=== PATIENT | male | born 1955 | race Caucasian/White ===

== ENCOUNTER 2016-07-30 10:03 | Inpatient (IN) | payer OTHER ==
[~2016-07-30] VITALS: Ht 162.6 cm; Wt 68.0 kg
[~2016-07-30 10:03] MED LIST: ACETYLCYST200 MG/1 M HHN; ACIDOPHILUS1 EAC6 GT; ALBUTEROL2.5 MG/3 M INH; ASCORBIC ACID500 MG GT; ATIVAN1 MG ORAL; COLACE100 MG GT; DOUNEB HHN; FAMOTIDINE20 MG GT; FERROUS SULFAT325 MG GT; HEPARIN2000 UNIT/ SUBQ; LEVOTHYROXINE125 MCG GT; LEVOTHYROXINE150 MCG ORAL; LORAZEPAM2 MG ORAL; MIDODRINE HCL2.5 MG ORAL; MILK OF MA400 MG/51 GT; MORPHINE 22 MG/1 ML IV; MULTIVITAMINS1 EA13 GT; NORCO 5-325 TA1 EAC1 ORAL; NOVOLOG100 UNIT/5; POLYETHYLENE GL17 GM ORAL; PROTEIN POWDER454 GM GT; REFRESH CLASSI1 EACH OP; REGLAN10 MG GT; TYLENOL325 MG GT; UTI-STAT L3875 MG/31 GT; VANCOCIN250 MG IV DRIP; VANCOMYCIN HCL125 MG PO; VANCOMYCIN1 GM/2502 IVPB; ZANTAC150 MG IVP; ZINC SULFATE220 M1 GT; ZOFRAN 4 MG4 MG/2 ML IV
[2016-07-30 10:47] LABS: MEAN CORPUSCULAR HEMOGLOBIN 29.8 PG (27.0-31.0); MEAN CORPUSCULAR HGB CONC 30.6 G/DL (32.0-36.0); MEAN CORPUSCULAR VOLUME 97 FL (80-99); MEAN PLATELET VOLUME 5.6 FL (6.5-10.1); PLATELET COUNT 649 K/UL (150-450); RED BLOOD COUNT 3.16 M/UL (4.70-6.10); RED CELL DISTRIBUTION WIDTH 19.2 % (11.6-14.8)
[2016-07-30 11:00] VITALS: BP 73/50
[2016-07-30 11:01] LABS: ALANINE AMINOTRANSFERASE 23 U/L (3-41); ALBUMIN/GLOBULIN RATIO 0.6 (1.0-2.7); ANION GAP 12 (5-15); ASPARTATE AMINO TRANSFERASE 34 U/L (5-40); CALCIUM 9.1 mg/dL (8.6-10.2); CARBON DIOXIDE 25 mEQ/L (20-30); CHLORIDE 102 mEQ/L (98-107); CREATININE 0.7 mg/dL (0.7-1.2); GLOMERULAR FILTRATION RATE > 60 mL/min (>60); HEMOLYSIS 10; LIPASE 28 U/L (< 60); POTASSIUM 5.1 mEQ/L (3.4-4.9); SODIUM 139 mEQ/L (135-145); TOTAL PROTEIN 6.4 g/dL (6.6-8.7)
[2016-07-30 11:02] LABS: TROPONIN I < 0.30 ng/mL (<=0.30)
[2016-07-30 11:03] LABS: INR 1.2 (0.9-1.1); PROTHROMBIN TIME 11.8 SEC (9.30-11.50)
[2016-07-30 11:04] LABS: APPEARANCE,URINE CLEAR; KETONES,URINE NEGATIVE (NEGATIVE); NITRITE,URINE NEGATIVE (NEGATIVE); PH,URINE 5 (4.5-8.0); PROTEIN,URINE 1+ (NEGATIVE); UROBILINOGEN,URINE NORMAL MG/DL (0.0-1.0)
[2016-07-30 11:05] LABS: BACTERIA,URINE OCCASIONAL /HPF; LEUKOCYTE ESTERASE ,URINE NEGATIVE (NEGATIVE); RBC,URINE 0-2 /HPF (0 - 0); SQUAMOUS EPITHELIAL CELL,UR OCCASIONAL /LPF (NONE/OCC)
[2016-07-30 11:12] LABS: CKMB < 1.5 ng/mL (< 6.7)
[2016-07-30 11:21] LABS: LYMPHOCYTES % (MANUAL) 10 % (20-45); NEUTROPHILS % (MANUAL) 78 % (45-75); TOTAL CELLS COUNTED 100
[2016-07-30 11:22] LABS: BAND NEUTROPHILS % (MANUAL) 0 % (0-8); BASOPHILS % (MANUAL) 0 % (0-2); EOSINOPHILS % (MANUAL) 0 % (0-3); PLATELET ESTIMATE INCREASED; PLATELET MORPHOLOGY NORMAL
[2016-07-30 11:23] LABS: ANISOCYTOSIS 2+; HYPOCHROMASIA 2+
[2016-07-30] MEDS ORDERED: Aztreonam Inj 1 GM in NS 50 ML IV ONE (11:30)
[2016-07-30] MEDS ORDERED: PRO-STAT MAX L887 ML GT (11:47)
[2016-07-30] MEDS ORDERED: MIDODRINE HCL5 MG GT (11:48)
[2016-07-30] MEDS ORDERED: EPOGEN20000 UNI1 SUBQ (11:48)
[2016-07-30 12:15] VITALS: BP 93/65
--- NOTE | 2016-07-30 12:35 | Diagnostic Imaging Report ---
Indications: Chest pain Technique: Portable AP chest Findings: Comparison: 06/30/16 Cardiomegaly, bilateral mixed interstitial and alveolar opacities, probable bilateral pleural effusions are unchanged. Tracheostomy tube remains in place. No new abnormality identified. IMPRESSION: Findings most compatible with congestive heart failure with bilateral pleural effusions, persistent versus recurrent since previous exam. Underlying pneumonia not excludable.
--- NOTE | 2016-07-30 12:43 | Emergency Room Report ---
History of Present Illness General Chief Complaint: Abnormal Labs Source: Family Member, EMS Present Illness HPI Patient presents from nursing facility with fever Patient was here recently with pneumonia Patient is chronically debilitated tracheostomy with vent dependence There was no reports of vomiting or diarrhea patient himself is nonverbal This does limit the history of present illness significantly Patient's family member however is here to provide some input Allergies: Coded Allergies: PENICILLINS (Verified Allergy, Unknown, 04/19/16) Patient History Limited by: medical condition Past Medical History: see triage record Pertinent Family History: unable to obtain Reviewed Nursing Documentation: PMH: Agreed, PSxH: Agreed Nursing Documentation-PMH Hx Cardiac Problems: Yes Hx Hypertension: No Hx Pacemaker: No Hx Asthma: No Hx Diabetes: Yes Hx Cancer: No Hx Dialysis: No Hx Neurological Problems: No Hx Seizures: No Hx Aphasia: Yes Hx Dysphasia: Yes Hx Weakness: Yes Hx Neurologic Surgery: Yes - glioblastoma multiforme s/p resection Review of Systems All Other Systems: limited - Other than the ones mentioned in the history of present illness all others are reviewed however they do stay limited due to the patient's mental status Physical Exam Vital Signs Date Time Temp Pulse Resp B/P Pulse Ox O2 Delivery O2 Flow Rate FiO2 07/30/16 10:04 100.0 110 18 90/50 Mechanical Ventilator 07/30/16 10:12 40 07/30/16 11:00 99 Sp02 EP Interpretation: reviewed, normal General Appearance: other - Patient looks ill, chronically debilitated Head: normocephalic, atraumatic Eyes: bilateral eye PERRL ENT: normal pharynx, no angioedema Neck: supple Respiratory: crackles - Diffusely with decreased breath sounds are right Cardiovascular #1: regular rate, rhythm Gastrointestinal: soft Musculoskeletal: other - Patient is flexed has extremity is contracted, does not follow commands Neurologic: other - Patient responds to verbal stimuli, but nonverbal does not follow commands Skin: other - Multiple skin breakdowns including decubitus ulcers also briefed on the patient's back, Lymphatic: no adenopathy Procedures Critical Care Time Critical Care Time 45 minutes for initial critical presentation Multiple hypotensive episodes concern for cardiopulmonary arrest Not including any procedural time Medical Decision Making Diagnostic Impression: Primary Impression: Sepsis Additional Impressions: Pneumonia CHF (congestive heart failure) ER Course Patient is a fairly complex patient with multiple differential to consideration including but not limited to cardiac cardiopulmonary and vascular emergencies Patient's x-ray shows worsening findings compared to previous Patient initially had hypotensive episode Was given further IV hydration As the patient is tracheostomy with that dependence IV bolus was given with consideration of CHF as it was felt important given the hypotensive presentation Patient has responded well Outpatient antibiotic provided patient admitted for further care Labs Test 07/30/16 10:20 07/30/16 16:05 07/31/16 03:45 White Blood Count 18.0 K/UL (4.8-10.8) 17.6 K/UL (4.8-10.8) Red Blood Count 3.16 M/UL (4.70-6.10) 2.85 M/UL (4.70-6.10) Hemoglobin 9.4 G/DL (14.2-18.0) 8.6 G/DL (14.2-18.0) Hematocrit 30.7 % (42.0-52.0) 27.4 % (42.0-52.0) Mean Corpuscular Volume 97 FL (80-99) 96 FL (80-99) Mean Corpuscular Hemoglobin 29.8 PG (27.0-31.0) 30.1 PG (27.0-31.0) Mean Corpuscular Hemoglobin Concent 30.6 G/DL (32.0-36.0) 31.4 G/DL (32.0-36.0) Red Cell Distribution Width 19.2 % (11.6-14.8) 18.7 % (11.6-14.8) Platelet Count 649 K/UL (150-450) 653 K/UL (150-450) Mean Platelet Volume 5.6 FL (6.5-10.1) 5.5 FL (6.5-10.1) Neutrophils (%) (Auto) % (45.0-75.0) 70.3 % (45.0-75.0) Lymphocytes (%) (Auto) % (20.0-45.0) 19.5 % (20.0-45.0) Monocytes (%) (Auto) % (1.0-10.0) 9.6 % (1.0-10.0) Eosinophils (%) (Auto) % (0.0-3.0) 0.1 % (0.0-3.0) Basophils (%) (Auto) % (0.0-2.0) 0.4 % (0.0-2.0) Differential Total Cells Counted 100 Neutrophils % (Manual) 78 % (45-75) Lymphocytes % (Manual) 10 % (20-45) Monocytes % (Manual) 12 % (1-10) Eosinophils % (Manual) 0 % (0-3) Basophils % (Manual) 0 % (0-2) Band Neutrophils 0 % (0-8) Platelet Estimate Increased Platelet Morphology Normal Hypochromasia 2+ Anisocytosis 2+ Prothrombin Time 11.8 SEC (9.30-11.50) Prothromb Time International Ratio 1.2 (0.9-1.1) Activated Partial Thromboplast Time 25 SEC (23-33) Urine Color Yellow Urine Appearance Clear Urine pH 5 (4.5-8.0) Urine Specific [place] 1.015 (1.005-1.035) Urine Protein 1+ (NEGATIVE) Urine Glucose (UA) Negative (NEGATIVE) Urine Ketones Negative (NEGATIVE) Urine Occult Blood 1+ (NEGATIVE) Urine Nitrite Negative (NEGATIVE) Urine Bilirubin Negative (NEGATIVE) Urine Urobilinogen Normal MG/DL (0.0-1.0) Urine Leukocyte Esterase Negative (NEGATIVE) Urine RBC 0-2 /HPF (0 - 0) Urine WBC 2-4 /HPF (0 - 0) Urine Squamous Epithelial Cells Occasional /LPF Urine Bacteria Occasional /HPF (NONE) Sodium Level 139 mEQ/L (135-145) 139 mEQ/L (135-145) Potassium Level 5.1 mEQ/L (3.4-4.9) 4.5 mEQ/L (3.4-4.9) Chloride Level 102 mEQ/L (98-107) 100 mEQ/L (98-107) Carbon Dioxide Level 25 mEQ/L (20-30) 23 mEQ/L (20-30) Anion Gap 12 (5-15) 16 (5-15) Blood Urea Nitrogen 46 mg/dL (7-23) 34 mg/dL (7-23) Creatinine 0.7 mg/dL (0.7-1.2) 0.5 mg/dL (0.7-1.2) Estimat Glomerular Filtration Rate > 60 mL/min (>60) > 60 mL/min (>60) Glucose Level 130 mg/dL (74-106) 90 mg/dL (74-106) Lactic Acid Level 1.20 mmol/L (0.66-2.22) Calcium Level 9.1 mg/dL (8.6-10.2) 8.6 mg/dL (8.6-10.2) Total Bilirubin 0.3 mg/dL (0.0-1.2) Aspartate Amino Transf (AST/SGOT) 34 U/L (5-40) Alanine Aminotransferase (ALT/SGPT) 23 U/L (3-41) Alkaline Phosphatase 1694 U/L (40-129) Total Creatine Kinase 19 U/L (38-174) Creatine Kinase MB < 1.5 ng/mL (< 6.7) Creatine Kinase MB Relative Index Troponin I < 0.30 ng/mL (<=0.30) Pro-B-Type Natriuretic Peptide 282 pg/mL (0-125) Total Protein 6.4 g/dL (6.6-8.7) Albumin 2.4 g/dL (3.5-5.2) Globulin 4.0 g/dL Albumin/Globulin Ratio 0.6 (1.0-2.7) Lipase 28 U/L (< 60) Arterial Blood pH 7.448 (7.350-7.450) Arterial Blood Partial Pressure CO2 37.9 mmHg (35.0-45.0) Arterial Blood Partial Pressure O2 115.9 mmHg (75.0-100.0) Arterial Blood HCO3 25.6 mmol/L (22.0-26.0) Arterial Blood Oxygen Saturation 98.1 % (92.0-98.0) Arterial Blood Base Excess 1.6 Emmanuel Test Positive Rhythm Strip Diag. Results EP Interpretation: yes Rate: 77 Rhythm: NSR, no PVC's, no ectopy, other - Nonspecific ST and T-wave changes Chest X-Ray Diagnostic Results EP Interpretation: Yes Findings: no pneumothorax, other - Worsening right upper lobe markings congestion and general, cardiomegaly Number of Views: 1 Last Vital Signs Date Time Temp Pulse Resp B/P Pulse Ox O2 Delivery O2 Flow Rate FiO2 07/30/16 12:23 94 20 93/65 40 Room Air 07/30/16 12:15 100.5 40 Status: improved Disposition: ADMITTED INPATIENT Condition: Critical Referrals: JAKUB MORALES (PCP) RUI NOEL D.O. Jul 30, 2016 12:43
[2016-07-30 13:35] VITALS: BP 91/58
[2016-07-30] MEDS ORDERED: LORazepam 1mg tab ORAL PRN (15:00)
[2016-07-30] MEDS ORDERED: Norco 5mg/325mg tab ORAL PRN (15:00)
[2016-07-30] MEDS ORDERED: DuoNeb 0.5-3(2.5)mg/3ml neb HHN PRN (15:00)
[2016-07-30] MEDS ORDERED: LORazepam Inj 2mg/ml 1ml IV PRN (15:45)
[2016-07-30 16:00] VITALS: BP 93/53
[2016-07-30 16:23] LABS: ABG ALLEN TEST POSITIVE; ABG BASE EXCESS 1.6; ABG PCO2 37.9 mmHg (35.0-45.0)
[2016-07-30] MEDS ORDERED: NovoLOG Insulin Flexpen SUBQ SCH ×3 (16:30→18:00)
[2016-07-30] MEDS ORDERED: Heparin 2000 units/Ns 1000ml INJ SCH (18:00)
[2016-07-30] MEDS: NovoLOG Insulin Flexpen SUBQ SCH (18:00)
[2016-07-30] MEDS ORDERED: Vancomycin 1250mg/D5W 250ml IVPB ONE ×2 (19:00)
[2016-07-30 20:00] VITALS: BP 93/49
[2016-07-30] MEDS: Lactobacillus-GG tablet GT SCH (20:28)
[2016-07-30] MEDS: [UNRECOGNIZED DRUG - OTHER] IVPB SCH ×2 (20:29)
[2016-07-30] MEDS: AZTREONAM IVPB SCH ×2 (20:29)
[2016-07-30] MEDS: Heparin 5000 units/ml inj SUBQ SCH (22:15)
--- NOTE | 2016-07-30 22:19 | Consultation ---
Consult Note Assessment/Plan PCCM DICTATED DEON PARK M.D. Jul 30, 2016 22:19
[2016-07-30 23:50] VITALS: BP 120/57
[2016-07-31] MEDS: [UNRECOGNIZED DRUG - OTHER] IVPB SCH ×6 (02:35→18:34)
[2016-07-31] MEDS: AZTREONAM IVPB SCH ×6 (02:35→18:34)
--- NOTE | 2016-07-31 03:28 | Consultation ---
DATE OF CONSULTATION: 07/30/2016 PULMONARY CONSULTATION: CONSULTING PHYSICIAN: Ben Eid M.D. REASON FOR CONSULTATION: Respiratory failure and ventilator dependent. HISTORY OF PRESENT ILLNESS: The patient is a very unfortunate 60-year-old male with a history of glioblastoma, multiform with prior cardiac arrest and anoxic brain injury with chronic respiratory failure on tracheostomy and ventilator, [facility] with sepsis and likely pneumonia. The patient presented to the ED, brought in by EMS with vague complaints, noted to be hypotensive with white count of 18 and possible infiltrate on chest x-ray. He is being admitted to the [facility] for further management. The patient is unable to provide any history whatsoever chest x-ray in the emergency department demonstrated chronic elevation of the right hemidiaphragm with possible basilar infiltrate. PAST MEDICAL HISTORY: 1. Glioblastoma multiforme. 2. Anoxic brain injury. 3. History of cardiac arrest x2 in the past. 4. Ventilator-dependent respiratory failure. 5. Dysphagia and G-tube. 6. Functional quadriplegia. 7. Hypothyroidism. 8. shelter resident. ALLERGIES: Penicillin. MEDICATIONS: Prior to admission, medications reviewed. SOCIAL HISTORY: shelter resident. FAMILY HISTORY: Noncontributory. REVIEW OF SYSTEMS: Unobtainable other than the history of present illness. PHYSICAL EXAMINATION: VITAL SIGNS: Temperature is 100.5 degrees, blood pressure 91/50, saturating 98% on 40% FiO2 on the vent, and pulse is 93. GENERAL: Nonverbal contracted male in no acute distress. HEENT: Normocephalic and atraumatic. Dry mucous membranes. NECK: Supple without lymphadenopathy. There is no JVP. CHEST: Scattered coarse breath sounds at bases. HEART: Regular rate and rhythm. NECK: Trachea is clean, dry, and intact. ABDOMEN: G-tube is clean, dry, and intact. Soft, nontender, and nondistended. EXTREMITIES: No cyanosis, clubbing, or edema, as stated, there is loss of contractures. LABORATORY AND DIAGNOSTIC DATA: White count is 18, hemoglobin 9.4, and platelet count 649,000. INR is 1.2. Chemistry, sodium is 139, potassium 5.1, chloride 92, bicarbonate 25, BUN 46, creatinine 0.7, glucose 130, lactic acid 1.2, calcium 9.1, total bilirubin 0.3, AST 34, ALT 23, and alkaline phosphatase 1694. CK is 19 and CK-MB less than 1.5. Troponin is negative. BNP is 282, protein 6.4, albumin 6.4, and globulin 4. Urinalysis 1+ blood, 1+ protein, and occasional bacteria. Chest x-ray, bibasilar infiltrates and elevation of right hemidiaphragm. ASSESSMENT: The patient is a 60-year-old male, prison resident with ventilator-dependent respiratory failure and anoxic brain injury, history of glioblastoma, and prior cardiac arrest, functional quadriplegia, and dysphagia status post G-tube presenting with sepsis likely secondary to the pneumonia. PROBLEMS: 1. Sepsis. 2. Aspiration pneumonia. 3. Acute on chronic respiratory failure, status post tracheostomy on the ventilator. 4. History of recurrent urinary tract infection and polymicrobial infection. 5. History of glioblastoma multiforme. 6. Anoxic brain injury. 7. History of cardiac arrest in the past. 8. Abnormal liver functions tests. 9. Hypothyroidism. 10. Functional quadriplegia. 11. The patient is a Full Code. TREATMENT PLAN: 1. Admit to [facility]. 2. Continue ventilatory support. 3. We will check an ABG and adjust settings and for now we will continue the patient on the same settings. 4. Thnzl-vuh-edxne and p.r.n. bronchodilators. 5. Continue aztreonam, Levaquin, and vancomycin for H in the setting of penicillin allergy. 6. Intravenous fluid hydration. 7. Monitor volumes. 8. Cardiology and Infectious Disease evaluation. 9. Deep venous thrombosis prophylaxis, heparin subcutaneous. 10. Continue tube feeds as tolerated. 11. Prognosis is poor. Need to continue to address goals of care. Ben Eid M.D. DR: Yamileth JOB#: [id number] CC:
[2016-07-31 04:17] VITALS: BP 104/72
[2016-07-31 05:37] LABS: BASOPHILS % (AUTO) 0.4 % (0.0-2.0); EOSINOPHILS % (AUTO) 0.1 % (0.0-3.0); LYMPHOCYTES % (AUTO) 19.5 % (20.0-45.0); MEAN CORPUSCULAR HEMOGLOBIN 30.1 PG (27.0-31.0); MEAN CORPUSCULAR HGB CONC 31.4 G/DL (32.0-36.0); MEAN CORPUSCULAR VOLUME 96 FL (80-99); MEAN PLATELET VOLUME 5.5 FL (6.5-10.1); MONOCYTES % (AUTO) 9.6 % (1.0-10.0); NEUTROPHILS % (AUTO) 70.3 % (45.0-75.0); PLATELET COUNT 653 K/UL (150-450); RED BLOOD COUNT 2.85 M/UL (4.70-6.10); RED CELL DISTRIBUTION WIDTH 18.7 % (11.6-14.8); WHITE BLOOD COUNT 17.6 K/UL (4.8-10.8)
[2016-07-31] MEDS: NovoLOG Insulin Flexpen SUBQ SCH ×4 (06:00→18:00)
[2016-07-31 06:03] LABS: ANION GAP 16 (5-15); CALCIUM 8.6 mg/dL (8.6-10.2); CARBON DIOXIDE 23 mEQ/L (20-30); CHLORIDE 100 mEQ/L (98-107); CREATININE 0.5 mg/dL (0.7-1.2); GLOMERULAR FILTRATION RATE > 60 mL/min (>60); HEMOLYSIS 0; POTASSIUM 4.5 mEQ/L (3.4-4.9); SODIUM 139 mEQ/L (135-145)
[2016-07-31] MEDS: Vancomycin 750mg/D5W 250ml IVPB SCH ×4 (06:23→18:33)
[2016-07-31 08:00] VITALS: BP 90/56
--- NOTE | 2016-07-31 08:30 | Consultation ---
Consult Note Consult Note ID CONSULT: Lizzie# [id number] Assessment/Plan MICRO: 07/30 BCx pending 07/30 UCx pending / UA(-) 07/30 SCx pending 06/30 Back WCx MDR-K.pneumoniae, VRE.faecalis, CONS, C.albicans 06/28 BCx CONS 1/4 06/29 SCx qI-PSA, P.stuartii 06/26 Back WCx MDR-K.pneumoniae, MDR-ACB 06/17 SCx ESBL(+) K.pneumoniae, qS-PSA, S.maltophilia 06/11 BCx(-) 06/11 UCx >100K E.coli 05/12 Cath tip <10K CONS 05/11 BCx(-) 05/09 BCx CONS 09/20 ( single stick ) 05/09 UCx qR-K.pneumoniae 04/22 SCx qI-PSA 04/19 BCx CONS 10/18 ASSESSMENT: 60-year-old male with: // Multiple decubiti POA, suspect infected - seen by plastics 06/2016, did not recommend debridement at that time - Bone scan 07/01: Limited, essentially nondiagnostic exam. No gross findings to suggest acute osteomyelitis - h/o MDR-K.pneumoniae, VRE.faecalis, CONS, C.albicans // h/o recurrent CONS bacteremia r/o recurrence - surveillance BCx pending - h/o recurrent CONS 2/4 (05/09) SP IV vanco x28d - h/o CONS 3/4 (04/19 ) SP Rx IV vanco x7d - TTE 05/11: poorly visualized valves, poor candidate MARIA C - h/o CONS cath tip colonization ( <10K ) // h/o recurrent PNAs ( VAP / HCAP ) r/o recurrence - SCx pending - CXR 07/30: Findings most compatible with congestive heart failure with bilateral pleural effusions, persistent versus recurrent since previous exam. - h/o qI,S-PSA, P.stuartii, ESBL(+) K.pneumoniae, S.maltophilia // h/o recurrent UTIs r/o recurrence - repeat UA benign, UCx pending - US: Mild left hydronephrosis, new since prior study of 04/21/2016. Etiology not demonstrated but concerning for downstream obstruction - h/o E.coli, K.pneumoniae SP Rx // Elevated LFTs, GGT - chronic, stable - US: Equivocally visualized stone filled gallbladder, versus shadowing from duodenal gas. Mildly dilated CBD, downstream obstruction not excludable, repeat pending - negative: AMA, hepatitis panel // Probable recurrent sepsis // Chronic hypotension, on midodrine // Leukocytosis - improved // Low grade fever Chronic VDRF SP trach, PEG Anoxic encephalopathy / dementia History of glioblastoma multiforme Thrombocytosis Chronic macrocytic anemia Functional quadriplegia / bedbound / contracted [place] resident VRE colonized PCN allergy - unable to qualify. Tolerates cefepime, meropenem Full Code PLAN: continue IV vancomycin, levaquin, aztreonam d# 2 pending cultures ( 07/05 SP IV vancomycin, aztreonam d# 7 / 7 ) ( 06/26 SP Merrem d# 6, cefepime d# 14 ) ( SP IV vancomycin, d# 6 and flagyl d# 3 ) ( SP IV vancomycin d# 28 / 28 ( 05/13 SP aztreonam, amikacin d# 5 / 5 ) ( 05/02 SP aztreonam d# 14 / 14 ) ( 04/25 SP vancomycin d# 7 / 7 ) plastics eval for wound debridement f/u cultures Monitor CBC, temperatures Monitor CMP Monitor chest x-ray vent support, trach care, aspiration precautions wound care contact isolation Thanks! Will follow [place] Jul 31, 2016 08:30
[2016-07-31] MEDS: Miralax 17gm pkt ORAL SCH (09:20)
[2016-07-31] MEDS: Lactobacillus-GG tablet GT SCH ×2 (09:20→18:34)
[2016-07-31] MEDS: Famotidine 20 MG/ 2ML VIAL IVP SCH (09:20)
[2016-07-31] MEDS: Heparin 5000 units/ml inj SUBQ SCH ×2 (09:21→20:59)
--- NOTE | 2016-07-31 11:07 | Consultation ---
DATE OF CONSULTATION: INFECTIOUS DISEASE CONSULTATION CONSULTING PHYSICIAN: Davey Conway M.D. REQUESTING PHYSICIAN: Cherry Wei M.D. REASON FOR CONSULTATION: Recurrent sepsis. HISTORY OF PRESENT ILLNESS: This is a 60-year-old male with multiple medical problems and recurrent multi-drug resistant infections and frequent hospital readmissions admitted from a skilled nursing on 07/30/2016 with fevers. He meets sepsis criteria. Urinalysis is benign. Chest x-ray shows probable CHF more than pneumonia and galo cultures are pending. He does have multiple large decubitus present on admission that are probably infected. He has been started on empiric vancomycin, aztreonam and Levaquin and ID is now consulted to assist in management. PAST MEDICAL HISTORY: 1. Anoxic encephalopathy and dementia. 2. History of glioblastoma multiforme. 3. Functional quadriplegia and bedbound and contracted. 4. Stage IV decubitus ulcers with multi-drug resistant organism and colonization. 5. Chronic ventilator-dependent respiratory failure. 6. Chronic microcytic anemia. 7. Chronic alkaline phosphatase elevation. 8. History of recurrent pneumonias with multi-drug resistant organisms. 9. History of recurrent UTIs with multi-drug resistant organisms. 10. History of recurrent coagulase-negative staph bacteremias. PAST SURGICAL HISTORY: 1. Tracheostomy. 2. PEG tube placement. MEDICATIONS: 1. Vancomycin. 2. Aztreonam. 3. Levaquin. 4. Synthroid. 5. Famotidine. 6. Subcutaneous heparin. 7. Midodrine. ALLERGIES: Penicillin, however has tolerated cefepime and meropenem in the past. SOCIAL HISTORY: The patient is a resident of a skilled nursing. No active tobacco, alcohol, or illicit drug abuse. FAMILY HISTORY: Unknown. REVIEW OF SYSTEMS: Unable to obtain. PHYSICAL EXAMINATION: GENERAL: No apparent distress on the ventilator. VITAL SIGNS: Maximum temperature a 100.5 degrees, blood pressure 104/72, heart rate 107, respiratory rate 22, and saturating 100% on 40% FiO2. HEENT: Tracheostomy tube in place. CARDIOVASCULAR: Regular rate and rhythm. No murmurs. PULMONARY: Coarse breath sounds bilaterally. ABDOMINAL: Bowel sounds present. Soft, nondistended, nontender. PEG tube in place. EXTREMITIES: No edema, and contracted. SKIN: Stage IV sacral decubitus ulcers x2. LABORATORY AND DIAGNOSTIC DATA: White blood cell count 17.6, decreased from 18 with left shift, hemoglobin 8.6, and platelets 653,000. Sodium 139, potassium 4.5, chloride 100, bicarbonate 23, BUN 34, and creatinine 0.5. Lactic acid 1.2. AST 34, ALT 23, and alkaline phosphatase 1694. Total bilirubin 0.38. Troponin negative x1. Lipase 28. Urinalysis, negative. MICROBIOLOGY: 1. On 07/30/2016, blood culture pending. 2. On 07/30/2016, sputum culture pending. 3. On 07/30/2016, urine culture pending. IMAGIN. On 07/30/2016, chest x-ray most compatible with CHF with bilateral pleural effusions with recurrence since previous examination. ASSESSMENT: 1. Multiple decubitus present on admission, suspect infected. The patient was evaluated by plastic surgery last month and did not recommend debridement at this time. A bone scan last month was essentially nondiagnostic. No gross findings to suggest osteomyelitis. He has a history of growth of multi-drug resistant Klebsiella pneumonia and vancomycin-resistant Enterococcus, coag negative staph and Dagmar albicans. 2. History of recurrent coagulase-negative staph bacteremias, rule out recurrence. Surveillance blood cultures are pending. 3. History of recurrent pneumonias, rule out recurrence. Sputum culture is pending. Chest x-ray shows probable congestive heart failure with pneumonia. He has a history of growth of multi-drug resistant organisms. 4. History of recurrent urinary tract infections, rule out recurrence. Repeat urinalysis is benign and urine culture is pending. 5. History of growth of Escherichia coli and Klebsiella pneumoniae. 6. Chronically elevated liver function tests. Abdominal ultrasound is pending. Negative antimitochondrial antibody and hepatitis panel previously. 7. Probable recurrent sepsis. 8. Chronic hypotension, on midodrine. 9. Leukocytosis, improved. 10. Low-grade fever. 11. Chronic microcytic anemia. 12. Chronic ventilator-dependent respiratory failure, status post tracheostomy and percutaneous endoscopic gastrostomy. 13. Anoxic encephalopathy and dementia. 14. History of glioblastoma multiforme. 15. Thrombocytosis. 16. Chronic microcytic anemia. 17. Functional quadriplegia/bed-bound/contracted. 18. [facility] resident. 19. Vancomycin-resistant Enterococcus colonized. 20. Penicillin allergy, however, tolerates cefepime and meropenem. 21. Full Code. PLAN: 1. Continue IV vancomycin, Levaquin and aztreonam day . 2. Pending cultures. 3. Recommend plastics evaluation for wound debridement. 4. Follow up cultures. 5. Monitor CBC and temperatures. 6. Monitor CMP. 7. Monitor chest x-ray. 8. Ventilator support tracheostomy care and aspiration precautions. 9. Wound care. 10. Contact isolation. Thank you. We will follow. Davey Conway M.D. DR: Maren JOB#: [id number] CC: Cherry Wei M.D.; Fax#: [phone] Cruz M.D; Fax#: [phone]
--- NOTE | 2016-07-31 11:51 | Wound Care Consultation ---
Wound Assessment Wound Assessment #1: Wound Present on Admission: Yes New Wound: No Status Change of Wound: No Wound Location Body Site Modif: mid, posterior Wound Location Body Site: other - spinous process Wound Type: pressure ulcer Rashawn Test: Does not Rashawn Pressure Ulcer Stage: IV/unstageable Wound Thickness: Full Thickness Wound Length: 8.0 Wound Width: 8.5 Wound Depth: 3.0 Percent of Wound [place]/Red: 50 Percent of Wound Bed Yellow/Wh: 50 Wound Drainage Description: Serosanguineous Wound Drainage Amount: Copious Wound Drainage Odor: None/Absent Tissue Surrounding Wound: Macerated Wound Undermining at 12:00: 4.5 Wound Undermining at 6:00: 2.5 Undermining Location: 12,6 Wound General Appearance: Reddened, Draining, Necrotic - 50% wound bed is covered in slough., Bone Palpable Wound Assessment #2: Wound Number: #2 Wound Present on Admission: Yes New Wound: No Status Change of Wound: No Wound Location Body Site Modif: left Wound Location Body Site: trochanter Wound Type: pressure ulcer Rashawn Test: Does not Rashawn Pressure Ulcer Stage: IV/unstageable Wound Thickness: Full Thickness Wound Length: 12.0 Wound Width: 12.0 Wound Depth: utd Percent of Wound Black/Brown: 100 Wound Drainage Description: Serosanguineous Wound Drainage Amount: Moderate Wound Drainage Odor: None/Absent Tissue Surrounding Wound: Macerated Wound General Appearance: Blackened, Draining, Necrotic Wound Assessment #3: Wound Number: #3 Wound Present on Admission: Yes New Wound: No Status Change of Wound: No Wound Location Body Site Modif: left, lateral Wound Location Body Site: malleolus/ankle Wound Type: pressure ulcer Rashawn Test: Does not Rashawn Pressure Ulcer Stage: deep tissue injury Wound Thickness: Full Thickness Wound Length: 1.5 Wound Width: 1.5 Wound Depth: UTD Percent of Wound [place]/Red: 50 Percent of Wound Purple/Maroon: 50 Wound Drainage Amount: None Wound Drainage Odor: None/Absent Tissue Surrounding Wound: Erythemic Wound General Appearance: Reddened - 50% dark red,50% maroon . Wound Assessment #4: Wound Number: #4 Wound Present on Admission: Yes New Wound: No Status Change of Wound: No Wound Location Body Site Modif: left, mid, lateral Wound Location Body Site: foot Wound Type: pressure ulcer Rashawn Test: Does not Rashawn Pressure Ulcer Stage: deep tissue injury Wound Thickness: Full Thickness Wound Length: 1.0 Wound Width: 1.0 Wound Depth: UTD Percent of Wound Purple/Maroon: 100 Wound Drainage Amount: None Wound Drainage Odor: None/Absent Tissue Surrounding Wound: Erythemic Wound General Appearance: Reddened Wound Assessment #5: Wound Number: #5 Wound Present on Admission: Yes New Wound: No Status Change of Wound: No Wound Location Body Site Modif: left Wound Location Body Site: metatarsal head - 5th Wound Type: pressure ulcer Rashawn Test: Does not Rashawn Pressure Ulcer Stage: deep tissue injury Wound Thickness: Full Thickness Wound Length: 2.0 Wound Width: 1.5 Percent of Wound [place]/Red: 50 Percent of Wound Purple/Maroon: 50 Wound Drainage Amount: None Wound Drainage Odor: None/Absent Tissue Surrounding Wound: Erythemic Wound General Appearance: Reddened Wound Assessment #6: Wound Number: #6 Wound Present on Admission: Yes New Wound: No Status Change of Wound: No Wound Location Body Site Modif: left Wound Location Body Site: ischial tuberosity Wound Type: pressure ulcer Rashawn Test: Does not Rashawn Pressure Ulcer Stage: deep tissue injury Wound Thickness: Full Thickness Wound Length: 4.0 Wound Width: 4.0 Wound Depth: utd Percent of Wound Purple/Maroon: 100 Wound Drainage Amount: None Wound Drainage Odor: None/Absent Tissue Surrounding Wound: Erythemic Wound General Appearance: Reddened Wound Assessment #7: Wound Number: #7 Wound Present on Admission: Yes New Wound: No Status Change of Wound: No Wound Location Body Site Modif: right Wound Location Body Site: trochanter Wound Type: pressure ulcer Rashawn Test: Does not Rashawn Pressure Ulcer Stage: I Wound Length: 3.0 Wound Width: 3.0 Percent of Wound [place]/Red: 100 Wound Drainage Amount: None Wound Drainage Odor: None/Absent Tissue Surrounding Wound: Erythemic Wound General Appearance: Reddened Wound Assessment #8: Wound Number: #8 Wound Present on Admission: Yes New Wound: No Status Change of Wound: No Wound Location Body Site Modif: right, lateral Wound Location Body Site: malleolus/ankle Wound Type: pressure ulcer Rashawn Test: Does not Rashawn Pressure Ulcer Stage: deep tissue injury Wound Thickness: Full Thickness Wound Length: 1.0 Wound Width: 1.0 Percent of Wound [place]/Red: 50 Percent of Wound Purple/Maroon: 50 Wound Drainage Amount: None Wound Drainage Odor: None/Absent Tissue Surrounding Wound: Erythemic Wound General Appearance: Reddened Wound Assessment #9: Wound Number: #9 Wound Present on Admission: Yes New Wound: No Status Change of Wound: No Wound Location Body Site Modif: right, lateral Wound Location Body Site: malleolus/ankle Wound Type: pressure ulcer Rashawn Test: Does not Rashawn Pressure Ulcer Stage: deep tissue injury Wound Thickness: Full Thickness Wound Length: 1.5 Wound Width: 1.5 Percent of Wound [place]/Red: 50 Percent of Wound Purple/Maroon: 50 Wound Drainage Amount: None Wound Drainage Odor: None/Absent Tissue Surrounding Wound: Erythemic Wound General Appearance: Reddened Wound Assessment #10: Wound Number: #10 Wound Present on Admission: Yes New Wound: No Status Change of Wound: No Wound Location Body Site Modif: right, posterior Wound Location Body Site: shoulder Wound Type: pressure ulcer Rashawn Test: Does not Rashawn Pressure Ulcer Stage: deep tissue injury Wound Thickness: Full Thickness Wound Length: 2.0 Wound Width: 2.0 Percent of Wound [place]/Red: 50 Percent of Wound Purple/Maroon: 50 Wound Drainage Amount: None Wound Drainage Odor: None/Absent Tissue Surrounding Wound: Erythemic Wound General Appearance: Reddened Wound Comment #1 Posterior Mid Spinous Process Pressure Ulcer Stage IV/Unstageable. #2 Left Trochanter Pressure Ulcer Stage IV/Unstageable. #3 Left Lateral Malleolus Pressure Ulcer Deep Tissue Injury. #4 Left lateral Mid foot Pressure Ulcer Deep Tissue Injury. #5 Left 5th Metatarsal Pressure Ulcer Deep Tissue Injury. #6 Left Ischial Tuberosity Pressure Ulcer Deep Tissue Injury. #7 Right Trochanter Pressure Ulcer Deep Tissue Injury. #8 Right Lateral Malleolus Pressure Ulcer Deep Tissue Injury. #9 Right Posterior Shoulder Pressure Ulcer Deep Tissue Injury. Recommendation -Local wound care as ordered. -Turn and reposition. -Keep clean and dry. -Optimize Nutrition. -Low air Loss mattress with AP. -Heel Protectors. -Offload heels and feet. KARINA KINGSTON Jul 31, 2016 11:51
[2016-07-31 12:00] VITALS: BP 94/56
--- NOTE | 2016-07-31 12:39 | Pulmonology Progress Note ---
Assessment/Plan Problems: (1) Pneumonia (2) Abnormal LFTs (3) Bilateral pneumonia (4) Feeding by G-tube (5) Acute and chronic respiratory failure (6) Sepsis Assessment/Plan PROBLEMS: 1. Sepsis. 2. Aspiration pneumonia. 3. Acute on chronic respiratory failure, status post tracheostomy on the ventilator. 4. History of recurrent urinary tract infection and polymicrobial infection. 5. History of glioblastoma multiforme. 6. Anoxic brain injury. 7. History of cardiac arrest in the past. 8. Abnormal liver functions tests. 9. Hypothyroidism. 10. Functional quadriplegia. 11. The patient is a Full Code. TREATMENT PLAN: 1. Optimize pulmonary hygiene/mobilize as tolerated 2. Continue ventilatory support/settings reviewed 3. Oral and ET suctioning 4. RTC and PRN bronchodilators. 5. Abx per ID, F/U Cx's 6. Wound care, plastics eval 7. Monitor volumes/IVF hydration 8. F/U cardiology recs 9. DVT Rx: Hep SQ 10. TF's as tolerated (held for abdominal U/S) 11. Prognosis is poor. Need to continue to address goals of care/extensive discussions with mother today. CCT 60 Subjective Allergies: Coded Allergies: PENICILLINS (Verified Allergy, Unknown, 04/19/16) Subjective Tm 102.2, SBP 90s, HR 90-100 Stable on vent, FiO2 40% Gas exchange adequate 3.1/1.1 (+2L) WCt slightly improved, seen by ID, Cx's pending + thick yellow creamy secretions, TF's held for abd U/S but was jean earlier Objective Last 24 Hour Vital Signs Date Time Temp Pulse Resp B/P Pulse Ox O2 Delivery O2 Flow Rate FiO2 07/31/16 12:06 40 07/31/16 12:00 102.2 102 21 94/56 99 Mechanical Ventilator 40 07/31/16 11:26 89 20 40 07/31/16 08:55 103 20 40 07/31/16 08:00 99.5 104 21 90/56 98 Mechanical Ventilator 07/31/16 07:38 40 07/31/16 07:38 107 07/31/16 07:20 100 22 40 07/31/16 05:05 106 20 40 07/31/16 04:22 112 07/31/16 04:17 100.4 106 21 104/72 98 Mechanical Ventilator 07/31/16 04:00 40 07/31/16 03:00 98 24 40 07/31/16 00:58 101 20 40 07/31/16 00:00 40 07/30/16 23:50 100.0 102 20 120/57 97 Mechanical Ventilator 07/30/16 23:30 103 07/30/16 23:13 100 24 40 07/30/16 21:08 100 20 40 07/30/16 20:01 40 07/30/16 20:00 97 07/30/16 20:00 98.6 102 21 93/49 98 Mechanical Ventilator 40 07/30/16 19:00 99 20 40 07/30/16 16:53 99 20 40 07/30/16 16:00 67 07/30/16 16:00 97.5 94 20 93/53 99 Mechanical Ventilator 40 07/30/16 16:00 40 07/30/16 15:30 99 20 40 07/30/16 13:35 97.9 92 22 91/58 98 Mechanical Ventilator 40 07/30/16 12:49 96 20 40 Intake and Output 07/30/16 07/31/16 19:00 07:00 Intake Total 1240 ml 1970 ml Output Total 1100 ml Balance 1240 ml 870 ml Intake Free Water 50 ml 100 ml IV Total 1750 ml Tube Feeding 30 ml 120 ml Other 1160 ml Output Urine Total 1100 ml # Bowel Movements 1 1 General Appearance: no acute distress, other - non-verbal HEENT: normocephalic, atraumatic, mucous membranes moist, status post trach Respiratory/Chest: rhonchi - scattered Cardiovascular: tachycardia Abdomen: normal bowel sounds, soft, non tender, no organomegaly, non distended , other - GT Extremities: no cyanosis, no clubbing, no edema, other - contracted Laboratory Tests 07/30/16 16:05: Arterial Blood pH 7.448, Arterial Blood Partial Pressure CO2 37.9, Arterial Blood Partial Pressure O2 115.9H, Arterial Blood HCO3 25.6, Arterial Blood Oxygen Saturation 98.1H, Arterial Blood Base Excess 1.6, Emmanuel Test Positive 07/31/16 03:45: White Blood Count 17.6H, Red Blood Count 2.85L, Hemoglobin 8.6L, Hematocrit 27.4L, Mean Corpuscular Volume 96, Mean Corpuscular Hemoglobin 30.1, Mean Corpuscular Hemoglobin Concent 31.4L, Red Cell Distribution Width 18.7H, Platelet Count 653H, Mean Platelet Volume 5.5L, Neutrophils (%) (Auto) 70.3, Lymphocytes (%) (Auto) 19.5L, Monocytes (%) (Auto) 9.6, Eosinophils (%) (Auto) 0.1, Basophils (%) (Auto) 0.4, Sodium Level 139, Potassium Level 4.5, Chloride Level 100, Carbon Dioxide Level 23, Anion Gap 16H, Blood Urea Nitrogen 34H, Creatinine 0.5L, Estimat Glomerular Filtration Rate > 60, Glucose Level 90, Calcium Level 8.6 Current Medications Medications (Trade) Dose Ordered Sig/Tanisha Route PRN Reason Start Time Stop Time Status Last Admin Dose Admin Acetaminophen (Tylenol) 650 mg Q4H PRN ORAL Mild Pain/Temp > 100.5 07/30/16 15:00 08/29/16 14:59 Acetaminophen/ Hydrocodone Bitart ([place] 5/325) 2 tab Q8H PRN ORAL For SEVERE PAIN 07/30/16 15:00 08/06/16 14:59 Albuterol/ Ipratropium (DuoNeb 0.5-3(2.5)mg/3ml) 3 ml Q4H PRN HHN Shortness of Breath 07/30/16 15:00 08/04/16 14:59 Aztreonam 2 gm/ Dextrose 100 ml @ 200 mls/hr Q8HR@0200,1000,1800 IVPB 07/30/16 18:00 08/06/16 17:59 07/31/16 09:23 Dextrose (Dextrose 50%) STAT PRN IV Hypoglycemia 07/30/16 14:45 08/29/16 14:44 Famotidine (Pepcid I.v.) 20 mg DAILY IVP 07/31/16 09:00 08/30/16 08:59 07/31/16 09:20 Heparin Sodium (Porcine) (Heparin 5000 units/ml) 5,000 units EVERY 12 HOURS SUBQ 07/30/16 21:00 08/29/16 20:59 07/31/16 09:21 Insulin Aspart EVERY 6 HOURS SUBQ 07/30/16 18:00 08/29/16 17:59 Lactobacillus Acidophilus (Culturelle) 1 tab TWICE A DAY GT 07/30/16 18:00 08/29/16 17:59 07/31/16 09:20 Levofloxacin 150 ml @ 150 mls/hr Q24H IVPB 07/30/16 17:00 08/06/16 16:59 07/30/16 19:27 Levothyroxine Sodium (Synthroid) 200 mcg DAILY GT 07/31/16 09:00 08/30/16 08:59 07/31/16 09:20 Lorazepam (Ativan) 1 mg Q6H PRN ORAL For Anxiety 07/30/16 15:00 08/06/16 14:59 Midodrine 5 mg 5 mg THREE TIMES A DAY GT 07/30/16 18:00 08/29/16 17:59 07/31/16 09:20 Ondansetron HCl (Zofran) 4 mg Q6H PRN IV Nausea & Vomiting 07/30/16 15:00 08/29/16 14:59 Polyethylene Glycol (Miralax) 17 gm DAILY ORAL 07/31/16 09:00 08/30/16 08:59 07/31/16 09:20 Sodium Chloride (Sodium Chloride 1000ml bag) 1,000 ml @ 100 mls/hr Q10H IV 07/30/16 17:00 08/29/16 16:59 07/31/16 03:04 Vancomycin HCl (Vanco rx to dose) 1 ea DAILY PRN MISC Per rx protocol 07/30/16 15:15 08/29/16 15:14 Vancomycin HCl/ Dextrose (Vancomycin/D5W 250ml) 250 ml @ 167 mls/hr Q12HR@0700,1900 IVPB 07/31/16 07:00 08/05/16 06:59 07/31/16 06:23 EDON PARK M.D. Jul 31, 2016 12:39
[2016-07-31 16:00] VITALS: BP 119/43
--- NOTE | 2016-07-31 18:51 | History & Physical ---
History and Physical History & Physicial Dictated for Int Med-Dr Wei no. [id number]. IRMA SLOAN Jul 31, 2016 18:51
[2016-07-31] MEDS ORDERED: Tubing IV Secondary IV ONE (19:05)
--- NOTE | 2016-07-31 19:32 | Consultation ---
History of Present Illness General Date patient seen: Jul 31, 2016 Time patient seen: 19:20 Chief Complaint: Abnormal Labs Reason for Consultation: Pressure ulcers Present Illness HPI Patient is a 60 yom who is bedridden with PEG and trach who is readmitted to [facility] for sepsis. He has had multiple admissions from SNF for sepsis, UTI and has a history of chronic pressure ulcers of the midback and the left trochanter. He has severe contractures as well as kyphosis. Upon this admission he was found to have an elevated WBC and asked to evaluate if the ulcers are the source of infection. Allergies: Coded Allergies: PENICILLINS (Verified Allergy, Unknown, 04/19/16) Medication History Scheduled Amino Acids/Protein Hydrolys (Pro-Stat Max Liquid), 30 ML GT TID, (Reported) Epoetin Bobby (Epogen), 5,000 UNIT SUBQ 3XW, (Reported) Famotidine (Famotidine), 20 MG GT Q12HR, (Reported) Heparin Sodium,Porcine/Ns/Pf (Heparin), 5,000 UNIT SUBQ BID, (Reported) Lactobacillus Acidophilus (Acidophilus), 1 EACH GT DAILY, (Reported) Levothyroxine Sodium* (Levothyroxine Sodium*), 200 MCG GT DAILY, (Reported) Midodrine* (Proamatine*), 2.5 MG ORAL THREE TIMES A DAY, (Reported) Midodrine* (Proamatine*), 5 MG GT THREE TIMES A DAY, (Reported) Polyethylene Glycol 3350* (Polyethylene Glycol 3350*), 17 GM ORAL DAILY, ( Reported) Scheduled PRN Hydrocodone Bit/Acetaminophen 5-325* ([place] 5-325 Tablet*), 2 TAB ORAL EVERY 8 HOURS PRN for For Pain, (Reported) Lorazepam* (Ativan*), 1 MG ORAL EVERY 6 HOURS PRN for For Anxiety, (Reported) Ondansetron* (Zofran*), 4 MG IV Q6H PRN for Nausea & Vomiting, (Reported) Polyvinyl Alcohol/Povidone/Pf (Refresh Classic Eye Drops), 1 EACH OP TID PRN for Dry Eyes, (Reported) Miscellaneous Medications Insulin Aspart (Novolog), (Reported) Patient History Limited by: medical condition History Provided By: Medical Record Healthcare decision maker Resuscitation status Chemical (Meds Only) Advanced Directive on File No Physical Exam General Appearance: thin Lines, tubes and drains: trach, gtube, arceo cath Respiratory/Chest: no respiratory distress Abdomen: non tender, soft Extremities: other - Severe flexion contractures of hips and knees Skin Exam: other - Left trochanter ulcer with large unstageable ulcer. Eschar present and beginning to separate from 12-6 oclock. Periskin with no erythema or fluctuance. Mid back ulcer with some fibrotic debris but no necrotic tissue. Evidence of granualtion tissue peripherally. Musculoskeletal: atrophy Last 24 Hour Vital Signs Date Time Temp Pulse Resp B/P Pulse Ox O2 Delivery O2 Flow Rate FiO2 07/31/16 16:59 86 20 40 07/31/16 16:00 98.2 93 20 119/43 99 Mechanical Ventilator 40 07/31/16 15:07 80 20 40 07/31/16 13:12 88 21 40 07/31/16 12:06 40 07/31/16 12:00 102.2 102 21 94/56 99 Mechanical Ventilator 40 07/31/16 11:26 89 20 40 07/31/16 08:55 103 20 40 07/31/16 08:00 99.5 104 21 90/56 98 Mechanical Ventilator 07/31/16 07:38 40 07/31/16 07:38 107 07/31/16 07:20 100 22 40 07/31/16 05:05 106 20 40 07/31/16 04:22 112 07/31/16 04:17 100.4 106 21 104/72 98 Mechanical Ventilator 07/31/16 04:00 40 07/31/16 03:00 98 24 40 07/31/16 00:58 101 20 40 07/31/16 00:00 40 07/30/16 23:50 100.0 102 20 120/57 97 Mechanical Ventilator 07/30/16 23:30 103 07/30/16 23:13 100 24 40 07/30/16 21:08 100 20 40 07/30/16 20:01 40 07/30/16 20:00 97 07/30/16 20:00 98.6 102 21 93/49 98 Mechanical Ventilator 40 Intake and Output 07/30/16 07/31/16 19:00 07:00 Intake Total 1240 ml 1970 ml Output Total 1100 ml Balance 1240 ml 870 ml Intake Free Water 50 ml 100 ml IV Total 1750 ml Tube Feeding 30 ml 120 ml Other 1160 ml Output Urine Total 1100 ml # Bowel Movements 1 1 Laboratory Tests Test 07/31/16 03:45 White Blood Count 17.6 K/UL (4.8-10.8) H Red Blood Count 2.85 M/UL (4.70-6.10) L Hemoglobin 8.6 G/DL (14.2-18.0) L Hematocrit 27.4 % (42.0-52.0) L Mean Corpuscular Volume 96 FL (80-99) Mean Corpuscular Hemoglobin 30.1 PG (27.0-31.0) Mean Corpuscular Hemoglobin Concent 31.4 G/DL (32.0-36.0) L Red Cell Distribution Width 18.7 % (11.6-14.8) H Platelet Count 653 K/UL (150-450) H Mean Platelet Volume 5.5 FL (6.5-10.1) L Neutrophils (%) (Auto) 70.3 % (45.0-75.0) Lymphocytes (%) (Auto) 19.5 % (20.0-45.0) L Monocytes (%) (Auto) 9.6 % (1.0-10.0) Eosinophils (%) (Auto) 0.1 % (0.0-3.0) Basophils (%) (Auto) 0.4 % (0.0-2.0) Sodium Level 139 mEQ/L (135-145) Potassium Level 4.5 mEQ/L (3.4-4.9) Chloride Level 100 mEQ/L (98-107) Carbon Dioxide Level 23 mEQ/L (20-30) Anion Gap 16 (5-15) H Blood Urea Nitrogen 34 mg/dL (7-23) H Creatinine 0.5 mg/dL (0.7-1.2) L Estimat Glomerular Filtration Rate > 60 mL/min (>60) Glucose Level 90 mg/dL (74-106) Calcium Level 8.6 mg/dL (8.6-10.2) Height (Feet): 5 Height (Inches): 5.00 Weight (Pounds): 150 Medications Current Medications Medications (Trade) Dose Ordered Sig/Tanisha Route PRN Reason Start Time Stop Time Status Last Admin Dose Admin Acetaminophen (Tylenol) 650 mg Q4H PRN ORAL Mild Pain/Temp > 100.5 07/30/16 15:00 08/29/16 14:59 07/31/16 18:34 Acetaminophen/ Hydrocodone Bitart ([place] 5/325) 2 tab Q8H PRN ORAL For SEVERE PAIN 07/30/16 15:00 08/06/16 14:59 Albuterol/ Ipratropium (DuoNeb 0.5-3(2.5)mg/3ml) 3 ml Q4H PRN HHN Shortness of Breath 07/30/16 15:00 08/04/16 14:59 Aztreonam 2 gm/ Dextrose 100 ml @ 200 mls/hr Q8HR@0200,1000,1800 IVPB 07/30/16 18:00 08/06/16 17:59 07/31/16 18:34 Collagenase (Santyl) 1 applic DAILY TOPIC 08/01/16 09:00 08/31/16 08:59 Dextrose (Dextrose 50%) STAT PRN IV Hypoglycemia 07/30/16 14:45 08/29/16 14:44 Famotidine (Pepcid I.v.) 20 mg DAILY IVP 07/31/16 09:00 08/30/16 08:59 07/31/16 09:20 Heparin Sodium (Porcine) (Heparin 5000 units/ml) 5,000 units EVERY 12 HOURS SUBQ 07/30/16 21:00 08/29/16 20:59 07/31/16 09:21 Insulin Aspart EVERY 6 HOURS SUBQ 07/30/16 18:00 08/29/16 17:59 Lactobacillus Acidophilus (Culturelle) 1 tab TWICE A DAY GT 07/30/16 18:00 08/29/16 17:59 07/31/16 18:34 Levofloxacin 150 ml @ 150 mls/hr Q24H IVPB 07/30/16 17:00 08/06/16 16:59 07/31/16 17:10 Levothyroxine Sodium (Synthroid) 200 mcg DAILY GT 07/31/16 09:00 08/30/16 08:59 07/31/16 09:20 Lorazepam (Ativan) 1 mg Q6H PRN ORAL For Anxiety 07/30/16 15:00 08/06/16 14:59 Midodrine 5 mg 5 mg THREE TIMES A DAY GT 07/30/16 18:00 08/29/16 17:59 07/31/16 18:35 Ondansetron HCl (Zofran) 4 mg Q6H PRN IV Nausea & Vomiting 07/30/16 15:00 08/29/16 14:59 Polyethylene Glycol (Miralax) 17 gm DAILY ORAL 07/31/16 09:00 08/30/16 08:59 07/31/16 09:20 Sodium Chloride (Sodium Chloride 1000ml bag) 1,000 ml @ 100 mls/hr Q10H IV 07/30/16 17:00 08/29/16 16:59 07/31/16 13:02 Vancomycin HCl (Vanco rx to dose) 1 ea DAILY PRN MISC Per rx protocol 07/30/16 15:15 08/29/16 15:14 Vancomycin HCl/ Dextrose (Vancomycin/D5W 250ml) 250 ml @ 167 mls/hr Q12HR@0700,1900 IVPB 07/31/16 07:00 08/05/16 06:59 07/31/16 18:33 Assessment/Plan Status: stable Assessment/Plan Patient with unstageable left trochanter ulcer and stage 4 midback pressure ulcer. Though I do not feel the ulcers are responsible for this degree of leukocytosis, the patient may benefit from excisional debridement of the left trochanter ulcer and debridement of mid back ulcer. He may need bone biopsies if bone is exposed at the base of the ulcer as prior radiographic attempts to establish diagnosis of osteomyelitis were unsuccessful given his body habitus. Will discuss with PCP to see if patient can be medically cleared for surgery and if so, will need to obtain consent. EVERARDO DIAS Jul 31, 2016 19:32
[2016-07-31 20:00] VITALS: BP 107/42
[2016-08-01] VITALS: BP 104/54
[2016-08-01] MEDS: [UNRECOGNIZED DRUG - OTHER] IVPB SCH ×6 (02:25→17:57)
[2016-08-01] MEDS: AZTREONAM IVPB SCH ×6 (02:25→17:57)
--- NOTE | 2016-08-01 03:07 | History and Physical Report ---
DATE OF ADMISSION: 07/30/[address] Wei. CHIEF COMPLAINT: The patient is a 60-year-old, male, who presents with a chief complaint of respiratory distress. HISTORY OF PRESENT ILLNESS: The patient is a resident of [facility]. The patient has a history of vent dependent respiratory failure. According to staff at [facility], the patient began experiencing increasing respiratory distress. The patient was transported to [place] emergency room. The patient is admitted for pneumonia and respiratory distress. PAST MEDICAL HISTORY: Significant for, 1. Glioblastoma multiforme. 2. Chronic respiratory failure with tracheostomy and vent dependence. 3. Anoxic brain injury. 4. History of cardiac arrest x2 in the past. 5. Dysphagia with G-tube placement. 6. Functional quadriplegia. 7. Hypothyroidism. PAST SURGICAL HISTORY: Significant for tracheostomy. CURRENT MEDICATIONS: 1. Erythropoietin 5000 units subcutaneously 3 times weekly. 2. Pepcid 20 mg per G-tube q.12 hours. 3. Heparin 5000 units subcutaneously twice daily. 4. [place] 5/325 mg one tablet per G-tube p.r.n. 5. NovoLog sliding scale. 6. Levoxyl 200 mcg one tablet p.o. daily. 7. Ativan 1 mg per G-tube q.6 h. 8. ProAmatine 2.5 mg per G-tube three times daily. 9. Zofran 4 mg IV q.6 h. ALLERGIES: Penicillin. SOCIAL HISTORY: The patient is a resident of [facility]. The patient denies tobacco or alcohol use. REVIEW OF SYSTEMS: Unable to obtain secondary to patient's mental status. PHYSICAL EXAMINATION: VITAL SIGNS: Temperature afebrile 98.2 to 102.2 degrees, respirations 20 to 21, blood pressure 94 to 119/42 to 46, and pulse tachycardic 80 to 102. GENERAL: The patient is a well-developed, well-nourished male, who appears older than his stated age. HEENT: Neck has tracheostomy in place. CARDIOVASCULAR: Regular rhythm and rate. S1 and S2 normal without murmurs, rubs, or gallops. ABDOMEN: Soft, nontender, and nondistended. Positive bowel sounds. No evidence of hepatosplenomegaly. Currently, no rebound or guarding noted. EXTREMITIES: Negative for clubbing, cyanosis, or edema. RECTAL/GENITAL: Refused. NEUROLOGIC: Unable to assess. LABORATORY STUDIES: WBC 18.2, hemoglobin 9.4, hematocrit 30.7, and platelets 649,000. Sodium 139, potassium 5.1, chloride 102, CO2 25, BUN 46, creatinine 0.7, and glucose 138. Chest x-ray revealed bilateral lower lobe consolidation. ASSESSMENT: This is a 60-year-old, male. 1. Pneumonia. 2. Respiratory failure. 3. Glioblastoma multiforme. 4. Diabetes mellitus. 5. History of anoxic brain injury. 6. Coronary artery disease. 7. Dysphagia. 8. Hypothyroidism. 9. Functional quadriplegia. TREATMENT: 1. Pneumonia. The patient has been placed empirically on vancomycin and . Sputum culture is pending. 2. Respiratory failure, chronic ventilator dependent. The patient is status post tracheostomy. A Pulmonary consultation has been obtained with Dr. Eid. 3. Glioblastoma multiforme. 4. Diabetes type 2. Continue NovoLog sliding scale. 5. Anoxic brain injury. 6. Coronary artery disease. 7. Dysphagia, status post G-tube placement. 8. Hypothyroidism. Continue Levoxyl as above. Ric Banuelos M.D. DR: TAMMY JOB#: [id number] CC:
[2016-08-01 04:00] VITALS: BP 99/61
[2016-08-01] MEDS: NovoLOG Insulin Flexpen SUBQ SCH ×5 (06:00→23:58)
[2016-08-01 07:57] LABS: MEAN CORPUSCULAR VOLUME 97 FL (80-99); MEAN PLATELET VOLUME 5.3 FL (6.5-10.1); PLATELET COUNT 604 K/UL (150-450); RED BLOOD COUNT 2.51 M/UL (4.70-6.10); RED CELL DISTRIBUTION WIDTH 18.5 % (11.6-14.8); WHITE BLOOD COUNT 16.3 K/UL (4.8-10.8)
--- NOTE | 2016-08-01 07:58 | Infectious Diseases Prog Note ---
Assessment/Plan Assessment/Plan MICRO: 07/30 BCx NGTD 07/30 UCx pending / UA(-) 07/30 SCx pending 06/30 Back WCx MDR-K.pneumoniae, VRE.faecalis, CONS, C.albicans 06/28 BCx CONS 1/4 06/29 SCx qI-PSA, P.stuartii 06/26 Back WCx MDR-K.pneumoniae, MDR-ACB 06/17 SCx ESBL(+) K.pneumoniae, qS-PSA, S.maltophilia 06/11 BCx(-) 06/11 UCx >100K E.coli 05/12 Cath tip <10K CONS 05/11 BCx(-) 05/09 BCx CONS / ( single stick ) 05/09 UCx qR-K.pneumoniae 04/22 SCx qI-PSA 04/19 BCx CONS 10/18 ASSESSMENT: 60-year-old male with: // Multiple decubiti POA, suspect infected - seen by plastics, plan possible debridement - Bone scan 07/01: Limited, essentially nondiagnostic exam. No gross findings to suggest acute osteomyelitis - h/o MDR-K.pneumoniae, VRE.faecalis, CONS, C.albicans // h/o recurrent CONS bacteremia r/o recurrence - surveillance BCx NGTD - h/o recurrent CONS 2/4 (05/09) SP IV vanco x28d - h/o CONS 3/4 (04/19 ) SP Rx IV vanco x7d - TTE 05/11: poorly visualized valves, poor candidate MARIA C - h/o CONS cath tip colonization ( <10K ) // h/o recurrent PNAs ( VAP / HCAP ) r/o recurrence - SCx pending - CXR 07/30: Findings most compatible with congestive heart failure with bilateral pleural effusions, persistent versus recurrent since previous exam. - h/o qI,S-PSA, P.stuartii, ESBL(+) K.pneumoniae, S.maltophilia // h/o recurrent UTIs r/o recurrence - repeat UA benign, UCx pending - US: Mild left hydronephrosis, new since prior study of 04/21/2016. Etiology not demonstrated but concerning for downstream obstruction - h/o E.coli, K.pneumoniae SP Rx // Elevated LFTs, GGT - chronic, stable - US: Equivocally visualized stone filled gallbladder, versus shadowing from duodenal gas. Mildly dilated CBD, downstream obstruction not excludable, repeat pending - negative: AMA, hepatitis panel // Probable recurrent sepsis // Chronic hypotension, on midodrine // Leukocytosis - improved. 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 Tolerates cefepime, meropenem Full Code PLAN: continue IV vancomycin, levaquin, aztreonam d# 3 pending cultures ( 07/05 SP IV vancomycin, aztreonam d# 7 / 7 ) ( 06/26 SP Merrem d# 6, cefepime d# 14 ) ( SP IV vancomycin, d# 6 and flagyl d# 3 ) ( SP IV vancomycin d# 28 / 28 ( 05/13 SP aztreonam, amikacin d# 5 / 5 ) ( 05/02 SP aztreonam d# 14 / 14 ) ( 04/25 SP vancomycin d# 7 / 7 ) debridement per plastics f/u cultures Monitor CBC, temperatures Monitor CMP Monitor chest x-ray vent support, trach care, aspiration precautions wound care contact isolation Subjective Allergies: Coded Allergies: PENICILLINS (Verified Allergy, Unknown, 04/19/16) Subjective fevers improved seen by plastics, plan possible debridement labs pending Objective Vital Signs Last 24 Hour Vital Signs Date Time Temp Pulse Resp B/P Pulse Ox O2 Delivery O2 Flow Rate FiO2 08/01/16 05:07 85 24 40 08/01/16 04:00 40 08/01/16 04:00 62 08/01/16 04:00 98.6 98 20 99/61 99 Mechanical Ventilator 40 08/01/16 03:01 83 23 40 08/01/16 00:55 84 27 40 08/01/16 00:00 40 08/01/16 00:00 99.1 96 23 104/54 99 Mechanical Ventilator 40 08/01/16 00:00 90 07/31/16 23:09 67 22 40 07/31/16 21:00 94 22 40 07/31/16 20:00 40 07/31/16 20:00 98.8 96 23 107/42 99 Mechanical Ventilator 40 07/31/16 20:00 93 07/31/16 19:36 95 24 40 07/31/16 16:59 86 20 40 07/31/16 16:00 98.2 93 20 119/43 99 Mechanical Ventilator 40 07/31/16 16:00 91 07/31/16 16:00 40 07/31/16 15:07 80 20 40 07/31/16 13:12 88 21 40 07/31/16 12:06 40 07/31/16 12:00 102.2 102 21 94/56 99 Mechanical Ventilator 40 07/31/16 11:26 89 20 40 07/31/16 08:55 103 20 40 07/31/16 08:00 99.5 104 21 90/56 98 Mechanical Ventilator Height (Feet): 5 Height (Inches): 5.00 Weight (Pounds): 150 General Appearance: no acute distress HEENT: status post trach Respiratory/Chest: decreased breath sounds Cardiovascular: normal rate, regular rhythm Abdomen: normal bowel sounds, soft, non tender, non distended, other - PEG Microbiology Date/Time Source Procedure Growth Status 07/30/16 10:20 Blood Blood Culture - Preliminary NO GROWTH AFTER 24 HOURS Resulted 07/30/16 10:00 Blood Blood Culture - Preliminary NO GROWTH AFTER 24 HOURS Resulted Laboratory Tests Test 08/01/16 06:30 White Blood Count Pending Red Blood Count Pending Hemoglobin Pending Hematocrit Pending Mean Corpuscular Volume Pending Mean Corpuscular Hemoglobin Pending Mean Corpuscular Hemoglobin Concent Pending Red Cell Distribution Width Pending Platelet Count Pending Mean Platelet Volume Pending Neutrophils (%) (Auto) Pending Lymphocytes (%) (Auto) Pending Monocytes (%) (Auto) Pending Eosinophils (%) (Auto) Pending Basophils (%) (Auto) Pending Sodium Level Pending Potassium Level Pending Chloride Level Pending Carbon Dioxide Level Pending Blood Urea Nitrogen Pending Creatinine Pending Estimat Glomerular Filtration Rate Pending Glucose Level Pending Calcium Level Pending Vancomycin Level Trough Pending Current Medications Medications (Trade) Dose Ordered Sig/Tanisha Route PRN Reason Start Time Stop Time Status Last Admin Dose Admin Acetaminophen (Tylenol) 650 mg Q4H PRN ORAL Mild Pain/Temp > 100.5 07/30/16 15:00 08/29/16 14:59 1215/16 18:34 Acetaminophen/ Hydrocodone Bitart ([place] 5/325) 2 tab Q8H PRN ORAL For SEVERE PAIN 07/30/16 15:00 08/06/16 14:59 Albuterol/ Ipratropium (DuoNeb 0.5-3(2.5)mg/3ml) 3 ml Q4H PRN HHN Shortness of Breath 07/30/16 15:00 08/04/16 14:59 Aztreonam 2 gm/ Dextrose 100 ml @ 200 mls/hr Q8HR@0200,1000,1800 IVPB 07/30/16 18:00 08/06/16 17:59 08/01/16 02:25 Collagenase (Santyl) 1 applic DAILY TOPIC 08/01/16 09:00 08/31/16 08:59 Dextrose (Dextrose 50%) STAT PRN IV Hypoglycemia 07/30/16 14:45 08/29/16 14:44 Famotidine (Pepcid I.v.) 20 mg DAILY IVP 07/31/16 09:00 08/30/16 08:59 07/31/16 09:20 Heparin Sodium (Porcine) (Heparin 5000 units/ml) 5,000 units EVERY 12 HOURS SUBQ 07/30/16 21:00 08/29/16 20:59 07/31/16 20:59 Insulin Aspart EVERY 6 HOURS SUBQ 07/30/16 18:00 08/29/16 17:59 Lactobacillus Acidophilus (Culturelle) 1 tab TWICE A DAY GT 07/30/16 18:00 08/29/16 17:59 07/31/16 18:34 Levofloxacin 150 ml @ 150 mls/hr Q24H IVPB 07/30/16 17:00 08/06/16 16:59 07/31/16 17:10 Levothyroxine Sodium (Synthroid) 200 mcg DAILY GT 07/31/16 09:00 08/30/16 08:59 07/31/16 09:20 Lorazepam (Ativan) 1 mg Q6H PRN ORAL For Anxiety 07/30/16 15:00 08/06/16 14:59 Midodrine 5 mg 5 mg THREE TIMES A DAY GT 07/30/16 18:00 08/29/16 17:59 07/31/16 18:35 Ondansetron HCl (Zofran) 4 mg Q6H PRN IV Nausea & Vomiting 07/30/16 15:00 08/29/16 14:59 Polyethylene Glycol (Miralax) 17 gm DAILY ORAL 07/31/16 09:00 08/30/16 08:59 07/31/16 09:20 Sodium Chloride (Sodium Chloride 1000ml bag) 1,000 ml @ 100 mls/hr Q10H IV 07/30/16 17:00 08/29/16 16:59 08/01/16 02:42 Vancomycin HCl (Vanco rx to dose) 1 ea DAILY PRN MISC Per rx protocol 07/30/16 15:15 08/29/16 15:14 Vancomycin HCl/ Dextrose (Vancomycin/D5W 250ml) 250 ml @ 167 mls/hr Q12HR@0700,1900 IVPB 07/31/16 07:00 08/05/16 06:59 07/31/16 18:33 ALMAS CA Aug 01, 2016 07:58
[2016-08-01 08:00] VITALS: BP 94/64
[2016-08-01 08:06] LABS: ANION GAP 13 (5-15); CALCIUM 8.4 mg/dL (8.6-10.2); CARBON DIOXIDE 22 mEQ/L (20-30); CHLORIDE 104 mEQ/L (98-107); CREATININE 0.5 mg/dL (0.7-1.2); GLOMERULAR FILTRATION RATE > 60 mL/min (>60); HEMOLYSIS 1; POTASSIUM 3.7 mEQ/L (3.4-4.9); SODIUM 139 mEQ/L (135-145)
[2016-08-01] MEDS: Vancomycin 750mg/D5W 250ml IVPB SCH ×4 (09:09→21:11)
[2016-08-01] MEDS: Lactobacillus-GG tablet GT SCH ×2 (09:10→18:52)
[2016-08-01] MEDS: Famotidine 20 MG/ 2ML VIAL IVP SCH (09:11)
[2016-08-01] MEDS: Miralax 17gm pkt ORAL SCH (09:11)
[2016-08-01] MEDS: Heparin 5000 units/ml inj SUBQ SCH ×2 (09:11→21:15)
--- NOTE | 2016-08-01 09:17 | Pulmonology Progress Note ---
Assessment/Plan Problems: (1) Pneumonia (2) Abnormal LFTs (3) Bilateral pneumonia (4) Feeding by G-tube (5) Acute and chronic respiratory failure (6) Sepsis Assessment/Plan PROBLEMS: 1. Sepsis. 2. Aspiration pneumonia. 3. Acute on chronic respiratory failure, status post tracheostomy on the ventilator. 4. History of recurrent urinary tract infection and polymicrobial infection. 5. History of glioblastoma multiforme. 6. Anoxic brain injury. 7. History of cardiac arrest in the past. 8. Abnormal liver functions tests. 9. Hypothyroidism. 10. Functional quadriplegia. 11. The patient is a Full Code. TREATMENT PLAN: 1. Optimize pulmonary hygiene/mobilize as tolerated 2. Continue ventilatory support/settings reviewed 3. Oral and ET suctioning 4. RTC and PRN bronchodilators. 5. Abx per ID, F/U Cx's 6. Wound care, plastics eval - possible I&D 7. Monitor volumes, decrease IVF 8. F/U cardiology recs 9. DVT Rx: Hep SQ 10. TF's as tolerated, F/U abdominal U/S done yesterday 11. Prognosis is poor. Need to continue to address goals of care/extensive discussions with mother today. CCT [id number] Subjective Allergies: Coded Allergies: PENICILLINS (Verified Allergy, Unknown, 04/19/16) Subjective Tm 102.2, VSS Stable on vent, FiO2 40% WCt 16.3, Hb 7.5 no bleeding, repeat pending Secretions better, jean TF's Seen by plastics, will have a debridement Objective Last 24 Hour Vital Signs Date Time Temp Pulse Resp B/P Pulse Ox O2 Delivery O2 Flow Rate FiO2 08/01/16 08:04 97 20 40 08/01/16 05:07 85 24 40 08/01/16 04:00 40 08/01/16 04:00 62 08/01/16 04:00 98.6 98 20 99/61 99 Mechanical Ventilator 40 08/01/16 03:01 83 23 40 08/01/16 00:55 84 27 40 08/01/16 00:00 40 08/01/16 00:00 99.1 96 23 104/54 99 Mechanical Ventilator 40 08/01/16 00:00 90 07/31/16 23:09 67 22 40 07/31/16 21:00 94 22 40 07/31/16 20:00 40 07/31/16 20:00 98.8 96 23 107/42 99 Mechanical Ventilator 40 07/31/16 20:00 93 07/31/16 19:36 95 24 40 07/31/16 16:59 86 20 40 07/31/16 16:00 98.2 93 20 119/43 99 Mechanical Ventilator 40 07/31/16 16:00 91 07/31/16 16:00 40 07/31/16 15:07 80 20 40 07/31/16 13:12 88 21 40 07/31/16 12:06 40 07/31/16 12:00 102.2 102 21 94/56 99 Mechanical Ventilator 40 07/31/16 11:26 89 20 40 Intake and Output 07/31/16 08/01/16 19:00 07:00 Intake Total 2352 ml 1757 ml Output Total 600 ml 1202 ml Balance 1752 ml 555 ml Intake Free Water 220 ml IV Total 2232 ml 1167 ml Tube Feeding 60 ml 370 ml Other 60 ml Output Urine Total 600 ml 1200 ml Stool Total 2 ml # Voids 100 General Appearance: other - non-verbal trach peg HEENT: normocephalic, atraumatic, status post trach Respiratory/Chest: rhonchi Cardiovascular: normal peripheral pulses, normal rate, regular rhythm Abdomen: normal bowel sounds, soft, non tender, no organomegaly, non distended , other - GT Extremities: no cyanosis, no clubbing, other - contracted Microbiology Date/Time Source Procedure Growth Status 07/30/16 10:20 Blood Blood Culture - Preliminary NO GROWTH AFTER 24 HOURS Resulted 07/30/16 10:00 Blood Blood Culture - Preliminary NO GROWTH AFTER 24 HOURS Resulted Laboratory Tests 08/01/16 06:30: White Blood Count 16.3H, Red Blood Count 2.51L, Hemoglobin 7.5L, Hematocrit 24.2L, Mean Corpuscular Volume 97, Mean Corpuscular Hemoglobin 30.0, Mean Corpuscular Hemoglobin Concent 31.0L, Red Cell Distribution Width 18.5H, Platelet Count 604H, Mean Platelet Volume 5.3L, Neutrophils (%) (Auto) , Lymphocytes (%) (Auto) , Monocytes (%) (Auto) , Eosinophils (%) (Auto) , Basophils (%) (Auto) , Neutrophils % (Manual) [Pending], Lymphocytes % (Manual) [Pending], Platelet Estimate [Pending], Platelet Morphology [Pending], Sodium Level 139, Potassium Level 3.7, Chloride Level 104, Carbon Dioxide Level 22, Anion Gap 13, Blood Urea Nitrogen 22, Creatinine 0.5L, Estimat Glomerular Filtration Rate > 60, Glucose Level 108H, Calcium Level 8.4L, Vancomycin Level Trough 16.0H Current Medications Medications (Trade) Dose Ordered Sig/Tanisha Route PRN Reason Start Time Stop Time Status Last Admin Dose Admin Acetaminophen (Tylenol) 650 mg Q4H PRN ORAL Mild Pain/Temp > 100.5 07/30/16 15:00 08/29/16 14:59 08/01/16 09:12 Acetaminophen/ Hydrocodone Bitart ([place] 5/325) 2 tab Q8H PRN ORAL For SEVERE PAIN 07/30/16 15:00 08/06/16 14:59 Albuterol/ Ipratropium (DuoNeb 0.5-3(2.5)mg/3ml) 3 ml Q4H PRN HHN Shortness of Breath 07/30/16 15:00 08/04/16 14:59 Aztreonam 2 gm/ Dextrose 100 ml @ 200 mls/hr Q8HR@0200,1000,1800 IVPB 07/30/16 18:00 08/06/16 17:59 08/01/16 02:25 Collagenase (Santyl) 1 applic DAILY TOPIC 08/01/16 09:00 08/31/16 08:59 Dextrose (Dextrose 50%) STAT PRN IV Hypoglycemia 07/30/16 14:45 08/29/16 14:44 Famotidine (Pepcid I.v.) 20 mg DAILY IVP 07/31/16 09:00 08/30/16 08:59 08/01/16 09:11 Heparin Sodium (Porcine) (Heparin 5000 units/ml) 5,000 units EVERY 12 HOURS SUBQ 07/30/16 21:00 08/29/16 20:59 08/01/16 09:11 Insulin Aspart EVERY 6 HOURS SUBQ 07/30/16 18:00 08/29/16 17:59 Lactobacillus Acidophilus (Culturelle) 1 tab TWICE A DAY GT 07/30/16 18:00 08/29/16 17:59 08/01/16 09:10 Levofloxacin 150 ml @ 150 mls/hr Q24H IVPB 07/30/16 17:00 08/06/16 16:59 07/31/16 17:10 Levothyroxine Sodium (Synthroid) 200 mcg DAILY GT 07/31/16 09:00 08/30/16 08:59 08/01/16 09:10 Lorazepam (Ativan) 1 mg Q6H PRN ORAL For Anxiety 07/30/16 15:00 08/06/16 14:59 Midodrine 5 mg 5 mg THREE TIMES A DAY GT 07/30/16 18:00 08/29/16 17:59 08/01/16 09:10 Ondansetron HCl (Zofran) 4 mg Q6H PRN IV Nausea & Vomiting 07/30/16 15:00 08/29/16 14:59 Polyethylene Glycol (Miralax) 17 gm DAILY ORAL 07/31/16 09:00 08/30/16 08:59 08/01/16 09:11 Sodium Chloride (Sodium Chloride 1000ml bag) 1,000 ml @ 100 mls/hr Q10H IV 07/30/16 17:00 08/29/16 16:59 08/01/16 02:42 Vancomycin HCl (Vanco rx to dose) 1 ea DAILY PRN MISC Per rx protocol 07/30/16 15:15 08/29/16 15:14 Vancomycin HCl/ Dextrose (Vancomycin/D5W 250ml) 250 ml @ 167 mls/hr Q12HR@0700,1900 IVPB 07/31/16 07:00 08/05/16 06:59 08/01/16 09:09 DEON PARK M.D. Aug 01, 2016 09:17
[2016-08-01 09:28] LABS: BASOPHILS % (AUTO) 0.3 % (0.0-2.0); EOSINOPHILS % (AUTO) 0.3 % (0.0-3.0); LYMPHOCYTES % (AUTO) 13.4 % (20.0-45.0); MEAN CORPUSCULAR HEMOGLOBIN 30.2 PG (27.0-31.0); MEAN CORPUSCULAR HGB CONC 31.3 G/DL (32.0-36.0); MEAN CORPUSCULAR VOLUME 96 FL (80-99); MEAN PLATELET VOLUME 4.8 FL (6.5-10.1); MONOCYTES % (AUTO) 10.5 % (1.0-10.0); NEUTROPHILS % (AUTO) 75.5 % (45.0-75.0); PLATELET COUNT 552 K/UL (150-450); RED BLOOD COUNT 2.75 M/UL (4.70-6.10); RED CELL DISTRIBUTION WIDTH 18.5 % (11.6-14.8); WHITE BLOOD COUNT 16.7 K/UL (4.8-10.8)
[2016-08-01 09:34] LABS: ANISOCYTOSIS 1+; BAND NEUTROPHILS % (MANUAL) 4 % (0-8); BASOPHILS % (MANUAL) 0 % (0-2); EOSINOPHILS % (MANUAL) 2 % (0-3); LYMPHOCYTES % (MANUAL) 14 % (20-45); MICROCYTES OCCASIONAL; NEUTROPHILS % (MANUAL) 74 % (45-75); PLATELET ESTIMATE INCREASED; PLATELET MORPHOLOGY NORMAL; POIKILOCYTOSIS 1+; TOTAL CELLS COUNTED 100
[2016-08-01] MEDS ORDERED: Lidocaine 1% Plain 30 ml INJ ONE (10:45)
[2016-08-01] MEDS ORDERED: Sodium Bicarbonate 8.4% 50ml Inj IV ONE (10:45)
[2016-08-01] MEDS ORDERED: Heparin 2000 units/Ns 1000ml INJ ONE (10:45)
[2016-08-01 12:00] VITALS: BP 99/62
--- NOTE | 2016-08-01 14:02 | Diagnostic Imaging Report ---
Indication:Abnormal renal function tests, liver function tests Technique: Grayscale and duplex Doppler imaging of the abdomen performed. Comparison: None Findings: No abnormalities of the liver or spleen identified. CBD is 6 mm. Gallstones are present. Sonographic Avila's is negative. There is no ascites. Aorta, pancreas and IVC are poorly seen. Kidneys are grossly unremarkable. There is no hydronephrosis. The study was limited as the patient is contracted and on a ventilator. Impression: Cholelithiasis. Limited evaluation
[2016-08-01] MEDS ORDERED: Tubing IV Secondary IV ONE ×3 (14:16→14:19)
[2016-08-01] MEDS ORDERED: Norco 5mg/325mg tab GT PRN (14:54)
[2016-08-01] MEDS ORDERED: LORazepam 1mg tab GT PRN (14:54)
[2016-08-01 16:00] VITALS: BP 92/56
--- NOTE | 2016-08-01 16:49 | Cardiology Report ---
APPROVED REPORT EKG Measurement Heart [id number] Sinus tachycardia Low voltage QRS Borderline ECG
[2016-08-01 20:00] VITALS: BP 100/54
--- NOTE | 2016-08-01 21:00 | Internal Med Progress Note ---
Subjective Date of Service: Aug 01, 2016 Physician Name BanuelosRic ocasio Attending Physician Cherry Wei Current Medications Medications (Trade) Dose Ordered Sig/Tanisha Route PRN Reason Start Time Stop Time Status Last Admin Dose Admin Acetaminophen (Tylenol) 650 mg Q4H PRN ORAL Mild Pain/Temp > 100.5 07/30/16 15:00 08/29/16 14:59 08/01/16 09:12 Acetaminophen/ Hydrocodone Bitart ([place] 5/325) 2 tab Q8H PRN GT For SEVERE PAIN 08/01/16 14:54 08/06/16 14:59 Albuterol/ Ipratropium (DuoNeb 0.5-3(2.5)mg/3ml) 3 ml Q4H PRN HHN Shortness of Breath 07/30/16 15:00 08/04/16 14:59 Aztreonam 2 gm/ Dextrose 100 ml @ 200 mls/hr Q8HR@0200,1000,1800 IVPB 07/30/16 18:00 08/06/16 17:59 08/01/16 02:25 Collagenase (Santyl) 1 applic DAILY TOPIC 08/01/16 09:00 08/31/16 08:59 08/01/16 10:34 Dextrose (Dextrose 50%) STAT PRN IV Hypoglycemia 07/30/16 14:45 08/29/16 14:44 Famotidine (Pepcid I.v.) 20 mg DAILY IVP 07/31/16 09:00 08/30/16 08:59 08/01/16 09:11 Heparin Sodium (Porcine) (Heparin 5000 units/ml) 5,000 units EVERY 12 HOURS SUBQ 07/30/16 21:00 08/29/16 20:59 08/01/16 09:11 Insulin Aspart EVERY 6 HOURS SUBQ 07/30/16 18:00 08/29/16 17:59 Lactobacillus Acidophilus (Culturelle) 1 tab TWICE A DAY GT 07/30/16 18:00 08/29/16 17:59 08/01/16 18:52 Levofloxacin 150 ml @ 150 mls/hr Q24H IVPB 07/30/16 17:00 08/06/16 16:59 07/31/16 17:10 Levothyroxine Sodium (Synthroid) 200 mcg DAILY GT 07/31/16 09:00 08/30/16 08:59 08/01/16 09:10 Lorazepam (Ativan) 1 mg Q6H PRN GT For Anxiety 08/01/16 14:54 08/06/16 14:59 Midodrine 5 mg 5 mg THREE TIMES A DAY GT 07/30/16 18:00 08/29/16 17:59 08/01/16 18:52 Ondansetron HCl (Zofran) 4 mg Q6H PRN IV Nausea & Vomiting 07/30/16 15:00 08/29/16 14:59 Polyethylene Glycol (Miralax) 17 gm DAILY GT 08/01/16 14:54 08/30/16 08:59 Sodium Chloride (Sodium Chloride 1000ml bag) 1,000 ml @ 100 mls/hr Q10H IV 07/30/16 17:00 08/29/16 16:59 08/01/16 02:42 Vancomycin HCl (Vanco rx to dose) 1 ea DAILY PRN MISC Per rx protocol 07/30/16 15:15 08/29/16 15:14 Vancomycin HCl/ Dextrose (Vancomycin/D5W 250ml) 250 ml @ 167 mls/hr Q12HR@0700,1900 IVPB 07/31/16 07:00 08/05/16 06:59 08/01/16 09:09 Allergies: Coded Allergies: PENICILLINS (Verified Allergy, Unknown, 04/19/16) ROS Limited/Unobtainable: Yes Subjective Cover for Int Med-Dr Wei. Cont on vent Objective Last Vital Signs Date Time Temp Pulse Resp B/P Pulse Ox O2 Delivery O2 Flow Rate FiO2 08/01/16 20:00 99.3 97 23 100/54 99 Mechanical Ventilator 40 General Appearance: lethargic EENT: PERRL/EOMI, normal ENT inspection Neck: non-tender, normal alignment, supple Cardiovascular: normal peripheral pulses, normal rate, regular rhythm, no gallop/murmur, no JVD Respiratory/Chest: chest wall non-tender, crackles/rales, rhonchi - bilaterally , expiratory wheezing Abdomen: normal bowel sounds, non tender, soft, no organomegaly, no mass Skin: normal pigmentation, warm/dry Laboratory Tests Test 08/01/16 06:30 08/01/16 09:15 White Blood Count 16.3 K/UL (4.8-10.8) H 16.7 K/UL (4.8-10.8) H Red Blood Count 2.51 M/UL (4.70-6.10) L 2.75 M/UL (4.70-6.10) L Hemoglobin 7.5 G/DL (14.2-18.0) L 8.3 G/DL (14.2-18.0) L Hematocrit 24.2 % (42.0-52.0) L 26.5 % (42.0-52.0) L Mean Corpuscular Volume 97 FL (80-99) 96 FL (80-99) Mean Corpuscular Hemoglobin 30.0 PG (27.0-31.0) 30.2 PG (27.0-31.0) Mean Corpuscular Hemoglobin Concent 31.0 G/DL (32.0-36.0) L 31.3 G/DL (32.0-36.0) L Red Cell Distribution Width 18.5 % (11.6-14.8) H 18.5 % (11.6-14.8) H Platelet Count 604 K/UL (150-450) H 552 K/UL (150-450) H Mean Platelet Volume 5.3 FL (6.5-10.1) L 4.8 FL (6.5-10.1) L Neutrophils (%) (Auto) % (45.0-75.0) 75.5 % (45.0-75.0) H Lymphocytes (%) (Auto) % (20.0-45.0) 13.4 % (20.0-45.0) L Monocytes (%) (Auto) % (1.0-10.0) 10.5 % (1.0-10.0) H Eosinophils (%) (Auto) % (0.0-3.0) 0.3 % (0.0-3.0) Basophils (%) (Auto) % (0.0-2.0) 0.3 % (0.0-2.0) Differential Total Cells Counted 100 Neutrophils % (Manual) 74 % (45-75) Lymphocytes % (Manual) 14 % (20-45) L Monocytes % (Manual) 6 % (1-10) Eosinophils % (Manual) 2 % (0-3) Basophils % (Manual) 0 % (0-2) Band Neutrophils 4 % (0-8) Platelet Estimate Increased H Platelet Morphology Normal Poikilocytosis 1+ Anisocytosis 1+ Microcytosis Occasional Sodium Level 139 mEQ/L (135-145) Potassium Level 3.7 mEQ/L (3.4-4.9) Chloride Level 104 mEQ/L (98-107) Carbon Dioxide Level 22 mEQ/L (20-30) Anion Gap 13 (5-15) Blood Urea Nitrogen 22 mg/dL (7-23) Creatinine 0.5 mg/dL (0.7-1.2) L Estimat Glomerular Filtration Rate > 60 mL/min (>60) Glucose Level 108 mg/dL (74-106) H Calcium Level 8.4 mg/dL (8.6-10.2) L Vancomycin Level Trough 16.0 ug/mL (5.0-12.0) H Microbiology Date/Time Source Procedure Growth Status 07/30/16 10:20 Blood Blood Culture - Preliminary NO GROWTH AFTER 48 HOURS Resulted 07/30/16 10:00 Blood Blood Culture - Preliminary NO GROWTH AFTER 48 HOURS Resulted 07/30/16 10:20 Nasal Nares MRSA Culture - Final NO METHICILLIN RESISTANT STAPH AUREUS... Complete Intake and Output 07/31/16 08/01/16 19:00 07:00 Intake Total 2352 ml 1797 ml Output Total 600 ml 1202 ml Balance 1752 ml 595 ml Intake Free Water 220 ml IV Total 2232 ml 1167 ml Tube Feeding 60 ml 410 ml Other 60 ml Output Urine Total 600 ml 1200 ml Stool Total 2 ml # Voids 100 Assessment/Plan Problem List: (1) Brain anoxic injury (2) CAD (coronary artery disease) (3) Dysphagia (4) Hypothyroidism Assessment & Plan: Cont levoxyl (5) Acute flaccid quadriplegia (6) Diabetes mellitus (7) Bilateral pneumonia Assessment & Plan: Cont vanco and aztreonam per ID (8) Respiratory failure Assessment & Plan: Vent dep; s/p tracheostomy. follow pulm recs. (9) History of glioma of brainstem Status: not improved RIC BANUELOS Aug 01, 2016 20:59
[2016-08-02] VITALS: BP 111/82
[2016-08-02] MEDS: [UNRECOGNIZED DRUG - OTHER] IVPB SCH ×4 (02:38→08:57)
[2016-08-02] MEDS: AZTREONAM IVPB SCH ×5 (02:38→17:46)
[2016-08-02 04:00] VITALS: BP 126/80
[2016-08-02] MEDS: NovoLOG Insulin Flexpen SUBQ SCH ×4 (05:33→23:33)
[2016-08-02 05:41] LABS: BASOPHILS % (AUTO) 0.4 % (0.0-2.0); EOSINOPHILS % (AUTO) 0.9 % (0.0-3.0); LYMPHOCYTES % (AUTO) 17.7 % (20.0-45.0); MEAN CORPUSCULAR HEMOGLOBIN 29.9 PG (27.0-31.0); MEAN CORPUSCULAR VOLUME 96 FL (80-99); MEAN PLATELET VOLUME 5.4 FL (6.5-10.1); MONOCYTES % (AUTO) 10.4 % (1.0-10.0); NEUTROPHILS % (AUTO) 70.6 % (45.0-75.0); PLATELET COUNT 532 K/UL (150-450); RED BLOOD COUNT 2.93 M/UL (4.70-6.10); RED CELL DISTRIBUTION WIDTH 18.8 % (11.6-14.8); WHITE BLOOD COUNT 14.4 K/UL (4.8-10.8)
[2016-08-02 06:28] LABS: ANION GAP 15 (5-15); CALCIUM 8.5 mg/dL (8.6-10.2); CARBON DIOXIDE 22 mEQ/L (20-30); CHLORIDE 104 mEQ/L (98-107); CREATININE 0.4 mg/dL (0.7-1.2); GLOMERULAR FILTRATION RATE > 60 mL/min (>60); HEMOLYSIS 20; POTASSIUM 4.4 mEQ/L (3.4-4.9); SODIUM 141 mEQ/L (135-145)
[2016-08-02] MEDS: Vancomycin 750mg/D5W 250ml IVPB SCH ×4 (06:52→19:41)
[2016-08-02 08:00] VITALS: BP 102/75
[2016-08-02] MEDS: Famotidine 20 MG/ 2ML VIAL IVP SCH (08:52)
[2016-08-02] MEDS: Miralax 17gm pkt GT SCH (08:52)
[2016-08-02] MEDS: Lactobacillus-GG tablet GT SCH ×2 (08:56→17:45)
[2016-08-02] MEDS: Heparin 5000 units/ml inj SUBQ SCH ×2 (08:56→20:23)
--- NOTE | 2016-08-02 09:36 | Pulmonology Progress Note ---
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 Sepsis. 2. Aspiration pneumonia. 3. Acute on chronic respiratory failure, status post tracheostomy on the ventilator. 4. History of recurrent urinary tract infection and polymicrobial infection. 5. History of glioblastoma multiforme. 6. Anoxic brain injury. 7. History of cardiac arrest in the past. 8. Abnormal liver functions tests. 9. Hypothyroidism. 10. Functional quadriplegia. 11. The patient is a Full Code. TREATMENT PLAN: 1. Optimize pulmonary hygiene/mobilize as tolerated 2. Continue ventilatory support/settings reviewed 3. Oral and ET suctioning 4. RTC and PRN bronchodilators. 5. Abx per ID, F/U Cx's 6. Wound care, plastics recs --> possible I&D 7. Monitor volumes, decrease IVF 8. F/U cardiology recs 9. DVT Rx: Hep SQ 10. TF's as tolerated 11. Prognosis is poor. Need to continue to address goals of care/extensive discussions with mother CCT 60 Subjective Allergies: Coded Allergies: PENICILLINS (Verified Allergy, Unknown, 04/19/16) Subjective AFVSS Stable on vent, FiO2 40% WCt 14.4, Hb 8.7 Secretions unchanged, jean TF's Seen by plastics, will have a debridement Objective Last 24 Hour Vital Signs Date Time Temp Pulse Resp B/P Pulse Ox O2 Delivery O2 Flow Rate FiO2 08/02/16 08:35 71 20 40 08/02/16 07:03 95 20 40 08/02/16 05:00 87 23 40 08/02/16 04:00 97.6 84 20 126/80 84 Room Air 08/02/16 04:00 40 08/02/16 04:00 90 08/02/16 03:08 87 20 40 08/02/16 01:00 86 20 40 08/02/16 00:00 40 08/02/16 00:00 85 08/02/16 00:00 97.3 88 20 111/82 98 Mechanical Ventilator 08/01/16 23:09 91 23 40 08/01/16 21:19 92 20 40 08/01/16 20:00 99.3 97 23 100/54 99 Mechanical Ventilator 40 08/01/16 20:00 40 08/01/16 20:00 95 08/01/16 19:00 88 20 40 08/01/16 16:50 90 22 40 08/01/16 16:00 98.6 89 21 92/56 98 Mechanical Ventilator 40 08/01/16 16:00 40 08/01/16 15:39 92 22 40 08/01/16 13:32 86 26 40 08/01/16 12:09 40 08/01/16 12:00 91 08/01/16 12:00 98.1 91 20 99/62 99 Mechanical Ventilator 40 08/01/16 11:01 95 26 40 08/01/16 10:11 100.9 08/01/16 09:49 94 21 40 Intake and Output 08/01/16 08/02/16 19:00 07:00 Intake Total 730 ml 1087 ml Output Total 350 ml 1000 ml Balance 380 ml 87 ml Intake Free Water 200 ml 200 ml IV Total 267 ml Tube Feeding 480 ml 620 ml Other 50 ml Output Urine Total 350 ml 1000 ml # Bowel Movements 1 1 General Appearance: other - non-bird PEG, trach HEENT: normocephalic, status post trach Respiratory/Chest: rhonchi Cardiovascular: normal peripheral pulses, normal rate, regular rhythm Abdomen: normal bowel sounds, soft, non tender, no organomegaly, other - GT Extremities: no cyanosis, no clubbing, no edema, other - contracted Microbiology Date/Time Source Procedure Growth Status 07/30/16 10:20 Blood Blood Culture - Preliminary NO GROWTH AFTER 48 HOURS Resulted 07/30/16 10:00 Blood Blood Culture - Preliminary NO GROWTH AFTER 48 HOURS Resulted 07/30/16 10:20 Nasal Nares MRSA Culture - Final NO METHICILLIN RESISTANT STAPH AUREUS... Complete Laboratory Tests 08/02/16 04:10: White Blood Count 14.4H, Red Blood Count 2.93L, Hemoglobin 8.7L, Hematocrit 28.2L, Mean Corpuscular Volume 96, Mean Corpuscular Hemoglobin 29.9, Mean Corpuscular Hemoglobin Concent 31.0L, Red Cell Distribution Width 18.8H, Platelet Count 532H, Mean Platelet Volume 5.4L, Neutrophils (%) (Auto) 70.6, Lymphocytes (%) (Auto) 17.7L, Monocytes (%) (Auto) 10.4H, Eosinophils (%) (Auto ) 0.9, Basophils (%) (Auto) 0.4, Sodium Level 141, Potassium Level 4.4, Chloride Level 104, Carbon Dioxide Level 22, Anion Gap 15, Blood Urea Nitrogen 20, Creatinine 0.4L, Estimat Glomerular Filtration Rate > 60, Glucose Level 104 , Calcium Level 8.5L Current Medications Medications (Trade) Dose Ordered Sig/Tanisha Route PRN Reason Start Time Stop Time Status Last Admin Dose Admin Acetaminophen (Tylenol) 650 mg Q4H PRN ORAL Mild Pain/Temp > 100.5 07/30/16 15:00 08/29/16 14:59 08/01/16 09:12 Acetaminophen/ Hydrocodone Bitart ([place] 5/325) 2 tab Q8H PRN GT For SEVERE PAIN 08/01/16 14:54 08/06/16 14:59 Albuterol/ Ipratropium (DuoNeb 0.5-3(2.5)mg/3ml) 3 ml Q4H PRN HHN Shortness of Breath 07/30/16 15:00 08/04/16 14:59 Aztreonam 2 gm/ Dextrose 100 ml @ 200 mls/hr Q8HR@0200,1000,1800 IVPB 07/30/16 18:00 08/06/16 17:59 08/02/16 08:57 Collagenase (Santyl) 1 applic DAILY TOPIC 08/01/16 09:00 08/31/16 08:59 08/02/16 08:57 Dextrose (Dextrose 50%) STAT PRN IV Hypoglycemia 07/30/16 14:45 08/29/16 14:44 Famotidine (Pepcid I.v.) 20 mg DAILY IVP 07/31/16 09:00 08/30/16 08:59 08/02/16 08:52 Heparin Sodium (Porcine) (Heparin 5000 units/ml) 5,000 units EVERY 12 HOURS SUBQ 07/30/16 21:00 08/29/16 20:59 08/02/16 08:56 Insulin Aspart EVERY 6 HOURS SUBQ 07/30/16 18:00 08/29/16 17:59 08/01/16 23:58 Lactobacillus Acidophilus (Culturelle) 1 tab TWICE A DAY GT 07/30/16 18:00 08/29/16 17:59 08/02/16 08:56 Levofloxacin 150 ml @ 150 mls/hr Q24H IVPB 07/30/16 17:00 08/06/16 16:59 07/31/16 17:10 Levothyroxine Sodium (Synthroid) 200 mcg DAILY GT 07/31/16 09:00 08/30/16 08:59 08/02/16 08:53 Lorazepam (Ativan) 1 mg Q6H PRN GT For Anxiety 08/01/16 14:54 08/06/16 14:59 Midodrine 5 mg 5 mg THREE TIMES A DAY GT 07/30/16 18:00 08/29/16 17:59 08/02/16 08:53 Ondansetron HCl (Zofran) 4 mg Q6H PRN IV Nausea & Vomiting 07/30/16 15:00 08/29/16 14:59 Polyethylene Glycol (Miralax) 17 gm DAILY GT 08/01/16 14:54 08/30/16 08:59 08/02/16 08:52 Sodium Chloride (Sodium Chloride 1000ml bag) 1,000 ml @ 100 mls/hr Q10H IV 07/30/16 17:00 08/29/16 16:59 08/02/16 05:14 Vancomycin HCl (Vanco rx to dose) 1 ea DAILY PRN MISC Per rx protocol 07/30/16 15:15 08/29/16 15:14 Vancomycin HCl/ Dextrose (Vancomycin/D5W 250ml) 250 ml @ 167 mls/hr Q12HR@0700,1900 IVPB 07/31/16 07:00 08/05/16 06:59 08/02/16 06:52 DEON PARK M.D. Aug 02, 2016 09:36
[2016-08-02 12:00] VITALS: BP 106/71
[2016-08-02 16:12] VITALS: BP 104/67
--- NOTE | 2016-08-02 17:14 | Internal Med Progress Note ---
Subjective Date of Service: Aug 02, 2016 Physician Name Sloan,Irma Attending Physician Cherry Wei Current Medications Medications (Trade) Dose Ordered Sig/Tanisha Route PRN Reason Start Time Stop Time Status Last Admin Dose Admin Acetaminophen (Tylenol) 650 mg Q4H PRN ORAL Mild Pain/Temp > 100.5 07/30/16 15:00 08/29/16 14:59 08/01/16 09:12 Acetaminophen/ Hydrocodone Bitart ([place] 5/325) 2 tab Q8H PRN GT For SEVERE PAIN 08/01/16 14:54 08/06/16 14:59 Albuterol/ Ipratropium (DuoNeb 0.5-3(2.5)mg/3ml) 3 ml Q4H PRN HHN Shortness of Breath 07/30/16 15:00 08/04/16 14:59 Aztreonam/Sodium Chloride (Azactam/Sodium Chloride 100ml bag) 100 ml @ 200 mls/hr Q8HR@0200,1000,1800 IVPB 08/02/16 18:00 08/06/16 17:59 Collagenase (Santyl) 1 applic DAILY TOPIC 08/01/16 09:00 08/31/16 08:59 08/02/16 08:57 Dextrose (Dextrose 50%) STAT PRN IV Hypoglycemia 07/30/16 14:45 08/29/16 14:44 Famotidine (Pepcid I.v.) 20 mg DAILY IVP 07/31/16 09:00 08/30/16 08:59 08/02/16 08:52 Heparin Sodium (Porcine) (Heparin 5000 units/ml) 5,000 units EVERY 12 HOURS SUBQ 07/30/16 21:00 08/29/16 20:59 08/02/16 08:56 Insulin Aspart (NovoLOG) EVERY 6 HOURS SUBQ 07/30/16 18:00 08/29/16 17:59 08/01/16 23:58 Lactobacillus Acidophilus (Culturelle) 1 tab TWICE A DAY GT 07/30/16 18:00 08/29/16 17:59 08/02/16 08:56 Levofloxacin 150 ml @ 150 mls/hr Q24H IVPB 07/30/16 17:00 08/06/16 16:59 07/31/16 17:10 Levothyroxine Sodium (Synthroid) 200 mcg DAILY GT 07/31/16 09:00 08/30/16 08:59 08/02/16 08:53 Lorazepam (Ativan) 1 mg Q6H PRN GT For Anxiety 08/01/16 14:54 08/06/16 14:59 Midodrine 5 mg 5 mg THREE TIMES A DAY GT 07/30/16 18:00 08/29/16 17:59 08/02/16 13:00 Ondansetron HCl (Zofran) 4 mg Q6H PRN IV Nausea & Vomiting 07/30/16 15:00 08/29/16 14:59 Polyethylene Glycol 17 gm 17 gm DAILY GT 08/01/16 14:54 08/30/16 08:59 08/02/16 08:52 Sodium Chloride 1,000 ml @ 50 mls/hr Q20H IV 08/02/16 17:00 09/01/16 16:59 Vancomycin HCl (Vanco rx to dose) 1 ea DAILY PRN MISC Per rx protocol 07/30/16 15:15 08/29/16 15:14 Vancomycin HCl/ Dextrose (Vancomycin/D5W 250ml) 250 ml @ 167 mls/hr Q12HR@0700,1900 IVPB 07/31/16 07:00 08/05/16 06:59 08/02/16 06:52 Allergies: Coded Allergies: PENICILLINS (Verified Allergy, Unknown, 04/19/16) Subjective Cover for Int Med-Dr Wei. KALPESH. Cont on vent Objective Last Vital Signs Date Time Temp Pulse Resp B/P Pulse Ox O2 Delivery O2 Flow Rate FiO2 08/02/16 16:12 98.0 84 18 104/67 98 Mechanical Ventilator 40 Laboratory Tests Test 08/02/16 04:10 White Blood Count 14.4 K/UL (4.8-10.8) H Red Blood Count 2.93 M/UL (4.70-6.10) L Hemoglobin 8.7 G/DL (14.2-18.0) L Hematocrit 28.2 % (42.0-52.0) L Mean Corpuscular Volume 96 FL (80-99) Mean Corpuscular Hemoglobin 29.9 PG (27.0-31.0) Mean Corpuscular Hemoglobin Concent 31.0 G/DL (32.0-36.0) L Red Cell Distribution Width 18.8 % (11.6-14.8) H Platelet Count 532 K/UL (150-450) H Mean Platelet Volume 5.4 FL (6.5-10.1) L Neutrophils (%) (Auto) 70.6 % (45.0-75.0) Lymphocytes (%) (Auto) 17.7 % (20.0-45.0) L Monocytes (%) (Auto) 10.4 % (1.0-10.0) H Eosinophils (%) (Auto) 0.9 % (0.0-3.0) Basophils (%) (Auto) 0.4 % (0.0-2.0) Sodium Level 141 mEQ/L (135-145) Potassium Level 4.4 mEQ/L (3.4-4.9) Chloride Level 104 mEQ/L (98-107) Carbon Dioxide Level 22 mEQ/L (20-30) Anion Gap 15 (5-15) Blood Urea Nitrogen 20 mg/dL (7-23) Creatinine 0.4 mg/dL (0.7-1.2) L Estimat Glomerular Filtration Rate > 60 mL/min (>60) Glucose Level 104 mg/dL (74-106) Calcium Level 8.5 mg/dL (8.6-10.2) L Intake and Output 08/01/16 08/02/16 19:00 07:00 Intake Total 730 ml 1087 ml Output Total 350 ml 1000 ml Balance 380 ml 87 ml Intake Free Water 200 ml 200 ml IV Total 267 ml Tube Feeding 480 ml 620 ml Other 50 ml Output Urine Total 350 ml 1000 ml # Bowel Movements 1 1 Objective General Appearance: lethargic EENT: PERRL/EOMI, normal ENT inspection Neck: non-tender, normal alignment, supple Cardiovascular: normal peripheral pulses, normal rate, regular rhythm, no gallop/murmur, no JVD Respiratory/Chest: Mech ventchest wall non-tender, crackles/rales, rhonchi - bilaterally, expiratory wheezing Abdomen: normal bowel sounds, non tender, soft, no organomegaly, no mass Skin: normal pigmentation, warm/dry Assessment/Plan Problem List: (1) Brain anoxic injury (2) CAD (coronary artery disease) (3) Dysphagia (4) Hypothyroidism Assessment & Plan: Cont levoxyl (5) Acute flaccid quadriplegia (6) Diabetes mellitus (7) Bilateral pneumonia Assessment & Plan: Cont vanco and aztreonam per ID (8) Respiratory failure Assessment & Plan: Vent dep; s/p tracheostomy. follow pulm recs. (9) History of glioma of brainstem IRMA SLOAN Aug 02, 2016 17:14
[2016-08-02] MEDS: NS IVPB SCH (17:46)
[2016-08-02 20:07] VITALS: BP 101/71
[2016-08-03] VITALS: BP 99/64
[2016-08-03] MEDS: AZTREONAM IVPB SCH ×3 (01:20→18:04)
[2016-08-03] MEDS: NS IVPB SCH ×3 (01:20→18:04)
[2016-08-03 04:00] VITALS: BP 100/65
[2016-08-03 05:16] LABS: ANION GAP 13 (5-15); CALCIUM 8.3 mg/dL (8.6-10.2); CARBON DIOXIDE 23 mEQ/L (20-30); CHLORIDE 99 mEQ/L (98-107); CREATININE 0.3 mg/dL (0.7-1.2); GLOMERULAR FILTRATION RATE > 60 mL/min (>60); HEMOLYSIS 2; POTASSIUM 4.5 mEQ/L (3.4-4.9); SODIUM 135 mEQ/L (135-145)
[2016-08-03 05:22] LABS: BASOPHILS % (AUTO) 0.3 % (0.0-2.0); EOSINOPHILS % (AUTO) 0.7 % (0.0-3.0); LYMPHOCYTES % (AUTO) 15.9 % (20.0-45.0); MEAN CORPUSCULAR HEMOGLOBIN 30.3 PG (27.0-31.0); MEAN CORPUSCULAR HGB CONC 31.3 G/DL (32.0-36.0); MEAN CORPUSCULAR VOLUME 97 FL (80-99); MEAN PLATELET VOLUME 5.2 FL (6.5-10.1); MONOCYTES % (AUTO) 9.1 % (1.0-10.0); PLATELET COUNT 536 K/UL (150-450); RED BLOOD COUNT 3.11 M/UL (4.70-6.10); RED CELL DISTRIBUTION WIDTH 18.8 % (11.6-14.8); WHITE BLOOD COUNT 14.9 K/UL (4.8-10.8)
[2016-08-03] MEDS: NovoLOG Insulin Flexpen SUBQ SCH ×3 (05:53→18:00)
[2016-08-03] MEDS: Vancomycin 750mg/D5W 250ml IVPB SCH ×4 (06:04→18:58)
[2016-08-03 08:00] VITALS: BP 98/63
[2016-08-03] MEDS: Miralax 17gm pkt GT SCH (09:00)
[2016-08-03] MEDS: Famotidine 20 MG/ 2ML VIAL IVP SCH (09:20)
[2016-08-03] MEDS: Lactobacillus-GG tablet GT SCH ×2 (09:21→18:04)
[2016-08-03] MEDS: Heparin 5000 units/ml inj SUBQ SCH ×2 (09:22→20:44)
--- NOTE | 2016-08-03 11:24 | Pulmonology Progress Note ---
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 Sepsis - NOW HEMODYNAMICALLY STABLE WITH NEGATIVE BCx's 2. Aspiration pneumonia. 3. Acute on chronic respiratory failure, status post tracheostomy on the ventilator. 4. History of recurrent urinary tract infection and polymicrobial infection. 5. History of glioblastoma multiforme. 6. Anoxic brain injury. 7. History of cardiac arrest in the past. 8. Abnormal liver functions tests. 9. Hypothyroidism. 10. Functional quadriplegia. 11. The patient is a Full Code. TREATMENT PLAN: 1. Optimize pulmonary hygiene/mobilize as tolerated 2. Continue ventilatory support/settings reviewed 3. Oral and ET suctioning 4. RTC and PRN bronchodilators. 5. Abx per ID, F/U Cx's 6. Wound care, plastics recs --> possible debridement 7. Monitor volumes, observe off IVF 8. F/U cardiology recs 9. DVT Rx: Hep SQ 10. TF's as tolerated 11. Prognosis is poor. Need to continue to address goals of care/extensive discussions with mother CCT 40 Subjective Allergies: Coded Allergies: PENICILLINS (Verified Allergy, Unknown, 04/19/16) Subjective AFVSS Stable on vent, FiO2 40% WCt 14.9 Secretions unchanged, jean TF's Seen by plastics, ? debridement Objective Last 24 Hour Vital Signs Date Time Temp Pulse Resp B/P Pulse Ox O2 Delivery O2 Flow Rate FiO2 08/03/16 11:16 93 20 40 08/03/16 09:25 90 20 40 08/03/16 08:00 40 08/03/16 08:00 97.0 76 23 98/63 99 Mechanical Ventilator 40 08/03/16 08:00 85 08/03/16 06:38 81 20 40 08/03/16 05:16 92 20 40 08/03/16 04:00 84 08/03/16 04:00 98.2 86 20 100/65 100 Mechanical Ventilator 40 08/03/16 04:00 40 08/03/16 03:30 89 20 40 08/03/16 01:20 87 20 40 08/03/16 01:00 98.4 08/03/16 00:00 87 08/03/16 00:00 99.0 89 22 99/64 100 Mechanical Ventilator 40 08/03/16 00:00 40 08/02/16 23:12 85 20 40 08/02/16 21:05 93 20 40 08/02/16 20:07 98.1 85 18 101/71 98 Mechanical Ventilator 40 08/02/16 20:00 77 08/02/16 20:00 40 08/02/16 19:17 88 20 40 08/02/16 17:13 85 20 40 08/02/16 16:12 98.0 84 18 104/67 98 Mechanical Ventilator 40 08/02/16 16:00 84 08/02/16 16:00 40 08/02/16 15:24 84 20 40 08/02/16 13:16 83 21 40 08/02/16 12:00 40 08/02/16 12:00 97.3 83 19 106/71 84 Room Air 40 Intake and Output 08/02/16 08/03/16 19:00 07:00 Intake Total 1110 ml 1804 ml Output Total 600 ml 1000 ml Balance 510 ml 804 ml Intake Free Water 400 ml 200 ml IV Total 50 ml 884 ml Tube Feeding 660 ml 720 ml Output Urine Total 600 ml 1000 ml # Bowel Movements 1 1 General Appearance: other - PEG/TRACH/Non-verbal/contracted HEENT: normocephalic, status post trach Respiratory/Chest: rhonchi - scattered Cardiovascular: normal peripheral pulses, normal rate, regular rhythm Abdomen: normal bowel sounds, soft, non tender, no organomegaly, non distended , other - GT CDI Extremities: no cyanosis, no clubbing, no edema, other - contracted Laboratory Tests 08/03/16 04:20: White Blood Count 14.9H, Red Blood Count 3.11L, Hemoglobin 9.4L, Hematocrit 30.0L, Mean Corpuscular Volume 97, Mean Corpuscular Hemoglobin 30.3, Mean Corpuscular Hemoglobin Concent 31.3L, Red Cell Distribution Width 18.8H, Platelet Count 536H, Mean Platelet Volume 5.2L, Neutrophils (%) (Auto) 74.0, Lymphocytes (%) (Auto) 15.9L, Monocytes (%) (Auto) 9.1, Eosinophils (%) (Auto) 0.7, Basophils (%) (Auto) 0.3, Sodium Level 135, Potassium Level 4.5, Chloride Level 99, Carbon Dioxide Level 23, Anion Gap 13, Blood Urea Nitrogen 18, Creatinine 0.3L, Estimat Glomerular Filtration Rate > 60, Glucose Level 105, Calcium Level 8.3L Current Medications Medications (Trade) Dose Ordered Sig/Tanisha Route PRN Reason Start Time Stop Time Status Last Admin Dose Admin Acetaminophen (Tylenol) 650 mg Q4H PRN ORAL Mild Pain/Temp > 100.5 07/30/16 15:00 08/29/16 14:59 08/01/16 09:12 Acetaminophen/ Hydrocodone Bitart ([employer] 5/325) 2 tab Q8H PRN GT For SEVERE PAIN 08/01/16 14:54 08/06/16 14:59 Albuterol/ Ipratropium (DuoNeb 0.5-3(2.5)mg/3ml) 3 ml Q4H PRN HHN Shortness of Breath 07/30/16 15:00 08/04/16 14:59 Aztreonam/Sodium Chloride (Azactam/Sodium Chloride 100ml bag) 100 ml @ 200 mls/hr Q8HR@0200,1000,1800 IVPB 08/02/16 18:00 08/06/16 17:59 08/03/16 09:23 Collagenase (Santyl) 1 applic DAILY TOPIC 08/01/16 09:00 08/31/16 08:59 08/03/16 09:23 Dextrose (Dextrose 50%) STAT PRN IV Hypoglycemia 07/30/16 14:45 08/29/16 14:44 Famotidine (Pepcid I.v.) 20 mg DAILY IVP 07/31/16 09:00 08/30/16 08:59 08/03/16 09:20 Heparin Sodium (Porcine) (Heparin 5000 units/ml) 5,000 units EVERY 12 HOURS SUBQ 07/30/16 21:00 08/29/16 20:59 08/03/16 09:22 Insulin Aspart (NovoLOG) EVERY 6 HOURS SUBQ 07/30/16 18:00 08/29/16 17:59 08/01/16 23:58 Lactobacillus Acidophilus (Culturelle) 1 tab TWICE A DAY GT 07/30/16 18:00 08/29/16 17:59 08/03/16 09:21 Levofloxacin 150 ml @ 150 mls/hr Q24H IVPB 07/30/16 17:00 08/06/16 16:59 08/02/16 17:00 Levothyroxine Sodium (Synthroid) 200 mcg DAILY GT 07/31/16 09:00 08/30/16 08:59 08/03/16 09:21 Lorazepam (Ativan) 1 mg Q6H PRN GT For Anxiety 08/01/16 14:54 08/06/16 14:59 Midodrine 5 mg 5 mg THREE TIMES A DAY GT 07/30/16 18:00 08/29/16 17:59 08/03/16 09:21 Ondansetron HCl (Zofran) 4 mg Q6H PRN IV Nausea & Vomiting 07/30/16 15:00 08/29/16 14:59 Polyethylene Glycol 17 gm 17 gm DAILY GT 08/01/16 14:54 08/30/16 08:59 08/02/16 08:52 Sodium Chloride 1,000 ml @ 50 mls/hr Q20H IV 08/02/16 17:00 09/01/16 16:59 08/02/16 17:00 Vancomycin HCl (Vanco rx to dose) 1 ea DAILY PRN MISC Per rx protocol 07/30/16 15:15 08/29/16 15:14 Vancomycin HCl/ Dextrose (Vancomycin/D5W 250ml) 250 ml @ 167 mls/hr Q12HR@0700,1900 IVPB 07/31/16 07:00 08/05/16 06:59 08/03/16 06:04 DEON PARK M.D. Aug 03, 2016 11:24
--- NOTE | 2016-08-03 11:33 | Infectious Diseases Prog Note ---
Assessment/Plan Assessment/Plan MICRO: 07/30 BCx NGTD 07/30 UCx pending / UA(-) 07/30 SCx pending 06/30 Back WCx MDR-K.pneumoniae, VRE.faecalis, CONS, C.albicans 06/28 BCx CONS 1/4 06/29 SCx qI-PSA, P.stuartii 06/26 Back WCx MDR-K.pneumoniae, MDR-ACB 06/17 SCx ESBL(+) K.pneumoniae, qS-PSA, S.maltophilia 06/11 BCx(-) 06/11 UCx >100K E.coli 05/12 Cath tip <10K CONS 05/11 BCx(-) 05/09 BCx CONS / ( single stick ) 05/09 UCx qR-K.pneumoniae 04/22 SCx qI-PSA 04/19 BCx CONS 10/18 ASSESSMENT: 60-year-old male with: // Multiple decubiti POA, suspect infected - seen by plastics, plan possible debridement - Bone scan 07/01: Limited, essentially nondiagnostic exam. No gross findings to suggest acute osteomyelitis - h/o MDR-K.pneumoniae, VRE.faecalis, CONS, C.albicans // h/o recurrent CONS bacteremia r/o recurrence - surveillance BCx NGTD - h/o recurrent CONS 2/4 (05/09) SP IV vanco x28d - h/o CONS 3/4 (04/19 ) SP Rx IV vanco x7d - TTE 05/11: poorly visualized valves, poor candidate MARIA C - h/o CONS cath tip colonization ( <10K ) // h/o recurrent PNAs ( VAP / HCAP ) r/o recurrence - SCx pending - CXR 07/30: Findings most compatible with congestive heart failure with bilateral pleural effusions, persistent versus recurrent since previous exam. - h/o qI,S-PSA, P.stuartii, ESBL(+) K.pneumoniae, S.maltophilia // h/o recurrent UTIs r/o recurrence - repeat UA benign, UCx pending - US: Mild left hydronephrosis, new since prior study of 04/21/2016. Etiology not demonstrated but concerning for downstream obstruction - h/o E.coli, K.pneumoniae SP Rx // Elevated LFTs, GGT - chronic, stable - US: Equivocally visualized stone filled gallbladder, versus shadowing from duodenal gas. 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 Tolerates cefepime, meropenem Full Code PLAN: continue IV vancomycin, levaquin, aztreonam d# 5 pending cultures ( 07/05 SP IV vancomycin, aztreonam d# 7 / 7 ) ( 06/26 SP Merrem d# 6, cefepime d# 14 ) ( SP IV vancomycin, d# 6 and flagyl d# 3 ) ( SP IV vancomycin d# 28 / 28 ( 05/13 SP aztreonam, amikacin d# 5 / 5 ) ( 05/02 SP aztreonam d# 14 / 14 ) ( 04/25 SP vancomycin d# 7 / 7 ) debridement per plastics f/u cultures Monitor CBC, temperatures Monitor CMP Monitor chest x-ray vent support, trach care, aspiration precautions wound care contact isolation Subjective Allergies: Coded Allergies: PENICILLINS (Verified Allergy, Unknown, 04/19/16) Subjective pt unable to provide any information fevers resolved, WBC stable Objective Vital Signs Last 24 Hour Vital Signs Date Time Temp Pulse Resp B/P Pulse Ox O2 Delivery O2 Flow Rate FiO2 08/03/16 11:16 93 20 40 08/03/16 09:25 90 20 40 08/03/16 08:00 40 08/03/16 08:00 97.0 76 23 98/63 99 Mechanical Ventilator 40 08/03/16 08:00 85 08/03/16 06:38 81 20 40 08/03/16 05:16 92 20 40 08/03/16 04:00 84 08/03/16 04:00 98.2 86 20 100/65 100 Mechanical Ventilator 40 08/03/16 04:00 40 08/03/16 03:30 89 20 40 08/03/16 01:20 87 20 40 08/03/16 01:00 98.4 12/18/16 00:00 87 08/03/16 00:00 99.0 89 22 99/64 100 Mechanical Ventilator 40 08/03/16 00:00 40 08/02/16 23:12 85 20 40 08/02/16 21:05 93 20 40 08/02/16 20:07 98.1 85 18 101/71 98 Mechanical Ventilator 40 08/02/16 20:00 77 08/02/16 20:00 40 08/02/16 19:17 88 20 40 08/02/16 17:13 85 20 40 08/02/16 16:12 98.0 84 18 104/67 98 Mechanical Ventilator 40 08/02/16 16:00 84 08/02/16 16:00 40 08/02/16 15:24 84 20 40 08/02/16 13:16 83 21 40 08/02/16 12:00 40 08/02/16 12:00 97.3 83 19 106/71 84 Room Air 40 Height (Feet): 5 Height (Inches): 5.00 Weight (Pounds): 150 General Appearance: no acute distress HEENT: status post trach Respiratory/Chest: decreased breath sounds Cardiovascular: normal rate, regular rhythm Abdomen: normal bowel sounds, soft, non tender, non distended Laboratory Tests Test 08/03/16 04:20 White Blood Count 14.9 K/UL (4.8-10.8) H Red Blood Count 3.11 M/UL (4.70-6.10) L Hemoglobin 9.4 G/DL (14.2-18.0) L Hematocrit 30.0 % (42.0-52.0) L Mean Corpuscular Volume 97 FL (80-99) Mean Corpuscular Hemoglobin 30.3 PG (27.0-31.0) Mean Corpuscular Hemoglobin Concent 31.3 G/DL (32.0-36.0) L Red Cell Distribution Width 18.8 % (11.6-14.8) H Platelet Count 536 K/UL (150-450) H Mean Platelet Volume 5.2 FL (6.5-10.1) L Neutrophils (%) (Auto) 74.0 % (45.0-75.0) Lymphocytes (%) (Auto) 15.9 % (20.0-45.0) L Monocytes (%) (Auto) 9.1 % (1.0-10.0) Eosinophils (%) (Auto) 0.7 % (0.0-3.0) Basophils (%) (Auto) 0.3 % (0.0-2.0) Sodium Level 135 mEQ/L (135-145) Potassium Level 4.5 mEQ/L (3.4-4.9) Chloride Level 99 mEQ/L (98-107) Carbon Dioxide Level 23 mEQ/L (20-30) Anion Gap 13 (5-15) Blood Urea Nitrogen 18 mg/dL (7-23) Creatinine 0.3 mg/dL (0.7-1.2) L Estimat Glomerular Filtration Rate > 60 mL/min (>60) Glucose Level 105 mg/dL (74-106) Calcium Level 8.3 mg/dL (8.6-10.2) L Current Medications Medications (Trade) Dose Ordered Sig/Tanisha Route PRN Reason Start Time Stop Time Status Last Admin Dose Admin Acetaminophen (Tylenol) 650 mg Q4H PRN ORAL Mild Pain/Temp > 100.5 07/30/16 15:00 08/29/16 14:59 08/01/16 09:12 Acetaminophen/ Hydrocodone Bitart ([place] 5/325) 2 tab Q8H PRN GT For SEVERE PAIN 08/01/16 14:54 08/06/16 14:59 Albuterol/ Ipratropium (DuoNeb 0.5-3(2.5)mg/3ml) 3 ml Q4H PRN HHN Shortness of Breath 07/30/16 15:00 08/04/16 14:59 Aztreonam/Sodium Chloride (Azactam/Sodium Chloride 100ml bag) 100 ml @ 200 mls/hr Q8HR@0200,1000,1800 IVPB 08/02/16 18:00 08/06/16 17:59 08/03/16 09:23 Collagenase (Santyl) 1 applic DAILY TOPIC 08/01/16 09:00 08/31/16 08:59 08/03/16 09:23 Dextrose (Dextrose 50%) STAT PRN IV Hypoglycemia 07/30/16 14:45 08/29/16 14:44 Famotidine (Pepcid I.v.) 20 mg DAILY IVP 07/31/16 09:00 08/30/16 08:59 08/03/16 09:20 Heparin Sodium (Porcine) (Heparin 5000 units/ml) 5,000 units EVERY 12 HOURS SUBQ 07/30/16 21:00 08/29/16 20:59 08/03/16 09:22 Insulin Aspart (NovoLOG) EVERY 6 HOURS SUBQ 07/30/16 18:00 08/29/16 17:59 08/01/16 23:58 Lactobacillus Acidophilus (Culturelle) 1 tab TWICE A DAY GT 07/30/16 18:00 08/29/16 17:59 08/03/16 09:21 Levofloxacin 150 ml @ 150 mls/hr Q24H IVPB 07/30/16 17:00 08/06/16 16:59 08/02/16 17:00 Levothyroxine Sodium (Synthroid) 200 mcg DAILY GT 07/31/16 09:00 08/30/16 08:59 08/03/16 09:21 Lorazepam (Ativan) 1 mg Q6H PRN GT For Anxiety 08/01/16 14:54 08/06/16 14:59 Midodrine 5 mg 5 mg THREE TIMES A DAY GT 07/30/16 18:00 08/29/16 17:59 08/03/16 09:21 Ondansetron HCl (Zofran) 4 mg Q6H PRN IV Nausea & Vomiting 07/30/16 15:00 08/29/16 14:59 Polyethylene Glycol 17 gm 17 gm DAILY GT 08/01/16 14:54 08/30/16 08:59 08/02/16 08:52 Vancomycin HCl (Vanco rx to dose) 1 ea DAILY PRN MISC Per rx protocol 07/30/16 15:15 08/29/16 15:14 Vancomycin HCl/ Dextrose (Vancomycin/D5W 250ml) 250 ml @ 167 mls/hr Q12HR@0700,1900 IVPB 07/31/16 07:00 08/05/16 06:59 08/03/16 06:04 [place] Aug 03, 2016 11:33
[2016-08-03 12:00] VITALS: BP 100/63
[2016-08-03 16:00] VITALS: BP 98/57
--- NOTE | 2016-08-03 16:53 | Internal Med Progress Note ---
Subjective Date of Service: Aug 03, 2016 Physician Name BanuelosIrma ocasio Attending Physician Cherry Wei Current Medications Medications (Trade) Dose Ordered Sig/Tanisha Route PRN Reason Start Time Stop Time Status Last Admin Dose Admin Acetaminophen (Tylenol) 650 mg Q4H PRN ORAL Mild Pain/Temp > 100.5 07/30/16 15:00 08/29/16 14:59 08/01/16 09:12 Acetaminophen/ Hydrocodone Bitart ([place] 5/325) 2 tab Q8H PRN GT For SEVERE PAIN 08/01/16 14:54 08/06/16 14:59 Albuterol/ Ipratropium (DuoNeb 0.5-3(2.5)mg/3ml) 3 ml Q4H PRN HHN Shortness of Breath 07/30/16 15:00 08/04/16 14:59 Aztreonam/Sodium Chloride (Azactam/Sodium Chloride 100ml bag) 100 ml @ 200 mls/hr Q8HR@0200,1000,1800 IVPB 08/02/16 18:00 08/06/16 17:59 08/03/16 09:23 Collagenase (Santyl) 1 applic DAILY TOPIC 08/01/16 09:00 08/31/16 08:59 08/03/16 09:23 Dextrose (Dextrose 50%) STAT PRN IV Hypoglycemia 07/30/16 14:45 08/29/16 14:44 Famotidine (Pepcid I.v.) 20 mg DAILY IVP 07/31/16 09:00 08/30/16 08:59 08/03/16 09:20 Heparin Sodium (Porcine) (Heparin 5000 units/ml) 5,000 units EVERY 12 HOURS SUBQ 07/30/16 21:00 08/29/16 20:59 08/03/16 09:22 Insulin Aspart (NovoLOG) EVERY 6 HOURS SUBQ 07/30/16 18:00 08/29/16 17:59 08/01/16 23:58 Lactobacillus Acidophilus (Culturelle) 1 tab TWICE A DAY GT 07/30/16 18:00 08/29/16 17:59 08/03/16 09:21 Levofloxacin 150 ml @ 150 mls/hr Q24H IVPB 07/30/16 17:00 08/06/16 16:59 08/02/16 17:00 Levothyroxine Sodium (Synthroid) 200 mcg DAILY GT 07/31/16 09:00 08/30/16 08:59 08/03/16 09:21 Lorazepam (Ativan) 1 mg Q6H PRN GT For Anxiety 08/01/16 14:54 08/06/16 14:59 Midodrine 5 mg 5 mg THREE TIMES A DAY GT 07/30/16 18:00 08/29/16 17:59 08/03/16 12:52 Ondansetron HCl (Zofran) 4 mg Q6H PRN IV Nausea & Vomiting 07/30/16 15:00 08/29/16 14:59 Polyethylene Glycol 17 gm 17 gm DAILY GT 08/01/16 14:54 08/30/16 08:59 08/02/16 08:52 Vancomycin HCl (Vanco rx to dose) 1 ea DAILY PRN MISC Per rx protocol 07/30/16 15:15 08/29/16 15:14 Vancomycin HCl/ Dextrose (Vancomycin/D5W 250ml) 250 ml @ 167 mls/hr Q12HR@0700,1900 IVPB 07/31/16 07:00 08/05/16 06:59 08/03/16 06:04 Allergies: Coded Allergies: PENICILLINS (Verified Allergy, Unknown, 04/19/16) ROS Limited/Unobtainable: Yes Subjective Cover for Int Med-Dr Wei. KALPESH. Cont on vent Objective Last Vital Signs Date Time Temp Pulse Resp B/P Pulse Ox O2 Delivery O2 Flow Rate FiO2 08/03/16 16:00 91 08/03/16 16:00 97.5 22 98/57 99 Mechanical Ventilator 40 Laboratory Tests Test 08/03/16 04:20 White Blood Count 14.9 K/UL (4.8-10.8) H Red Blood Count 3.11 M/UL (4.70-6.10) L Hemoglobin 9.4 G/DL (14.2-18.0) L Hematocrit 30.0 % (42.0-52.0) L Mean Corpuscular Volume 97 FL (80-99) Mean Corpuscular Hemoglobin 30.3 PG (27.0-31.0) Mean Corpuscular Hemoglobin Concent 31.3 G/DL (32.0-36.0) L Red Cell Distribution Width 18.8 % (11.6-14.8) H Platelet Count 536 K/UL (150-450) H Mean Platelet Volume 5.2 FL (6.5-10.1) L Neutrophils (%) (Auto) 74.0 % (45.0-75.0) Lymphocytes (%) (Auto) 15.9 % (20.0-45.0) L Monocytes (%) (Auto) 9.1 % (1.0-10.0) Eosinophils (%) (Auto) 0.7 % (0.0-3.0) Basophils (%) (Auto) 0.3 % (0.0-2.0) Sodium Level 135 mEQ/L (135-145) Potassium Level 4.5 mEQ/L (3.4-4.9) Chloride Level 99 mEQ/L (98-107) Carbon Dioxide Level 23 mEQ/L (20-30) Anion Gap 13 (5-15) Blood Urea Nitrogen 18 mg/dL (7-23) Creatinine 0.3 mg/dL (0.7-1.2) L Estimat Glomerular Filtration Rate > 60 mL/min (>60) Glucose Level 105 mg/dL (74-106) Calcium Level 8.3 mg/dL (8.6-10.2) L Intake and Output 08/02/16 08/03/16 19:00 07:00 Intake Total 1110 ml 1804 ml Output Total 600 ml 1000 ml Balance 510 ml 804 ml Intake Free Water 400 ml 200 ml IV Total 50 ml 884 ml Tube Feeding 660 ml 720 ml Output Urine Total 600 ml 1000 ml # Bowel Movements 1 1 Objective General Appearance: lethargic EENT: PERRL/EOMI, normal ENT inspection Neck: non-tender, normal alignment, supple Cardiovascular: normal peripheral pulses, normal rate, regular rhythm, no gallop/murmur, no JVD Respiratory/Chest: Mech ventchest wall non-tender, crackles/rales, rhonchi - bilaterally, expiratory wheezing Abdomen: normal bowel sounds, non tender, soft, no organomegaly, no mass Skin: normal pigmentation, warm/dry Assessment/Plan Problem List: (1) Brain anoxic injury (2) CAD (coronary artery disease) (3) Dysphagia (4) Hypothyroidism Assessment & Plan: Cont levoxyl (5) Acute flaccid quadriplegia (6) Diabetes mellitus (7) Bilateral pneumonia Assessment & Plan: Cont vanco and aztreonam per ID (8) Respiratory failure Assessment & Plan: Vent dep; s/p tracheostomy. follow pulm recs. (9) History of glioma of brainstem IRMA BANUELOS Aug 03, 2016 16:53
[2016-08-03 20:00] VITALS: BP 95/53
[2016-08-04] VITALS (7 sets, daily range): BP systolic 84–104; BP diastolic 56–71
[2016-08-04] MEDS: NS IVPB SCH ×3 (02:34→18:57)
[2016-08-04] MEDS: AZTREONAM IVPB SCH ×3 (02:34→18:57)
[2016-08-04 05:34] LABS: MEAN CORPUSCULAR HEMOGLOBIN 30.3 PG (27.0-31.0); MEAN CORPUSCULAR HGB CONC 31.3 G/DL (32.0-36.0); MEAN CORPUSCULAR VOLUME 97 FL (80-99); MEAN PLATELET VOLUME 5.3 FL (6.5-10.1); PLATELET COUNT 645 K/UL (150-450); RED BLOOD COUNT 3.12 M/UL (4.70-6.10); WHITE BLOOD COUNT 20.2 K/UL (4.8-10.8)
[2016-08-04] MEDS: NovoLOG Insulin Flexpen SUBQ SCH ×5 (06:00→23:56)
[2016-08-04 06:06] LABS: ANION GAP 15 (5-15); CALCIUM 8.6 mg/dL (8.6-10.2); CARBON DIOXIDE 22 mEQ/L (20-30); CHLORIDE 98 mEQ/L (98-107); CREATININE 0.3 mg/dL (0.7-1.2); GLOMERULAR FILTRATION RATE > 60 mL/min (>60); HEMOLYSIS 9; POTASSIUM 4.8 mEQ/L (3.4-4.9); SODIUM 135 mEQ/L (135-145)
[2016-08-04] MEDS: Vancomycin 750mg/D5W 250ml IVPB SCH ×4 (06:44→19:46)
[2016-08-04 09:14] LABS: ANISOCYTOSIS 1+; BAND NEUTROPHILS % (MANUAL) 0 % (0-8); BASOPHILS % (MANUAL) 0 % (0-2); EOSINOPHILS % (MANUAL) 0 % (0-3); LYMPHOCYTES % (MANUAL) 23 % (20-45); NEUTROPHILS % (MANUAL) 69 % (45-75); PLATELET ESTIMATE INCREASED; PLATELET MORPHOLOGY NORMAL; TOTAL CELLS COUNTED 100
[2016-08-04 09:15] LABS: HYPOCHROMASIA 1+
[2016-08-04] MEDS: Famotidine 20 MG/ 2ML VIAL IVP SCH (09:28)
[2016-08-04] MEDS: Miralax 17gm pkt GT SCH (09:28)
[2016-08-04] MEDS: Lactobacillus-GG tablet GT SCH ×2 (09:28→18:27)
[2016-08-04] MEDS: Heparin 5000 units/ml inj SUBQ SCH ×2 (09:43→21:39)
[2016-08-04] MEDS ORDERED: Sodium Bicarbonate 8.4% 50ml Inj IV ONE (11:00)
[2016-08-04] MEDS ORDERED: Lidocaine 1% Plain 30 ml INJ ONE (11:00)
[2016-08-04] MEDS ORDERED: Heparin 2000 units/Ns 1000ml INJ ONE (11:00)
--- NOTE | 2016-08-04 13:17 | Pulmonolgy Critical Care Note ---
Critical Care - Asmt/Plan Problems: (1) Acute and chronic respiratory failure (2) Septic shock (3) Pleural effusion (4) ATN (acute tubular necrosis) (5) Brain anoxic injury (6) Acute flaccid quadriplegia (7) Feeding by G-tube Respiratory: monitor respiratory rate, adjust FIO2, CXR Cardiac: continue pressors, stop pressors, continue to monitor HR/BP Renal: check electrolytes Infectious Disease: check cultures, continue antibiotics Gastrointestinal: continue feedings/current rate Endocrine: monitor blood sugar, check TSH, check HgA1C Hematologic: monitor H/H Neurologic: PRN Ativan Affect: PRN ativan Prophylaxis: Protonix, Heparin Time Spent (Minutes): 40 Notes Reviewed: inspector, cardio, renal Discussed with: nurses, consultants, nurse case managementmanager bridge - Objective Last 24 Hour Vital Signs Date Time Temp Pulse Resp B/P Pulse Ox O2 Delivery O2 Flow Rate FiO2 08/04/16 12:10 97 27 40 08/04/16 12:00 40 08/04/16 12:00 98.2 97 28 94/61 100 Mechanical Ventilator 40 08/04/16 09:20 112 26 40 08/04/16 08:00 97.9 96 26 84/60 100 Mechanical Ventilator 40 08/04/16 08:00 40 08/04/16 07:28 99 22 100 Mechanical Ventilator 40 08/04/16 07:12 95 23 100 Mechanical Ventilator 40 08/04/16 07:12 40 08/04/16 07:06 96 24 40 08/04/16 04:57 94 23 40 08/04/16 04:00 103 08/04/16 04:00 97.9 100 24 101/56 100 Mechanical Ventilator 40 08/04/16 04:00 40 08/04/16 03:00 92 25 40 08/04/16 01:00 93 26 40 08/04/16 00:00 98 08/04/16 00:00 97.7 98 24 104/63 100 Mechanical Ventilator 40 08/04/16 00:00 40 08/03/16 23:20 92 25 40 08/03/16 21:25 94 28 40 08/03/16 20:00 97.4 96 21 95/53 99 Mechanical Ventilator 40 08/03/16 20:00 98 08/03/16 20:00 40 08/03/16 18:50 90 23 40 08/03/16 17:29 88 21 40 08/03/16 16:00 87 08/03/16 16:00 97.5 91 22 98/57 99 Mechanical Ventilator 40 08/03/16 16:00 40 08/03/16 14:49 90 20 40 Status: obtunded Condition: critical HEENT: atraumatic, normocephalic Lungs: clear, chest wall tender Heart: HR/BP stable Abdomen: soft, non-tender Extremities: no C/C/E, edema Accucheck: 108 Critical Care - Subjective ROS Limited/Unobtainable: Yes Intubation Day: chronic trach Condition: critical EKG Rhythm: Sinus Rhythm FI02: 40 Vent Support Breath Rate: 20 Vent Support Mode: AC Vent Tidal Volume: 500 Sputum Amount: Moderate PEEP: 5.0 PIP: 26 Tube Feeding Amount: 60 I&O: Intake and Output 08/03/16 08/04/16 19:00 07:00 Intake Total 1660 ml 1453 ml Output Total 1000 ml 1500 ml Balance 660 ml -47 ml Intake Free Water 50 ml 200 ml IV Total 900 ml 533 ml Tube Feeding 660 ml 720 ml Other 50 ml Output Urine Total 1000 ml 1500 ml # Bowel Movements 2 1 CXR: increased diaphragm at right Labs: Laboratory Tests Test 08/04/16 04:50 White Blood Count 20.2 K/UL (4.8-10.8) H Red Blood Count 3.12 M/UL (4.70-6.10) L Hemoglobin 9.4 G/DL (14.2-18.0) L Hematocrit 30.2 % (42.0-52.0) L Mean Corpuscular Volume 97 FL (80-99) Mean Corpuscular Hemoglobin 30.3 PG (27.0-31.0) Mean Corpuscular Hemoglobin Concent 31.3 G/DL (32.0-36.0) L Red Cell Distribution Width 19.0 % (11.6-14.8) H Platelet Count 645 K/UL (150-450) H Mean Platelet Volume 5.3 FL (6.5-10.1) L Neutrophils (%) (Auto) % (45.0-75.0) Lymphocytes (%) (Auto) % (20.0-45.0) Monocytes (%) (Auto) % (1.0-10.0) Eosinophils (%) (Auto) % (0.0-3.0) Basophils (%) (Auto) % (0.0-2.0) Differential Total Cells Counted 100 Neutrophils % (Manual) 69 % (45-75) Lymphocytes % (Manual) 23 % (20-45) Monocytes % (Manual) 8 % (1-10) Eosinophils % (Manual) 0 % (0-3) Basophils % (Manual) 0 % (0-2) Band Neutrophils 0 % (0-8) Platelet Estimate Increased H Platelet Morphology Normal Hypochromasia 1+ Anisocytosis 1+ Sodium Level 135 mEQ/L (135-145) Potassium Level 4.8 mEQ/L (3.4-4.9) Chloride Level 98 mEQ/L (98-107) Carbon Dioxide Level 22 mEQ/L (20-30) Anion Gap 15 (5-15) Blood Urea Nitrogen 18 mg/dL (7-23) Creatinine 0.3 mg/dL (0.7-1.2) L Estimat Glomerular Filtration Rate > 60 mL/min (>60) Glucose Level 98 mg/dL (74-106) Calcium Level 8.6 mg/dL (8.6-10.2) JAKUB MORALES Aug 04, 2016 13:17
[2016-08-04] MEDS ORDERED: LORazepam Inj 2mg/ml 1ml IV PRN (13:30)
--- NOTE | 2016-08-04 14:00 | Infectious Diseases Prog Note ---
Assessment/Plan Assessment/Plan MICRO: 07/30 BCx NGTD 07/30 UCx pending / UA(-) 07/30 SCx pending 06/30 Back WCx MDR-K.pneumoniae, VRE.faecalis, CONS, C.albicans 06/28 BCx CONS 1/4 06/29 SCx qI-PSA, P.stuartii 06/26 Back WCx MDR-K.pneumoniae, MDR-ACB 06/17 SCx ESBL(+) K.pneumoniae, qS-PSA, S.maltophilia 06/11 BCx(-) 06/11 UCx >100K E.coli 05/12 Cath tip <10K CONS 05/11 BCx(-) 05/09 BCx CONS / ( single stick ) 05/09 UCx qR-K.pneumoniae 04/22 SCx qI-PSA 04/19 BCx CONS 10/18 ASSESSMENT: 60-year-old male with: // Multiple decubiti POA, suspect infected - seen by plastics, plan possible debridement - Bone scan 07/01: Limited, essentially nondiagnostic exam. No gross findings to suggest acute osteomyelitis - h/o MDR-K.pneumoniae, VRE.faecalis, CONS, C.albicans // h/o recurrent CONS bacteremia r/o recurrence - surveillance BCx NGTD - h/o recurrent CONS 2/4 (05/09) SP IV vanco x28d - h/o CONS 3/4 (04/19 ) SP Rx IV vanco x7d - TTE 05/11: poorly visualized valves, poor candidate MARIA C - h/o CONS cath tip colonization ( <10K ) // h/o recurrent PNAs ( VAP / HCAP ) r/o recurrence - SCx pending - CXR 07/30: Findings most compatible with congestive heart failure with bilateral pleural effusions, persistent versus recurrent since previous exam. - h/o qI,S-PSA, P.stuartii, ESBL(+) K.pneumoniae, S.maltophilia // h/o recurrent UTIs r/o recurrence - repeat UA benign, UCx pending - US: Mild left hydronephrosis, new since prior study of 04/21/2016. Etiology not demonstrated but concerning for downstream obstruction - h/o E.coli, K.pneumoniae SP Rx // Elevated LFTs, GGT - chronic, stable - US: Equivocally visualized stone filled gallbladder, versus shadowing from duodenal gas. 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 Tolerates cefepime, meropenem Full Code PLAN: continue IV vancomycin, aztreonam d# 5. DC levaquin d# 5, add flagyl d# 1, check C.difficile ( 07/05 SP IV vancomycin, aztreonam d# 7 / 7 ) ( 06/26 SP Merrem d# 6, cefepime d# 14 ) ( SP IV vancomycin, d# 6 and flagyl d# 3 ) ( SP IV vancomycin d# 28 / 28 ( 05/13 SP aztreonam, amikacin d# 5 / 5 ) ( 05/02 SP aztreonam d# 14 / 14 ) ( 04/25 SP vancomycin d# 7 / 7 ) debridement per plastics f/u cultures Monitor CBC, temperatures Monitor CMP Monitor chest x-ray vent support, trach care, aspiration precautions wound care contact isolation Subjective Allergies: Coded Allergies: PENICILLINS (Verified Allergy, Unknown, 04/19/16) Subjective pt unable to provide any information fevers resolved, WBC up Objective Vital Signs Last 24 Hour Vital Signs Date Time Temp Pulse Resp B/P Pulse Ox O2 Delivery O2 Flow Rate FiO2 08/04/16 12:10 97 27 40 08/04/16 12:00 40 08/04/16 12:00 98.2 97 28 94/61 100 Mechanical Ventilator 40 08/04/16 09:20 112 26 40 08/04/16 08:00 97.9 96 26 84/60 100 Mechanical Ventilator 40 08/04/16 08:00 40 08/04/16 07:28 99 22 100 Mechanical Ventilator 40 08/04/16 07:12 95 23 100 Mechanical Ventilator 40 08/04/16 07:12 40 08/04/16 07:06 96 24 40 08/04/16 04:57 94 23 40 08/04/16 04:00 103 08/04/16 04:00 97.9 100 24 101/56 100 Mechanical Ventilator 40 08/04/16 04:00 40 08/04/16 03:00 92 25 40 08/04/16 01:00 93 26 40 08/04/16 00:00 98 08/04/16 00:00 97.7 98 24 104/63 100 Mechanical Ventilator 40 08/04/16 00:00 40 08/03/16 23:20 92 25 40 08/03/16 21:25 94 28 40 08/03/16 20:00 97.4 96 21 95/53 99 Mechanical Ventilator 40 08/03/16 20:00 98 08/03/16 20:00 40 08/03/16 18:50 90 23 40 08/03/16 17:29 88 21 40 08/03/16 16:00 87 08/03/16 16:00 97.5 91 22 98/57 99 Mechanical Ventilator 40 08/03/16 16:00 40 08/03/16 14:49 90 20 40 Height (Feet): 5 Height (Inches): 5.00 Weight (Pounds): 150 General Appearance: no acute distress HEENT: status post trach Respiratory/Chest: no respiratory distress Cardiovascular: normal rate, regular rhythm Abdomen: normal bowel sounds, soft, non tender, non distended, other - PEG Laboratory Tests Test 08/04/16 04:50 White Blood Count 20.2 K/UL (4.8-10.8) H Red Blood Count 3.12 M/UL (4.70-6.10) L Hemoglobin 9.4 G/DL (14.2-18.0) L Hematocrit 30.2 % (42.0-52.0) L Mean Corpuscular Volume 97 FL (80-99) Mean Corpuscular Hemoglobin 30.3 PG (27.0-31.0) Mean Corpuscular Hemoglobin Concent 31.3 G/DL (32.0-36.0) L Red Cell Distribution Width 19.0 % (11.6-14.8) H Platelet Count 645 K/UL (150-450) H Mean Platelet Volume 5.3 FL (6.5-10.1) L Neutrophils (%) (Auto) % (45.0-75.0) Lymphocytes (%) (Auto) % (20.0-45.0) Monocytes (%) (Auto) % (1.0-10.0) Eosinophils (%) (Auto) % (0.0-3.0) Basophils (%) (Auto) % (0.0-2.0) Differential Total Cells Counted 100 Neutrophils % (Manual) 69 % (45-75) Lymphocytes % (Manual) 23 % (20-45) Monocytes % (Manual) 8 % (1-10) Eosinophils % (Manual) 0 % (0-3) Basophils % (Manual) 0 % (0-2) Band Neutrophils 0 % (0-8) Platelet Estimate Increased H Platelet Morphology Normal Hypochromasia 1+ Anisocytosis 1+ Sodium Level 135 mEQ/L (135-145) Potassium Level 4.8 mEQ/L (3.4-4.9) Chloride Level 98 mEQ/L (98-107) Carbon Dioxide Level 22 mEQ/L (20-30) Anion Gap 15 (5-15) Blood Urea Nitrogen 18 mg/dL (7-23) Creatinine 0.3 mg/dL (0.7-1.2) L Estimat Glomerular Filtration Rate > 60 mL/min (>60) Glucose Level 98 mg/dL (74-106) Calcium Level 8.6 mg/dL (8.6-10.2) Current Medications Medications (Trade) Dose Ordered Sig/Tanisha Route PRN Reason Start Time Stop Time Status Last Admin Dose Admin Acetaminophen (Tylenol) 650 mg Q4H PRN ORAL Mild Pain/Temp > 100.5 07/30/16 15:00 08/29/16 14:59 08/01/16 09:12 Acetaminophen/ Hydrocodone Bitart ([place] 5/325) 2 tab Q8H PRN GT For SEVERE PAIN 08/01/16 14:54 08/06/16 14:59 Aztreonam/Sodium Chloride (Azactam/Sodium Chloride 100ml bag) 100 ml @ 200 mls/hr Q8HR@0200,1000,1800 IVPB 08/02/16 18:00 08/06/16 17:59 08/04/16 10:08 Collagenase (Santyl) 1 applic DAILY TOPIC 08/01/16 09:00 08/31/16 08:59 08/04/16 09:29 Dextrose (Dextrose 50%) STAT PRN IV Hypoglycemia 07/30/16 14:45 08/29/16 14:44 Famotidine (Pepcid I.v.) 20 mg DAILY IVP 07/31/16 09:00 08/30/16 08:59 08/04/16 09:28 Heparin Sodium (Porcine) (Heparin 5000 units/ml) 5,000 units EVERY 12 HOURS SUBQ 07/30/16 21:00 08/29/16 20:59 08/04/16 09:43 Insulin Aspart (NovoLOG) EVERY 6 HOURS SUBQ 07/30/16 18:00 08/29/16 17:59 08/01/16 23:58 Lactobacillus Acidophilus (Culturelle) 1 tab TWICE A DAY GT 07/30/16 18:00 08/29/16 17:59 08/04/16 09:28 Levofloxacin 150 ml @ 150 mls/hr Q24H IVPB 07/30/16 17:00 08/06/16 16:59 08/03/16 16:59 Levothyroxine Sodium (Synthroid) 200 mcg DAILY GT 07/31/16 09:00 08/30/16 08:59 08/04/16 09:28 Lorazepam (Ativan 2mg/ml 1ml) 1 mg Q4H PRN IV For Anxiety 08/04/16 13:30 08/11/16 13:29 08/04/16 13:53 Midodrine 5 mg 5 mg THREE TIMES A DAY GT 07/30/16 18:00 08/29/16 17:59 08/04/16 13:03 Ondansetron HCl (Zofran) 4 mg Q6H PRN IV Nausea & Vomiting 07/30/16 15:00 08/29/16 14:59 Polyethylene Glycol 17 gm 17 gm DAILY GT 08/01/16 14:54 08/30/16 08:59 08/04/16 09:28 Vancomycin HCl (Vanco rx to dose) 1 ea DAILY PRN MISC Per rx protocol 07/30/16 15:15 08/29/16 15:14 Vancomycin HCl/ Dextrose (Vancomycin/D5W 250ml) 250 ml @ 167 mls/hr Q12HR@0700,1900 IVPB 07/31/16 07:00 08/05/16 06:59 08/04/16 06:44 [place] Aug 04, 2016 14:00
[2016-08-04] MEDS: metroNIDAZOLE 500mg tab PEG SCH ×2 (14:37→21:38)
[2016-08-04] MEDS ORDERED: NS 275ml ONE (16:36)
[2016-08-04] MEDS ORDERED: Sterile Water Irrig 1000ml IRRIG ONE (16:36)
[2016-08-04] MEDS ORDERED: Tubing IV Secondary IV ONE (16:36)
[2016-08-05] MEDS: NS IVPB SCH ×3 (01:22→17:51)
[2016-08-05] MEDS: AZTREONAM IVPB SCH ×3 (01:22→17:51)
[2016-08-05 03:55] VITALS: BP 99/69
[2016-08-05 06:20] LABS: BASOPHILS % (AUTO) 0.5 % (0.0-2.0); MEAN CORPUSCULAR HEMOGLOBIN 29.8 PG (27.0-31.0); MEAN CORPUSCULAR HGB CONC 31.6 G/DL (32.0-36.0); MEAN CORPUSCULAR VOLUME 94 FL (80-99); MEAN PLATELET VOLUME 5.3 FL (6.5-10.1); MONOCYTES % (AUTO) 9.8 % (1.0-10.0); NEUTROPHILS % (AUTO) 69.8 % (45.0-75.0); PLATELET COUNT 547 K/UL (150-450); RED CELL DISTRIBUTION WIDTH 18.7 % (11.6-14.8); WHITE BLOOD COUNT 14.8 K/UL (4.8-10.8)
[2016-08-05] MEDS: metroNIDAZOLE 500mg tab PEG SCH ×3 (06:40→21:51)
[2016-08-05] MEDS: NovoLOG Insulin Flexpen SUBQ SCH ×3 (06:40→17:54)
[2016-08-05 06:47] LABS: ALANINE AMINOTRANSFERASE 32 U/L (3-41); ALBUMIN/GLOBULIN RATIO 0.6 (1.0-2.7); ANION GAP 13 (5-15); ASPARTATE AMINO TRANSFERASE 31 U/L (5-40); CALCIUM 8.2 mg/dL (8.6-10.2); CARBON DIOXIDE 24 mEQ/L (20-30); CHLORIDE 99 mEQ/L (98-107); CREATININE 0.3 mg/dL (0.7-1.2); GLOMERULAR FILTRATION RATE > 60 mL/min (>60); HEMOLYSIS 0; POTASSIUM 4.4 mEQ/L (3.4-4.9); SODIUM 136 mEQ/L (135-145); TOTAL PROTEIN 5.3 g/dL (6.6-8.7)
--- NOTE | 2016-08-05 07:45 | Infectious Diseases Prog Note ---
Assessment/Plan Assessment/Plan MICRO: 07/30 BCx(-) 07/30 UCx not sent / UA(-) 07/30 SCx not sent 06/30 Back WCx MDR-K.pneumoniae, VRE.faecalis, CONS, C.albicans 06/28 BCx CONS 1/4 06/29 SCx qI-PSA, P.stuartii 06/26 Back WCx MDR-K.pneumoniae, MDR-ACB 06/17 SCx ESBL(+) K.pneumoniae, qS-PSA, S.maltophilia 06/11 BCx(-) 06/11 UCx >100K E.coli 05/12 Cath tip <10K CONS 05/11 BCx(-) 05/09 BCx CONS 09/20 ( single stick ) 05/09 UCx qR-K.pneumoniae 04/22 SCx qI-PSA 04/19 BCx CONS 10/18 ASSESSMENT: 60-year-old male with: // Multiple decubiti POA, suspect infected - seen by plastics, plan possible debridement - Bone scan 07/01: Limited, essentially nondiagnostic exam. No gross findings to suggest acute osteomyelitis - h/o MDR-K.pneumoniae, VRE.faecalis, CONS, C.albicans // h/o recurrent CONS bacteremia - surveillance BCx(-) - h/o recurrent CONS 2/4 (05/09) SP IV vanco x28d - h/o CONS 3/4 (04/19 ) SP Rx IV vanco x7d - TTE 05/11: poorly visualized valves, poor candidate MARIA C - h/o CONS cath tip colonization ( <10K ) // h/o recurrent PNAs ( VAP / HCAP ) r/o recurrence - SCx not sent - CXR 07/30: Findings most compatible with congestive heart failure with bilateral pleural effusions, persistent versus recurrent since previous exam. - h/o qI,S-PSA, P.stuartii, ESBL(+) K.pneumoniae, S.maltophilia // h/o recurrent UTIs r/o recurrence - repeat UA benign, UCx not sent - US: Mild left hydronephrosis, new since prior study of 04/21/2016. Etiology not demonstrated but concerning for downstream obstruction - h/o E.coli, K.pneumoniae SP Rx // Elevated LFTs, GGT - chronic, stable - US: Equivocally visualized stone filled gallbladder, versus shadowing from duodenal gas. 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 Tolerates cefepime, meropenem Full Code PLAN: continue IV vancomycin, aztreonam d# 6 / 10, PO flagyl d# 2 / 10 ( 08/04 SP levaquin d# 5 ) ( 07/05 SP IV vancomycin, aztreonam d# 7 / 7 ) ( 06/26 SP Merrem d# 6, cefepime d# 14 ) ( SP IV vancomycin, d# 6 and flagyl d# 3 ) ( SP IV vancomycin d# 28 / 28 ( 05/13 SP aztreonam, amikacin d# 5 / 5 ) ( 05/02 SP aztreonam d# 14 / 14 ) ( 04/25 SP vancomycin d# 7 / 7 ) debridement per plastics f/u C.difficile Monitor CBC, temperatures Monitor CMP Monitor chest x-ray vent support, trach care, aspiration precautions wound care contact isolation Subjective Allergies: Coded Allergies: PENICILLINS (Verified Allergy, Unknown, 04/19/16) Subjective pt unable to provide any information fevers resolved, WBC improved Objective Vital Signs Last 24 Hour Vital Signs Date Time Temp Pulse Resp B/P Pulse Ox O2 Delivery O2 Flow Rate FiO2 08/05/16 06:46 88 20 40 08/05/16 05:28 99 29 40 08/05/16 04:00 40 08/05/16 03:55 97.7 90 20 99/69 99 Mechanical Ventilator 08/05/16 03:46 90 08/05/16 03:00 92 20 40 08/05/16 01:34 89 24 40 08/05/16 00:00 40 08/04/16 23:36 96 08/04/16 23:33 97.9 97 22 101/71 100 Mechanical Ventilator 08/04/16 23:28 85 24 40 08/04/16 21:22 101 22 40 08/04/16 20:00 97 08/04/16 20:00 40 08/04/16 20:00 98.2 97 34 94/59 98 Mechanical Ventilator 40 08/04/16 19:55 99 24 40 08/04/16 17:38 98 22 40 08/04/16 16:00 98 08/04/16 16:00 40 08/04/16 16:00 98.8 101 25 88/56 100 Mechanical Ventilator 40 08/04/16 15:04 98 22 40 08/04/16 12:10 97 27 40 08/04/16 12:00 105 08/04/16 12:00 40 08/04/16 12:00 98.2 97 28 94/61 100 Mechanical Ventilator 40 08/04/16 09:20 112 26 40 08/04/16 08:00 97.9 96 26 84/60 100 Mechanical Ventilator 40 08/04/16 08:00 97 08/04/16 08:00 40 Height (Feet): 5 Height (Inches): 5.00 Weight (Pounds): 150 General Appearance: no acute distress HEENT: status post trach Respiratory/Chest: decreased breath sounds Cardiovascular: normal rate, regular rhythm Abdomen: normal bowel sounds, soft, non tender, non distended Laboratory Tests Test 08/05/16 03:20 White Blood Count 14.8 K/UL (4.8-10.8) H Red Blood Count 2.70 M/UL (4.70-6.10) L Hemoglobin 8.1 G/DL (14.2-18.0) L Hematocrit 25.5 % (42.0-52.0) L Mean Corpuscular Volume 94 FL (80-99) Mean Corpuscular Hemoglobin 29.8 PG (27.0-31.0) Mean Corpuscular Hemoglobin Concent 31.6 G/DL (32.0-36.0) L Red Cell Distribution Width 18.7 % (11.6-14.8) H Platelet Count 547 K/UL (150-450) H Mean Platelet Volume 5.3 FL (6.5-10.1) L Neutrophils (%) (Auto) 69.8 % (45.0-75.0) Lymphocytes (%) (Auto) 19.0 % (20.0-45.0) L Monocytes (%) (Auto) 9.8 % (1.0-10.0) Eosinophils (%) (Auto) 1.0 % (0.0-3.0) Basophils (%) (Auto) 0.5 % (0.0-2.0) Sodium Level 136 mEQ/L (135-145) Potassium Level 4.4 mEQ/L (3.4-4.9) Chloride Level 99 mEQ/L (98-107) Carbon Dioxide Level 24 mEQ/L (20-30) Anion Gap 13 (5-15) Blood Urea Nitrogen 20 mg/dL (7-23) Creatinine 0.3 mg/dL (0.7-1.2) L Estimat Glomerular Filtration Rate > 60 mL/min (>60) Glucose Level 104 mg/dL (74-106) Calcium Level 8.2 mg/dL (8.6-10.2) L Total Bilirubin 0.3 mg/dL (0.0-1.2) Aspartate Amino Transf (AST/SGOT) 31 U/L (5-40) Alanine Aminotransferase (ALT/SGPT) 32 U/L (3-41) Alkaline Phosphatase 1564 U/L (40-129) H Total Protein 5.3 g/dL (6.6-8.7) L Albumin 2.0 g/dL (3.5-5.2) L Globulin 3.3 g/dL Albumin/Globulin Ratio 0.6 (1.0-2.7) L Current Medications Medications (Trade) Dose Ordered Sig/Tanisha Route PRN Reason Start Time Stop Time Status Last Admin Dose Admin Acetaminophen (Tylenol) 650 mg Q4H PRN ORAL Mild Pain/Temp > 100.5 07/30/16 15:00 08/29/16 14:59 08/01/16 09:12 Acetaminophen/ Hydrocodone Bitart ([place] 5/325) 2 tab Q8H PRN GT For SEVERE PAIN 08/01/16 14:54 08/06/16 14:59 Aztreonam/Sodium Chloride (Azactam/Sodium Chloride 100ml bag) 100 ml @ 200 mls/hr Q8HR@0200,1000,1800 IVPB 08/02/16 18:00 08/06/16 17:59 08/05/16 01:22 Collagenase (Santyl) 1 applic DAILY TOPIC 08/01/16 09:00 08/31/16 08:59 08/04/16 09:29 Dextrose (Dextrose 50%) STAT PRN IV Hypoglycemia 07/30/16 14:45 08/29/16 14:44 Famotidine (Pepcid I.v.) 20 mg DAILY IVP 07/31/16 09:00 08/30/16 08:59 08/04/16 09:28 Heparin Sodium (Porcine) (Heparin 5000 units/ml) 5,000 units EVERY 12 HOURS SUBQ 07/30/16 21:00 08/29/16 20:59 08/04/16 21:39 Insulin Aspart (NovoLOG) EVERY 6 HOURS SUBQ 07/30/16 18:00 08/29/16 17:59 08/01/16 23:58 Lactobacillus Acidophilus (Culturelle) 1 tab TWICE A DAY GT 07/30/16 18:00 08/29/16 17:59 08/04/16 18:27 Levothyroxine Sodium (Synthroid) 200 mcg DAILY GT 07/31/16 09:00 08/30/16 08:59 08/04/16 09:28 Lorazepam (Ativan 2mg/ml 1ml) 1 mg Q4H PRN IV For Anxiety 08/04/16 13:30 08/11/16 13:29 08/04/16 13:53 Metronidazole (Flagyl) 500 mg Q8HR PEG 08/04/16 14:30 08/11/16 14:29 08/05/16 06:40 Midodrine (Pro-Amatine) 5 mg THREE TIMES A DAY GT 07/30/16 18:00 08/29/16 17:59 08/04/16 18:27 Ondansetron HCl (Zofran) 4 mg Q6H PRN IV Nausea & Vomiting 07/30/16 15:00 08/29/16 14:59 Polyethylene Glycol 17 gm 17 gm DAILY GT 08/01/16 14:54 08/30/16 08:59 08/04/16 09:28 Vancomycin HCl (Vanco rx to dose) 1 ea DAILY PRN MISC Per rx protocol 07/30/16 15:15 08/29/16 15:14 [place] Aug 05, 2016 07:45
[2016-08-05 08:00] VITALS: BP 87/49
--- NOTE | 2016-08-05 08:42 | Pulmonology Progress Note ---
Assessment/Plan Problems: (1) Acute and chronic respiratory failure (2) ATN (acute tubular necrosis) (3) Septic shock (4) Bilateral pneumonia (5) History of glioma of brainstem (6) Decubital ulcer (7) Brain anoxic injury Respiratory: monitor respiratory rate, adjust FIO2 Cardiac: continue to monitor HR/BP Renal: F/U I&O, keep IV fluid, increase IV fluid, check electrolytes Infectious Disease: check cultures, continue antibiotics Gastrointestinal: continue feedings/current rate Endocrine: monitor blood sugar, continue sliding scale insulin Hematologic: monitor H/H, transfuse if hgb<8.5 Neurologic: keep patient comfortable Time Spent (Minutes): 40 Notes Reviewed: utilization supervisor Discussed with: nurses, consultants, case resolution specialist Subjective ROS Limited/Unobtainable: Yes Allergies: Coded Allergies: PENICILLINS (Verified Allergy, Unknown, 04/19/16) Objective Last 24 Hour Vital Signs Date Time Temp Pulse Resp B/P Pulse Ox O2 Delivery O2 Flow Rate FiO2 08/05/16 06:46 88 20 40 08/05/16 05:28 99 29 40 08/05/16 04:00 40 08/05/16 03:55 97.7 90 20 99/69 99 Mechanical Ventilator 08/05/16 03:46 90 08/05/16 03:00 92 20 40 08/05/16 01:34 89 24 40 08/05/16 00:00 40 08/04/16 23:36 96 08/04/16 23:33 97.9 97 22 101/71 100 Mechanical Ventilator 08/04/16 23:28 85 24 40 08/04/16 21:22 101 22 40 08/04/16 20:00 97 08/04/16 20:00 40 08/04/16 20:00 98.2 97 34 94/59 98 Mechanical Ventilator 40 08/04/16 19:55 99 24 40 08/04/16 17:38 98 22 40 08/04/16 16:00 98 08/04/16 16:00 40 08/04/16 16:00 98.8 101 25 88/56 100 Mechanical Ventilator 40 08/04/16 15:04 98 22 40 08/04/16 12:10 97 27 40 08/04/16 12:00 105 08/04/16 12:00 40 08/04/16 12:00 98.2 97 28 94/61 100 Mechanical Ventilator 40 08/04/16 09:20 112 26 40 Intake and Output 08/04/16 08/05/16 19:00 07:00 Intake Total 1387 ml 1250 ml Output Total 650 ml 700 ml Balance 737 ml 550 ml Intake Free Water 200 ml 200 ml IV Total 267 ml 350 ml Tube Feeding 720 ml 660 ml Other 200 ml 40 ml Output Urine Total 650 ml 700 ml # Bowel Movements 3 General Appearance: cachetic HEENT: normocephalic Respiratory/Chest: chest wall non-tender, lungs clear Cardiovascular: normal peripheral pulses, normal rate Abdomen: normal bowel sounds Extremities: no cyanosis Skin: no rash 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 Microbiology Date/Time Source Procedure Growth Status 08/04/16 22:00 Stool Clostridium difficile Toxin Assay - Final Complete Laboratory Tests 08/05/16 03:20: White Blood Count 14.8H, Red Blood Count 2.70L, Hemoglobin 8.1L, Hematocrit 25.5L, Mean Corpuscular Volume 94, Mean Corpuscular Hemoglobin 29.8, Mean Corpuscular Hemoglobin Concent 31.6L, Red Cell Distribution Width 18.7H, Platelet Count 547H, Mean Platelet Volume 5.3L, Neutrophils (%) (Auto) 69.8, Lymphocytes (%) (Auto) 19.0L, Monocytes (%) (Auto) 9.8, Eosinophils (%) (Auto) 1.0, Basophils (%) (Auto) 0.5, Sodium Level 136, Potassium Level 4.4, Chloride Level 99, Carbon Dioxide Level 24, Anion Gap 13, Blood Urea Nitrogen 20, Creatinine 0.3L, Estimat Glomerular Filtration Rate > 60, Glucose Level 104, Calcium Level 8.2L, Total Bilirubin 0.3, Aspartate Amino Transf (AST/SGOT) 31, Alanine Aminotransferase (ALT/SGPT) 32, Alkaline Phosphatase 1564H, Total Protein 5.3L, Albumin 2.0L, Globulin 3.3, Albumin/Globulin Ratio 0.6L Current Medications Medications (Trade) Dose Ordered Sig/Tanisha Route PRN Reason Start Time Stop Time Status Last Admin Dose Admin Acetaminophen (Tylenol) 650 mg Q4H PRN ORAL Mild Pain/Temp > 100.5 07/30/16 15:00 08/29/16 14:59 08/01/16 09:12 Acetaminophen/ Hydrocodone Bitart ([place] 5/325) 2 tab Q8H PRN GT For SEVERE PAIN 08/01/16 14:54 08/06/16 14:59 Aztreonam/Sodium Chloride (Azactam/Sodium Chloride 100ml bag) 100 ml @ 200 mls/hr Q8HR@0200,1000,1800 IVPB 08/02/16 18:00 08/06/16 17:59 08/05/16 01:22 Collagenase (Santyl) 1 applic DAILY TOPIC 08/01/16 09:00 08/31/16 08:59 08/04/16 09:29 Dextrose (Dextrose 50%) STAT PRN IV Hypoglycemia 07/30/16 14:45 08/29/16 14:44 Famotidine (Pepcid I.v.) 20 mg DAILY IVP 07/31/16 09:00 08/30/16 08:59 08/04/16 09:28 Heparin Sodium (Porcine) (Heparin 5000 units/ml) 5,000 units EVERY 12 HOURS SUBQ 07/30/16 21:00 08/29/16 20:59 08/04/16 21:39 Insulin Aspart (NovoLOG) EVERY 6 HOURS SUBQ 07/30/16 18:00 08/29/16 17:59 08/01/16 23:58 Lactobacillus Acidophilus (Culturelle) 1 tab TWICE A DAY GT 07/30/16 18:00 08/29/16 17:59 08/04/16 18:27 Levothyroxine Sodium (Synthroid) 200 mcg DAILY GT 07/31/16 09:00 08/30/16 08:59 08/04/16 09:28 Lorazepam (Ativan 2mg/ml 1ml) 1 mg Q4H PRN IV For Anxiety 08/04/16 13:30 08/11/16 13:29 08/04/16 13:53 Metronidazole (Flagyl) 500 mg Q8HR PEG 08/04/16 14:30 08/11/16 14:29 08/05/16 06:40 Midodrine (Pro-Amatine) 5 mg THREE TIMES A DAY GT 07/30/16 18:00 08/29/16 17:59 08/04/16 18:27 Ondansetron HCl (Zofran) 4 mg Q6H PRN IV Nausea & Vomiting 07/30/16 15:00 1/13/17 14:59 Polyethylene Glycol 17 gm 17 gm DAILY GT 08/01/16 14:54 08/30/16 08:59 08/04/16 09:28 Vancomycin HCl (Vanco rx to dose) 1 ea DAILY PRN MISC Per rx protocol 07/30/16 15:15 08/29/16 15:14 JAKUB MORALES Aug 05, 2016 08:42
[2016-08-05] MEDS: Miralax 17gm pkt GT SCH (08:44)
[2016-08-05] MEDS: Famotidine 20 MG/ 2ML VIAL IVP SCH (08:45)
[2016-08-05] MEDS: Heparin 5000 units/ml inj SUBQ SCH ×2 (08:47→21:25)
[2016-08-05] MEDS: Lactobacillus-GG tablet GT SCH ×2 (08:48→17:51)
--- NOTE | 2016-08-05 08:50 | Diagnostic Imaging Report ---
Indications: Needs long-term IV access Technique: Procedure performed at bedside. Ultrasound confirms patent compressible right brachial vein. Total sterile technique, including sterile probe cover and sterile gel, sterile gloves, hand hygiene, hat, mask, sterile gown, large sterile drape, and preparation with 2% chlorhexidine utilized. Local anesthesia with 1% lidocaine. Under real-time ultrasound guidance, puncture brachial vein using 21-gauge needle, passage 0.018 guidewire, exchange for 5 Dominican peel-away sheath. 5 Dominican dual-lumen power PICC cut to 33 cm. It was inserted through the peel-away sheath. Peel-away sheath and guidewire removed. Catheter fixed to the skin. Both catheter ports aspirated and flushed. Patient tolerated procedure well, without immediate complication. Followup chest x-ray obtained, documents catheter tip position at the cavoatrial junction. Impression: Successful bedside placement of right arm PICC under sonographic guidance, as described above.
--- NOTE | 2016-08-05 10:02 | Diagnostic Imaging Report ---
Indications: DYSPNEA Technique: Portable AP chest Findings: Comparison: 07/30/16 Diffuse bilateral interstitial infiltrates, opacification of much of the right hemithorax due to elevated right hemidiaphragm, indistinctness of both costophrenic angles suggesting pleural effusions unchanged. PICC has been placed via right upper extremity, tip in region of superior vena cava. No other interval change. IMPRESSION: Interval PICC placement Stable bilateral congestive changes Stable elevation right hemidiaphragm
[2016-08-05 12:00] VITALS: BP 101/63
[2016-08-05] MEDS: Vancomycin 750mg/D5W 250ml IVPB SCH ×2 (12:28)
[2016-08-05 16:00] VITALS: BP 90/45
[2016-08-05] MEDS ORDERED: Tubing IV Secondary IV ONE ×2 (16:03→19:16)
[2016-08-05] MEDS ORDERED: NS 275ml ONE (16:03)
[2016-08-05 20:12] VITALS: BP 98/51
[2016-08-05 23:39] VITALS: BP 107/62
[2016-08-06] MEDS: Vancomycin 750mg/D5W 250ml IVPB SCH ×4 (00:06→11:54)
[2016-08-06] MEDS: NS IVPB SCH ×3 (01:37→17:37)
[2016-08-06] MEDS: AZTREONAM IVPB SCH ×3 (01:37→17:37)
[2016-08-06 04:02] VITALS: BP 93/55
[2016-08-06 05:58] LABS: MEAN CORPUSCULAR HEMOGLOBIN 30.1 PG (27.0-31.0); MEAN CORPUSCULAR HGB CONC 31.6 G/DL (32.0-36.0); MEAN CORPUSCULAR VOLUME 95 FL (80-99); PLATELET COUNT 525 K/UL (150-450); RED BLOOD COUNT 2.59 M/UL (4.70-6.10); RED CELL DISTRIBUTION WIDTH 18.8 % (11.6-14.8)
[2016-08-06] MEDS: NovoLOG Insulin Flexpen SUBQ SCH ×4 (06:00→17:38)
[2016-08-06 06:10] LABS: WHITE BLOOD COUNT 22.7 K/UL (4.8-10.8)
[2016-08-06] MEDS: metroNIDAZOLE 500mg tab PEG SCH ×3 (06:10→21:42)
[2016-08-06 06:31] LABS: ALANINE AMINOTRANSFERASE 27 U/L (3-41); ALBUMIN/GLOBULIN RATIO 0.6 (1.0-2.7); ANION GAP 14 (5-15); ASPARTATE AMINO TRANSFERASE 23 U/L (5-40); CALCIUM 8.2 mg/dL (8.6-10.2); CARBON DIOXIDE 24 mEQ/L (20-30); CHLORIDE 101 mEQ/L (98-107); CREATININE 0.3 mg/dL (0.7-1.2); GLOMERULAR FILTRATION RATE > 60 mL/min (>60); HEMOLYSIS 1; MAGNESIUM 1.7 mg/dL (1.7-2.5); PHOSPHORUS 3.7 mg/dL (2.5-4.8); POTASSIUM 4.7 mEQ/L (3.4-4.9); SODIUM 139 mEQ/L (135-145); TOTAL PROTEIN 5.1 g/dL (6.6-8.7)
[2016-08-06 06:38] LABS: INR 1.2 (0.9-1.1); PROTHROMBIN TIME 11.9 SEC (9.30-11.50)
[2016-08-06 08:00] VITALS: BP 91/56
[2016-08-06] MEDS: Lactobacillus-GG tablet GT SCH ×2 (08:37→17:37)
[2016-08-06] MEDS: Famotidine 20 MG/ 2ML VIAL IVP SCH (08:38)
[2016-08-06] MEDS: Heparin 5000 units/ml inj SUBQ SCH ×2 (08:39→21:42)
[2016-08-06] MEDS: Miralax 17gm pkt GT SCH (08:40)
[2016-08-06 10:10] LABS: MEAN CORPUSCULAR HEMOGLOBIN 29.9 PG (27.0-31.0); MEAN CORPUSCULAR HGB CONC 31.3 G/DL (32.0-36.0); MEAN CORPUSCULAR VOLUME 96 FL (80-99); MEAN PLATELET VOLUME 4.8 FL (6.5-10.1); PLATELET COUNT 498 K/UL (150-450); RED BLOOD COUNT 2.68 M/UL (4.70-6.10); RED CELL DISTRIBUTION WIDTH 18.6 % (11.6-14.8); WHITE BLOOD COUNT 20.6 K/UL (4.8-10.8)
--- NOTE | 2016-08-06 11:01 | Pulmonology Progress Note ---
Assessment/Plan Problems: (1) Acute and chronic respiratory failure (2) ATN (acute tubular necrosis) (3) Septic shock (4) Bilateral pneumonia (5) History of glioma of brainstem (6) Decubital ulcer (7) Brain anoxic injury Respiratory: monitor respiratory rate, adjust FIO2, CXR Cardiac: continue to monitor HR/BP Renal: F/U I&O, keep IV fluid Infectious Disease: check cultures, continue antibiotics Gastrointestinal: continue feedings/current rate, hold feedings Endocrine: check TSH Hematologic: monitor H/H Neurologic: PRN Ativan Notes Reviewed: ID Discussed with: case management rn, other - will need debridement Subjective ROS Limited/Unobtainable: No Constitutional: Reports: no symptoms HEENT: Repors: no symptoms Respiratory: Reports: no symptoms Cardiovascular: Reports: no symptoms Gastrointestinal/Abdominal: Reports: no symptoms Allergies: Coded Allergies: PENICILLINS (Verified Allergy, Unknown, 04/19/16) Objective Last 24 Hour Vital Signs Date Time Temp Pulse Resp B/P Pulse Ox O2 Delivery O2 Flow Rate FiO2 08/06/16 09:19 93 18 40 08/06/16 08:00 98.4 85 20 91/56 100 Mechanical Ventilator 40 08/06/16 08:00 98 08/06/16 08:00 40 08/06/16 06:45 95 20 40 08/06/16 05:16 96 20 40 08/06/16 04:02 98.4 98 20 93/55 98 Mechanical Ventilator 08/06/16 04:00 100 08/06/16 04:00 40 08/06/16 03:08 92 20 40 08/06/16 01:23 99 22 40 08/06/16 00:00 40 08/05/16 23:39 99.1 103 22 107/62 96 Mechanical Ventilator 08/05/16 23:20 99 22 40 08/05/16 20:57 99 20 40 08/05/16 20:12 98.9 100 18 98/51 100 Mechanical Ventilator 40 08/05/16 20:00 102 08/05/16 20:00 40 08/05/16 19:05 99 22 40 08/05/16 16:50 86 28 40 08/05/16 16:00 98.2 99 18 90/45 100 Mechanical Ventilator 40 08/05/16 16:00 40 08/05/16 16:00 98 08/05/16 15:09 95 20 40 08/05/16 13:17 89 20 40 08/05/16 12:00 40 08/05/16 12:00 97.3 91 25 101/63 100 Mechanical Ventilator 40 08/05/16 11:07 85 23 40 Intake and Output 08/05/16 08/06/16 19:00 07:00 Intake Total 870 ml 920 ml Output Total 950 ml 1150 ml Balance -80 ml -230 ml Intake Free Water 100 ml 200 ml Tube Feeding 420 ml 720 ml Other 350 ml Output Urine Total 950 ml 1150 ml # Bowel Movements 1 1 General Appearance: WD/WN HEENT: normocephalic Respiratory/Chest: chest wall non-tender, lungs clear Cardiovascular: normal peripheral pulses, normal rate Abdomen: normal bowel sounds, soft, non tender Genitourinary: normal external genitalia Extremities: no cyanosis Microbiology Date/Time Source Procedure Growth Status 08/04/16 22:00 Stool Clostridium difficile Toxin Assay - Final Complete Laboratory Tests 08/06/16 03:00: White Blood Count 22.7#*H, Red Blood Count 2.59L, Hemoglobin 7.8L, Hematocrit 24.7L, Mean Corpuscular Volume 95, Mean Corpuscular Hemoglobin 30.1, Mean Corpuscular Hemoglobin Concent 31.6L, Red Cell Distribution Width 18.8H, Platelet Count 525H, Mean Platelet Volume 5.0L, Neutrophils (%) (Auto) , Lymphocytes (%) (Auto) , Monocytes (%) (Auto) , Eosinophils (%) (Auto) , Basophils (%) (Auto) , Neutrophils % (Manual) [Pending], Lymphocytes % (Manual) [Pending], Platelet Estimate [Pending], Platelet Morphology [Pending], Prothrombin Time 11.9H, Prothromb Time International Ratio 1.2H, Activated Partial Thromboplast Time 36H, Sodium Level 139, Potassium Level 4.7, Chloride Level 101, Carbon Dioxide Level 24, Anion Gap 14, Blood Urea Nitrogen 20, Creatinine 0.3L, Estimat Glomerular Filtration Rate > 60, Glucose Level 92, Calcium Level 8.2L, Phosphorus Level 3.7, Magnesium Level 1.7, Total Bilirubin 0.2, Aspartate Amino Transf (AST/SGOT) 23, Alanine Aminotransferase (ALT/SGPT) 27, Alkaline Phosphatase 1437H, Total Protein 5.1L, Albumin 2.0L, Globulin 3.1, Albumin/Globulin Ratio 0.6L 08/06/16 09:45: White Blood Count 20.6H, Red Blood Count 2.68L, Hemoglobin 8.0L, Hematocrit 25.7L, Mean Corpuscular Volume 96, Mean Corpuscular Hemoglobin 29.9, Mean Corpuscular Hemoglobin Concent 31.3L, Red Cell Distribution Width 18.6H, Platelet Count 498H, Mean Platelet Volume 4.8L, Neutrophils (%) (Auto) , Lymphocytes (%) (Auto) , Monocytes (%) (Auto) , Eosinophils (%) (Auto) , Basophils (%) (Auto) , Neutrophils % (Manual) [Pending], Lymphocytes % (Manual) [Pending], Platelet Estimate [Pending], Platelet Morphology [Pending] Current Medications Medications (Trade) Dose Ordered Sig/Tanisha Route PRN Reason Start Time Stop Time Status Last Admin Dose Admin Acetaminophen (Tylenol) 650 mg Q4H PRN ORAL Mild Pain/Temp > 100.5 07/30/16 15:00 08/29/16 14:59 08/01/16 09:12 Acetaminophen/ Hydrocodone Bitart ([place] 5/325) 2 tab Q8H PRN GT For SEVERE PAIN 08/01/16 14:54 08/06/16 14:59 Aztreonam/Sodium Chloride (Azactam/Sodium Chloride 100ml bag) 100 ml @ 200 mls/hr Q8HR@0200,1000,1800 IVPB 08/02/16 18:00 08/09/16 17:59 08/06/16 09:34 Collagenase (Santyl) 1 applic DAILY TOPIC 08/01/16 09:00 08/31/16 08:59 08/06/16 08:40 Dextrose (Dextrose 50%) STAT PRN IV Hypoglycemia 07/30/16 14:45 08/29/16 14:44 Famotidine (Pepcid I.v.) 20 mg DAILY IVP 07/31/16 09:00 08/30/16 08:59 08/06/16 08:38 Heparin Sodium (Porcine) (Heparin 5000 units/ml) 5,000 units EVERY 12 HOURS SUBQ 07/30/16 21:00 08/29/16 20:59 08/06/16 08:39 Insulin Aspart (NovoLOG) EVERY 6 HOURS SUBQ 07/30/16 18:00 08/29/16 17:59 08/05/16 17:54 Lactobacillus Acidophilus (Culturelle) 1 tab TWICE A DAY GT 07/30/16 18:00 08/29/16 17:59 08/06/16 08:37 Levothyroxine Sodium (Synthroid) 200 mcg DAILY GT 07/31/16 09:00 08/30/16 08:59 08/06/16 08:37 Lorazepam (Ativan 2mg/ml 1ml) 1 mg Q4H PRN IV For Anxiety 08/04/16 13:30 08/11/16 13:29 08/04/16 13:53 Metronidazole 500 mg 500 mg Q8HR PEG 08/04/16 14:30 08/11/16 14:29 08/06/16 06:10 Midodrine (Pro-Amatine) 5 mg THREE TIMES A DAY GT 07/30/16 18:00 08/29/16 17:59 08/06/16 08:38 Ondansetron HCl (Zofran) 4 mg Q6H PRN IV Nausea & Vomiting 07/30/16 15:00 08/29/16 14:59 Polyethylene Glycol 17 gm 17 gm DAILY GT 08/01/16 14:54 08/30/16 08:59 08/06/16 08:40 Vancomycin HCl (Vanco rx to dose) 1 ea DAILY PRN MISC Per rx protocol 07/30/16 15:15 08/29/16 15:14 Vancomycin HCl/ Dextrose (Vancomycin/D5W 250ml) 250 ml @ 167 mls/hr Q12H IVPB 08/05/16 12:00 08/09/16 11:59 08/06/16 00:06 JAKUB MORALES Aug 06, 2016 11:01
[2016-08-06 11:42] LABS: ANISOCYTOSIS 2+; BAND NEUTROPHILS % (MANUAL) 1 % (0-8); BASOPHILS % (MANUAL) 0 % (0-2); EOSINOPHILS % (MANUAL) 1 % (0-3); LYMPHOCYTES % (MANUAL) 14 % (20-45); NEUTROPHILS % (MANUAL) 77 % (45-75); PLATELET ESTIMATE INCREASED; PLATELET MORPHOLOGY NORMAL; TOTAL CELLS COUNTED 100
[2016-08-06 11:43] LABS: HYPOCHROMASIA 1+; POLYCHROMASIA 1+
[2016-08-06 12:00] VITALS: BP 86/52
[2016-08-06 12:07] LABS: BAND NEUTROPHILS % (MANUAL) 2 % (0-8); BASOPHILS % (MANUAL) 0 % (0-2); EOSINOPHILS % (MANUAL) 1 % (0-3); LYMPHOCYTES % (MANUAL) 11 % (20-45); NEUTROPHILS % (MANUAL) 78 % (45-75); PLATELET ESTIMATE INCREASED; PLATELET MORPHOLOGY NORMAL; TOTAL CELLS COUNTED 100
[2016-08-06 12:08] LABS: ANISOCYTOSIS 2+; HYPOCHROMASIA 1+; MACROCYTES 1+; POLYCHROMASIA 1+
--- NOTE | 2016-08-06 15:52 | Infectious Diseases Prog Note ---
Assessment/Plan Assessment/Plan MICRO: 07/30 BCx(-) 07/30 UCx not sent / UA(-) 07/30 SCx not sent 06/30 Back WCx MDR-K.pneumoniae, VRE.faecalis, CONS, C.albicans 06/28 BCx CONS 1/4 06/29 SCx qI-PSA, P.stuartii 06/26 Back WCx MDR-K.pneumoniae, MDR-ACB 06/17 SCx ESBL(+) K.pneumoniae, qS-PSA, S.maltophilia 06/11 BCx(-) 06/11 UCx >100K E.coli 05/12 Cath tip <10K CONS 05/11 BCx(-) 05/09 BCx CONS 09/20 ( single stick ) 05/09 UCx qR-K.pneumoniae 04/22 SCx qI-PSA 04/19 BCx CONS 10/18 ASSESSMENT: 60-year-old male with: // Multiple decubiti POA, suspect infected - seen by plastics, plan possible debridement - Bone scan 07/01: Limited, essentially nondiagnostic exam. No gross findings to suggest acute osteomyelitis - h/o MDR-K.pneumoniae, VRE.faecalis, CONS, C.albicans // h/o recurrent CONS bacteremia - surveillance BCx(-) - h/o recurrent CONS 2/4 (05/09) SP IV vanco x28d - h/o CONS 3/4 (04/19 ) SP Rx IV vanco x7d - TTE 05/11: poorly visualized valves, poor candidate MARIA C - h/o CONS cath tip colonization ( <10K ) // h/o recurrent PNAs ( VAP / HCAP ) r/o recurrence - SCx not sent - CXR 07/30: Findings most compatible with congestive heart failure with bilateral pleural effusions, persistent versus recurrent since previous exam. - h/o qI,S-PSA, P.stuartii, ESBL(+) K.pneumoniae, S.maltophilia // h/o recurrent UTIs r/o recurrence - repeat UA benign, UCx not sent - US: Mild left hydronephrosis, new since prior study of 04/21/2016. Etiology not demonstrated but concerning for downstream obstruction - h/o E.coli, K.pneumoniae SP Rx // Elevated LFTs, GGT - chronic, stable - US: Equivocally visualized stone filled gallbladder, versus shadowing from duodenal gas. 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 Tolerates cefepime, meropenem Full Code PLAN: continue IV vancomycin, aztreonam d# 7 / 10, PO flagyl d# 3 / 10 ( 08/04 SP levaquin d# 5 ) ( 07/05 SP IV vancomycin, aztreonam d# 7 / 7 ) ( 06/26 SP Merrem d# 6, cefepime d# 14 ) ( SP IV vancomycin, d# 6 and flagyl d# 3 ) ( SP IV vancomycin d# 28 / 28 ( 05/13 SP aztreonam, amikacin d# 5 / 5 ) ( 05/02 SP aztreonam d# 14 / 14 ) ( 04/25 SP vancomycin d# 7 / 7 ) debridement per plastics Monitor CBC, temperatures Monitor CMP Monitor chest x-ray vent support, trach care, aspiration precautions wound care contact isolation Subjective Allergies: Coded Allergies: PENICILLINS (Verified Allergy, Unknown, 04/19/16) Subjective pt unable to provide any information fevers resolved, WBC improved Objective Vital Signs Last 24 Hour Vital Signs Date Time Temp Pulse Resp B/P Pulse Ox O2 Delivery O2 Flow Rate FiO2 08/06/16 15:09 90 21 40 08/06/16 13:06 90 20 40 08/06/16 12:00 40 08/06/16 12:00 98.4 96 22 86/52 100 Mechanical Ventilator 40 08/06/16 11:30 97 18 40 08/06/16 09:19 93 18 40 08/06/16 08:00 98.4 85 20 91/56 100 Mechanical Ventilator 40 08/06/16 08:00 98 08/06/16 08:00 40 08/06/16 06:45 95 20 40 08/06/16 05:16 96 20 40 08/06/16 04:02 98.4 98 20 93/55 98 Mechanical Ventilator 08/06/16 04:00 100 08/06/16 04:00 40 08/06/16 03:08 92 20 40 08/06/16 01:23 99 22 40 08/06/16 00:00 40 08/05/16 23:39 99.1 103 22 107/62 96 Mechanical Ventilator 08/05/16 23:20 99 22 40 08/05/16 20:57 99 20 40 08/05/16 20:12 98.9 100 18 98/51 100 Mechanical Ventilator 40 08/05/16 20:00 102 08/05/16 20:00 40 08/05/16 19:05 99 22 40 08/05/16 16:50 86 28 40 08/05/16 16:00 98.2 99 18 90/45 100 Mechanical Ventilator 40 08/05/16 16:00 40 08/05/16 16:00 98 Height (Feet): 5 Height (Inches): 5.00 Weight (Pounds): 150 General Appearance: no acute distress HEENT: status post trach Respiratory/Chest: decreased breath sounds Cardiovascular: normal rate, regular rhythm Abdomen: normal bowel sounds, soft, non tender, non distended Microbiology Date/Time Source Procedure Growth Status 08/04/16 22:00 Stool Clostridium difficile Toxin Assay - Final Complete Laboratory Tests Test 08/06/16 03:00 08/06/16 09:45 White Blood Count 22.7 K/UL (4.8-10.8) #*H 20.6 K/UL (4.8-10.8) H Red Blood Count 2.59 M/UL (4.70-6.10) L 2.68 M/UL (4.70-6.10) L Hemoglobin 7.8 G/DL (14.2-18.0) L 8.0 G/DL (14.2-18.0) L Hematocrit 24.7 % (42.0-52.0) L 25.7 % (42.0-52.0) L Mean Corpuscular Volume 95 FL (80-99) 96 FL (80-99) Mean Corpuscular Hemoglobin 30.1 PG (27.0-31.0) 29.9 PG (27.0-31.0) Mean Corpuscular Hemoglobin Concent 31.6 G/DL (32.0-36.0) L 31.3 G/DL (32.0-36.0) L Red Cell Distribution Width 18.8 % (11.6-14.8) H 18.6 % (11.6-14.8) H Platelet Count 525 K/UL (150-450) H 498 K/UL (150-450) H Mean Platelet Volume 5.0 FL (6.5-10.1) L 4.8 FL (6.5-10.1) L Neutrophils (%) (Auto) % (45.0-75.0) % (45.0-75.0) Lymphocytes (%) (Auto) % (20.0-45.0) % (20.0-45.0) Monocytes (%) (Auto) % (1.0-10.0) % (1.0-10.0) Eosinophils (%) (Auto) % (0.0-3.0) % (0.0-3.0) Basophils (%) (Auto) % (0.0-2.0) % (0.0-2.0) Differential Total Cells Counted 100 100 Neutrophils % (Manual) 77 % (45-75) H 78 % (45-75) H Lymphocytes % (Manual) 14 % (20-45) L 11 % (20-45) L Monocytes % (Manual) 7 % (1-10) 8 % (1-10) Eosinophils % (Manual) 1 % (0-3) 1 % (0-3) Basophils % (Manual) 0 % (0-2) 0 % (0-2) Band Neutrophils 1 % (0-8) 2 % (0-8) Platelet Estimate Increased H Increased H Platelet Morphology Normal Normal Polychromasia 1+ 1+ Hypochromasia 1+ 1+ Anisocytosis 2+ 2+ Prothrombin Time 11.9 SEC (9.30-11.50) H Prothromb Time International Ratio 1.2 (0.9-1.1) H Activated Partial Thromboplast Time 36 SEC (23-33) H Sodium Level 139 mEQ/L (135-145) Potassium Level 4.7 mEQ/L (3.4-4.9) Chloride Level 101 mEQ/L (98-107) Carbon Dioxide Level 24 mEQ/L (20-30) Anion Gap 14 (5-15) Blood Urea Nitrogen 20 mg/dL (7-23) Creatinine 0.3 mg/dL (0.7-1.2) L Estimat Glomerular Filtration Rate > 60 mL/min (>60) Glucose Level 92 mg/dL (74-106) Calcium Level 8.2 mg/dL (8.6-10.2) L Phosphorus Level 3.7 mg/dL (2.5-4.8) Magnesium Level 1.7 mg/dL (1.7-2.5) Total Bilirubin 0.2 mg/dL (0.0-1.2) Aspartate Amino Transf (AST/SGOT) 23 U/L (5-40) Alanine Aminotransferase (ALT/SGPT) 27 U/L (3-41) Alkaline Phosphatase 1437 U/L (40-129) H Total Protein 5.1 g/dL (6.6-8.7) L Albumin 2.0 g/dL (3.5-5.2) L Globulin 3.1 g/dL Albumin/Globulin Ratio 0.6 (1.0-2.7) L Macrocytosis 1+ Current Medications Medications (Trade) Dose Ordered Sig/Tanisha Route PRN Reason Start Time Stop Time Status Last Admin Dose Admin Acetaminophen (Tylenol) 650 mg Q4H PRN ORAL Mild Pain/Temp > 100.5 07/30/16 15:00 08/29/16 14:59 08/01/16 09:12 Aztreonam/Sodium Chloride (Azactam/Sodium Chloride 100ml bag) 100 ml @ 200 mls/hr Q8HR@0200,1000,1800 IVPB 08/02/16 18:00 08/09/16 17:59 08/06/16 09:34 Collagenase (Santyl) 1 applic DAILY TOPIC 08/01/16 09:00 08/31/16 08:59 08/06/16 08:40 Dextrose (Dextrose 50%) STAT PRN IV Hypoglycemia 07/30/16 14:45 08/29/16 14:44 Famotidine (Pepcid I.v.) 20 mg DAILY IVP 07/31/16 09:00 08/30/16 08:59 08/06/16 08:38 Heparin Sodium (Porcine) (Heparin 5000 units/ml) 5,000 units EVERY 12 HOURS SUBQ 07/30/16 21:00 08/29/16 20:59 08/06/16 08:39 Insulin Aspart (NovoLOG) EVERY 6 HOURS SUBQ 07/30/16 18:00 08/29/16 17:59 08/05/16 17:54 Lactobacillus Acidophilus (Culturelle) 1 tab TWICE A DAY GT 07/30/16 18:00 08/29/16 17:59 08/06/16 08:37 Levothyroxine Sodium (Synthroid) 200 mcg DAILY GT 07/31/16 09:00 08/30/16 08:59 08/06/16 08:37 Lorazepam (Ativan 2mg/ml 1ml) 1 mg Q4H PRN IV For Anxiety 08/04/16 13:30 08/11/16 13:29 08/04/16 13:53 Metronidazole 500 mg 500 mg Q8HR PEG 08/04/16 14:30 08/11/16 14:29 08/06/16 14:02 Midodrine (Pro-Amatine) 5 mg THREE TIMES A DAY GT 07/30/16 18:00 08/29/16 17:59 08/06/16 14:00 Ondansetron HCl (Zofran) 4 mg Q6H PRN IV Nausea & Vomiting 07/30/16 15:00 08/29/16 14:59 Polyethylene Glycol 17 gm 17 gm DAILY GT 08/01/16 14:54 08/30/16 08:59 08/06/16 08:40 Vancomycin HCl (Vanco rx to dose) 1 ea DAILY PRN MISC Per rx protocol 07/30/16 15:15 08/29/16 15:14 Vancomycin HCl/ Dextrose (Vancomycin/D5W 250ml) 250 ml @ 167 mls/hr Q12H IVPB 08/05/16 12:00 08/09/16 11:59 08/06/16 11:54 [place] Aug 06, 2016 15:52
[2016-08-06 16:00] VITALS: BP 102/66
[2016-08-06 20:00] VITALS: BP 112/66
[2016-08-06] MEDS ORDERED: Vancomycin 750mg Inj IVPB ONE (23:44)
[2016-08-07 00:23] VITALS: BP 103/49
[2016-08-07] MEDS: Vancomycin 750mg/D5W 250ml IVPB SCH ×4 (00:28→12:00)
[2016-08-07] MEDS ORDERED: [UNRECOGNIZED DRUG - OTHER] IVPB ONE ×2 (03:00)
[2016-08-07] MEDS ORDERED: AZTREONAM IVPB ONE ×2 (03:00)
[2016-08-07 04:00] VITALS: BP 103/60
[2016-08-07] MEDS: NovoLOG Insulin Flexpen SUBQ SCH ×4 (05:47→17:51)
[2016-08-07] MEDS: metroNIDAZOLE 500mg tab PEG SCH ×3 (05:48→21:17)
[2016-08-07 06:16] LABS: MEAN CORPUSCULAR HEMOGLOBIN 30.7 PG (27.0-31.0); MEAN CORPUSCULAR HGB CONC 32.1 G/DL (32.0-36.0); MEAN CORPUSCULAR VOLUME 95 FL (80-99); PLATELET COUNT 530 K/UL (150-450); RED BLOOD COUNT 2.63 M/UL (4.70-6.10); RED CELL DISTRIBUTION WIDTH 19.1 % (11.6-14.8); WHITE BLOOD COUNT 21.6 K/UL (4.8-10.8)
[2016-08-07 06:42] LABS: ALANINE AMINOTRANSFERASE 22 U/L (3-41); ALBUMIN/GLOBULIN RATIO 0.6 (1.0-2.7); ANION GAP 13 (5-15); ASPARTATE AMINO TRANSFERASE 18 U/L (5-40); CALCIUM 8.6 mg/dL (8.6-10.2); CARBON DIOXIDE 24 mEQ/L (20-30); CHLORIDE 98 mEQ/L (98-107); CREATININE 0.4 mg/dL (0.7-1.2); GLOMERULAR FILTRATION RATE > 60 mL/min (>60); HEMOLYSIS 3; MAGNESIUM 1.7 mg/dL (1.7-2.5); PHOSPHORUS 3.7 mg/dL (2.5-4.8); SODIUM 135 mEQ/L (135-145); TOTAL PROTEIN 5.3 g/dL (6.6-8.7)
[2016-08-07 08:00] VITALS: BP 100/61
--- NOTE | 2016-08-07 08:22 | Infectious Diseases Prog Note ---
Assessment/Plan Assessment/Plan MICRO: 07/30 BCx(-) 07/30 UCx not sent / UA(-) 07/30 SCx not sent 06/30 Back WCx MDR-K.pneumoniae, VRE.faecalis, CONS, C.albicans 06/28 BCx CONS 1/4 06/29 SCx qI-PSA, P.stuartii 06/26 Back WCx MDR-K.pneumoniae, MDR-ACB 06/17 SCx ESBL(+) K.pneumoniae, qS-PSA, S.maltophilia 06/11 BCx(-) 06/11 UCx >100K E.coli 05/12 Cath tip <10K CONS 05/11 BCx(-) 05/09 BCx CONS 09/20 ( single stick ) 05/09 UCx qR-K.pneumoniae 04/22 SCx qI-PSA 04/19 BCx CONS 10/18 ASSESSMENT: 60-year-old male with: // Multiple decubiti POA, suspect infected - seen by plastics, awaiting debridement - Bone scan 07/01: Limited, essentially nondiagnostic exam. No gross findings to suggest acute osteomyelitis - h/o MDR-K.pneumoniae, VRE.faecalis, CONS, C.albicans // h/o recurrent CONS bacteremia - surveillance BCx(-) - h/o recurrent CONS 2/4 (05/09) SP IV vanco x28d - h/o CONS 3/4 (04/19 ) SP Rx IV vanco x7d - TTE 05/11: poorly visualized valves, poor candidate MARIA C - h/o CONS cath tip colonization ( <10K ) // h/o recurrent PNAs ( VAP / HCAP ) r/o recurrence - SCx not sent - CXR 07/30: Findings most compatible with congestive heart failure with bilateral pleural effusions, persistent versus recurrent since previous exam. - h/o qI,S-PSA, P.stuartii, ESBL(+) K.pneumoniae, S.maltophilia // h/o recurrent UTIs r/o recurrence - repeat UA benign, UCx not sent - US: Mild left hydronephrosis, new since prior study of 04/21/2016. Etiology not demonstrated but concerning for downstream obstruction - h/o E.coli, K.pneumoniae SP Rx // Elevated LFTs, GGT - chronic, stable - US: Equivocally visualized stone filled gallbladder, versus shadowing from duodenal gas. 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 Tolerates cefepime, meropenem Full Code PLAN: continue IV vancomycin, aztreonam d# 8, PO flagyl d# 4 ( 08/04 SP levaquin d# 5 ) ( 07/05 SP IV vancomycin, aztreonam d# 7 / 7 ) ( 06/26 SP Merrem d# 6, cefepime d# 14 ) ( SP IV vancomycin, d# 6 and flagyl d# 3 ) ( SP IV vancomycin d# 28 / 28 ( 05/13 SP aztreonam, amikacin d# 5 / 5 ) ( 05/02 SP aztreonam d# 14 / 14 ) ( 04/25 SP vancomycin d# 7 / 7 ) debridement per plastics Monitor CBC, temperatures Monitor CMP Monitor chest x-ray vent support, trach care, aspiration precautions wound care contact isolation Subjective Allergies: Coded Allergies: PENICILLINS (Verified Allergy, Unknown, 04/19/16) Subjective pt unable to provide any information recurrent low grade fever x1, persistent leukocytosis awaiting debridement Objective Vital Signs Last 24 Hour Vital Signs Date Time Temp Pulse Resp B/P Pulse Ox O2 Delivery O2 Flow Rate FiO2 08/07/16 06:55 104 20 40 08/07/16 05:25 95 20 40 08/07/16 04:00 40 08/07/16 04:00 108 08/07/16 04:00 98.1 105 21 103/60 98 Mechanical Ventilator 40 08/07/16 03:00 109 22 40 08/07/16 01:14 101 21 40 08/07/16 00:23 100.0 106 20 103/49 96 Mechanical Ventilator 40 08/07/16 00:00 40 08/07/16 00:00 107 08/06/16 23:00 102 21 40 08/06/16 21:14 99 20 40 08/06/16 20:00 97 08/06/16 20:00 97.7 96 22 112/66 97 Mechanical Ventilator 08/06/16 20:00 40 08/06/16 18:55 96 20 40 08/06/16 17:11 91 19 40 08/06/16 16:00 40 08/06/16 16:00 97 08/06/16 16:00 97.7 97 22 102/66 97 Mechanical Ventilator 08/06/16 15:09 90 21 40 08/06/16 13:06 90 20 40 08/06/16 12:00 40 08/06/16 12:00 98.4 96 22 86/52 100 Mechanical Ventilator 40 08/06/16 11:30 97 18 40 08/06/16 09:19 93 18 40 Height (Feet): 5 Height (Inches): 5.00 Weight (Pounds): 150 General Appearance: no acute distress HEENT: status post trach Respiratory/Chest: decreased breath sounds Cardiovascular: normal rate, regular rhythm Abdomen: normal bowel sounds, soft, non tender, non distended Skin: other - wounds bandaged Microbiology Date/Time Source Procedure Growth Status 08/04/16 22:00 Stool Clostridium difficile Toxin Assay - Final Complete Laboratory Tests Test 08/06/16 09:45 08/07/16 04:00 White Blood Count 20.6 K/UL (4.8-10.8) H 21.6 K/UL (4.8-10.8) H Red Blood Count 2.68 M/UL (4.70-6.10) L 2.63 M/UL (4.70-6.10) L Hemoglobin 8.0 G/DL (14.2-18.0) L 8.1 G/DL (14.2-18.0) L Hematocrit 25.7 % (42.0-52.0) L 25.1 % (42.0-52.0) L Mean Corpuscular Volume 96 FL (80-99) 95 FL (80-99) Mean Corpuscular Hemoglobin 29.9 PG (27.0-31.0) 30.7 PG (27.0-31.0) Mean Corpuscular Hemoglobin Concent 31.3 G/DL (32.0-36.0) L 32.1 G/DL (32.0-36.0) Red Cell Distribution Width 18.6 % (11.6-14.8) H 19.1 % (11.6-14.8) H Platelet Count 498 K/UL (150-450) H 530 K/UL (150-450) H Mean Platelet Volume 4.8 FL (6.5-10.1) L 5.0 FL (6.5-10.1) L Neutrophils (%) (Auto) % (45.0-75.0) % (45.0-75.0) Lymphocytes (%) (Auto) % (20.0-45.0) % (20.0-45.0) Monocytes (%) (Auto) % (1.0-10.0) % (1.0-10.0) Eosinophils (%) (Auto) % (0.0-3.0) % (0.0-3.0) Basophils (%) (Auto) % (0.0-2.0) % (0.0-2.0) Differential Total Cells Counted 100 Neutrophils % (Manual) 78 % (45-75) H Pending Lymphocytes % (Manual) 11 % (20-45) L Pending Monocytes % (Manual) 8 % (1-10) Eosinophils % (Manual) 1 % (0-3) Basophils % (Manual) 0 % (0-2) Band Neutrophils 2 % (0-8) Platelet Estimate Increased H Pending Platelet Morphology Normal Pending Polychromasia 1+ Hypochromasia 1+ Anisocytosis 2+ Macrocytosis 1+ Sodium Level 135 mEQ/L (135-145) Potassium Level 5.0 mEQ/L (3.4-4.9) H Chloride Level 98 mEQ/L (98-107) Carbon Dioxide Level 24 mEQ/L (20-30) Anion Gap 13 (5-15) Blood Urea Nitrogen 20 mg/dL (7-23) Creatinine 0.4 mg/dL (0.7-1.2) L Estimat Glomerular Filtration Rate > 60 mL/min (>60) Glucose Level 95 mg/dL (74-106) Calcium Level 8.6 mg/dL (8.6-10.2) Phosphorus Level 3.7 mg/dL (2.5-4.8) Magnesium Level 1.7 mg/dL (1.7-2.5) Total Bilirubin 0.2 mg/dL (0.0-1.2) Aspartate Amino Transf (AST/SGOT) 18 U/L (5-40) Alanine Aminotransferase (ALT/SGPT) 22 U/L (3-41) Alkaline Phosphatase 1260 U/L (40-129) H Total Protein 5.3 g/dL (6.6-8.7) L Albumin 2.1 g/dL (3.5-5.2) L Globulin 3.2 g/dL Albumin/Globulin Ratio 0.6 (1.0-2.7) L Current Medications Medications (Trade) Dose Ordered Sig/Tanisha Route PRN Reason Start Time Stop Time Status Last Admin Dose Admin Acetaminophen (Tylenol) 650 mg Q4H PRN ORAL Mild Pain/Temp > 100.5 07/30/16 15:00 08/29/16 14:59 08/01/16 09:12 Aztreonam/Sodium Chloride (Azactam/Sodium Chloride 100ml bag) 100 ml @ 200 mls/hr Q8HR@0200,1000,1800 IVPB 08/07/16 10:00 08/09/16 17:59 Collagenase (Santyl) 1 applic DAILY TOPIC 08/01/16 09:00 08/31/16 08:59 08/06/16 08:40 Dextrose (Dextrose 50%) STAT PRN IV Hypoglycemia 07/30/16 14:45 08/29/16 14:44 Famotidine (Pepcid I.v.) 20 mg DAILY IVP 07/31/16 09:00 08/30/16 08:59 08/06/16 08:38 Heparin Sodium (Porcine) (Heparin 5000 units/ml) 5,000 units EVERY 12 HOURS SUBQ 07/30/16 21:00 08/29/16 20:59 08/06/16 21:42 Insulin Aspart (NovoLOG) EVERY 6 HOURS SUBQ 07/30/16 18:00 08/29/16 17:59 08/05/16 17:54 Lactobacillus Acidophilus (Culturelle) 1 tab TWICE A DAY GT 07/30/16 18:00 08/29/16 17:59 08/06/16 17:37 Levothyroxine Sodium (Synthroid) 200 mcg DAILY GT 07/31/16 09:00 08/30/16 08:59 08/06/16 08:37 Lorazepam (Ativan 2mg/ml 1ml) 1 mg Q4H PRN IV For Anxiety 08/04/16 13:30 08/11/16 13:29 08/04/16 13:53 Metronidazole 500 mg 500 mg Q8HR PEG 08/04/16 14:30 08/11/16 14:29 08/07/16 05:48 Midodrine (Pro-Amatine) 5 mg THREE TIMES A DAY GT 07/30/16 18:00 08/29/16 17:59 08/06/16 17:37 Ondansetron HCl (Zofran) 4 mg Q6H PRN IV Nausea & Vomiting 07/30/16 15:00 08/29/16 14:59 Polyethylene Glycol (Miralax) 17 gm DAILY GT 08/01/16 14:54 08/30/16 08:59 08/06/16 08:40 Vancomycin HCl (Vanco rx to dose) 1 ea DAILY PRN MISC Per rx protocol 07/30/16 15:15 08/29/16 15:14 Vancomycin HCl 750 mg/Dextrose 250 ml @ 167 mls/hr Q12H IVPB 08/05/16 12:00 08/09/16 11:59 08/07/16 00:28 [place] Aug 07, 2016 08:22
[2016-08-07] MEDS: Miralax 17gm pkt GT SCH (08:59)
[2016-08-07] MEDS: Famotidine 20 MG/ 2ML VIAL IVP SCH (09:00)
[2016-08-07] MEDS: Lactobacillus-GG tablet GT SCH ×2 (09:48→17:37)
[2016-08-07] MEDS: Heparin 5000 units/ml inj SUBQ SCH ×2 (09:50→21:18)
[2016-08-07 11:12] LABS: BAND NEUTROPHILS % (MANUAL) 1 % (0-8); BASOPHILS % (MANUAL) 0 % (0-2); EOSINOPHILS % (MANUAL) 0 % (0-3); LYMPHOCYTES % (MANUAL) 11 % (20-45); NEUTROPHILS % (MANUAL) 77 % (45-75); PLATELET ESTIMATE INCREASED; PLATELET MORPHOLOGY NORMAL; TOTAL CELLS COUNTED 100
[2016-08-07 11:13] LABS: ANISOCYTOSIS 1+
[2016-08-07 11:14] LABS: HYPOCHROMASIA 1+; POLYCHROMASIA 1+
[2016-08-07] MEDS: AZTREONAM IVPB SCH ×2 (11:18→17:37)
[2016-08-07] MEDS: NS IVPB SCH ×2 (11:18→17:37)
--- NOTE | 2016-08-07 11:24 | Wound Care Consultation ---
Wound Assessment Wound Assessment #1: Wound Present on Admission: Yes New Wound: No Status Change of Wound: No Wound Location Body Site Modif: mid, posterior Wound Location Body Site: other - spinous process Wound Type: pressure ulcer Rashawn Test: Does not Rashawn Pressure Ulcer Stage: IV/unstageable Wound Thickness: Full Thickness Wound Length: 8.0 Wound Width: 8.5 Wound Depth: 3.0 Percent of Wound Soddy-Daisy/Red: 50 Percent of Wound Bed Yellow/Wh: 40 Percent of Wound Purple/Maroon: 10 Wound Drainage Description: Serosanguineous Wound Drainage Amount: Moderate Wound Drainage Odor: None/Absent Tissue Surrounding Wound: Erythemic Wound General Appearance: Reddened, Draining, Necrotic, Bone Palpable Wound Assessment #2: Wound Number: #2 Wound Present on Admission: Yes New Wound: No Status Change of Wound: No Wound Location Body Site Modif: left Wound Location Body Site: trochanter Wound Type: pressure ulcer Rashawn Test: Does not Rashawn Pressure Ulcer Stage: IV/unstageable Wound Thickness: Full Thickness Wound Length: 12.0 Wound Width: 12.0 Wound Depth: utd Percent of Wound Bed Yellow/Wh: 10 Percent of Wound Black/Brown: 90 Wound Drainage Description: Serosanguineous Wound Drainage Amount: Copious Wound Drainage Odor: None/Absent Tissue Surrounding Wound: Macerated Wound General Appearance: Reddened, Blackened, Draining, Necrotic Wound Assessment #3: Wound Number: #3 Wound Present on Admission: Yes New Wound: No Status Change of Wound: No Wound Location Body Site Modif: left, lateral Wound Location Body Site: malleolus/ankle Wound Type: pressure ulcer Rashawn Test: Does not Rashawn Pressure Ulcer Stage: deep tissue injury Wound Thickness: Full Thickness Wound Length: 1.5 Wound Width: 1.5 Wound Depth: utd Percent of Wound Soddy-Daisy/Red: 50 Percent of Wound Purple/Maroon: 50 Wound Drainage Amount: None Wound Drainage Odor: None/Absent Tissue Surrounding Wound: Erythemic Wound General Appearance: Reddened Wound Assessment #4: Wound Number: #4 Wound Present on Admission: Yes New Wound: No Status Change of Wound: No Wound Location Body Site Modif: left, mid, lateral Wound Location Body Site: foot Wound Type: pressure ulcer Rashawn Test: Does not Rashawn Pressure Ulcer Stage: deep tissue injury Wound Thickness: Full Thickness Wound Length: 1.0 Wound Width: 1.0 Wound Depth: utd Percent of Wound Soddy-Daisy/Red: 50 Percent of Wound Purple/Maroon: 50 Wound Drainage Amount: None Wound Drainage Odor: None/Absent Tissue Surrounding Wound: Erythemic Wound General Appearance: Reddened Wound Assessment #5: Wound Number: #5 Wound Present on Admission: Yes New Wound: No Status Change of Wound: No Wound Location Body Site Modif: left Wound Location Body Site: metatarsal head - 5th Wound Type: pressure ulcer Rashawn Test: Does not Rashawn Pressure Ulcer Stage: deep tissue injury Wound Thickness: Full Thickness Wound Length: 2.0 Wound Width: 1.5 Wound Depth: utd Percent of Wound Soddy-Daisy/Red: 50 Percent of Wound Purple/Maroon: 50 Wound Drainage Amount: None Wound Drainage Odor: None/Absent Tissue Surrounding Wound: Erythemic Wound General Appearance: Reddened Wound Assessment #6: Wound Number: #6 Wound Present on Admission: Yes New Wound: No Status Change of Wound: No Wound Location Body Site Modif: left Wound Location Body Site: ischial tuberosity Wound Type: pressure ulcer Rashawn Test: Does not Rashawn Pressure Ulcer Stage: deep tissue injury Wound Thickness: Full Thickness Wound Length: 4.0 Wound Width: 4.0 Wound Depth: utd Percent of Wound Purple/Maroon: 100 Wound Drainage Amount: None Wound Drainage Odor: None/Absent Tissue Surrounding Wound: Erythemic Wound General Appearance: Reddened Wound Assessment #7: Wound Number: #7 Wound Present on Admission: Yes New Wound: No Status Change of Wound: No Wound Location Body Site Modif: right Wound Location Body Site: trochanter Wound Type: pressure ulcer Rashawn Test: Does not Rashawn Pressure Ulcer Stage: I Wound Thickness: Partial Thickness Wound Length: 3.0 Wound Width: 3.0 Percent of Wound Soddy-Daisy/Red: 100 Wound Drainage Amount: None Wound Drainage Odor: None/Absent Tissue Surrounding Wound: Erythemic Wound General Appearance: Reddened Wound Assessment #8: Wound Number: #8 Wound Present on Admission: Yes New Wound: No Status Change of Wound: No Wound Location Body Site Modif: right, lateral Wound Location Body Site: malleolus/ankle Wound Type: pressure ulcer Rashawn Test: Does not Rashawn Pressure Ulcer Stage: deep tissue injury Wound Thickness: Full Thickness Wound Length: 1.0 Wound Width: 1.0 Wound Depth: utd Percent of Wound Soddy-Daisy/Red: 50 Percent of Wound Purple/Maroon: 50 Wound Drainage Amount: None Wound Drainage Odor: None/Absent Tissue Surrounding Wound: Erythemic Wound General Appearance: Reddened Wound Assessment #9: Wound Number: #9 Wound Present on Admission: Yes New Wound: No Status Change of Wound: No Wound Location Body Site Modif: right, posterior Wound Location Body Site: shoulder Wound Type: pressure ulcer Rashawn Test: Does not Rashawn Pressure Ulcer Stage: deep tissue injury Wound Thickness: Full Thickness Wound Length: 2.0 Wound Width: 2.0 Wound Depth: utd Percent of Wound Soddy-Daisy/Red: 50 Percent of Wound Purple/Maroon: 50 Wound Drainage Amount: None Wound Drainage Odor: None/Absent Tissue Surrounding Wound: Erythemic Wound General Appearance: Reddened Wound Comment Body reassessment completed. No changes noted to admitted wounds, no deterioration noted. no new wounds noted. Continue local wound care as ordered. KARINA KINGSTON Aug 07, 2016 11:24
[2016-08-07 12:00] VITALS: BP 104/63
--- NOTE | 2016-08-07 13:08 | Pulmonology Progress Note ---
Assessment/Plan Problems: (1) Acute and chronic respiratory failure (2) ATN (acute tubular necrosis) (3) Septic shock (4) Bilateral pneumonia (5) History of glioma of brainstem (6) Decubital ulcer (7) Brain anoxic injury Subjective ROS Limited/Unobtainable: Yes Allergies: Coded Allergies: PENICILLINS (Verified Allergy, Unknown, 04/19/16) Problems: (1) Septic shock (2) Acute and chronic respiratory failure (3) Pleural effusion (4) ATN (acute tubular necrosis) (5) Brain anoxic injury (6) Acute flaccid quadriplegia (7) Feeding by G-tube Respiratory: adjust tidal volume, monitor respiratory rate, CXR Cardiac: start pressors Renal: F/U I&O Infectious Disease: check cultures, continue antibiotics Gastrointestinal: continue feedings/current rate Endocrine: monitor blood sugar Hematologic: monitor H/H, transfuse if hgb<8.5 Neurologic: PRN Ativan, PRN Morphine Affect: PRN ativan Prophylaxis: Protonix, Heparin, SCDs Disposition: transfer to - [facility] Time Spent (Minutes): 40 Notes Reviewed: pigs feet cleaner Discussed with: nurses, consultants, casework supervisor Objective Last 24 Hour Vital Signs Date Time Temp Pulse Resp B/P Pulse Ox O2 Delivery O2 Flow Rate FiO2 08/07/16 10:51 94 20 40 08/07/16 09:09 99 20 40 08/07/16 08:00 99.5 105 20 100/61 98 Mechanical Ventilator 40 08/07/16 08:00 40 08/07/16 08:00 102 08/07/16 06:55 104 20 40 08/07/16 05:25 95 20 40 08/07/16 04:00 40 08/07/16 04:00 108 08/07/16 04:00 98.1 105 21 103/60 98 Mechanical Ventilator 40 08/07/16 03:00 109 22 40 08/07/16 01:14 101 21 40 08/07/16 00:23 100.0 106 20 103/49 96 Mechanical Ventilator 40 08/07/16 00:00 40 08/07/16 00:00 107 08/06/16 23:00 102 21 40 08/06/16 21:14 99 20 40 08/06/16 20:00 97 08/06/16 20:00 97.7 96 22 112/66 97 Mechanical Ventilator 08/06/16 20:00 40 08/06/16 18:55 96 20 40 08/06/16 17:11 91 19 40 08/06/16 16:00 40 08/06/16 16:00 97 08/06/16 16:00 97.7 97 22 102/66 97 Mechanical Ventilator 08/06/16 15:09 90 21 40 Intake and Output 08/06/16 08/07/16 19:00 07:00 Intake Total 970 ml 734 ml Output Total 1500 ml 1800 ml Balance -530 ml -1066 ml Intake Free Water 200 ml 100 ml IV Total 334 ml Tube Feeding 420 ml 300 ml Other 350 ml Output Urine Total 1500 ml 1800 ml # Bowel Movements 1 General Appearance: no acute distress HEENT: normocephalic, atraumatic, PERRL, status post trach Respiratory/Chest: chest wall non-tender, no respiratory distress, rhonchi Cardiovascular: normal peripheral pulses, normal rate, regular rhythm Abdomen: normal bowel sounds, soft, non tender, no organomegaly Genitourinary: normal external genitalia Extremities: no cyanosis Skin: no rash, lesions Neurologic/Psychiatric: unresponsiveness Microbiology Date/Time Source Procedure Growth Status 08/04/16 22:00 Stool Clostridium difficile Toxin Assay - Final Complete Laboratory Tests 08/07/16 04:00: White Blood Count 21.6H, Red Blood Count 2.63L, Hemoglobin 8.1L, Hematocrit 25.1L, Mean Corpuscular Volume 95, Mean Corpuscular Hemoglobin 30.7, Mean Corpuscular Hemoglobin Concent 32.1, Red Cell Distribution Width 19.1H, Platelet Count 530H, Mean Platelet Volume 5.0L, Neutrophils (%) (Auto) , Lymphocytes (%) (Auto) , Monocytes (%) (Auto) , Eosinophils (%) (Auto) , Basophils (%) (Auto) , Differential Total Cells Counted 100, Neutrophils % ( Manual) 77H, Lymphocytes % (Manual) 11L, Monocytes % (Manual) 11H, Eosinophils % (Manual) 0, Basophils % (Manual) 0, Band Neutrophils 1, Platelet Estimate IncreasedH, Platelet Morphology Normal, Polychromasia 1+, Hypochromasia 1+, Anisocytosis 1+, Sodium Level 135, Potassium Level 5.0H, Chloride Level 98, Carbon Dioxide Level 24, Anion Gap 13, Blood Urea Nitrogen 20, Creatinine 0.4L, Estimat Glomerular Filtration Rate > 60, Glucose Level 95, Calcium Level 8.6, Phosphorus Level 3.7, Magnesium Level 1.7, Total Bilirubin 0.2, Aspartate Amino Transf (AST/SGOT) 18, Alanine Aminotransferase (ALT/SGPT) 22, Alkaline Phosphatase 1260H, Total Protein 5.3L, Albumin 2.1L, Globulin 3.2, Albumin/ Globulin Ratio 0.6L Current Medications Medications (Trade) Dose Ordered Sig/Tanisha Route PRN Reason Start Time Stop Time Status Last Admin Dose Admin Acetaminophen (Tylenol) 650 mg Q4H PRN ORAL Mild Pain/Temp > 100.5 07/30/16 15:00 08/29/16 14:59 08/07/16 09:48 Aztreonam/Sodium Chloride (Azactam/Sodium Chloride 100ml bag) 100 ml @ 200 mls/hr Q8HR@0200,1000,1800 IVPB 08/07/16 10:00 08/09/16 17:59 08/07/16 11:18 Dextrose (Dextrose 50%) STAT PRN IV Hypoglycemia 07/30/16 14:45 08/29/16 14:44 Famotidine (Pepcid I.v.) 20 mg DAILY IVP 07/31/16 09:00 08/30/16 08:59 08/07/16 09:00 Heparin Sodium (Porcine) (Heparin 5000 units/ml) 5,000 units EVERY 12 HOURS SUBQ 07/30/16 21:00 08/29/16 20:59 08/07/16 09:50 Insulin Aspart (NovoLOG) EVERY 6 HOURS SUBQ 07/30/16 18:00 08/29/16 17:59 08/07/16 12:33 Lactobacillus Acidophilus (Culturelle) 1 tab TWICE A DAY GT 07/30/16 18:00 08/29/16 17:59 08/07/16 09:48 Levothyroxine Sodium (Synthroid) 200 mcg DAILY GT 07/31/16 09:00 08/30/16 08:59 08/07/16 09:49 Lorazepam (Ativan 2mg/ml 1ml) 1 mg Q4H PRN IV For Anxiety 08/04/16 13:30 08/11/16 13:29 08/04/16 13:53 Metronidazole 500 mg 500 mg Q8HR PEG 08/04/16 14:30 08/11/16 14:29 08/07/16 05:48 Midodrine (Pro-Amatine) 5 mg THREE TIMES A DAY GT 07/30/16 18:00 08/29/16 17:59 08/07/16 09:54 Ondansetron HCl (Zofran) 4 mg Q6H PRN IV Nausea & Vomiting 07/30/16 15:00 08/29/16 14:59 Polyethylene Glycol (Miralax) 17 gm DAILY GT 08/01/16 14:54 08/30/16 08:59 08/06/16 08:40 Vancomycin HCl (Vanco rx to dose) 1 ea DAILY PRN MISC Per rx protocol 07/30/16 15:15 08/29/16 15:14 Vancomycin HCl 750 mg/Dextrose 250 ml @ 167 mls/hr Q12H IVPB 08/05/16 12:00 08/09/16 11:59 08/07/16 00:28 JAKUB MORALES Aug 07, 2016 13:08
--- NOTE | 2016-08-07 15:10 | Anethesia Preoperative Eval ---
Anesthesia Pre-op PMH/ROS General Date of Evaluation: Aug 07, 2016 Anesthesiologist: Cesia ASA Score: ASA 4 Mallampati Score Class I : Soft palate, uvula, fauces, pillars visible Class II: Soft palate, uvula, fauces visible Class III: Soft palate, base of uvula visible Class IV: Only hard plate visible Mallampati Classification: Class III Surgeon: Deborah Diagnosis: Pressure ulcers Surgical Procedure: I&D left hip and back ulcers Anesthesia History: none Family History: no anesthesia problems Allergies: Coded Allergies: PENICILLINS (Verified Allergy, Unknown, 04/19/16) Medications: see eMAR Past Medical History Cardiovascular: Reports: CAD, HTN, Denies: OK, arrhythmia, other, valve dz Pulmonary: Reports: other - chronic respiratory failure on trach/vent, Denies: COPD, ROSE, asthma Gastrointestinal/Genitourinary: Reports: other - ATN, Denies: CRI, ESRD, GERD Neurologic/Psychiatric: Reports: other - anoxic brain injury, h/o brainstem glioma, Denies: CVA, TIA, dementia, depression/anxiety Endocrine: Reports: DM, hypothyroidism, Denies: other, steroids HEENT: Denies: GRINDSTONE (L), GRINDSTONE (R), cataract (L), cataract (R), glaucoma, other Hematology/Immune: Reports: other - septic shock, Denies: DVT, anemia, bleeding disorder Musculoskeletal/Integumentary: Denies: DDD, DJD, OA, RA, edema, other PSxH Narrative: PEG, trach Anesthesia Pre-op Phys. Exam Physician Exam Last Vital Signs Date Time Temp Pulse Resp B/P Pulse Ox O2 Delivery O2 Flow Rate FiO2 08/07/16 13:00 100 20 40 08/07/16 12:00 98.2 104/63 100 Mechanical Ventilator Constitutional: NAD Cardiovascular: RRR Respiratory: CTA Airway Exam Mallampati Score: Class III Anesthesia Pre-op A/P Labs Hematology Test 08/07/16 04:00 White Blood Count 21.6 K/UL (4.8-10.8) H Red Blood Count 2.63 M/UL (4.70-6.10) L Hemoglobin 8.1 G/DL (14.2-18.0) L Hematocrit 25.1 % (42.0-52.0) L Mean Corpuscular Volume 95 FL (80-99) Mean Corpuscular Hemoglobin 30.7 PG (27.0-31.0) Mean Corpuscular Hemoglobin Concent 32.1 G/DL (32.0-36.0) Red Cell Distribution Width 19.1 % (11.6-14.8) H Platelet Count 530 K/UL (150-450) H Mean Platelet Volume 5.0 FL (6.5-10.1) L Neutrophils (%) (Auto) % (45.0-75.0) Lymphocytes (%) (Auto) % (20.0-45.0) Monocytes (%) (Auto) % (1.0-10.0) Eosinophils (%) (Auto) % (0.0-3.0) Basophils (%) (Auto) % (0.0-2.0) Differential Total Cells Counted 100 Neutrophils % (Manual) 77 % (45-75) H Lymphocytes % (Manual) 11 % (20-45) L Monocytes % (Manual) 11 % (1-10) H Eosinophils % (Manual) 0 % (0-3) Basophils % (Manual) 0 % (0-2) Band Neutrophils 1 % (0-8) Platelet Estimate Increased H Platelet Morphology Normal Polychromasia 1+ Hypochromasia 1+ Anisocytosis 1+ Chemistry Test 08/07/16 04:00 Sodium Level 135 mEQ/L (135-145) Potassium Level 5.0 mEQ/L (3.4-4.9) H Chloride Level 98 mEQ/L (98-107) Carbon Dioxide Level 24 mEQ/L (20-30) Anion Gap 13 (5-15) Blood Urea Nitrogen 20 mg/dL (7-23) Creatinine 0.4 mg/dL (0.7-1.2) L Estimat Glomerular Filtration Rate > 60 mL/min (>60) Glucose Level 95 mg/dL (74-106) Calcium Level 8.6 mg/dL (8.6-10.2) Phosphorus Level 3.7 mg/dL (2.5-4.8) Magnesium Level 1.7 mg/dL (1.7-2.5) Total Bilirubin 0.2 mg/dL (0.0-1.2) Aspartate Amino Transf (AST/SGOT) 18 U/L (5-40) Alanine Aminotransferase (ALT/SGPT) 22 U/L (3-41) Alkaline Phosphatase 1260 U/L (40-129) H Total Protein 5.3 g/dL (6.6-8.7) L Albumin 2.1 g/dL (3.5-5.2) L Globulin 3.2 g/dL Albumin/Globulin Ratio 0.6 (1.0-2.7) L Studies Pre-op Studies: EKG - ST, CXR - bilateral pleural effusions vs pneumonia Risk Assessment & Plan Assessment: ASA IV Plan: GA Status Change Before Surgery: No Pre-Antibiotics Drug: TBD DOE BELTRAN M.D. Aug 07, 2016 15:10
[2016-08-07] MEDS ORDERED: D5W 275ml ONE (15:42)
[2016-08-07 16:00] VITALS: BP 95/53
[2016-08-07 20:00] VITALS: BP 93/57
[2016-08-08] VITALS (68 sets, daily range): BP systolic 67–155; BP diastolic 36–85
[2016-08-08] MEDS: Vancomycin 750mg/D5W 250ml IVPB SCH ×4 (00:31→11:38)
[2016-08-08] MEDS: AZTREONAM IVPB SCH ×3 (02:21→17:37)
[2016-08-08] MEDS: NS IVPB SCH ×3 (02:21→17:37)
[2016-08-08] MEDS: metroNIDAZOLE 500mg tab PEG SCH ×4 (06:00→22:02)
[2016-08-08] MEDS: NovoLOG Insulin Flexpen SUBQ SCH ×5 (06:00→17:54)
[2016-08-08] MEDS ORDERED: Bacitracin 50000 Units Vial ONE (06:33)
--- NOTE | 2016-08-08 06:58 | Pre-Procedure Note/Attestation ---
Pre-Procedure Note/Attestation Complete Prior to Procedure Planned Procedure: not applicable Procedure Narrative: Debridement of left trochanter ulcer, mid back ulcer, possible bone biopsy. Indications for Procedure Pre-Operative Diagnosis: Necrotic left trochanter pressure ulcer, stage 4 mid back ulcer Attestation I attest that I discussed the nature of the procedure; its benefits; risks and complications; and alternatives (and the risks and benefits of such alternatives ), prior to the procedure, with the patient's son in law. I attest that, if there was a reasonable possibility of needing a blood transfusion, the patient (or the patient's legal chain sales representative) was given the [facility] standardized written summary, pursuant to the [place] Blood Safety Act ([place] Health and Safety Code # 1645, as amended). I attest that I re-evaluated the patient just prior to the surgery and that there has been no change in the patient's H&P, except as documented below: EVERARDO DIAS Aug 08, 2016 06:58
[2016-08-08] MEDS ORDERED: Midazolam 2mg/2ml Inj ONE (07:00)
[2016-08-08] MEDS ORDERED: Zemuron 50mg/5ml Inj IV ONE (07:00)
[2016-08-08] MEDS ORDERED: fentaNYL 100 mcg/2 mL IV ONE (07:00)
[2016-08-08] MEDS ORDERED: NS Irrig 4000ml IRRIG ONE (07:00)
[2016-08-08] MEDS ORDERED: Lidocaine 1% 10mg/ml/Epi 0.005mg/ml 30ml vial INJ ONE (07:45)
--- NOTE | 2016-08-08 08:49 | Brief Operative Note ---
Immediate Post Operative Note Operative Note Pre-op Diagnosis: Necrotic left trochanter pressure ulcer, stage 4 mid back ulcer Procedure: Excision of left trochanter ulcer to and including muscle, Deep open bone biopsy greater trochanter, debridement of mid back ulcer to muscle. Post-op Diagnosis: same as pre-op Surgeon: Deborah Anesthesiologist: Alban Anesthesia: general Specimen: yes Complications: none Fluids: Per Anesthesia Estimated Blood Loss: minimal Drains: none Implant(s) used?: No - Necrotic ulcer bursa left trochanter, deep aerobic, anaerobic cultures, bone cultures EVERARDO DIAS Aug 08, 2016 08:49
--- NOTE | 2016-08-08 10:53 | Pulmonolgy Critical Care Note ---
Critical Care - Asmt/Plan Problems: (1) Septic shock (2) Acute and chronic respiratory failure (3) Pleural effusion (4) ATN (acute tubular necrosis) (5) Brain anoxic injury (6) Acute flaccid quadriplegia (7) Feeding by G-tube Respiratory: monitor respiratory rate, adjust FIO2, CXR Cardiac: start pressors - dopamin drip to keep mbp at 60 Renal: F/U I&O Infectious Disease: check cultures Gastrointestinal: continue feedings/current rate Endocrine: monitor blood sugar, continue sliding scale insulin Hematologic: transfuse if hgb<8.5 Neurologic: PRN Ativan, keep patient comfortable Prophylaxis: Protonix Notes Reviewed: seam closer, cardio Discussed with: nurses, consultants, case techniciansenior catering sales manager - Objective Last 24 Hour Vital Signs Date Time Temp Pulse Resp B/P Pulse Ox O2 Delivery O2 Flow Rate FiO2 08/08/16 10:25 88 20 83/43 100 Mechanical Ventilator 40 08/08/16 10:20 87 20 80/48 100 Mechanical Ventilator 40 08/08/16 10:15 40 08/08/16 10:15 97.7 87 20 86/36 100 Mechanical Ventilator 40 08/08/16 08:40 97.7 75 19 98/55 100 Mechanical Ventilator 40 08/08/16 08:00 81 08/08/16 08:00 40 08/08/16 05:23 99 20 40 08/08/16 04:00 99.1 89 20 152/74 100 Mechanical Ventilator 40 08/08/16 04:00 95 08/08/16 04:00 40 08/08/16 03:13 101 20 40 08/08/16 01:04 97 20 40 08/08/16 00:00 94 08/08/16 00:00 98.2 92 20 106/66 97 Mechanical Ventilator 40 08/08/16 00:00 40 08/07/16 22:32 103 25 40 08/07/16 20:59 101 20 40 08/07/16 20:10 40 08/07/16 20:00 101 08/07/16 20:00 99.5 94 20 93/57 99 Mechanical Ventilator 40 08/07/16 19:22 95 20 40 08/07/16 17:09 99 22 40 08/07/16 16:00 98.2 100 21 95/53 100 Mechanical Ventilator 40 08/07/16 16:00 40 08/07/16 16:00 106 08/07/16 15:12 108 24 40 08/07/16 13:00 100 20 40 08/07/16 12:00 98.2 92 20 104/63 100 Mechanical Ventilator 40 08/07/16 12:00 98.2 92 20 104/63 100 Mechanical Ventilator 40 08/07/16 12:00 40 Status: other - vegetative state Condition: critical HEENT: atraumatic, normocephalic Lungs: chest wall tender Heart: HR/BP stable Abdomen: soft Extremities: no C/C/E Decubiti: location Accucheck: 92 Critical Care - Subjective ROS Limited/Unobtainable: Yes ICU Day: 1 Interval Events: transferred to ICU after debridement, he became hypotensive. EKG Rhythm: Sinus Rhythm FI02: 40 Vent Support Breath Rate: 20 Vent Support Mode: AC Vent Tidal Volume: 500 Sputum Amount: Moderate PEEP: 5.0 PIP: 31 Tube Feeding Amount: 60 I&O: Intake and Output 08/07/16 08/08/16 19:00 07:00 Intake Total 160 ml 360 ml Output Total 1000 ml 2151 ml Balance -840 ml -1791 ml Intake Free Water 100 ml 60 ml Tube Feeding 60 ml 240 ml Other 60 ml Output Urine Total 1000 ml 2150 ml Stool Total 1 ml # Bowel Movements 1 3 Labs: Laboratory Tests Test 08/07/16 22:10 Random Vancomycin Level 16.9 ug/mL JAKUB MORALES Aug 08, 2016 10:53
[2016-08-08] MEDS: DOPamine 400mg/250ml 250 ML IV SCH (11:27)
--- NOTE | 2016-08-08 11:28 | Immediate Post-Op Evaluation ---
Immediate Post-Op Evalulation Immediate Post-Op Evalulation Procedure: debridement of left hip and left back pressure ulcers Date of Evaluation: Aug 08, 2016 Time of Evaluation: 09:00 IV Fluids: 1 L NS Estimated Blood Loss: 20 mL Blood Pressure Systolic: 119 Blood Pressure Diastolic: 60 Pulse Rate: 75 Respiratory Rate: 18 O2 Sat by Pulse Oximetry: 100 Temperature (Fahrenheit): 97.7 Pain Score (1-10): 1 Nausea: No Vomiting: No Complications Upon arrival, pt was hemodynamically stable, mechanically ventilated. Called to bedside at 09:40 due to hypotension. Hypotension treated with fluid bolus and vasopressors. Pt was then transferred to ICU for further monitoring and hemodynamic support. Patient Status: ventilated Hydration Status: adequate DEBBY BECKWITH Aug 08, 2016 11:28
[2016-08-08] MEDS: Miralax 17gm pkt GT SCH (11:29)
[2016-08-08] MEDS: Lactobacillus-GG tablet GT SCH ×2 (11:30→17:37)
[2016-08-08] MEDS: Heparin 5000 units/ml inj SUBQ SCH ×2 (11:31→20:40)
[2016-08-08] MEDS: Famotidine 20 MG/ 2ML VIAL IVP SCH (11:33)
[2016-08-08 11:36] LABS: MEAN CORPUSCULAR HEMOGLOBIN 29.4 PG (27.0-31.0); MEAN CORPUSCULAR HGB CONC 30.7 G/DL (32.0-36.0); MEAN CORPUSCULAR VOLUME 96 FL (80-99); PLATELET COUNT 423 K/UL (150-450); RED BLOOD COUNT 2.59 M/UL (4.70-6.10); RED CELL DISTRIBUTION WIDTH 18.3 % (11.6-14.8); WHITE BLOOD COUNT 14.6 K/UL (4.8-10.8)
[2016-08-08 11:48] LABS: ALANINE AMINOTRANSFERASE 15 U/L (3-41); ALBUMIN/GLOBULIN RATIO 0.6 (1.0-2.7); ANION GAP 13 (5-15); ASPARTATE AMINO TRANSFERASE 15 U/L (5-40); CALCIUM 7.8 mg/dL (8.6-10.2); CARBON DIOXIDE 22 mEQ/L (20-30); CHLORIDE 100 mEQ/L (98-107); CREATININE 0.4 mg/dL (0.7-1.2); GLOMERULAR FILTRATION RATE > 60 mL/min (>60); HEMOLYSIS 5; POTASSIUM 3.7 mEQ/L (3.4-4.9); SODIUM 135 mEQ/L (135-145); TOTAL PROTEIN 4.5 g/dL (6.6-8.7)
[2016-08-08] MEDS: Vancomycin 750 MG in D5W 250 ML IVPB SCH (12:00)
[2016-08-08 12:15] LABS: LYMPHOCYTES % (MANUAL) 14 % (20-45); NEUTROPHILS % (MANUAL) 76 % (45-75); TOTAL CELLS COUNTED 100
[2016-08-08 12:16] LABS: BAND NEUTROPHILS % (MANUAL) 0 % (0-8); BASOPHILS % (MANUAL) 0 % (0-2); EOSINOPHILS % (MANUAL) 0 % (0-3); HYPOCHROMASIA 2+; PLATELET ESTIMATE INCREASED; PLATELET MORPHOLOGY NORMAL
[2016-08-08 12:17] LABS: ANISOCYTOSIS 2+; POLYCHROMASIA 1+
[2016-08-08] MEDS ORDERED: LORazepam Inj 2mg/ml 1ml IV PRN (13:30)
--- NOTE | 2016-08-08 14:18 | Operative Note - Dictated ---
DATE OF OPERATION: 08/08/2016 SURGEON: Barry Cabrera M.D. ANESTHESIOLOGIST: . PREOPERATIVE DIAGNOSES: 1. Necrotic left trochanteric pressure ulcer, stage IV. 2. Mid back pressure ulcer. POSTOPERATIVE DIAGNOSES: 1. Necrotic left trochanteric pressure ulcer, stage IV. 2. Mid back pressure ulcer. OPERATION: Excisional debridement of left trochanteric pressure ulcer down to and including muscle, deep open bone biopsy greater trochanter, excisional debridement of midback pressure ulcer down to muscle. ANESTHESIA: General anesthesia. OPERATIVE INDICATIONS: This is a 60-year-old male, who is bedridden, has a chronic history of these pressure ulcers. He had a progressive necrosis of his left trochanter ulcer and has an elevated white blood cell count that has been consistently over 20,000. Concern was that he has deeper level of infection in his left trochanter ulcer and started to do the debridement of this as well as this chronic midback pressure ulcer to infection control. An operative plan was devised and agreed upon and informed consent was obtained and once he was medically cleared, he was scheduled for the surgery. Operative Procedure: The patient was brought to the operating room and placed on the operating table in the right lateral decubitus position. Once all pressure points were padded and he was stabilized on the bed. General anesthesia was induced and the surgical areas were prepped and draped in usual sterile fashion. A timeout was then performed and then the ulcers were injected with 1% lidocaine with 1:2000, epinephrine measuring 30 cubic centimeters between the two ulcer sites. Then beginning on the left trochanter ulcer using a #10 blade sharp excision was performed around the periphery and dissection was proceeded down to remove the ulcer on block. Upon doing this dissection at the 7 o'clock position, there was a deeper space infection where there was purulent fluid began to drain out. This was cultured and sent off. The wound defect at this point was extended down to the greater left greater trochanter and the bone was exposed. A rongeur was then used to obtain a deep open bone biopsy was sent for cultures in order to guide further antibiotic management. At this point, gross necrotic tissue has been removed and the area was packed and attention was turned to the mid back ulcer. The mid back ulcer was debrided with combination of a #15 scalpel blade and curette to remove the hypergranular tissue and fibrotic debrided accumulated. This was done to the level of muscle and at this point, both ulcers were pulse irrigated with triple antibiotic solution of Ancef, gentamicin, and bacitracin with a total of 3 liters to the trochanter ulcer and one liter to the mid back ulcer. At this point hemostasis was obtained and the wounds were both packed with wet-to-dry with Kerlix and saline and dressings were applied. The total wound dimensions were of the left trochanter ulcer was 12 x 11 x 2 cm and the mid back was a 7 x 5 x 1.3 cm. The patient is stable. He tolerated the procedure well. EBL was minimal. Specimens sent to pathology as well as microbiology. He was then placed back in his hospital bed and taken back to the [facility] unit. Barry Cabrera M.D. DR: JOSE JOB#: [id number] CC:
--- NOTE | 2016-08-08 15:14 | 48 Hour Post Anesthesia Eval ---
Post Anesthesia Evaluation Procedure: debridement of left hip and left back pressure ulcers Date of Evaluation: Aug 08, 2016 Time of Evaluation: 13:16 Blood Pressure Systolic: 95 0: 55 Pulse Rate: 98 Respiratory Rate: 12 - VEnt Temperature (Fahrenheit): 98.3 O2 Sat by Pulse Oximetry: 100 Airway: patent Nausea: No Vomiting: No Pain Intensity: 3 Cardiopulmonary Status: Stable Mental Status/LOC: patient returned to baseline Follow-up Care/Observations: 0 Post-Anesthesia Complications: 0 Follow-up care needed: N/A Jerald Mckeon MD Aug 08, 2016 15:14
--- NOTE | 2016-08-08 15:40 | Infectious Diseases Prog Note ---
Assessment/Plan Assessment/Plan MICRO: 07/30 BCx(-) 07/30 UCx not sent / UA(-) 07/30 SCx not sent 06/30 Back WCx MDR-K.pneumoniae, VRE.faecalis, CONS, C.albicans 06/28 BCx CONS 1/4 06/29 SCx qI-PSA, P.stuartii 06/26 Back WCx MDR-K.pneumoniae, MDR-ACB 06/17 SCx ESBL(+) K.pneumoniae, qS-PSA, S.maltophilia 06/11 BCx(-) 06/11 UCx >100K E.coli 05/12 Cath tip <10K CONS 05/11 BCx(-) 05/09 BCx CONS / ( single stick ) 05/09 UCx qR-K.pneumoniae 04/22 SCx qI-PSA 04/19 BCx CONS 10/18 ASSESSMENT: 60-year-old male with: // Multiple decubiti POA, infected - SP debridement, bone bx 08/08 - Bone scan 07/01: Limited, essentially nondiagnostic exam. No gross findings to suggest acute osteomyelitis - h/o MDR-K.pneumoniae, VRE.faecalis, CONS, C.albicans // h/o recurrent CONS bacteremia - surveillance BCx(-) - h/o recurrent CONS 2/4 (05/09) SP IV vanco x28d - h/o CONS 3/4 (04/19 ) SP Rx IV vanco x7d - TTE 05/11: poorly visualized valves, poor candidate MARIA C - h/o CONS cath tip colonization ( <10K ) // h/o recurrent PNAs ( VAP / HCAP ) r/o recurrence - SCx not sent - CXR 07/30: Findings most compatible with congestive heart failure with bilateral pleural effusions, persistent versus recurrent since previous exam. - h/o qI,S-PSA, P.stuartii, ESBL(+) K.pneumoniae, S.maltophilia // h/o recurrent UTIs r/o recurrence - repeat UA benign, UCx not sent - US: Mild left hydronephrosis, new since prior study of 04/21/2016. Etiology not demonstrated but concerning for downstream obstruction - h/o E.coli, K.pneumoniae SP Rx // Elevated LFTs, GGT - chronic, stable - US: Equivocally visualized stone filled gallbladder, versus shadowing from duodenal gas. 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 Tolerates cefepime, meropenem Full Code PLAN: continue IV vancomycin, aztreonam d# 9, PO flagyl d# 5 ( 08/04 SP levaquin d# 5 ) ( 07/05 SP IV vancomycin, aztreonam d# 7 / 7 ) ( 06/26 SP Merrem d# 6, cefepime d# 14 ) ( SP IV vancomycin, d# 6 and flagyl d# 3 ) ( SP IV vancomycin d# 28 / 28 ( 05/13 SP aztreonam, amikacin d# 5 / 5 ) ( 05/02 SP aztreonam d# 14 / 14 ) ( 04/25 SP vancomycin d# 7 / 7 ) f/u bone bx pressor support, wean as tolerated Monitor CBC, temperatures Monitor CMP Monitor chest x-ray vent support, trach care, aspiration precautions wound care contact isolation Subjective Allergies: Coded Allergies: PENICILLINS (Verified Allergy, Unknown, 04/19/16) Subjective pt unable to provide any information transferred to ICU for hypotension SP debridement with bone bx. on dopamine Objective Vital Signs Last 24 Hour Vital Signs Date Time Temp Pulse Resp B/P Pulse Ox O2 Delivery O2 Flow Rate FiO2 08/08/16 15:15 97 22 94/51 100 Mechanical Ventilator 40 08/08/16 15:14 98 12 100 08/08/16 15:00 98 21 40 08/08/16 15:00 97.8 98 20 94/51 100 Mechanical Ventilator 40 08/08/16 14:45 98 20 93/53 98 Mechanical Ventilator 40 08/08/16 14:30 97 23 83/56 99 Mechanical Ventilator 40 08/08/16 14:15 96 26 80/48 100 Endotracheal Tube 40 08/08/16 14:00 73/42 08/08/16 14:00 93 26 73/42 100 Endotracheal Tube 40 08/08/16 13:45 98 26 92/52 100 Endotracheal Tube 40 08/08/16 13:30 98 22 84/42 100 Endotracheal Tube 40 08/08/16 13:15 99 20 40 08/08/16 13:15 98 20 95/55 100 Endotracheal Tube 40 08/08/16 13:00 102 20 95/55 100 Endotracheal Tube 40 08/08/16 13:00 95/55 08/08/16 12:45 103 20 94/59 100 Endotracheal Tube 40 08/08/16 12:30 103 20 98/58 100 Endotracheal Tube 40 08/08/16 12:15 101 20 79/56 100 Endotracheal Tube 40 08/08/16 12:00 40 08/08/16 12:00 96/62 08/08/16 12:00 108 08/08/16 12:00 97.1 109 20 96/62 100 Endotracheal Tube 40 08/08/16 11:45 111 20 94/60 100 Endotracheal Tube 40 08/08/16 11:30 110 20 93/62 100 Endotracheal Tube 40 08/08/16 11:28 75 18 100 08/08/16 11:27 67/38 08/08/16 11:15 89 20 89/60 100 Endotracheal Tube 40 08/08/16 11:15 99 20 40 08/08/16 11:00 97.0 85 20 67/38 100 Endotracheal Tube 40 08/08/16 10:25 88 20 83/43 100 Mechanical Ventilator 40 08/08/16 10:20 87 20 80/48 100 Mechanical Ventilator 40 08/08/16 10:15 40 08/08/16 10:15 97.7 87 20 86/36 100 Mechanical Ventilator 40 08/08/16 10:00 74 16 84/54 99 Mechanical Ventilator 40 08/08/16 09:50 90 16 94/56 99 Mechanical Ventilator 40 08/08/16 09:40 85 15 76/40 99 Mechanical Ventilator 40 08/08/16 09:25 85 15 75/48 99 Mechanical Ventilator 40 08/08/16 09:15 96 20 40 08/08/16 09:10 90 15 84/54 99 Mechanical Ventilator 40 08/08/16 08:55 97 16 97/84 99 Mechanical Ventilator 40 08/08/16 08:40 97.7 75 19 98/55 100 Mechanical Ventilator 40 08/08/16 08:39 90 16 115/85 99 Mechanical Ventilator 40 08/08/16 08:00 81 08/08/16 08:00 40 08/08/16 06:50 98 20 40 08/08/16 05:23 99 20 40 08/08/16 04:00 99.1 89 20 152/74 100 Mechanical Ventilator 40 08/08/16 04:00 95 08/08/16 04:00 40 08/08/16 03:13 101 20 40 08/08/16 01:04 97 20 40 08/08/16 00:00 94 08/08/16 00:00 98.2 92 20 106/66 97 Mechanical Ventilator 40 08/08/16 00:00 40 08/07/16 22:32 103 25 40 08/07/16 20:59 101 20 40 08/07/16 20:10 40 08/07/16 20:00 101 08/07/16 20:00 99.5 94 20 93/57 99 Mechanical Ventilator 40 08/07/16 19:22 95 20 40 08/07/16 17:09 99 22 40 08/07/16 16:00 98.2 100 21 95/53 100 Mechanical Ventilator 40 08/07/16 16:00 40 08/07/16 16:00 106 Height (Feet): 5 Height (Inches): 4.00 Weight (Pounds): 150 General Appearance: no acute distress HEENT: status post trach Respiratory/Chest: decreased breath sounds Cardiovascular: normal rate, regular rhythm Abdomen: normal bowel sounds, soft, non tender, non distended Laboratory Tests Test 08/07/16 22:10 08/08/16 10:50 Random Vancomycin Level 16.9 ug/mL White Blood Count 14.6 K/UL (4.8-10.8) H Red Blood Count 2.59 M/UL (4.70-6.10) L Hemoglobin 7.6 G/DL (14.2-18.0) L Hematocrit 24.8 % (42.0-52.0) L Mean Corpuscular Volume 96 FL (80-99) Mean Corpuscular Hemoglobin 29.4 PG (27.0-31.0) Mean Corpuscular Hemoglobin Concent 30.7 G/DL (32.0-36.0) L Red Cell Distribution Width 18.3 % (11.6-14.8) H Platelet Count 423 K/UL (150-450) Mean Platelet Volume 5.0 FL (6.5-10.1) L Neutrophils (%) (Auto) % (45.0-75.0) Lymphocytes (%) (Auto) % (20.0-45.0) Monocytes (%) (Auto) % (1.0-10.0) Eosinophils (%) (Auto) % (0.0-3.0) Basophils (%) (Auto) % (0.0-2.0) Differential Total Cells Counted 100 Neutrophils % (Manual) 76 % (45-75) H Lymphocytes % (Manual) 14 % (20-45) L Monocytes % (Manual) 10 % (1-10) Eosinophils % (Manual) 0 % (0-3) Basophils % (Manual) 0 % (0-2) Band Neutrophils 0 % (0-8) Platelet Estimate Increased H Platelet Morphology Normal Polychromasia 1+ Hypochromasia 2+ Anisocytosis 2+ Sodium Level 135 mEQ/L (135-145) Potassium Level 3.7 mEQ/L (3.4-4.9) Chloride Level 100 mEQ/L (98-107) Carbon Dioxide Level 22 mEQ/L (20-30) Anion Gap 13 (5-15) Blood Urea Nitrogen 17 mg/dL (7-23) Creatinine 0.4 mg/dL (0.7-1.2) L Estimat Glomerular Filtration Rate > 60 mL/min (>60) Glucose Level 100 mg/dL (74-106) Calcium Level 7.8 mg/dL (8.6-10.2) L Total Bilirubin 0.3 mg/dL (0.0-1.2) Aspartate Amino Transf (AST/SGOT) 15 U/L (5-40) Alanine Aminotransferase (ALT/SGPT) 15 U/L (3-41) Alkaline Phosphatase 928 U/L (40-129) H Total Protein 4.5 g/dL (6.6-8.7) L Albumin 1.7 g/dL (3.5-5.2) L Globulin 2.8 g/dL Albumin/Globulin Ratio 0.6 (1.0-2.7) L Current Medications Medications (Trade) Dose Ordered Sig/Tanisha Route PRN Reason Start Time Stop Time Status Last Admin Dose Admin Acetaminophen (Tylenol) 650 mg Q4H PRN ORAL Mild Pain/Temp > 100.5 08/08/16 15:00 09/07/16 14:59 Aztreonam 2 gm/ Sodium Chloride 100 ml @ 200 mls/hr Q8HR@0200,1000,1800 IVPB 08/08/16 18:00 08/15/16 17:59 Dextrose (Dextrose 50%) STAT PRN IV Hypoglycemia 08/08/16 14:45 09/07/16 14:44 Dopamine HCl/ Dextrose 250 ml @ 0 mls/hr Q24H IV 08/08/16 11:00 09/07/16 10:59 08/08/16 11:27 Famotidine (Pepcid I.v.) 20 mg DAILY IVP 08/09/16 09:00 09/08/16 08:59 Heparin Sodium (Porcine) (Heparin 5000 units/ml) 5,000 units EVERY 12 HOURS SUBQ 08/08/16 21:00 09/07/16 20:59 Insulin Aspart (NovoLOG) EVERY 6 HOURS SUBQ 08/08/16 12:00 09/07/16 11:59 08/08/16 12:00 Lactobacillus Acidophilus (Culturelle) 1 tab TWICE A DAY GT 08/08/16 18:00 09/07/16 17:59 Levothyroxine Sodium (Synthroid) 200 mcg DAILY GT 08/09/16 09:00 09/08/16 08:59 Lorazepam (Ativan 2mg/ml 1ml) 1 mg Q4H PRN IV For Anxiety 08/08/16 13:30 08/15/16 13:29 Metronidazole (Flagyl) 500 mg Q8HR PEG 08/08/16 14:00 08/15/16 13:59 08/08/16 13:35 Midodrine (Pro-Amatine) 5 mg THREE TIMES A DAY GT 08/08/16 13:00 09/07/16 12:59 08/08/16 13:35 Ondansetron HCl (Zofran) 4 mg Q6H PRN IV Nausea & Vomiting 08/08/16 15:00 09/07/16 14:59 Polyethylene Glycol (Miralax) 17 gm DAILY GT 08/09/16 09:00 09/08/16 08:59 Vancomycin HCl (Vanco rx to dose) 1 ea DAILY PRN MISC Per rx protocol 08/09/16 09:00 09/08/16 08:59 Vancomycin HCl/ Dextrose (Vancomycin/D5W 250ml) 250 ml @ 167 mls/hr Q12H IVPB 08/08/16 12:00 08/13/16 11:59 08/08/16 12:00 [place] Aug 08, 2016 15:40
[2016-08-09] VITALS (96 sets, daily range): BP systolic 76–119; BP diastolic 35–78
[2016-08-09] MEDS: Vancomycin 750 MG in D5W 250 ML IVPB SCH ×3 (00:21→23:44)
[2016-08-09] MEDS: NovoLOG Insulin Flexpen SUBQ SCH ×5 (00:22→23:43)
[2016-08-09] MEDS: NS IVPB SCH ×3 (02:05→18:14)
[2016-08-09] MEDS: AZTREONAM IVPB SCH ×3 (02:05→18:14)
[2016-08-09] MEDS: metroNIDAZOLE 500mg tab PEG SCH ×3 (05:40→21:01)
[2016-08-09] MEDS: DOPamine 400mg/250ml 250 ML IV SCH ×2 (05:58→18:15)
[2016-08-09 06:04] LABS: BASOPHILS % (AUTO) 0.5 % (0.0-2.0); EOSINOPHILS % (AUTO) 1.4 % (0.0-3.0); LYMPHOCYTES % (AUTO) 16.1 % (20.0-45.0); MEAN CORPUSCULAR HEMOGLOBIN 29.9 PG (27.0-31.0); MEAN CORPUSCULAR HGB CONC 31.9 G/DL (32.0-36.0); MEAN CORPUSCULAR VOLUME 94 FL (80-99); MEAN PLATELET VOLUME 4.9 FL (6.5-10.1); MONOCYTES % (AUTO) 9.8 % (1.0-10.0); NEUTROPHILS % (AUTO) 72.2 % (45.0-75.0); PLATELET COUNT 490 K/UL (150-450); RED BLOOD COUNT 2.96 M/UL (4.70-6.10); RED CELL DISTRIBUTION WIDTH 19.1 % (11.6-14.8); WHITE BLOOD COUNT 15.7 K/UL (4.8-10.8)
[2016-08-09 06:23] LABS: ALANINE AMINOTRANSFERASE 17 U/L (3-41); ALBUMIN/GLOBULIN RATIO 0.6 (1.0-2.7); ANION GAP 11 (5-15); ASPARTATE AMINO TRANSFERASE 18 U/L (5-40); CARBON DIOXIDE 24 mEQ/L (20-30); CHLORIDE 101 mEQ/L (98-107); CREATININE 0.3 mg/dL (0.7-1.2); GLOMERULAR FILTRATION RATE > 60 mL/min (>60); HEMOLYSIS 3; POTASSIUM 4.3 mEQ/L (3.4-4.9); SODIUM 136 mEQ/L (135-145); TOTAL PROTEIN 5.3 g/dL (6.6-8.7)
--- NOTE | 2016-08-09 08:01 | Pulmonolgy Critical Care Note ---
Critical Care - Asmt/Plan Assessment/Plan: ASSESSMENT acute on chronic respiratory failure VDRF/trach ATN 2 to dehydration -resolved septic shock sepsis bilateral AMANDA, likely aspiration hx of glioma pf brainstem, multiforme anoxic encephalopathy decub ulcer ( POA) s/p debridement with bone biopsy 08/08 chronic hypotension dysphagia, G tube functional quadriplegia chronic macrocytic anemia s/p blood transfusion severe protein calorie malnutrition PLAN OF CARE ICU status pressors, try to wean start IVF Vent/trach care pulmonary toilet ABG stable on current settings keep as is and titrate as needed CXR and ABG in am abx, ID follows blood cx negative, stool C dif negative, check sputum cx wound care as per wound care nurse recommendations, s/p debridement and bone biopsy 08/08, awaiting biopsy results bone scan w/out gross evidence to suggest OM strict aspiration precautions, GT feeding, monitor tolerance renal parameters stable, avoid nephrotoxic, fup with lytes and correct as needed monitor HH, transfuse as needed abdominal US + cholelithiasis, no evidence of acute cholecystitis BS management with SS of insulin DVT prophylaxis poor prognosis case discussed and evaluated by supervising physician Critical Care - Objective Last 24 Hour Vital Signs Date Time Temp Pulse Resp B/P Pulse Ox O2 Delivery O2 Flow Rate FiO2 08/09/16 07:00 88/54 08/09/16 06:00 106 22 90/62 100 Mechanical Ventilator 40 08/09/16 06:00 90/62 08/09/16 05:58 93/57 08/09/16 05:45 105 22 90/57 100 Mechanical Ventilator 40 08/09/16 05:30 106 22 86/61 100 Mechanical Ventilator 40 08/09/16 05:25 107 20 40 08/09/16 05:15 105 22 90/54 100 Mechanical Ventilator 40 08/09/16 05:00 92/62 08/09/16 05:00 105 22 92/62 100 Mechanical Ventilator 40 08/09/16 04:45 104 22 94/55 100 Mechanical Ventilator 40 08/09/16 04:30 107 22 91/61 100 Mechanical Ventilator 40 08/09/16 04:14 105 22 94/57 100 Mechanical Ventilator 40 08/09/16 04:00 97.8 108 22 94/57 100 Mechanical Ventilator 40 08/09/16 04:00 94/57 08/09/16 04:00 105 08/09/16 04:00 40 08/09/16 03:45 105 22 94/57 100 Mechanical Ventilator 40 08/09/16 03:30 105 22 94/47 100 Mechanical Ventilator 40 08/09/16 03:20 101 21 40 08/09/16 03:15 105 22 89/54 100 Mechanical Ventilator 40 08/09/16 03:00 84/54 08/09/16 03:00 105 22 84/54 100 Mechanical Ventilator 40 08/09/16 02:45 108 22 95/56 100 Mechanical Ventilator 40 08/09/16 02:30 108 22 84/51 100 Mechanical Ventilator 40 08/09/16 02:15 108 22 94/52 100 Mechanical Ventilator 40 08/09/16 02:05 92/60 08/09/16 02:00 108 22 92/60 100 Mechanical Ventilator 40 08/09/16 01:45 107 22 89/57 100 Mechanical Ventilator 40 08/09/16 01:30 107 22 85/55 100 Mechanical Ventilator 40 08/09/16 01:15 108 22 81/57 100 Mechanical Ventilator 40 08/09/16 01:05 108 20 40 08/09/16 01:00 107 22 87/56 100 Mechanical Ventilator 40 08/09/16 00:58 90/57 08/09/16 00:45 107 22 90/60 100 Mechanical Ventilator 40 08/09/16 00:30 106 22 90/58 100 Mechanical Ventilator 40 08/09/16 00:15 107 22 76/43 100 Mechanical Ventilator 40 08/09/16 00:00 40 08/09/16 00:00 108 08/09/16 00:00 98.4 108 22 94/57 100 Mechanical Ventilator 40 08/09/16 00:00 94/57 08/08/16 23:45 107 22 85/58 100 Mechanical Ventilator 40 08/08/16 23:30 105 22 75/51 100 Mechanical Ventilator 40 08/08/16 23:15 105 22 72/51 100 Mechanical Ventilator 40 08/08/16 23:10 108 20 40 08/08/16 23:00 102 22 92/59 100 Mechanical Ventilator 40 08/08/16 22:45 100 20 92/60 100 Mechanical Ventilator 40 08/08/16 22:30 101 20 89/47 100 Mechanical Ventilator 40 08/08/16 22:15 98 21 90/62 98 Mechanical Ventilator 40 08/08/16 22:00 96 21 81/55 98 Mechanical Ventilator 40 08/08/16 21:45 98 21 98/61 98 Mechanical Ventilator 40 08/08/16 21:35 102 21 40 08/08/16 21:30 101 21 93/52 100 Mechanical Ventilator 40 08/08/16 21:15 100 20 95/61 100 Mechanical Ventilator 40 08/08/16 21:00 102 20 94/61 99 Mechanical Ventilator 40 08/08/16 20:45 102 22 101/65 99 Mechanical Ventilator 40 08/08/16 20:30 103 22 93/55 99 Mechanical Ventilator 40 08/08/16 20:15 101 22 92/59 99 Mechanical Ventilator 40 08/08/16 20:00 97.5 100 20 95/57 100 Mechanical Ventilator 40 08/08/16 20:00 40 08/08/16 19:59 100 08/08/16 19:45 103 24 91/57 99 Mechanical Ventilator 40 08/08/16 19:41 101 24 40 08/08/16 19:30 101 21 90/56 99 Mechanical Ventilator 40 08/08/16 19:15 101 21 85/54 99 Mechanical Ventilator 40 08/08/16 19:00 103 21 91/52 99 Mechanical Ventilator 40 08/08/16 18:45 102 21 87/56 99 Mechanical Ventilator 40 08/08/16 18:30 100 20 87/53 99 Mechanical Ventilator 40 08/08/16 18:15 97.8 100 20 82/54 100 Mechanical Ventilator 40 08/08/16 18:00 103 20 88/52 100 Mechanical Ventilator 40 08/08/16 17:45 102 20 84/48 99 Mechanical Ventilator 40 08/08/16 17:30 102 22 91/58 99 Mechanical Ventilator 40 08/08/16 17:15 105 20 90/55 100 Mechanical Ventilator 40 08/08/16 17:00 104 22 40 08/08/16 17:00 102 20 93/59 100 Mechanical Ventilator 40 08/08/16 16:45 98 21 94/60 100 Mechanical Ventilator 40 08/08/16 16:30 100 21 97/61 98 Mechanical Ventilator 40 08/08/16 16:15 98 20 89/52 98 Mechanical Ventilator 40 08/08/16 16:00 40 08/08/16 16:00 99 08/08/16 16:00 100 20 83/51 100 Mechanical Ventilator 40 08/08/16 15:45 98 20 93/51 99 Mechanical Ventilator 40 08/08/16 15:30 97 22 84/51 100 Mechanical Ventilator 40 08/08/16 15:15 97 22 94/51 100 Mechanical Ventilator 40 08/08/16 15:14 98 12 100 08/08/16 15:00 98 21 40 08/08/16 15:00 97.8 98 20 94/51 100 Mechanical Ventilator 40 08/08/16 14:45 98 20 93/53 98 Mechanical Ventilator 40 08/08/16 14:30 97 23 83/56 99 Mechanical Ventilator 40 08/08/16 14:15 96 26 80/48 100 Endotracheal Tube 40 08/08/16 14:00 73/42 08/08/16 14:00 93 26 73/42 100 Endotracheal Tube 40 08/08/16 13:45 98 26 92/52 100 Endotracheal Tube 40 08/08/16 13:30 98 22 84/42 100 Endotracheal Tube 40 08/08/16 13:15 99 20 40 08/08/16 13:15 98 20 95/55 100 Endotracheal Tube 40 08/08/16 13:00 102 20 95/55 100 Endotracheal Tube 40 08/08/16 13:00 95/55 08/08/16 12:45 103 20 94/59 100 Endotracheal Tube 40 08/08/16 12:30 103 20 98/58 100 Endotracheal Tube 40 08/08/16 12:15 101 20 79/56 100 Endotracheal Tube 40 08/08/16 12:00 40 08/08/16 12:00 96/62 08/08/16 12:00 108 08/08/16 12:00 97.1 109 20 96/62 100 Endotracheal Tube 40 08/08/16 11:45 111 20 94/60 100 Endotracheal Tube 40 08/08/16 11:30 110 20 93/62 100 Endotracheal Tube 40 08/08/16 11:28 75 18 100 08/08/16 11:27 67/38 08/08/16 11:15 89 20 89/60 100 Endotracheal Tube 40 08/08/16 11:15 99 20 40 08/08/16 11:00 97.0 85 20 67/38 100 Endotracheal Tube 40 08/08/16 10:25 88 20 83/43 100 Mechanical Ventilator 40 08/08/16 10:20 87 20 80/48 100 Mechanical Ventilator 40 08/08/16 10:15 40 08/08/16 10:15 97.7 87 20 86/36 100 Mechanical Ventilator 40 08/08/16 10:00 74 16 84/54 99 Mechanical Ventilator 40 08/08/16 09:50 90 16 94/56 99 Mechanical Ventilator 40 08/08/16 09:40 85 15 76/40 99 Mechanical Ventilator 40 08/08/16 09:25 85 15 75/48 99 Mechanical Ventilator 40 08/08/16 09:15 96 20 40 08/08/16 09:10 90 15 84/54 99 Mechanical Ventilator 40 08/08/16 08:55 97 16 97/84 99 Mechanical Ventilator 40 08/08/16 08:40 97.7 75 19 98/55 100 Mechanical Ventilator 40 08/08/16 08:39 90 16 115/85 99 Mechanical Ventilator 40 08/08/16 08:00 81 08/08/16 08:00 40 Status: obtunded, other - chronically ill, bedridden, vent dependent male AV 500-20-40% Condition: critical Neck: trach - Portex#7, secretions moderate, yellow, thick Lungs: rhonchi - few scattered Heart: HR/BP unstable, other - RUE PICC intact Abdomen: soft, non-tender, active bowel sounds, other - G tube Extremities: no C/C/E, other - contracted Decubiti: other - multipel decub Micro: Microbiology Date/Time Source Procedure Growth Status 08/08/16 10:00 Hip Left Gram Stain Pending Resulted 08/08/16 10:00 Hip Left Aerobic Culture Pending Resulted 08/08/16 10:00 Hip Left Anaerobic Culture - Preliminary NO GROWTH Resulted Accucheck: 110 Critical Care - Subjective ROS Limited/Unobtainable: Yes Interval Events: leukocytosis with trend up, afebrile still on pressors no signs of respiratory distress on current settings HH up to baseline after blood transfusion Condition: critical IV Access: PICC - RUE intact EKG Rhythm: Sinus Tachycardia FI02: 40 Vent Support Breath Rate: 20 Vent Support Mode: AC Vent Tidal Volume: 500 Sputum Amount: Moderate PEEP: 5.0 PIP: 39 Drips: Dopamine drip 5mcg/kg/min Tube Feeding Amount: 60 I&O: Intake and Output 08/08/16 08/09/16 19:00 07:00 Intake Total 3146.434 ml 1530.324 ml Output Total 1900 ml 890 ml Balance 1246.434 ml 640.324 ml Intake Free Water 60 ml 100 ml IV Total 3006.434 ml 490.324 ml Tube Feeding 80 ml 660 ml Blood Product 250 ml Other 30 ml Output Urine Total 1900 ml 890 ml # Bowel Movements 2 1 CXR: 08/05 -Stable bilateral congestive changes Stable elevation right hemidiaphragm Namrata Saleh NP ([facility]) Aug 09, 2016 08:01
[2016-08-09] MEDS: Famotidine 20 MG/ 2ML VIAL IVP SCH (09:09)
[2016-08-09] MEDS: Lactobacillus-GG tablet GT SCH ×2 (09:09→18:14)
[2016-08-09] MEDS: Miralax 17gm pkt GT SCH (09:09)
[2016-08-09] MEDS: Heparin 5000 units/ml inj SUBQ SCH ×2 (09:11→20:52)
[2016-08-09] MEDS ORDERED: DOPamine 400mg/250ml 250 ML IV SCH (11:00)
[2016-08-09] MEDS ORDERED: Tubing IV Secondary IV ONE ×2 (15:19→22:50)
[2016-08-09] MEDS ORDERED: NS 275ml ONE ×2 (15:19→22:50)
[2016-08-09] MEDS ORDERED: NS Irrig 1000ml ONE (22:49)
[2016-08-10] VITALS (74 sets, daily range): BP systolic 81–127; BP diastolic 44–83
[2016-08-10] MEDS: AZTREONAM IVPB SCH ×3 (02:08→17:27)
[2016-08-10] MEDS: NS IVPB SCH ×3 (02:08→17:27)
[2016-08-10] MEDS: NovoLOG Insulin Flexpen SUBQ SCH ×3 (06:00→17:28)
[2016-08-10 06:02] LABS: MEAN CORPUSCULAR HGB CONC 31.9 G/DL (32.0-36.0); MEAN CORPUSCULAR VOLUME 94 FL (80-99); MEAN PLATELET VOLUME 4.9 FL (6.5-10.1); PLATELET COUNT 427 K/UL (150-450); RED CELL DISTRIBUTION WIDTH 18.8 % (11.6-14.8)
[2016-08-10] MEDS: metroNIDAZOLE 500mg tab PEG SCH ×3 (06:05→20:49)
[2016-08-10 06:08] LABS: ANION GAP 11 (5-15); CALCIUM 7.9 mg/dL (8.6-10.2); CARBON DIOXIDE 25 mEQ/L (20-30); CHLORIDE 100 mEQ/L (98-107); CREATININE 0.3 mg/dL (0.7-1.2); GLOMERULAR FILTRATION RATE > 60 mL/min (>60); HEMOLYSIS 2; POTASSIUM 4.7 mEQ/L (3.4-4.9); SODIUM 136 mEQ/L (135-145)
[2016-08-10 06:31] LABS: WHITE BLOOD COUNT 23.1 K/UL (4.8-10.8)
[2016-08-10 07:52] LABS: ABG PCO2 34.2 mmHg (35.0-45.0)
[2016-08-10 07:53] LABS: ABG ALLEN TEST POSITIVE; ABG BASE EXCESS -0.7
[2016-08-10] MEDS: Famotidine 20 MG/ 2ML VIAL IVP SCH (08:54)
[2016-08-10] MEDS: Lactobacillus-GG tablet GT SCH ×2 (08:54→17:27)
[2016-08-10] MEDS: Heparin 5000 units/ml inj SUBQ SCH ×2 (08:55→20:50)
[2016-08-10] MEDS: Miralax 17gm pkt GT SCH (08:57)
[2016-08-10 10:10] LABS: BAND NEUTROPHILS % (MANUAL) 1 % (0-8); BASOPHILS % (MANUAL) 1 % (0-2); LYMPHOCYTES % (MANUAL) 15 % (20-45); NEUTROPHILS % (MANUAL) 76 % (45-75); TOTAL CELLS COUNTED 100
[2016-08-10 10:11] LABS: ANISOCYTOSIS 2+; EOSINOPHILS % (MANUAL) 0 % (0-3); HYPOCHROMASIA 3+; PLATELET ESTIMATE ADEQUATE; PLATELET MORPHOLOGY NORMAL
--- NOTE | 2016-08-10 11:12 | Diagnostic Imaging Report ---
Indication: Shortness of breath Technique: XRAY CHEST 1 V Comparison: 08/05/16 Findings: Tracheostomy and right PICC line are unchanged. Right thoracic inlet clips are seen. Cardiomediastinal silhouette is grossly stable. The lungs are unchanged without new infiltrates. Cardiomediastinal silhouette is grossly stable. The right hemidiaphragm is again elevated. Impression: No significant change from 08/05/16.
--- NOTE | 2016-08-10 12:21 | Pulmonolgy Critical Care Note ---
Critical Care - Asmt/Plan Assessment/Plan: ASSESSMENT acute on chronic respiratory failure VDRF/trach ATN 2 to dehydration -resolved septic shock sepsis bilateral AMANDA, likely aspiration hx of glioma pf brainstem, multiforme anoxic encephalopathy decub ulcer ( POA) s/p debridement with bone biopsy 08/08 chronic hypotension dysphagia, G tube functional quadriplegia chronic macrocytic anemia s/p blood transfusion severe protein calorie malnutrition PLAN OF CARE ICU status pressors, try to wean start IVF continue Midodrine Vent/trach care pulmonary toilet ABG stable on current settings keep as is and titrate as needed CXR and ABG in am abx, ID follows leukocytosis with trend up today, further workup as per ID blood cx negative, stool C dif negative, check sputum cx wound care as per wound care nurse recommendations, s/p debridement and bone biopsy 08/08, awaiting biopsy results bone scan w/out gross evidence to suggest OM strict aspiration precautions, GT feeding, monitor tolerance renal parameters stable, avoid nephrotoxic, fup with lytes and correct as needed transfuse 1 u PRBC today, CBC in am abdominal US + cholelithiasis, no evidence of acute cholecystitis BS management with SS of insulin DVT prophylaxis poor prognosis case discussed and evaluated by supervising physician Critical Care - Objective Last 24 Hour Vital Signs Date Time Temp Pulse Resp B/P Pulse Ox O2 Delivery O2 Flow Rate FiO2 08/10/16 12:00 40 08/10/16 12:00 102 08/10/16 10:51 101 20 40 08/10/16 10:30 102 20 96/62 100 Mechanical Ventilator 40 08/10/16 10:15 103 20 103/56 98 Mechanical Ventilator 40 08/10/16 10:00 103 20 108/55 100 Mechanical Ventilator 40 08/10/16 10:00 108/55 08/10/16 09:45 103 20 103/56 98 Mechanical Ventilator 40 08/10/16 09:30 103 20 92/60 100 Mechanical Ventilator 40 08/10/16 09:15 103 20 92/54 98 Mechanical Ventilator 40 08/10/16 09:00 105 20 100/66 98 Mechanical Ventilator 40 08/10/16 09:00 100/66 08/10/16 09:00 105 20 40 08/10/16 08:45 103 21 110/83 97 Mechanical Ventilator 40 08/10/16 08:30 104 20 120/83 100 Mechanical Ventilator 40 08/10/16 08:15 105 20 89/54 100 Mechanical Ventilator 40 08/10/16 08:00 40 08/10/16 08:00 105 20 83/50 100 Mechanical Ventilator 40 08/10/16 08:00 89/54 08/10/16 08:00 106 08/10/16 07:45 105 20 82/52 100 Mechanical Ventilator 40 08/10/16 07:30 106 20 94/53 100 Mechanical Ventilator 40 08/10/16 07:15 105 20 87/59 100 Mechanical Ventilator 40 08/10/16 07:00 105 20 40 08/10/16 07:00 104 20 86/51 100 Mechanical Ventilator 40 08/10/16 07:00 87/59 08/10/16 06:00 91/53 08/10/16 06:00 89.3 104 20 91/53 100 Mechanical Ventilator 40 08/10/16 05:45 105 20 99/54 100 Mechanical Ventilator 40 08/10/16 05:30 104 20 99/64 100 Mechanical Ventilator 40 08/10/16 05:19 104 20 40 08/10/16 05:15 106 20 100/56 100 Mechanical Ventilator 40 08/10/16 05:00 103/65 08/10/16 05:00 105 20 93/55 100 Mechanical Ventilator 40 08/10/16 04:45 105 20 103/65 100 Mechanical Ventilator 40 08/10/16 04:30 105 20 96/62 100 Mechanical Ventilator 40 08/10/16 04:15 105 20 89/58 100 Mechanical Ventilator 40 08/10/16 04:00 90.0 103 20 91/66 100 Mechanical Ventilator 40 08/10/16 04:00 107 08/10/16 04:00 94/66 08/10/16 04:00 40 08/10/16 03:45 106 20 108/60 100 Mechanical Ventilator 40 08/10/16 03:30 108 20 95/65 100 Mechanical Ventilator 40 08/10/16 03:15 108 20 88/55 100 Mechanical Ventilator 40 08/10/16 03:10 112 20 40 08/10/16 03:00 104/58 08/10/16 03:00 106 20 108/71 100 Mechanical Ventilator 40 08/10/16 02:45 105 20 98/57 100 Mechanical Ventilator 40 08/10/16 02:30 105 20 100/58 100 Mechanical Ventilator 40 08/10/16 02:15 106 20 89/56 100 Mechanical Ventilator 40 08/10/16 02:00 96/58 08/10/16 02:00 105 20 87/44 100 Mechanical Ventilator 40 08/10/16 01:45 105 20 96/58 100 Mechanical Ventilator 40 08/10/16 01:30 105 20 95/58 100 Mechanical Ventilator 40 08/10/16 01:15 104 20 104/53 100 Mechanical Ventilator 40 08/10/16 01:11 103 22 40 08/10/16 01:00 103 20 99/63 100 Mechanical Ventilator 40 08/10/16 01:00 99/63 08/10/16 00:45 104 20 106/59 100 Mechanical Ventilator 40 08/10/16 00:30 104 20 101/64 100 Mechanical Ventilator 40 08/10/16 00:15 105 20 93/65 100 Mechanical Ventilator 40 08/10/16 00:00 40 08/10/16 00:00 91/56 08/10/16 00:00 99.2 106 20 91/56 100 Mechanical Ventilator 40 08/10/16 00:00 102 08/09/16 23:45 109 20 85/41 100 Mechanical Ventilator 40 08/09/16 23:44 87/44 08/09/16 23:30 112 21 87/44 100 Mechanical Ventilator 40 08/09/16 23:15 113 20 83/44 100 Mechanical Ventilator 40 08/09/16 23:00 112 20 83/44 100 Mechanical Ventilator 40 08/09/16 23:00 114 20 40 08/09/16 22:45 114 20 82/46 98 Mechanical Ventilator 40 08/09/16 22:30 114 20 82/45 98 Mechanical Ventilator 40 08/09/16 22:15 110 22 82/48 100 Mechanical Ventilator 40 08/09/16 22:00 115 20 81/52 100 Mechanical Ventilator 40 08/09/16 21:45 115 20 84/45 100 Mechanical Ventilator 40 08/09/16 21:30 112 21 92/54 100 Mechanical Ventilator 40 08/09/16 21:15 115 20 95/52 100 Mechanical Ventilator 40 08/09/16 21:00 115 20 88/43 100 Mechanical Ventilator 40 08/09/16 20:45 109 20 40 08/09/16 20:45 115 20 92/54 98 Mechanical Ventilator 40 08/09/16 20:30 111 21 88/55 98 Mechanical Ventilator 40 08/09/16 20:15 114 20 84/35 98 Mechanical Ventilator 40 08/09/16 20:00 98.7 115 20 81/58 100 Mechanical Ventilator 40 08/09/16 20:00 114 08/09/16 20:00 40 08/09/16 19:45 112 20 88/54 98 Mechanical Ventilator 40 08/09/16 19:30 110 22 85/49 98 Mechanical Ventilator 40 08/09/16 19:15 110 20 86/51 100 Mechanical Ventilator 40 08/09/16 19:00 112 20 85/52 99 Mechanical Ventilator 40 08/09/16 18:45 114 21 85/58 98 Mechanical Ventilator 40 08/09/16 18:40 114 23 40 08/09/16 18:30 112 20 95/58 98 Mechanical Ventilator 40 08/09/16 18:15 101 22 98/64 98 Mechanical Ventilator 40 08/09/16 18:15 98/64 08/09/16 18:00 110 22 83/54 100 Mechanical Ventilator 40 08/09/16 17:45 112 20 82/53 100 Mechanical Ventilator 40 08/09/16 17:30 112 21 79/54 100 Mechanical Ventilator 40 08/09/16 17:15 110 21 90/54 100 Mechanical Ventilator 40 08/09/16 17:00 98.7 108 21 86/53 100 Mechanical Ventilator 40 08/09/16 16:45 111 22 40 08/09/16 16:45 110 21 87/53 100 Mechanical Ventilator 40 08/09/16 16:30 109 20 92/45 98 Mechanical Ventilator 40 08/09/16 16:15 110 21 88/45 100 Mechanical Ventilator 40 08/09/16 16:00 40 08/09/16 16:00 102 20 85/51 100 Mechanical Ventilator 40 08/09/16 16:00 110 08/09/16 15:45 102 22 87/45 100 Mechanical Ventilator 40 08/09/16 15:30 108 22 95/58 99 Mechanical Ventilator 40 08/09/16 15:15 99.0 110 22 92/58 99 Mechanical Ventilator 40 08/09/16 15:00 111 20 88/54 100 Mechanical Ventilator 40 08/09/16 15:00 88/54 08/09/16 14:45 110 20 40 08/09/16 14:45 110 20 99/64 100 Mechanical Ventilator 40 08/09/16 14:30 108 20 99/66 100 Mechanical Ventilator 40 08/09/16 14:15 112 20 98/66 100 Mechanical Ventilator 40 08/09/16 14:00 104/65 08/09/16 14:00 112 20 104/65 100 Mechanical Ventilator 40 08/09/16 13:45 112 20 99/66 100 Mechanical Ventilator 40 08/09/16 13:30 110 20 92/63 100 Mechanical Ventilator 40 08/09/16 13:15 110 20 98/63 100 Mechanical Ventilator 40 08/09/16 13:00 110 20 113/66 100 Mechanical Ventilator 40 08/09/16 13:00 98/63 08/09/16 12:57 109 20 40 08/09/16 12:45 110 20 113/66 100 Mechanical Ventilator 40 08/09/16 12:30 109 20 100/63 100 Mechanical Ventilator 40 08/09/16 12:15 98.9 112 20 105/60 100 Mechanical Ventilator 40 Objective: Status: obtunded, other - chronically ill, bedridden, vent dependent male AV 500-20-40% Condition: critical Neck: trach - Portex#7, secretions moderate, yellow, thick Lungs: rhonchi - few scattered Heart: HR/BP unstable, other - RUE PICC intact Abdomen: soft, non-tender, active bowel sounds, other - G tube Extremities: no C/C/E, other - contracted Decubiti: other - multiple decub Micro: Microbiology Date/Time Source Procedure Growth Status 08/08/16 10:00 Hip Left Gram Stain - Final Resulted 08/08/16 10:00 Aerobic Culture - Preliminary Gram Negative Bacillus 1 Strep Species, Gamma-Hemolytic Resulted 08/08/16 10:00 Hip Left Anaerobic Culture - Preliminary NO GROWTH Resulted Accucheck: 110 Critical Care - Subjective ROS Limited/Unobtainable: Yes Interval Events: leukocytosis with trend up today-23.1 HH dropping -7.2/22.5 no signs of respiratory distress on current settings Condition: critical IV Access: PICC - RUE intact EKG Rhythm: Sinus Tachycardia FI02: 40 Vent Support Breath Rate: 20 Vent Support Mode: AC Vent Tidal Volume: 500 Sputum Amount: Moderate PEEP: 5.0 PIP: 46 Drips: Levophed at 4 mcg/min Tube Feeding Amount: 60 I&O: Intake and Output 08/09/16 08/10/16 19:00 07:00 Intake Total 1622.804 ml 1319.854 ml Output Total 1890 ml 1145 ml Balance -267.196 ml 174.854 ml Intake Free Water 100 ml IV Total 712.804 ml 629.854 ml Tube Feeding 780 ml 660 ml Other 30 ml 30 ml Output Urine Total 1890 ml 1145 ml # Bowel Movements 1 1 CXR: 08/10 -tracheostomy and right PICC line are unchanged. Right thoracic inlet clips are seen. Cardiomediastinal silhouette is grossly stable. The lungs are unchanged without new infiltrates. Cardiomediastinal silhouette is grossly stable. The right hemidiaphragm is again elevated. [facility] Aug 10, 2016 12:21
[2016-08-10] MEDS: Vancomycin 750 MG in D5W 250 ML IVPB SCH (12:27)
[2016-08-10] MEDS ORDERED: DuoNeb 0.5-3(2.5)mg/3ml neb HHN PRN (12:30)
[2016-08-10] MEDS ORDERED: NS 275ml ONE (14:59)
[2016-08-10] MEDS ORDERED: Tubing Blood Filter IV ONE (14:59)
--- NOTE | 2016-08-10 18:01 | Infectious Diseases Prog Note ---
Assessment/Plan Assessment/Plan MICRO: 07/30 BCx(-) 07/30 UCx not sent / UA(-) 07/30 SCx not sent 06/30 Back WCx MDR-K.pneumoniae, VRE.faecalis, CONS, C.albicans 06/28 BCx CONS 1/4 06/29 SCx qI-PSA, P.stuartii 06/26 Back WCx MDR-K.pneumoniae, MDR-ACB 06/17 SCx ESBL(+) K.pneumoniae, qS-PSA, S.maltophilia 06/11 BCx(-) 06/11 UCx >100K E.coli 05/12 Cath tip <10K CONS 05/11 BCx(-) 05/09 BCx CONS / ( single stick ) 05/09 UCx qR-K.pneumoniae 04/22 SCx qI-PSA 04/19 BCx CONS 10/18 ASSESSMENT: 60-year-old male with: // Multiple decubiti POA, infected - SP debridement, bone bx 08/08 - Bone scan 07/01: Limited, essentially nondiagnostic exam. No gross findings to suggest acute osteomyelitis - h/o MDR-K.pneumoniae, VRE.faecalis, CONS, C.albicans // h/o recurrent CONS bacteremia - surveillance BCx(-) - h/o recurrent CONS 2/4 (05/09) SP IV vanco x28d - h/o CONS 3/4 (04/19 ) SP Rx IV vanco x7d - TTE 05/11: poorly visualized valves, poor candidate MARIA C - h/o CONS cath tip colonization ( <10K ) // h/o recurrent PNAs ( VAP / HCAP ) r/o recurrence - SCx not sent - CXR 07/30: Findings most compatible with congestive heart failure with bilateral pleural effusions, persistent versus recurrent since previous exam. - h/o qI,S-PSA, P.stuartii, ESBL(+) K.pneumoniae, S.maltophilia // h/o recurrent UTIs r/o recurrence - repeat UA benign, UCx not sent - US: Mild left hydronephrosis, new since prior study of 04/21/2016. Etiology not demonstrated but concerning for downstream obstruction - h/o E.coli, K.pneumoniae SP Rx // Elevated LFTs, GGT - chronic, stable - US: Equivocally visualized stone filled gallbladder, versus shadowing from duodenal gas. 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 Tolerates cefepime, meropenem Full Code PLAN: continue IV vancomycin, aztreonam d# 11 , PO flagyl d# 7 / 7 ( 08/04 SP levaquin d# 5 ) ( 07/05 SP IV vancomycin, aztreonam d# 7 / 7 ) ( 06/26 SP Merrem d# 6, cefepime d# 14 ) ( SP IV vancomycin, d# 6 and flagyl d# 3 ) ( SP IV vancomycin d# 28 / 28 ( 05/13 SP aztreonam, amikacin d# 5 / 5 ) ( 05/02 SP aztreonam d# 14 / 14 ) ( 04/25 SP vancomycin d# 7 / 7 ) f/u bone bx pressor support, wean as tolerated Monitor CBC, temperatures Monitor CMP Monitor chest x-ray vent support, trach care, aspiration precautions wound care contact isolation Subjective Allergies: Coded Allergies: PENICILLINS (Verified Allergy, Unknown, 04/19/16) Subjective afebrile Objective Vital Signs Last 24 Hour Vital Signs Date Time Temp Pulse Resp B/P Pulse Ox O2 Delivery O2 Flow Rate FiO2 08/10/16 17:02 93 20 40 08/10/16 17:00 95 20 86/50 100 Mechanical Ventilator 40 08/10/16 16:45 91 20 81/48 100 Mechanical Ventilator 40 08/10/16 16:30 94 21 83/55 100 Mechanical Ventilator 40 08/10/16 16:15 94 20 83/49 100 Mechanical Ventilator 40 08/10/16 16:00 95 21 86/51 100 Mechanical Ventilator 40 08/10/16 16:00 98 08/10/16 16:00 40 08/10/16 15:45 99 20 91/56 99 Mechanical Ventilator 40 12/25/16 15:30 95 21 85/54 99 Mechanical Ventilator 40 08/10/16 15:15 98.5 96 20 91/58 100 Mechanical Ventilator 40 08/10/16 15:00 98 20 99/59 100 Mechanical Ventilator 40 08/10/16 15:00 91/58 08/10/16 14:52 99 20 40 08/10/16 14:45 100 20 94/60 100 Mechanical Ventilator 40 08/10/16 14:30 127/76 08/10/16 14:30 100 23 100/55 100 Mechanical Ventilator 40 08/10/16 14:15 101 20 127/76 100 Mechanical Ventilator 40 08/10/16 14:00 105/67 08/10/16 14:00 103 23 105/67 100 Mechanical Ventilator 40 08/10/16 13:45 102 23 106/72 100 Mechanical Ventilator 40 08/10/16 13:30 102 23 96/64 100 Mechanical Ventilator 40 08/10/16 13:15 102 23 99/64 100 Mechanical Ventilator 40 08/10/16 13:00 102 23 109/72 100 Mechanical Ventilator 40 08/10/16 13:00 109/72 08/10/16 12:55 103 20 40 08/10/16 12:45 102 23 97/62 100 Mechanical Ventilator 40 08/10/16 12:30 102 23 103/56 100 Mechanical Ventilator 40 08/10/16 12:15 102 23 91/55 100 Mechanical Ventilator 40 08/10/16 12:00 91/58 08/10/16 12:00 40 08/10/16 12:00 97.2 102 23 93/58 100 Mechanical Ventilator 40 08/10/16 12:00 102 08/10/16 11:45 102 24 92/55 100 Mechanical Ventilator 40 08/10/16 11:30 102 20 92/49 100 Mechanical Ventilator 40 08/10/16 11:15 102 20 98/61 100 Mechanical Ventilator 40 08/10/16 11:00 101 20 94/64 100 Mechanical Ventilator 40 08/10/16 11:00 94/64 08/10/16 10:51 101 20 40 08/10/16 10:45 101 20 96/60 98 Mechanical Ventilator 40 08/10/16 10:30 102 20 96/62 100 Mechanical Ventilator 40 08/10/16 10:15 103 20 103/56 98 Mechanical Ventilator 40 08/10/16 10:00 103 20 108/55 100 Mechanical Ventilator 40 08/10/16 10:00 108/55 08/10/16 09:45 103 20 103/56 98 Mechanical Ventilator 40 08/10/16 09:30 103 20 92/60 100 Mechanical Ventilator 40 08/10/16 09:15 103 20 92/54 98 Mechanical Ventilator 40 08/10/16 09:00 105 20 100/66 98 Mechanical Ventilator 40 08/10/16 09:00 100/66 08/10/16 09:00 105 20 40 08/10/16 08:45 103 21 110/83 97 Mechanical Ventilator 40 08/10/16 08:30 104 20 120/83 100 Mechanical Ventilator 40 08/10/16 08:15 105 20 89/54 100 Mechanical Ventilator 40 08/10/16 08:00 40 08/10/16 08:00 105 20 83/50 100 Mechanical Ventilator 40 08/10/16 08:00 89/54 08/10/16 08:00 106 08/10/16 07:45 105 20 82/52 100 Mechanical Ventilator 40 08/10/16 07:30 106 20 94/53 100 Mechanical Ventilator 40 08/10/16 07:15 105 20 87/59 100 Mechanical Ventilator 40 08/10/16 07:00 105 20 40 08/10/16 07:00 104 20 86/51 100 Mechanical Ventilator 40 08/10/16 07:00 87/59 08/10/16 06:00 91/53 08/10/16 06:00 89.3 104 20 91/53 100 Mechanical Ventilator 40 08/10/16 05:45 105 20 99/54 100 Mechanical Ventilator 40 08/10/16 05:30 104 20 99/64 100 Mechanical Ventilator 40 08/10/16 05:19 104 20 40 08/10/16 05:15 106 20 100/56 100 Mechanical Ventilator 40 08/10/16 05:00 103/65 08/10/16 05:00 105 20 93/55 100 Mechanical Ventilator 40 08/10/16 04:45 105 20 103/65 100 Mechanical Ventilator 40 08/10/16 04:30 105 20 96/62 100 Mechanical Ventilator 40 08/10/16 04:15 105 20 89/58 100 Mechanical Ventilator 40 08/10/16 04:00 90.0 103 20 91/66 100 Mechanical Ventilator 40 08/10/16 04:00 107 08/10/16 04:00 94/66 08/10/16 04:00 40 08/10/16 03:45 106 20 108/60 100 Mechanical Ventilator 40 08/10/16 03:30 108 20 95/65 100 Mechanical Ventilator 40 08/10/16 03:15 108 20 88/55 100 Mechanical Ventilator 40 08/10/16 03:10 112 20 40 08/10/16 03:00 104/58 08/10/16 03:00 106 20 108/71 100 Mechanical Ventilator 40 08/10/16 02:45 105 20 98/57 100 Mechanical Ventilator 40 08/10/16 02:30 105 20 100/58 100 Mechanical Ventilator 40 08/10/16 02:15 106 20 89/56 100 Mechanical Ventilator 40 08/10/16 02:00 96/58 08/10/16 02:00 105 20 87/44 100 Mechanical Ventilator 40 08/10/16 01:45 105 20 96/58 100 Mechanical Ventilator 40 08/10/16 01:30 105 20 95/58 100 Mechanical Ventilator 40 08/10/16 01:15 104 20 104/53 100 Mechanical Ventilator 40 08/10/16 01:11 103 22 40 08/10/16 01:00 103 20 99/63 100 Mechanical Ventilator 40 08/10/16 01:00 99/63 08/10/16 00:45 104 20 106/59 100 Mechanical Ventilator 40 08/10/16 00:30 104 20 101/64 100 Mechanical Ventilator 40 08/10/16 00:15 105 20 93/65 100 Mechanical Ventilator 40 08/10/16 00:00 40 08/10/16 00:00 91/56 08/10/16 00:00 99.2 106 20 91/56 100 Mechanical Ventilator 40 08/10/16 00:00 102 08/09/16 23:45 109 20 85/41 100 Mechanical Ventilator 40 08/09/16 23:44 87/44 08/09/16 23:30 112 21 87/44 100 Mechanical Ventilator 40 08/09/16 23:15 113 20 83/44 100 Mechanical Ventilator 40 08/09/16 23:00 112 20 83/44 100 Mechanical Ventilator 40 08/09/16 23:00 114 20 40 08/09/16 22:45 114 20 82/46 98 Mechanical Ventilator 40 08/09/16 22:30 114 20 82/45 98 Mechanical Ventilator 40 08/09/16 22:15 110 22 82/48 100 Mechanical Ventilator 40 08/09/16 22:00 115 20 81/52 100 Mechanical Ventilator 40 08/09/16 21:45 115 20 84/45 100 Mechanical Ventilator 40 08/09/16 21:30 112 21 92/54 100 Mechanical Ventilator 40 08/09/16 21:15 115 20 95/52 100 Mechanical Ventilator 40 08/09/16 21:00 115 20 88/43 100 Mechanical Ventilator 40 08/09/16 20:45 109 20 40 08/09/16 20:45 115 20 92/54 98 Mechanical Ventilator 40 08/09/16 20:30 111 21 88/55 98 Mechanical Ventilator 40 08/09/16 20:15 114 20 84/35 98 Mechanical Ventilator 40 08/09/16 20:00 98.7 115 20 81/58 100 Mechanical Ventilator 40 08/09/16 20:00 114 08/09/16 20:00 40 08/09/16 19:45 112 20 88/54 98 Mechanical Ventilator 40 08/09/16 19:30 110 22 85/49 98 Mechanical Ventilator 40 08/09/16 19:15 110 20 86/51 100 Mechanical Ventilator 40 08/09/16 19:00 112 20 85/52 99 Mechanical Ventilator 40 08/09/16 18:45 114 21 85/58 98 Mechanical Ventilator 40 08/09/16 18:40 114 23 40 08/09/16 18:30 112 20 95/58 98 Mechanical Ventilator 40 08/09/16 18:15 101 22 98/64 98 Mechanical Ventilator 40 08/09/16 18:15 98/64 Height (Feet): 5 Height (Inches): 4.00 Weight (Pounds): 150 HEENT: atraumatic Respiratory/Chest: lungs clear, no respiratory distress Cardiovascular: normal rate Abdomen: soft, non tender, no organomegaly Microbiology Date/Time Source Procedure Growth Status 08/08/16 10:00 Hip Left Gram Stain - Final Resulted 08/08/16 10:00 Aerobic Culture - Preliminary Gram Negative Bacillus 1 Strep Species, Gamma-Hemolytic Resulted 08/08/16 10:00 Hip Left Anaerobic Culture - Preliminary NO ANAEROBES ISOLATED Resulted Laboratory Tests Test 08/10/16 04:00 08/10/16 07:38 White Blood Count 23.1 K/UL (4.8-10.8) *H Red Blood Count 2.40 M/UL (4.70-6.10) L Hemoglobin 7.2 G/DL (14.2-18.0) L Hematocrit 22.5 % (42.0-52.0) L Mean Corpuscular Volume 94 FL (80-99) Mean Corpuscular Hemoglobin 30.0 PG (27.0-31.0) Mean Corpuscular Hemoglobin Concent 31.9 G/DL (32.0-36.0) L Red Cell Distribution Width 18.8 % (11.6-14.8) H Platelet Count 427 K/UL (150-450) Mean Platelet Volume 4.9 FL (6.5-10.1) L Neutrophils (%) (Auto) % (45.0-75.0) Lymphocytes (%) (Auto) % (20.0-45.0) Monocytes (%) (Auto) % (1.0-10.0) Eosinophils (%) (Auto) % (0.0-3.0) Basophils (%) (Auto) % (0.0-2.0) Differential Total Cells Counted 100 Neutrophils % (Manual) 76 % (45-75) H Lymphocytes % (Manual) 15 % (20-45) L Monocytes % (Manual) 7 % (1-10) Eosinophils % (Manual) 0 % (0-3) Basophils % (Manual) 1 % (0-2) Band Neutrophils 1 % (0-8) Platelet Estimate Adequate Platelet Morphology Normal Hypochromasia 3+ Anisocytosis 2+ Sodium Level 136 mEQ/L (135-145) Potassium Level 4.7 mEQ/L (3.4-4.9) Chloride Level 100 mEQ/L (98-107) Carbon Dioxide Level 25 mEQ/L (20-30) Anion Gap 11 (5-15) Blood Urea Nitrogen 22 mg/dL (7-23) Creatinine 0.3 mg/dL (0.7-1.2) L Estimat Glomerular Filtration Rate > 60 mL/min (>60) Glucose Level 175 mg/dL (74-106) H Calcium Level 7.9 mg/dL (8.6-10.2) L Arterial Blood pH 7.450 (7.350-7.450) Arterial Blood Partial Pressure CO2 34.2 mmHg (35.0-45.0) L Arterial Blood Partial Pressure O2 154.7 mmHg (75.0-100.0) H Arterial Blood HCO3 23.1 mmol/L (22.0-26.0) Arterial Blood Oxygen Saturation 99.0 % (92.0-98.0) H Arterial Blood Base Excess -0.7 Emmanuel Test Positive Current Medications Medications (Trade) Dose Ordered Sig/Tanisha Route PRN Reason Start Time Stop Time Status Last Admin Dose Admin Acetaminophen (Tylenol) 650 mg Q4H PRN ORAL Mild Pain/Temp > 100.5 08/08/16 15:00 09/07/16 14:59 08/09/16 09:09 Albuterol/ Ipratropium (DuoNeb 0.5-3(2.5)mg/3ml) 3 ml Q4H PRN HHN Shortness of Breath 08/10/16 12:30 08/15/16 12:29 Aztreonam 2 gm/ Sodium Chloride 100 ml @ 200 mls/hr Q8HR@0200,1000,1800 IVPB 08/08/16 18:00 08/15/16 17:59 08/10/16 17:27 Dextrose (Dextrose 50%) STAT PRN IV Hypoglycemia 08/08/16 14:45 09/07/16 14:44 Dopamine HCl/ Dextrose 250 ml @ 0 mls/hr Q24H IV 08/08/16 11:00 09/07/16 10:59 08/09/16 18:15 Famotidine (Pepcid I.v.) 20 mg DAILY IVP 08/09/16 09:00 09/08/16 08:59 08/10/16 08:54 Heparin Sodium (Porcine) (Heparin 5000 units/ml) 5,000 units EVERY 12 HOURS SUBQ 08/08/16 21:00 09/07/16 20:59 08/10/16 08:55 Insulin Aspart (NovoLOG) EVERY 6 HOURS SUBQ 08/08/16 12:00 09/07/16 11:59 08/10/16 12:44 Lactobacillus Acidophilus (Culturelle) 1 tab TWICE A DAY GT 08/08/16 18:00 09/07/16 17:59 08/10/16 17:27 Levothyroxine Sodium (Synthroid) 200 mcg DAILY GT 08/09/16 09:00 09/08/16 08:59 08/10/16 08:54 Lorazepam (Ativan 2mg/ml 1ml) 1 mg Q4H PRN IV For Anxiety 08/08/16 13:30 08/15/16 13:29 Metronidazole (Flagyl) 500 mg Q8HR PEG 08/08/16 14:00 08/15/16 13:59 08/10/16 14:15 Midodrine (Pro-Amatine) 5 mg THREE TIMES A DAY GT 08/08/16 13:00 09/07/16 12:59 08/10/16 17:26 Norepinephrine Bitartrate 4 mg/ Dextrose 250 ml @ 0 mls/hr Q24H IV 08/09/16 22:00 09/08/16 21:59 08/09/16 23:44 Ondansetron HCl (Zofran) 4 mg Q6H PRN IV Nausea & Vomiting 08/08/16 15:00 09/07/16 14:59 Polyethylene Glycol (Miralax) 17 gm DAILY GT 08/09/16 09:00 09/08/16 08:59 08/09/16 09:09 Sodium Chloride (Sodium Chloride 1000ml bag) 1,000 ml @ 75 mls/hr [id number] IV 08/10/16 12:30 09/09/16 12:29 08/10/16 12:59 Vancomycin HCl 1 ea 1 ea DAILY PRN MISC Per rx protocol 08/09/16 09:00 09/08/16 08:59 Vancomycin HCl/ Dextrose (Vancomycin/D5W 250ml) 250 ml @ 167 mls/hr Q12H IVPB 08/08/16 12:00 08/13/16 11:59 08/10/16 12:27 GURDEEP BHANDARI M.D. Aug 10, 2016 18:01
[2016-08-11] VITALS (19 sets, daily range): BP systolic 82–105; BP diastolic 41–66
[2016-08-11] MEDS: Vancomycin 750 MG in D5W 250 ML IVPB SCH ×2 (00:25→12:03)
[2016-08-11] MEDS: NS IVPB SCH ×2 (02:02→10:25)
[2016-08-11] MEDS: AZTREONAM IVPB SCH ×2 (02:02→10:25)
[2016-08-11 05:33] LABS: ANION GAP 10 (5-15); CALCIUM 7.7 mg/dL (8.6-10.2); CARBON DIOXIDE 25 mEQ/L (20-30); CHLORIDE 103 mEQ/L (98-107); CREATININE 0.3 mg/dL (0.7-1.2); GLOMERULAR FILTRATION RATE > 60 mL/min (>60); HEMOLYSIS 0; MEAN CORPUSCULAR HEMOGLOBIN 28.8 PG (27.0-31.0); MEAN CORPUSCULAR HGB CONC 31.7 G/DL (32.0-36.0); MEAN CORPUSCULAR VOLUME 91 FL (80-99); MEAN PLATELET VOLUME 5.2 FL (6.5-10.1); PLATELET COUNT 297 K/UL (150-450); POTASSIUM 4.4 mEQ/L (3.4-4.9); RED BLOOD COUNT 2.56 M/UL (4.70-6.10); RED CELL DISTRIBUTION WIDTH 19.2 % (11.6-14.8); SODIUM 138 mEQ/L (135-145)
[2016-08-11] MEDS: NovoLOG Insulin Flexpen SUBQ SCH ×5 (06:00→23:43)
[2016-08-11] MEDS: metroNIDAZOLE 500mg tab PEG SCH ×3 (06:00→21:31)
[2016-08-11 08:21] LABS: ABG BASE EXCESS -1.2; ABG PCO2 33.6 mmHg (35.0-45.0)
[2016-08-11 08:22] LABS: ABG ALLEN TEST POSITIVE
[2016-08-11] MEDS: Famotidine 20 MG/ 2ML VIAL IVP SCH (08:24)
[2016-08-11] MEDS: Lactobacillus-GG tablet GT SCH ×2 (08:24→18:12)
[2016-08-11] MEDS: Miralax 17gm pkt GT SCH (08:24)
[2016-08-11] MEDS: Heparin 5000 units/ml inj SUBQ SCH ×2 (08:26→21:32)
[2016-08-11 08:37] LABS: BAND NEUTROPHILS % (MANUAL) 2 % (0-8); LYMPHOCYTES % (MANUAL) 10 % (20-45); NEUTROPHILS % (MANUAL) 77 % (45-75); TOTAL CELLS COUNTED 100
[2016-08-11 08:38] LABS: ANISOCYTOSIS 2+; BASOPHILS % (MANUAL) 0 % (0-2); EOSINOPHILS % (MANUAL) 0 % (0-3); HYPOCHROMASIA 1+; PLATELET ESTIMATE ADEQUATE; PLATELET MORPHOLOGY NORMAL
--- NOTE | 2016-08-11 10:02 | Diagnostic Imaging Report ---
Indication: Shortness of breath Technique: XRAY CHEST 1 V Comparison: 08/10/16 Findings: Tracheostomy and right PICC line are unchanged. The heart and lungs are stable without new infiltrates. Osseous structures are stable. There is again elevation of the right hemidiaphragm. Impression: No interval change from 08/10/16.
[2016-08-11] MEDS: DOPamine 400mg/250ml 250 ML IV SCH (11:00)
--- NOTE | 2016-08-11 13:33 | Pulmonolgy Critical Care Note ---
Critical Care - Asmt/Plan Assessment/Plan: ASSESSMENT acute on chronic respiratory failure VDRF/trach ATN 2 to dehydration -resolved septic shock sepsis bilateral AMANDA, likely aspiration hx of glioma pf brainstem, multiforme anoxic encephalopathy decub ulcer ( POA) s/p debridement with bone biopsy 08/08 chronic hypotension dysphagia, G tube functional quadriplegia chronic macrocytic anemia s/p blood transfusion severe protein calorie malnutrition PLAN OF CARE off pressors BP stable continue IVF continue Midodrine Vent/trach care pulmonary toilet ABG stable on current settings keep as is and titrate as needed CXR and ABG in am abx, ID follows leukocytosis with trend up today, further workup as per ID blood cx negative, stool C dif negative, sputum cx pending wound care as per wound care nurse recommendations, s/p debridement and bone biopsy 08/08, awaiting biopsy results bone scan w/out gross evidence to suggest OM strict aspiration precautions, GT feeding, monitor tolerance renal parameters stable, avoid nephrotoxic, fup with lytes and correct as needed HH still loww despite blood tranfusion 08/10, transfuse additional unit of PRBC todfay, CBC in am ? source of bleeding - ?GI vs wound bleeding stool OB x 2 GI eval transfuse 1 u PRBC today, CBC in am abdominal US + cholelithiasis, no evidence of acute cholecystitis BS management with SS of insulin DVT prophylaxis poor prognosis transfer to [facility] case discussed and evaluated by supervising physician Critical Care - Objective Last 24 Hour Vital Signs Date Time Temp Pulse Resp B/P Pulse Ox O2 Delivery O2 Flow Rate FiO2 08/11/16 12:30 82 20 40 08/11/16 11:00 89 20 91/41 100 Mechanical Ventilator 40 08/11/16 11:00 98/50 08/11/16 10:30 79 20 40 08/11/16 10:00 90 21 96/54 100 Mechanical Ventilator 40 08/11/16 09:00 89 21 101/53 100 Mechanical Ventilator 40 08/11/16 08:30 83 20 40 08/11/16 08:00 97.6 85 21 100/66 100 Mechanical Ventilator 40 08/11/16 08:00 86 08/11/16 08:00 40 08/11/16 07:00 86 21 92/55 100 Mechanical Ventilator 40 08/11/16 06:47 86 20 40 08/11/16 06:00 85 21 96/56 100 Mechanical Ventilator 40 08/11/16 05:00 91 21 96/58 100 Mechanical Ventilator 40 08/11/16 05:00 92 21 40 08/11/16 04:00 40 08/11/16 04:00 97.5 90 21 105/66 100 Mechanical Ventilator 40 08/11/16 04:00 91 08/11/16 03:00 89 21 94/61 100 Mechanical Ventilator 40 08/11/16 02:55 89 20 40 08/11/16 02:00 88 21 103/64 100 Mechanical Ventilator 40 08/11/16 01:00 86 20 40 08/11/16 01:00 87 21 88/52 100 Mechanical Ventilator 40 08/11/16 00:00 76 08/11/16 00:00 40 08/11/16 00:00 98.3 86 21 88/62 100 Mechanical Ventilator 40 08/10/16 23:14 91 20 40 08/10/16 23:00 85 21 88/58 100 Mechanical Ventilator 40 08/10/16 22:00 90 21 98/62 100 Mechanical Ventilator 40 08/10/16 21:00 95 20 40 08/10/16 21:00 98.1 95 20 106/67 98 Mechanical Ventilator 40 08/10/16 20:00 91 20 92/56 100 Mechanical Ventilator 40 08/10/16 20:00 90 08/10/16 20:00 40 08/10/16 19:00 94 20 89/52 99 Mechanical Ventilator 40 08/10/16 18:55 92 20 40 08/10/16 18:30 91 21 88/50 99 Mechanical Ventilator 40 08/10/16 18:00 95 20 85/51 99 Mechanical Ventilator 40 08/10/16 17:30 92 21 85/54 100 Mechanical Ventilator 40 08/10/16 17:02 93 20 40 08/10/16 17:00 95 20 86/50 100 Mechanical Ventilator 40 08/10/16 16:45 91 20 81/48 100 Mechanical Ventilator 40 08/10/16 16:30 94 21 83/55 100 Mechanical Ventilator 40 08/10/16 16:15 94 20 83/49 100 Mechanical Ventilator 40 08/10/16 16:00 95 21 86/51 100 Mechanical Ventilator 40 08/10/16 16:00 98 08/10/16 16:00 40 08/10/16 15:45 99 20 91/56 99 Mechanical Ventilator 40 08/10/16 15:30 95 21 85/54 99 Mechanical Ventilator 40 08/10/16 15:15 98.5 96 20 91/58 100 Mechanical Ventilator 40 08/10/16 15:00 98 20 99/59 100 Mechanical Ventilator 40 08/10/16 15:00 91/58 08/10/16 14:52 99 20 40 08/10/16 14:45 100 20 94/60 100 Mechanical Ventilator 40 08/10/16 14:30 127/76 08/10/16 14:30 100 23 100/55 100 Mechanical Ventilator 40 08/10/16 14:15 101 20 127/76 100 Mechanical Ventilator 40 08/10/16 14:00 105/67 08/10/16 14:00 103 23 105/67 100 Mechanical Ventilator 40 08/10/16 13:45 102 23 106/72 100 Mechanical Ventilator 40 08/10/16 13:30 102 23 96/64 100 Mechanical Ventilator 40 Objective: Status: obtunded, chronically ill, bedridden, vent dependent male AV 500-20-40% Condition: critical Neck: trach - Portex#7, secretions moderate, yellow, thick Lungs: rhonchi - few scattered Heart: HR/BP unstable, other - RUE PICC intact Abdomen: soft, non-tender, active bowel sounds, G tube Extremities: no C/C/E, other - contracted Decubiti: other - multiple decub Micro: Microbiology Date/Time Source Procedure Growth Status 08/10/16 05:30 Sputum Induced Gram Stain - Final Resulted 08/10/16 05:30 Sputum Induced Sputum Culture Pending Resulted Accucheck: 105 Critical Care - Subjective ROS Limited/Unobtainable: Yes Interval Events: off pressors BP stable leukocytosis trending down CXR without change no signs of respiratory distress on current settings HH still low -7.4/23.3 despite blood transfusion 08/10 Condition: critical, improving IV Access: PICC EKG Rhythm: Sinus Rhythm FI02: 40 Vent Support Breath Rate: 20 Vent Support Mode: AC Vent Tidal Volume: 500 Sputum Amount: Small PEEP: 5.0 PIP: 34 Fluids: NS at 75 Tube Feeding Amount: 60 I&O: Intake and Output 08/10/16 08/11/16 19:00 07:00 Intake Total 2021.5 ml 1944 ml Output Total 1130 ml 930 ml Balance 891.5 ml 1014 ml Intake Free Water 100 ml IV Total 1021.5 ml 1234 ml Tube Feeding 600 ml 660 ml Blood Product 250 ml Other 50 ml 50 ml Output Urine Total 1130 ml 930 ml # Bowel Movements 2 CXR: 08/11 - Tracheostomy and right PICC line are unchanged. The heart and lungs are stable without new infiltrates. Osseous structures are stable. There is again elevation of the right hemidiaphragm Namrata Saleh NP ([facility]) Aug 11, 2016 13:33
[2016-08-11] MEDS ORDERED: CEFTAZIDIME IV SCH ×2 (14:00)
[2016-08-11] MEDS ORDERED: [UNRECOGNIZED DRUG - OTHER] IV SCH ×2 (14:00)
[2016-08-11] MEDS ORDERED: DuoNeb 0.5-3(2.5)mg/3ml neb HHN PRN (18:00)
[2016-08-11] MEDS ORDERED: LORazepam Inj 2mg/ml 1ml IV PRN (18:00)
--- NOTE | 2016-08-11 19:04 | Infectious Diseases Prog Note ---
Assessment/Plan Assessment/Plan MICRO: 07/30 BCx(-) 07/30 UCx not sent / UA(-) 07/30 SCx not sent 06/30 Back WCx MDR-K.pneumoniae, VRE.faecalis, CONS, C.albicans 06/28 BCx CONS 1/4 06/29 SCx qI-PSA, P.stuartii 06/26 Back WCx MDR-K.pneumoniae, MDR-ACB 06/17 SCx ESBL(+) K.pneumoniae, qS-PSA, S.maltophilia 06/11 BCx(-) 06/11 UCx >100K E.coli 05/12 Cath tip <10K CONS 05/11 BCx(-) 05/09 BCx CONS / ( single stick ) 05/09 UCx qR-K.pneumoniae 04/22 SCx qI-PSA 04/19 BCx CONS 10/18 ASSESSMENT: 60-year-old male with: // Multiple decubiti POA, infected Wnd CX - SP debridement, bone bx 08/08 - Bone scan 07/01: Limited, essentially nondiagnostic exam. No gross findings to suggest acute osteomyelitis - h/o MDR-K.pneumoniae, VRE.faecalis, CONS, C.albicans // h/o recurrent CONS bacteremia - surveillance BCx(-) - h/o recurrent CONS 2/4 (05/09) SP IV vanco x28d - h/o CONS 3/4 (04/19 ) SP Rx IV vanco x7d - TTE 05/11: poorly visualized valves, poor candidate MARIA C - h/o CONS cath tip colonization ( <10K ) // h/o recurrent PNAs ( VAP / HCAP ) r/o recurrence - SCx not sent - CXR 07/30: Findings most compatible with congestive heart failure with bilateral pleural effusions, persistent versus recurrent since previous exam. - h/o qI,S-PSA, P.stuartii, ESBL(+) K.pneumoniae, S.maltophilia // h/o recurrent UTIs r/o recurrence - repeat UA benign, UCx not sent - US: Mild left hydronephrosis, new since prior study of 04/21/2016. Etiology not demonstrated but concerning for downstream obstruction - h/o E.coli, K.pneumoniae SP Rx // Elevated LFTs, GGT - chronic, stable - US: Equivocally visualized stone filled gallbladder, versus shadowing from duodenal gas. 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 Tolerates cefepime, meropenem Full Code PLAN: continue IV vancomycin, aztreonam d# 12 , ( 08/10 SP PO flagyl d# 7 / 7 ) ( 08/04 SP levaquin d# 5 ) ( 07/05 SP IV vancomycin, aztreonam d# 7 / 7 ) ( 06/26 SP Merrem d# 6, cefepime d# 14 ) ( SP IV vancomycin, d# 6 and flagyl d# 3 ) ( SP IV vancomycin d# 28 / 28 ( 05/13 SP aztreonam, amikacin d# 5 / 5 ) ( 05/02 SP aztreonam d# 14 / 14 ) ( 04/25 SP vancomycin d# 7 / 7 ) f/u bone bx pressor support, wean as tolerated Monitor CBC, temperatures Monitor CMP Monitor chest x-ray vent support, trach care, aspiration precautions wound care contact isolation Subjective Allergies: Coded Allergies: PENICILLINS (Verified Allergy, Unknown, 04/19/16) Subjective afebrile Objective Vital Signs Last 24 Hour Vital Signs Date Time Temp Pulse Resp B/P Pulse Ox O2 Delivery O2 Flow Rate FiO2 08/11/16 17:10 92 20 40 08/11/16 17:00 98.3 84 20 90/53 100 Mechanical Ventilator 40 08/11/16 16:00 40 08/11/16 16:00 87 08/11/16 16:00 98.2 88 20 86/53 100 Mechanical Ventilator 40 08/11/16 15:00 92 20 87/50 100 Mechanical Ventilator 40 08/11/16 14:45 83 21 40 08/11/16 14:00 87 20 93/57 100 Mechanical Ventilator 40 08/11/16 13:00 92 20 82/51 100 Mechanical Ventilator 40 08/11/16 12:30 82 20 40 08/11/16 12:00 90 08/11/16 12:00 40 08/11/16 12:00 97.5 88 20 86/50 100 Mechanical Ventilator 40 08/11/16 11:00 89 20 91/41 100 Mechanical Ventilator 40 08/11/16 11:00 98/50 08/11/16 10:30 79 20 40 08/11/16 10:00 90 21 96/54 100 Mechanical Ventilator 40 08/11/16 09:00 89 21 101/53 100 Mechanical Ventilator 40 08/11/16 08:30 83 20 40 08/11/16 08:00 97.6 85 21 100/66 100 Mechanical Ventilator 40 08/11/16 08:00 86 08/11/16 08:00 40 08/11/16 07:00 86 21 92/55 100 Mechanical Ventilator 40 08/11/16 06:47 86 20 40 08/11/16 06:00 85 21 96/56 100 Mechanical Ventilator 40 08/11/16 05:00 91 21 96/58 100 Mechanical Ventilator 40 08/11/16 05:00 92 21 40 08/11/16 04:00 40 08/11/16 04:00 97.5 90 21 105/66 100 Mechanical Ventilator 40 08/11/16 04:00 91 08/11/16 03:00 89 21 94/61 100 Mechanical Ventilator 40 08/11/16 02:55 89 20 40 08/11/16 02:00 88 21 103/64 100 Mechanical Ventilator 40 08/11/16 01:00 86 20 40 08/11/16 01:00 87 21 88/52 100 Mechanical Ventilator 40 08/11/16 00:00 76 08/11/16 00:00 40 08/11/16 00:00 98.3 86 21 88/62 100 Mechanical Ventilator 40 08/10/16 23:14 91 20 40 08/10/16 23:00 85 21 88/58 100 Mechanical Ventilator 40 08/10/16 22:00 90 21 98/62 100 Mechanical Ventilator 40 08/10/16 21:00 95 20 40 08/10/16 21:00 98.1 95 20 106/67 98 Mechanical Ventilator 40 08/10/16 20:00 91 20 92/56 100 Mechanical Ventilator 40 08/10/16 20:00 90 08/10/16 20:00 40 Height (Feet): 5 Height (Inches): 4.00 Weight (Pounds): 150 HEENT: atraumatic Respiratory/Chest: lungs clear, normal breath sounds Cardiovascular: normal rate, regular rhythm Abdomen: soft, non tender, no organomegaly Microbiology Date/Time Source Procedure Growth Status 08/10/16 05:30 Sputum Induced Gram Stain - Final Resulted 08/10/16 05:30 Sputum Induced Sputum Culture Pending Resulted Laboratory Tests Test 08/11/16 03:45 08/11/16 08:15 08/11/16 14:30 White Blood Count 13.0 K/UL (4.8-10.8) H Red Blood Count 2.56 M/UL (4.70-6.10) L Hemoglobin 7.4 G/DL (14.2-18.0) L Hematocrit 23.3 % (42.0-52.0) L Mean Corpuscular Volume 91 FL (80-99) Mean Corpuscular Hemoglobin 28.8 PG (27.0-31.0) Mean Corpuscular Hemoglobin Concent 31.7 G/DL (32.0-36.0) L Red Cell Distribution Width 19.2 % (11.6-14.8) H Platelet Count 297 K/UL (150-450) Mean Platelet Volume 5.2 FL (6.5-10.1) L Neutrophils (%) (Auto) % (45.0-75.0) Lymphocytes (%) (Auto) % (20.0-45.0) Monocytes (%) (Auto) % (1.0-10.0) Eosinophils (%) (Auto) % (0.0-3.0) Basophils (%) (Auto) % (0.0-2.0) Differential Total Cells Counted 100 Neutrophils % (Manual) 77 % (45-75) H Lymphocytes % (Manual) 10 % (20-45) L Monocytes % (Manual) 11 % (1-10) H Eosinophils % (Manual) 0 % (0-3) Basophils % (Manual) 0 % (0-2) Band Neutrophils 2 % (0-8) Platelet Estimate Adequate Platelet Morphology Normal Hypochromasia 1+ Anisocytosis 2+ Sodium Level 138 mEQ/L (135-145) Potassium Level 4.4 mEQ/L (3.4-4.9) Chloride Level 103 mEQ/L (98-107) Carbon Dioxide Level 25 mEQ/L (20-30) Anion Gap 10 (5-15) Blood Urea Nitrogen 21 mg/dL (7-23) Creatinine 0.3 mg/dL (0.7-1.2) L Estimat Glomerular Filtration Rate > 60 mL/min (>60) Glucose Level 102 mg/dL (74-106) Calcium Level 7.7 mg/dL (8.6-10.2) L Arterial Blood pH 7.440 (7.350-7.450) Arterial Blood Partial Pressure CO2 33.6 mmHg (35.0-45.0) L Arterial Blood Partial Pressure O2 160.2 mmHg (75.0-100.0) H Arterial Blood HCO3 22.6 mmol/L (22.0-26.0) Arterial Blood Oxygen Saturation 98.8 % (92.0-98.0) H Arterial Blood Base Excess -1.2 Emmanuel Test Positive Stool Occult Blood Pending Current Medications Medications (Trade) Dose Ordered Sig/Tanisha Route PRN Reason Start Time Stop Time Status Last Admin Dose Admin Acetaminophen (Tylenol) 650 mg Q4H PRN ORAL Mild Pain/Temp > 100.5 08/11/16 18:00 09/10/16 17:59 Albuterol/ Ipratropium (DuoNeb 0.5-3(2.5)mg/3ml) 3 ml Q4H PRN HHN Shortness of Breath 08/11/16 18:00 08/16/16 17:59 Ceftazidime 1 gm/ Dextrose 50 ml @ 100 mls/hr Q8HR IV 08/11/16 22:00 08/18/16 21:59 Dextrose (Dextrose 50%) STAT PRN IV Hypoglycemia 08/11/16 18:00 09/10/16 17:59 Heparin Sodium (Porcine) (Heparin 5000 units/ml) 5,000 units EVERY 12 HOURS SUBQ 08/11/16 21:00 09/10/16 20:59 Insulin Aspart (NovoLOG) EVERY 6 HOURS SUBQ 08/11/16 18:00 09/10/16 17:59 Lactobacillus Acidophilus (Culturelle) 1 tab TWICE A DAY GT 08/11/16 18:00 09/10/16 17:59 08/11/16 18:12 Levothyroxine Sodium (Synthroid) 200 mcg DAILY GT 08/12/16 09:00 09/11/16 08:59 Lorazepam (Ativan 2mg/ml 1ml) 1 mg Q4H PRN IV For Anxiety 08/11/16 18:00 08/18/16 17:59 Metronidazole (Flagyl) 500 mg Q8HR PEG 08/11/16 22:00 08/18/16 21:59 Midodrine (Pro-Amatine) 5 mg THREE TIMES A DAY GT 08/11/16 18:00 09/10/16 17:59 08/11/16 18:13 Ondansetron HCl (Zofran) 4 mg Q6H PRN IV Nausea & Vomiting 08/11/16 18:00 09/10/16 17:59 Polyethylene Glycol (Miralax) 17 gm DAILY GT 08/12/16 09:00 09/11/16 08:59 Ranitidine HCl (Zantac) 150 mg Q12HR GT 08/11/16 21:00 09/10/16 20:59 Sodium Chloride 1,000 ml @ 75 mls/hr [id number] IV 08/11/16 18:00 09/10/16 17:59 08/11/16 18:13 Vancomycin HCl (Vanco rx to dose) 1 ea DAILY PRN MISC Per rx protocol 08/11/16 18:00 09/10/16 17:59 Vancomycin HCl/ Dextrose (Vancomycin/D5W 250ml) 250 ml @ 167 mls/hr Q12H IVPB 08/12/16 00:00 08/17/16 00:00 GURDEEP BHANDARI M.D. Aug 11, 2016 19:04
[2016-08-12] VITALS (7 sets, daily range): BP systolic 90–99; BP diastolic 49–63
[2016-08-12] MEDS ORDERED: Vancomycin 750 MG in D5W 250 ML IVPB SCH ×2
[2016-08-12 04:15] LABS: BASOPHILS % (AUTO) 0.6 % (0.0-2.0); EOSINOPHILS % (AUTO) 1.7 % (0.0-3.0); LYMPHOCYTES % (AUTO) 20.7 % (20.0-45.0); MEAN CORPUSCULAR HEMOGLOBIN 28.6 PG (27.0-31.0); MEAN CORPUSCULAR HGB CONC 32.3 G/DL (32.0-36.0); MEAN CORPUSCULAR VOLUME 88 FL (80-99); MEAN PLATELET VOLUME 5.3 FL (6.5-10.1); MONOCYTES % (AUTO) 9.4 % (1.0-10.0); NEUTROPHILS % (AUTO) 67.6 % (45.0-75.0); PLATELET COUNT 287 K/UL (150-450); RED BLOOD COUNT 3.08 M/UL (4.70-6.10); RED CELL DISTRIBUTION WIDTH 17.8 % (11.6-14.8); WHITE BLOOD COUNT 11.6 K/UL (4.8-10.8)
[2016-08-12 04:32] LABS: ANION GAP 9 (5-15); CARBON DIOXIDE 24 mEQ/L (20-30); CHLORIDE 102 mEQ/L (98-107); CREATININE 0.3 mg/dL (0.7-1.2); GLOMERULAR FILTRATION RATE > 60 mL/min (>60); HEMOLYSIS 0; POTASSIUM 4.2 mEQ/L (3.4-4.9); SODIUM 135 mEQ/L (135-145)
[2016-08-12] MEDS: NovoLOG Insulin Flexpen SUBQ SCH ×4 (06:00→23:58)
[2016-08-12] MEDS: metroNIDAZOLE 500mg tab PEG SCH (06:04)
[2016-08-12] MEDS: Lactobacillus-GG tablet GT SCH ×2 (08:16→17:55)
[2016-08-12] MEDS: Miralax 17gm pkt GT SCH (08:16)
[2016-08-12] MEDS: Heparin 5000 units/ml inj SUBQ SCH ×2 (08:18→21:40)
--- NOTE | 2016-08-12 10:52 | Infectious Diseases Prog Note ---
Assessment/Plan Assessment/Plan MICRO: 07/30 BCx(-) 07/30 UCx not sent / UA(-) 07/30 SCx not sent 06/30 Back WCx MDR-K.pneumoniae, VRE.faecalis, CONS, C.albicans 06/28 BCx CONS 1/4 06/29 SCx qI-PSA, P.stuartii 06/26 Back WCx MDR-K.pneumoniae, MDR-ACB 06/17 SCx ESBL(+) K.pneumoniae, qS-PSA, S.maltophilia 06/11 BCx(-) 06/11 UCx >100K E.coli 05/12 Cath tip <10K CONS 05/11 BCx(-) 05/09 BCx CONS / ( single stick ) 05/09 UCx qR-K.pneumoniae 04/22 SCx qI-PSA 04/19 BCx CONS 10/18 ASSESSMENT: 60-year-old male with: // Multiple decubiti POA, infected Wnd CX ( ACB and Enterococcus ) - SP debridement, bone bx 08/08 - Bone scan 07/01: Limited, essentially nondiagnostic exam. No gross findings to suggest acute osteomyelitis - h/o MDR-K.pneumoniae, VRE.faecalis, CONS, C.albicans // h/o recurrent CONS bacteremia - surveillance BCx(-) - h/o recurrent CONS 2/4 (05/09) SP IV vanco x28d - h/o CONS 3/4 (04/19 ) SP Rx IV vanco x7d - TTE 05/11: poorly visualized valves, poor candidate MARIA C - h/o CONS cath tip colonization ( <10K ) // h/o recurrent PNAs ( VAP / HCAP ) r/o recurrence - SCx GNR x 3 - CXR 07/30: Findings most compatible with congestive heart failure with bilateral pleural effusions, persistent versus recurrent since previous exam. - h/o qI,S-PSA, P.stuartii, ESBL(+) K.pneumoniae, S.maltophilia // h/o recurrent UTIs - US: Mild left hydronephrosis, new since prior study of 04/21/2016. Etiology not demonstrated but concerning for downstream obstruction - h/o E.coli, K.pneumoniae SP Rx // Elevated LFTs, GGT - chronic, stable - US: Equivocally visualized stone filled gallbladder, versus shadowing from duodenal gas. 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 Tolerates cefepime, meropenem Full Code PLAN: chagge IV vancomycin d# 13 and Flagyl d# 9 to Tygacil d# 1 , Ceftaz d# 2 ( SP aztreonam d# 12 ) ( 08/04 SP levaquin d# 5 ) ( 07/05 SP IV vancomycin, aztreonam d# 7 / 7 ) ( 06/26 SP Merrem d# 6, cefepime d# 14 ) ( SP IV vancomycin, d# 6 and flagyl d# 3 ) ( SP IV vancomycin d# 28 / 28 ( 05/13 SP aztreonam, amikacin d# 5 / 5 ) ( 05/02 SP aztreonam d# 14 / 14 ) ( 04/25 SP vancomycin d# 7 / 7 ) f/u bone bx Monitor CBC, temperatures Monitor CMP Monitor chest x-ray vent support, trach care, aspiration precautions wound care contact isolation Subjective Constitutional: Denies: anorexia, chills, drenching sweats, fatigue, fever, no symptoms, other Allergies: Coded Allergies: PENICILLINS (Verified Allergy, Unknown, 04/19/16) Subjective afebrile Objective Vital Signs Last 24 Hour Vital Signs Date Time Temp Pulse Resp B/P Pulse Ox O2 Delivery O2 Flow Rate FiO2 08/12/16 08:00 73 08/12/16 08:00 40 08/12/16 08:00 97.2 70 20 92/63 100 Mechanical Ventilator 40 08/12/16 06:50 88 20 40 08/12/16 04:40 89 20 40 08/12/16 04:00 40 08/12/16 04:00 96.1 74 20 93/51 100 Mechanical Ventilator 40 08/12/16 04:00 73 12/27/16 03:00 91 20 40 08/12/16 01:55 96 20 40 08/12/16 00:00 98.1 78 20 99/50 99 Mechanical Ventilator 40 08/12/16 00:00 40 08/12/16 00:00 80 08/11/16 23:31 91 20 40 08/11/16 21:12 82 20 40 08/11/16 20:08 85 08/11/16 20:00 98.0 88 20 92/52 100 Mechanical Ventilator 40 08/11/16 20:00 40 08/11/16 19:36 86 20 40 08/11/16 17:10 92 20 40 08/11/16 17:00 98.3 84 20 90/53 100 Mechanical Ventilator 40 08/11/16 16:00 40 08/11/16 16:00 87 08/11/16 16:00 98.2 88 20 86/53 100 Mechanical Ventilator 40 08/11/16 15:00 92 20 87/50 100 Mechanical Ventilator 40 08/11/16 14:45 83 21 40 08/11/16 14:00 87 20 93/57 100 Mechanical Ventilator 40 08/11/16 13:00 92 20 82/51 100 Mechanical Ventilator 40 08/11/16 12:30 82 20 40 08/11/16 12:00 90 08/11/16 12:00 40 08/11/16 12:00 97.5 88 20 86/50 100 Mechanical Ventilator 40 08/11/16 11:00 89 20 91/41 100 Mechanical Ventilator 40 08/11/16 11:00 98/50 Height (Feet): 5 Height (Inches): 4.00 Weight (Pounds): 150 HEENT: atraumatic Respiratory/Chest: lungs clear Cardiovascular: normal rate Abdomen: soft, non tender, no mass Microbiology Date/Time Source Procedure Growth Status 08/10/16 05:30 Sputum Induced Gram Stain - Final Resulted 08/10/16 05:30 Sputum Culture - Preliminary Gram Negative Bacillus 1 Gram Negative Bacillus 2 Resulted Laboratory Tests Test 08/11/16 14:30 08/12/16 03:05 Stool Occult Blood Negative (NEGATIVE) White Blood Count 11.6 K/UL (4.8-10.8) H Red Blood Count 3.08 M/UL (4.70-6.10) L Hemoglobin 8.8 G/DL (14.2-18.0) L Hematocrit 27.2 % (42.0-52.0) L Mean Corpuscular Volume 88 FL (80-99) Mean Corpuscular Hemoglobin 28.6 PG (27.0-31.0) Mean Corpuscular Hemoglobin Concent 32.3 G/DL (32.0-36.0) Red Cell Distribution Width 17.8 % (11.6-14.8) H Platelet Count 287 K/UL (150-450) Mean Platelet Volume 5.3 FL (6.5-10.1) L Neutrophils (%) (Auto) 67.6 % (45.0-75.0) Lymphocytes (%) (Auto) 20.7 % (20.0-45.0) Monocytes (%) (Auto) 9.4 % (1.0-10.0) Eosinophils (%) (Auto) 1.7 % (0.0-3.0) Basophils (%) (Auto) 0.6 % (0.0-2.0) Sodium Level 135 mEQ/L (135-145) Potassium Level 4.2 mEQ/L (3.4-4.9) Chloride Level 102 mEQ/L (98-107) Carbon Dioxide Level 24 mEQ/L (20-30) Anion Gap 9 (5-15) Blood Urea Nitrogen 17 mg/dL (7-23) Creatinine 0.3 mg/dL (0.7-1.2) L Estimat Glomerular Filtration Rate > 60 mL/min (>60) Glucose Level 82 mg/dL (74-106) Calcium Level 8.0 mg/dL (8.6-10.2) L Current Medications Medications (Trade) Dose Ordered Sig/Tanisha Route PRN Reason Start Time Stop Time Status Last Admin Dose Admin Acetaminophen (Tylenol) 650 mg Q4H PRN ORAL Mild Pain/Temp > 100.5 08/11/16 18:00 09/10/16 17:59 Albuterol/ Ipratropium (DuoNeb 0.5-3(2.5)mg/3ml) 3 ml Q4H PRN HHN Shortness of Breath 08/11/16 18:00 08/16/16 17:59 Ceftazidime 1 gm/ Dextrose 50 ml @ 100 mls/hr Q8HR IV 08/11/16 22:00 08/18/16 21:59 12/27/16 06:03 Dextrose (Dextrose 50%) STAT PRN IV Hypoglycemia 08/11/16 18:00 09/10/16 17:59 Heparin Sodium (Porcine) (Heparin 5000 units/ml) 5,000 units EVERY 12 HOURS SUBQ 08/11/16 21:00 09/10/16 20:59 08/12/16 08:18 Insulin Aspart (NovoLOG) EVERY 6 HOURS SUBQ 08/11/16 18:00 09/10/16 17:59 Lactobacillus Acidophilus (Culturelle) 1 tab TWICE A DAY GT 08/11/16 18:00 09/10/16 17:59 08/12/16 08:16 Levothyroxine Sodium (Synthroid) 200 mcg DAILY GT 08/12/16 09:00 09/11/16 08:59 08/12/16 08:16 Lorazepam (Ativan 2mg/ml 1ml) 1 mg Q4H PRN IV For Anxiety 08/11/16 18:00 08/18/16 17:59 Metronidazole (Flagyl) 500 mg Q8HR PEG 08/11/16 22:00 08/18/16 21:59 08/12/16 06:04 Midodrine (Pro-Amatine) 5 mg THREE TIMES A DAY GT 08/11/16 18:00 09/10/16 17:59 08/12/16 08:15 Ondansetron HCl (Zofran) 4 mg Q6H PRN IV Nausea & Vomiting 08/11/16 18:00 09/10/16 17:59 Polyethylene Glycol (Miralax) 17 gm DAILY GT 08/12/16 09:00 09/11/16 08:59 08/12/16 08:16 Ranitidine HCl (Zantac) 150 mg Q12HR GT 08/11/16 21:00 09/10/16 20:59 08/12/16 08:15 Sodium Chloride 1,000 ml @ 75 mls/hr [id number] IV 08/11/16 18:00 09/10/16 17:59 08/12/16 08:15 Vancomycin HCl (Vanco rx to dose) 1 ea DAILY PRN MISC Per rx protocol 08/11/16 18:00 09/10/16 17:59 Vancomycin HCl/ Dextrose (Vancomycin/D5W 250ml) 250 ml @ 167 mls/hr Q12H IVPB 08/12/16 00:00 08/17/16 00:00 08/11/16 23:43 GURDEEP BHANDARI M.D. Aug 12, 2016 10:52
--- NOTE | 2016-08-12 11:19 | Pulmonology Progress Note ---
Assessment/Plan Problems: (1) Acute and chronic respiratory failure (2) ATN (acute tubular necrosis) (3) Septic shock (4) Bilateral pneumonia (5) History of glioma of brainstem (6) Decubital ulcer (7) Brain anoxic injury Subjective ROS Limited/Unobtainable: Yes Allergies: Coded Allergies: PENICILLINS (Verified Allergy, Unknown, 04/19/16) Objective Last 24 Hour Vital Signs Date Time Temp Pulse Resp B/P Pulse Ox O2 Delivery O2 Flow Rate FiO2 08/12/16 08:00 73 08/12/16 08:00 40 08/12/16 08:00 97.2 70 20 92/63 100 Mechanical Ventilator 40 08/12/16 06:50 88 20 40 08/12/16 04:40 89 20 40 08/12/16 04:00 40 08/12/16 04:00 96.1 74 20 93/51 100 Mechanical Ventilator 40 08/12/16 04:00 73 08/12/16 03:00 91 20 40 08/12/16 01:55 96 20 40 08/12/16 00:00 98.1 78 20 99/50 99 Mechanical Ventilator 40 08/12/16 00:00 40 08/12/16 00:00 80 08/11/16 23:31 91 20 40 08/11/16 21:12 82 20 40 08/11/16 20:08 85 08/11/16 20:00 98.0 88 20 92/52 100 Mechanical Ventilator 40 08/11/16 20:00 40 08/11/16 19:36 86 20 40 08/11/16 17:10 92 20 40 08/11/16 17:00 98.3 84 20 90/53 100 Mechanical Ventilator 40 08/11/16 16:00 40 08/11/16 16:00 87 08/11/16 16:00 98.2 88 20 86/53 100 Mechanical Ventilator 40 08/11/16 15:00 92 20 87/50 100 Mechanical Ventilator 40 08/11/16 14:45 83 21 40 08/11/16 14:00 87 20 93/57 100 Mechanical Ventilator 40 08/11/16 13:00 92 20 82/51 100 Mechanical Ventilator 40 08/11/16 12:30 82 20 40 08/11/16 12:00 90 08/11/16 12:00 40 08/11/16 12:00 97.5 88 20 86/50 100 Mechanical Ventilator 40 Intake and Output 08/11/16 08/12/16 19:00 07:00 Intake Total 1897.75 ml 1887 ml Output Total 1210 ml 1800 ml Balance 687.75 ml 87 ml Intake Free Water 100 ml IV Total 1017.75 ml 1167 ml Tube Feeding 720 ml 720 ml Other 60 ml Output Urine Total 1210 ml 1800 ml # Bowel Movements 4 1 General Appearance: cachetic HEENT: normocephalic, atraumatic Respiratory/Chest: chest wall non-tender, lungs clear Cardiovascular: normal peripheral pulses, normal rate Abdomen: normal bowel sounds, soft, non tender Genitourinary: normal external genitalia Extremities: no clubbing Skin: no rash, no lesions Neurologic/Psychiatric: gastroenterology nurse II-XII 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, no motor/sensory deficits Microbiology Date/Time Source Procedure Growth Status 08/10/16 05:30 Sputum Induced Gram Stain - Final Resulted 08/10/16 05:30 Sputum Culture - Preliminary Gram Negative Bacillus 1 Gram Negative Bacillus 2 Resulted Laboratory Tests 08/11/16 14:30: Stool Occult Blood Negative 08/12/16 03:05: White Blood Count 11.6H, Red Blood Count 3.08L, Hemoglobin 8.8L, Hematocrit 27.2L, Mean Corpuscular Volume 88, Mean Corpuscular Hemoglobin 28.6, Mean Corpuscular Hemoglobin Concent 32.3, Red Cell Distribution Width 17.8H, Platelet Count 287, Mean Platelet Volume 5.3L, Neutrophils (%) (Auto) 67.6, Lymphocytes (%) (Auto) 20.7, Monocytes (%) (Auto) 9.4, Eosinophils (%) (Auto) 1.7, Basophils (%) (Auto) 0.6, Sodium Level 135, Potassium Level 4.2, Chloride Level 102, Carbon Dioxide Level 24, Anion Gap 9, Blood Urea Nitrogen 17, Creatinine 0.3L, Estimat Glomerular Filtration Rate > 60, Glucose Level 82, Calcium Level 8.0L Current Medications Medications (Trade) Dose Ordered Sig/Tanisha Route PRN Reason Start Time Stop Time Status Last Admin Dose Admin Acetaminophen (Tylenol) 650 mg Q4H PRN ORAL Mild Pain/Temp > 100.5 08/11/16 18:00 09/10/16 17:59 Albuterol/ Ipratropium (DuoNeb 0.5-3(2.5)mg/3ml) 3 ml Q4H PRN HHN Shortness of Breath 08/11/16 18:00 08/16/16 17:59 Ceftazidime 1 gm/ Dextrose 50 ml @ 100 mls/hr Q8HR IV 08/11/16 22:00 08/18/16 21:59 08/12/16 06:03 Dextrose (Dextrose 50%) STAT PRN IV Hypoglycemia 08/11/16 18:00 09/10/16 17:59 Heparin Sodium (Porcine) (Heparin 5000 units/ml) 5,000 units EVERY 12 HOURS SUBQ 08/11/16 21:00 09/10/16 20:59 08/12/16 08:18 Insulin Aspart (NovoLOG) EVERY 6 HOURS SUBQ 08/11/16 18:00 09/10/16 17:59 Lactobacillus Acidophilus (Culturelle) 1 tab TWICE A DAY GT 08/11/16 18:00 09/10/16 17:59 08/12/16 08:16 Levothyroxine Sodium (Synthroid) 200 mcg DAILY GT 08/12/16 09:00 09/11/16 08:59 08/12/16 08:16 Lorazepam (Ativan 2mg/ml 1ml) 1 mg Q4H PRN IV For Anxiety 08/11/16 18:00 08/18/16 17:59 Midodrine (Pro-Amatine) 5 mg THREE TIMES A DAY GT 08/11/16 18:00 09/10/16 17:59 08/12/16 08:15 Ondansetron HCl (Zofran) 4 mg Q6H PRN IV Nausea & Vomiting 08/11/16 18:00 09/10/16 17:59 Polyethylene Glycol (Miralax) 17 gm DAILY GT 08/12/16 09:00 09/11/16 08:59 08/12/16 08:16 Ranitidine HCl 150 mg 150 mg Q12HR GT 08/11/16 21:00 09/10/16 20:59 08/12/16 08:15 Sodium Chloride (Sodium Chloride 1000ml bag) 1,000 ml @ 75 mls/hr [id number] IV 08/11/16 18:00 09/10/16 17:59 08/12/16 08:15 Tigecycline 50 mg/ Dextrose 100 ml @ 200 mls/hr EVERY 12 HOURS IVPB 08/12/16 21:00 08/19/16 20:59 Tigecycline/ Dextrose (Tygacil/D5W 100ml) 100 ml @ 100 mls/hr ONCE ONCE IVPB 08/12/16 12:30 08/12/16 13:29 Critical Care - Asmt/Plan Problems: (1) Septic shock (2) Acute and chronic respiratory failure (3) Pleural effusion (4) ATN (acute tubular necrosis) (5) Brain anoxic injury (6) Acute flaccid quadriplegia (7) Feeding by G-tube Respiratory: monitor respiratory rate Cardiac: start pressors, continue pressors, stop pressors Renal: F/U I&O, check electrolytes Infectious Disease: check cultures, continue antibiotics Gastrointestinal: continue feedings/current rate Endocrine: monitor blood sugar, check HgA1C, continue sliding scale insulin Hematologic: monitor H/H, transfuse if hgb<8.5 Neurologic: PRN Morphine, keep patient comfortable Prophylaxis: Protonix, Heparin Disposition: keep in ICU Notes Reviewed: renal Discussed with: nurses, consultants, rn case manager JAKUB MORALES Aug 12, 2016 11:19
--- NOTE | 2016-08-12 11:57 | Diagnostic Imaging Report ---
Indication: SOB Technique: One view of the chest Comparison: 08/11/2016 Findings: Is persistent elevation right hemidiaphragm. Tracheostomy, interstitial and alveolar edema persists, unchanged. There may be a small right-sided pleural effusion. Right arm PICC is again demonstrated. Impression: Unchanged, over one day, findings as above.
--- NOTE | 2016-08-12 14:16 | Wound Care Consultation ---
Wound Assessment Wound Assessment #1: Wound Present on Admission: No New Wound: Yes Status Change of Wound: No Wound Location Body Site Modif: right Wound Location Body Site: ear - top area Wound Type: scab Rashawn Test: Does not Rashawn Wound Thickness: Full Thickness Wound Length: 1.0 Wound Width: 1.0 Wound Drainage Amount: None Wound Drainage Odor: None/Absent Tissue Surrounding Wound: Erythemic Wound Assessment #2: Wound Number: #2 Wound Present on Admission: No New Wound: Yes Status Change of Wound: No Wound Location Body Site Modif: right Wound Location Body Site: ear - mid Wound Type: scab Wound Thickness: Full Thickness Wound Length: 1.0 Wound Width: 1.0 Wound Drainage Description: Serosanguineous Wound Drainage Amount: Scant Wound Drainage Odor: None/Absent Tissue Surrounding Wound: Erythemic Wound Comment #1 Right top of ear scab. #2 Right Mid ear scab. Recommendation -Local wound care as ordered. -Keep clean and dry. -Optimize Nutrition. -Low air loss with AP. -Turn and reposition. -Reassess and notify MD if any changes are noted. KARINA KINGSTON Aug 12, 2016 14:16
[2016-08-12] MEDS ORDERED: NS 275ml ONE ×2 (14:28→14:41)
[2016-08-12] MEDS ORDERED: Tubing IV Secondary IV ONE (14:28)
[2016-08-12] MEDS ORDERED: Tubing Blood Filter IV ONE ×2 (14:28→14:41)
--- NOTE | 2016-08-12 16:11 | GI Initial Consult Note ---
History of Present Illness General Date patient seen: Aug 12, 2016 Time patient seen: 13:00 Reason for Hospitalization: Abnormal Labs Referring physician: JAKUB MORALES Reason for Consultation: ANEMIA Present Illness HPI CHIEF COMPLAINT: The patient is a 60-year-old, male, who presents with a chief complaint of respiratory distress. HISTORY OF PRESENT ILLNESS: The patient is a resident of [facility]. The patient has a history of vent dependent respiratory failure. According to staff at [facility], the patient began experiencing increasing respiratory distress. The patient was transported to [facility] emergency room. The patient is admitted for pneumonia and respiratory distress. GI NOTE: HPI as noted above. GI consulted for anemia r/o GI bleed. Pt is familiar to us, admitted here at [facility] previously in June for same diagnosis. Pt is trach and GT dependant. Pt p/w with anemia Hgb 8.8 s/p blood transfusion yesterday, elevated alk phos and leukocytosis. GI procedures held previously. Home Meds Reported Medications Midodrine* (PROAMATINE*) 5 Mg Tablet, 5 MG GT THREE TIMES A DAY, TAB 07/30/16 Epoetin Bobby (EPOGEN) 20,000 Unit/2 Ml Vial, 5000 UNIT SUBQ 3XW, VIAL 07/30/16 Amino Acids/Protein Hydrolys (Pro-Stat Max Liquid) 887 Ml Liquid, 30 ML GT TID, ML 07/30/16 Insulin Aspart (NOVOLOG) 100 Unit/1 Ml Vial 06/28/16 Hydrocodone Bit/Acetaminophen 5-325* (NORCO 5-325 TABLET*) 1 Each Tablet, 2 TAB ORAL EVERY 8 HOURS Y for For Pain, TAB 06/28/16 Lorazepam* (ATIVAN*) 1 Mg Tablet, 1 MG ORAL EVERY 6 HOURS Y for For Anxiety, TAB 06/28/16 Polyethylene Glycol 3350* (POLYETHYLENE GLYCOL 3350*) 17 Gm Powd.pack, 17 GM ORAL DAILY, PACKET 05/09/16 Ondansetron* (ZOFRAN*) 4 Mg/2 Ml Vial, 4 MG IV Q6H Y for Nausea & Vomiting, VIAL 05/09/16 Midodrine* (PROAMATINE*) 2.5 Mg Tablet, 2.5 MG ORAL THREE TIMES A DAY, TAB 05/09/16 Polyvinyl Alcohol/Povidone/Pf (REFRESH CLASSIC EYE DROPS) 1 Each Droperette, 1 EACH OP TID Y for Dry Eyes 04/20/16 Heparin Sodium,Porcine/Ns/Pf (Heparin) 2,000 Unit/1000 Ml Iv.soln, 5000 UNIT SUBQ BID 04/20/16 Lactobacillus Acidophilus (ACIDOPHILUS) 1 Each Capsule, 1 EACH GT DAILY, CAP 04/20/16 Famotidine (FAMOTIDINE) 20 Mg Tablet, 20 MG GT Q12HR, #60 TAB 0 Refills 04/20/16 Levothyroxine Sodium* (LEVOTHYROXINE SODIUM*) 125 Mcg Tablet, 200 MCG GT DAILY, TAB Take in the morning on an empty stomach, at least 30 minutes before food. 04/20/16 Med list reviewed/reconciled: Yes Allergies: Coded Allergies: PENICILLINS (Verified Allergy, Unknown, 04/19/16) Patient History Limited by: medical condition History Provided By: Medical Record PM Narrative 1. Glioblastoma multiforme. 2. Chronic respiratory failure with tracheostomy and vent dependence. 3. Anoxic brain injury. 4. History of cardiac arrest x2 in the past. 5. Dysphagia with G-tube placement. 6. Functional quadriplegia. 7. Hypothyroidism. PAST SURGICAL HISTORY: Significant for tracheostomy. Review of Systems All Other Systems: negative except mentioned in HPI Physical Exam Vital Signs Date Time Temp Pulse Resp B/P Pulse Ox O2 Delivery O2 Flow Rate FiO2 08/08/16 08:00 40 08/08/16 08:00 81 08/08/16 08:39 16 115/85 99 Mechanical Ventilator 08/08/16 08:40 97.7 Sp02 EP Interpretation: reviewed Labs Laboratory Tests Test 08/12/16 03:05 White Blood Count 11.6 K/UL (4.8-10.8) H Red Blood Count 3.08 M/UL (4.70-6.10) L Hemoglobin 8.8 G/DL (14.2-18.0) L Hematocrit 27.2 % (42.0-52.0) L Mean Corpuscular Volume 88 FL (80-99) Mean Corpuscular Hemoglobin 28.6 PG (27.0-31.0) Mean Corpuscular Hemoglobin Concent 32.3 G/DL (32.0-36.0) Red Cell Distribution Width 17.8 % (11.6-14.8) H Platelet Count 287 K/UL (150-450) Mean Platelet Volume 5.3 FL (6.5-10.1) L Neutrophils (%) (Auto) 67.6 % (45.0-75.0) Lymphocytes (%) (Auto) 20.7 % (20.0-45.0) Monocytes (%) (Auto) 9.4 % (1.0-10.0) Eosinophils (%) (Auto) 1.7 % (0.0-3.0) Basophils (%) (Auto) 0.6 % (0.0-2.0) Sodium Level 135 mEQ/L (135-145) Potassium Level 4.2 mEQ/L (3.4-4.9) Chloride Level 102 mEQ/L (98-107) Carbon Dioxide Level 24 mEQ/L (20-30) Anion Gap 9 (5-15) Blood Urea Nitrogen 17 mg/dL (7-23) Creatinine 0.3 mg/dL (0.7-1.2) L Estimat Glomerular Filtration Rate > 60 mL/min (>60) Glucose Level 82 mg/dL (74-106) Calcium Level 8.0 mg/dL (8.6-10.2) L General Appearance: no apparent distress Head: normocephalic Neck: normal inspection, supple Respiratory: other - mech vent Cardiovascular: normal rate Gastrointestinal: gt - c/d/i Skin: normal color, no rash, warm/dry Lymphatic: normal inspection, no adenopathy Current Medications Current Medications Medications (Trade) Dose Ordered Sig/Tanisha Route PRN Reason Start Time Stop Time Status Last Admin Dose Admin Acetaminophen (Tylenol) 650 mg Q4H PRN ORAL Mild Pain/Temp > 100.5 08/11/16 18:00 09/10/16 17:59 Albuterol/ Ipratropium (DuoNeb 0.5-3(2.5)mg/3ml) 3 ml Q4H PRN HHN Shortness of Breath 08/11/16 18:00 08/16/16 17:59 Ceftazidime 1 gm/ Dextrose 50 ml @ 100 mls/hr Q8HR IV 08/11/16 22:00 08/18/16 21:59 08/12/16 13:08 Dextrose (Dextrose 50%) STAT PRN IV Hypoglycemia 08/11/16 18:00 09/10/16 17:59 Heparin Sodium (Porcine) (Heparin 5000 units/ml) 5,000 units EVERY 12 HOURS SUBQ 08/11/16 21:00 09/10/16 20:59 08/12/16 08:18 Insulin Aspart (NovoLOG) EVERY 6 HOURS SUBQ 08/11/16 18:00 09/10/16 17:59 Lactobacillus Acidophilus (Culturelle) 1 tab TWICE A DAY GT 08/11/16 18:00 09/10/16 17:59 08/12/16 08:16 Levothyroxine Sodium (Synthroid) 200 mcg DAILY GT 08/12/16 09:00 09/11/16 08:59 08/12/16 08:16 Lorazepam (Ativan 2mg/ml 1ml) 1 mg Q4H PRN IV For Anxiety 08/11/16 18:00 08/18/16 17:59 Midodrine (Pro-Amatine) 5 mg THREE TIMES A DAY GT 08/11/16 18:00 09/10/16 17:59 08/12/16 13:08 Ondansetron HCl (Zofran) 4 mg Q6H PRN IV Nausea & Vomiting 08/11/16 18:00 09/10/16 17:59 Polyethylene Glycol (Miralax) 17 gm DAILY GT 08/12/16 09:00 09/11/16 08:59 08/12/16 08:16 Ranitidine HCl 150 mg 150 mg Q12HR GT 08/11/16 21:00 09/10/16 20:59 08/12/16 08:15 Sodium Chloride (Sodium Chloride 1000ml bag) 1,000 ml @ 75 mls/hr [id number] IV 08/11/16 18:00 09/10/16 17:59 08/12/16 08:15 Tigecycline/ Sodium Chloride (Tygacil/Sodium Chloride 100ml bag) 100 ml @ 200 mls/hr EVERY 12 HOURS IVPB 08/12/16 21:00 08/19/16 20:59 GI: Plan Problems: (1) Feeding by G-tube (2) Anemia (3) Respiratory failure (4) Dysphagia (5) Diabetes mellitus (6) Abnormal LFTs Plan monitor H&H, transfuse prn GTF per dietary OB stool negative, will repeat second AMA to r/o PBC, negative hep panel negative (06/04/16) ppi will consider GI procedures Thank you for referring this patient, we will follow. Ashley Mccloud N.P. Aug 12, 2016 16:11
[2016-08-13] VITALS (7 sets, daily range): BP systolic 92–112; BP diastolic 55–76
[2016-08-13 04:56] LABS: BASOPHILS % (AUTO) 0.6 % (0.0-2.0); EOSINOPHILS % (AUTO) 1.2 % (0.0-3.0); MEAN CORPUSCULAR HGB CONC 32.5 G/DL (32.0-36.0); MEAN CORPUSCULAR VOLUME 89 FL (80-99); MEAN PLATELET VOLUME 5.5 FL (6.5-10.1); MONOCYTES % (AUTO) 7.5 % (1.0-10.0); NEUTROPHILS % (AUTO) 69.8 % (45.0-75.0); PLATELET COUNT 339 K/UL (150-450); RED BLOOD COUNT 3.39 M/UL (4.70-6.10); RED CELL DISTRIBUTION WIDTH 18.2 % (11.6-14.8); WHITE BLOOD COUNT 12.7 K/UL (4.8-10.8)
[2016-08-13 05:06] LABS: INR 1.2 (0.9-1.1); PROTHROMBIN TIME 12.1 SEC (9.30-11.50)
[2016-08-13 05:21] LABS: ALANINE AMINOTRANSFERASE 22 U/L (3-41); ALBUMIN/GLOBULIN RATIO 0.8 (1.0-2.7); ANION GAP 13 (5-15); ASPARTATE AMINO TRANSFERASE 37 U/L (5-40); CALCIUM 8.3 mg/dL (8.6-10.2); CARBON DIOXIDE 23 mEQ/L (20-30); CHLORIDE 98 mEQ/L (98-107); CREATININE 0.3 mg/dL (0.7-1.2); GLOMERULAR FILTRATION RATE > 60 mL/min (>60); HEMOLYSIS 0; MAGNESIUM 1.7 mg/dL (1.7-2.5); PHOSPHORUS 3.9 mg/dL (2.5-4.8); POTASSIUM 4.4 mEQ/L (3.4-4.9); SODIUM 134 mEQ/L (135-145); TOTAL PROTEIN 5.2 g/dL (6.6-8.7)
[2016-08-13] MEDS: NovoLOG Insulin Flexpen SUBQ SCH ×3 (06:44→17:41)
[2016-08-13] MEDS: Lactobacillus-GG tablet GT SCH ×2 (08:22→17:41)
[2016-08-13] MEDS: Miralax 17gm pkt GT SCH (08:23)
[2016-08-13] MEDS: Heparin 5000 units/ml inj SUBQ SCH ×2 (08:25→20:28)
--- NOTE | 2016-08-13 11:35 | GI Progress Note ---
Assessment/Plan Problems: (1) Feeding by G-tube ICD Codes: Z93.1 - Gastrostomy status SNOMED: 865052070, 873137310 (2) Anemia ICD Codes: D64.9 - Anemia, unspecified SNOMED: 553332555 (3) Dysphagia ICD Codes: R13.10 - Dysphagia, unspecified SNOMED: 73311855, 833225077 (4) Diabetes mellitus ICD Codes: E11.9 - Type 2 diabetes mellitus without complications SNOMED: 53311444 (5) CAD (coronary artery disease) ICD Codes: I25.10 - Atherosclerotic heart disease of [place] coronary artery without angina pectoris SNOMED: 97911036 (6) CHF (congestive heart failure) ICD Codes: I50.9 - Heart failure, unspecified SNOMED: 41576781 (7) Abnormal LFTs ICD Codes: R79.89 - Other specified abnormal findings of blood chemistry SNOMED: 744811565 Status: stable Status Narrative Discussed with Dr. Eddy. Assessment/Plan monitor H&H, transfuse prn >> stable today GTF per dietary, tolerating OB stool x 2 >> negative AMA to r/o PBC, negative hep panel negative (06/04/16) ppi fu labs defer GI procedures at this time. Subjective Subjective limited Objective Last 24 Hour Vital Signs Date Time Temp Pulse Resp B/P Pulse Ox O2 Delivery O2 Flow Rate FiO2 08/13/16 08:00 96.6 83 18 112/76 100 Mechanical Ventilator 08/13/16 08:00 10.0 40 08/13/16 08:00 84 08/13/16 06:55 86 20 40 08/13/16 05:04 85 20 40 08/13/16 04:00 10.0 40 08/13/16 04:00 97.2 68 16 93/63 100 Mechanical Ventilator 08/13/16 03:51 82 08/13/16 03:07 82 20 40 08/13/16 00:30 78 20 40 08/13/16 00:00 97.0 79 16 98/55 99 Mechanical Ventilator 08/13/16 00:00 10.0 40 08/12/16 23:48 80 08/12/16 23:25 77 20 40 08/12/16 21:15 86 20 40 08/12/16 20:00 97.0 86 20 90/61 98 Mechanical Ventilator 40 08/12/16 20:00 40 08/12/16 19:38 87 08/12/16 19:25 82 20 40 08/12/16 17:15 84 20 40 08/12/16 16:11 96.8 82 20 98/53 100 Mechanical Ventilator 40 08/12/16 16:00 40 08/12/16 15:16 82 08/12/16 15:04 80 20 40 08/12/16 13:01 58 20 40 08/12/16 12:00 40 08/12/16 12:00 80 08/12/16 12:00 97.0 78 20 94/49 100 Mechanical Ventilator 40 Intake and Output 08/12/16 08/13/16 19:00 07:00 Intake Total 1780 ml 1282.5 ml Output Total 650 ml 1550 ml Balance 1130 ml -267.5 ml Intake Free Water 50 ml 100 ml IV Total 800 ml 462.5 ml Tube Feeding 780 ml 720 ml Other 150 ml Output Urine Total 650 ml 1550 ml # Bowel Movements 3 1 Laboratory Tests Test 08/12/16 16:00 08/13/16 04:00 Stool Occult Blood Negative (NEGATIVE) White Blood Count 12.7 K/UL (4.8-10.8) H Red Blood Count 3.39 M/UL (4.70-6.10) L Hemoglobin 9.8 G/DL (14.2-18.0) L Hematocrit 30.2 % (42.0-52.0) L Mean Corpuscular Volume 89 FL (80-99) Mean Corpuscular Hemoglobin 29.0 PG (27.0-31.0) Mean Corpuscular Hemoglobin Concent 32.5 G/DL (32.0-36.0) Red Cell Distribution Width 18.2 % (11.6-14.8) H Platelet Count 339 K/UL (150-450) Mean Platelet Volume 5.5 FL (6.5-10.1) L Neutrophils (%) (Auto) 69.8 % (45.0-75.0) Lymphocytes (%) (Auto) 21.0 % (20.0-45.0) Monocytes (%) (Auto) 7.5 % (1.0-10.0) Eosinophils (%) (Auto) 1.2 % (0.0-3.0) Basophils (%) (Auto) 0.6 % (0.0-2.0) Prothrombin Time 12.1 SEC (9.30-11.50) H Prothromb Time International Ratio 1.2 (0.9-1.1) H Activated Partial Thromboplast Time 35 SEC (23-33) H Sodium Level 134 mEQ/L (135-145) L Potassium Level 4.4 mEQ/L (3.4-4.9) Chloride Level 98 mEQ/L (98-107) Carbon Dioxide Level 23 mEQ/L (20-30) Anion Gap 13 (5-15) Blood Urea Nitrogen 21 mg/dL (7-23) Creatinine 0.3 mg/dL (0.7-1.2) L Estimat Glomerular Filtration Rate > 60 mL/min (>60) Glucose Level 99 mg/dL (74-106) Calcium Level 8.3 mg/dL (8.6-10.2) L Phosphorus Level 3.9 mg/dL (2.5-4.8) Magnesium Level 1.7 mg/dL (1.7-2.5) Total Bilirubin < 0.2 mg/dL (0.0-1.2) Aspartate Amino Transf (AST/SGOT) 37 U/L (5-40) Alanine Aminotransferase (ALT/SGPT) 22 U/L (3-41) Alkaline Phosphatase 848 U/L (40-129) H Total Protein 5.2 g/dL (6.6-8.7) L Albumin 2.4 g/dL (3.5-5.2) L Globulin 2.8 g/dL Albumin/Globulin Ratio 0.8 (1.0-2.7) L Height (Feet): 5 Height (Inches): 4.00 Weight (Pounds): 150 General Appearance: no apparent distress Cardiovascular: normal rate Respiratory/Chest: other - mech vent Abdominal Exam: normal bowel sounds, soft, GT site - c/d/i Ashley Mccloud N.P. Aug 13, 2016 11:35
--- NOTE | 2016-08-13 12:16 | Infectious Diseases Prog Note ---
Assessment/Plan Assessment/Plan MICRO: 07/30 BCx(-) 07/30 UCx not sent / UA(-) 07/30 SCx not sent 06/30 Back WCx MDR-K.pneumoniae, VRE.faecalis, CONS, C.albicans 06/28 BCx CONS 1/4 06/29 SCx qI-PSA, P.stuartii 06/26 Back WCx MDR-K.pneumoniae, MDR-ACB 06/17 SCx ESBL(+) K.pneumoniae, qS-PSA, S.maltophilia 06/11 BCx(-) 06/11 UCx >100K E.coli 05/12 Cath tip <10K CONS 05/11 BCx(-) 05/09 BCx CONS / ( single stick ) 05/09 UCx qR-K.pneumoniae 04/22 SCx qI-PSA 04/19 BCx CONS 10/18 ASSESSMENT: 60-year-old male with: // Multiple decubiti POA, infected Wnd CX ( ACB and Enterococcus ) - SP debridement, bone bx 08/08 - Bone scan 07/01: Limited, essentially nondiagnostic exam. No gross findings to suggest acute osteomyelitis - h/o MDR-K.pneumoniae, VRE.faecalis, CONS, C.albicans // h/o recurrent CONS bacteremia - surveillance BCx(-) - h/o recurrent CONS 2/4 (05/09) SP IV vanco x28d - h/o CONS 3/4 (04/19 ) SP Rx IV vanco x7d - TTE 05/11: poorly visualized valves, poor candidate MARIA C - h/o CONS cath tip colonization ( <10K ) // h/o recurrent PNAs ( VAP / HCAP ) r/o recurrence - SCx : Providencia , ESBL Kleb , Diphtheroids - CXR 08/12 : interstitial and alveolar edema persists, - h/o qI,S-PSA, P.stuartii, ESBL(+) K.pneumoniae, S.maltophilia // h/o recurrent UTIs - US: Mild left hydronephrosis, new since prior study of 04/21/2016. Etiology not demonstrated but concerning for downstream obstruction - h/o E.coli, K.pneumoniae SP Rx // Elevated LFTs, GGT - chronic, stable - US: Equivocally visualized stone filled gallbladder, versus shadowing from duodenal gas. Mildly dilated CBD, downstream obstruction not excludable - negative: AMA, hepatitis panel // Negative C.difficile // Probable recurrent sepsis // Acute on chronic hypotension, on midodrine - now on pressors // Leukocytosis - improved // Fever - SP Chronic VDRF SP trach, PEG Anoxic encephalopathy / dementia History of glioblastoma multiforme Thrombocytosis Chronic macrocytic anemia Functional quadriplegia / bedbound / contracted [place] resident VRE colonized PCN allergy - unable to qualify. Tolerates cefepime, meropenem Full Code PLAN: cont Tygacil d# 2 , Ceftaz d# 3 ( 08/12 SP IV vancomycin d# 13 and Flagyl d# 9 ) ( SP aztreonam d# 12 ) ( 08/04 SP levaquin d# 5 ) ( 07/05 SP IV vancomycin, aztreonam d# 7 / 7 ) ( 06/26 SP Merrem d# 6, cefepime d# 14 ) ( SP IV vancomycin, d# 6 and flagyl d# 3 ) ( SP IV vancomycin d# / ( 05/13 SP aztreonam, amikacin d# 5 / 5 ) ( 05/02 SP aztreonam d# 14 / 14 ) ( 04/25 SP vancomycin d# 7 / 7 ) f/u bone bx Monitor CBC, temperatures Monitor CMP Monitor chest x-ray vent support, trach care, aspiration precautions wound care contact isolation Subjective Constitutional: Denies: anorexia, chills, drenching sweats, fatigue, fever, no symptoms, other Allergies: Coded Allergies: PENICILLINS (Verified Allergy, Unknown, 04/19/16) Subjective afebrile Objective Vital Signs Last 24 Hour Vital Signs Date Time Temp Pulse Resp B/P Pulse Ox O2 Delivery O2 Flow Rate FiO2 08/13/16 08:00 96.6 83 18 112/76 100 Mechanical Ventilator 08/13/16 08:00 10.0 40 08/13/16 08:00 84 08/13/16 06:55 86 20 40 08/13/16 05:04 85 20 40 08/13/16 04:00 10.0 40 08/13/16 04:00 97.2 68 16 93/63 100 Mechanical Ventilator 08/13/16 03:51 82 08/13/16 03:07 82 20 40 08/13/16 00:30 78 20 40 08/13/16 00:00 97.0 79 16 98/55 99 Mechanical Ventilator 08/13/16 00:00 10.0 40 08/12/16 23:48 80 08/12/16 23:25 77 20 40 08/12/16 21:15 86 20 40 08/12/16 20:00 97.0 86 20 90/61 98 Mechanical Ventilator 40 08/12/16 20:00 40 08/12/16 19:38 87 08/12/16 19:25 82 20 40 08/12/16 17:15 84 20 40 08/12/16 16:11 96.8 82 20 98/53 100 Mechanical Ventilator 40 08/12/16 16:00 40 08/12/16 15:16 82 08/12/16 15:04 80 20 40 08/12/16 13:01 58 20 40 Height (Feet): 5 Height (Inches): 4.00 Weight (Pounds): 150 HEENT: anicteric Respiratory/Chest: no respiratory distress Cardiovascular: regular rhythm Skin: no lesions Laboratory Tests Test 08/12/16 16:00 08/13/16 04:00 Stool Occult Blood Negative (NEGATIVE) White Blood Count 12.7 K/UL (4.8-10.8) H Red Blood Count 3.39 M/UL (4.70-6.10) L Hemoglobin 9.8 G/DL (14.2-18.0) L Hematocrit 30.2 % (42.0-52.0) L Mean Corpuscular Volume 89 FL (80-99) Mean Corpuscular Hemoglobin 29.0 PG (27.0-31.0) Mean Corpuscular Hemoglobin Concent 32.5 G/DL (32.0-36.0) Red Cell Distribution Width 18.2 % (11.6-14.8) H Platelet Count 339 K/UL (150-450) Mean Platelet Volume 5.5 FL (6.5-10.1) L Neutrophils (%) (Auto) 69.8 % (45.0-75.0) Lymphocytes (%) (Auto) 21.0 % (20.0-45.0) Monocytes (%) (Auto) 7.5 % (1.0-10.0) Eosinophils (%) (Auto) 1.2 % (0.0-3.0) Basophils (%) (Auto) 0.6 % (0.0-2.0) Prothrombin Time 12.1 SEC (9.30-11.50) H Prothromb Time International Ratio 1.2 (0.9-1.1) H Activated Partial Thromboplast Time 35 SEC (23-33) H Sodium Level 134 mEQ/L (135-145) L Potassium Level 4.4 mEQ/L (3.4-4.9) Chloride Level 98 mEQ/L (98-107) Carbon Dioxide Level 23 mEQ/L (20-30) Anion Gap 13 (5-15) Blood Urea Nitrogen 21 mg/dL (7-23) Creatinine 0.3 mg/dL (0.7-1.2) L Estimat Glomerular Filtration Rate > 60 mL/min (>60) Glucose Level 99 mg/dL (74-106) Calcium Level 8.3 mg/dL (8.6-10.2) L Phosphorus Level 3.9 mg/dL (2.5-4.8) Magnesium Level 1.7 mg/dL (1.7-2.5) Total Bilirubin < 0.2 mg/dL (0.0-1.2) Aspartate Amino Transf (AST/SGOT) 37 U/L (5-40) Alanine Aminotransferase (ALT/SGPT) 22 U/L (3-41) Alkaline Phosphatase 848 U/L (40-129) H Total Protein 5.2 g/dL (6.6-8.7) L Albumin 2.4 g/dL (3.5-5.2) L Globulin 2.8 g/dL Albumin/Globulin Ratio 0.8 (1.0-2.7) L Current Medications Medications (Trade) Dose Ordered Sig/Tanisha Route PRN Reason Start Time Stop Time Status Last Admin Dose Admin Acetaminophen (Tylenol) 650 mg Q4H PRN ORAL Mild Pain/Temp > 100.5 08/11/16 18:00 09/10/16 17:59 Albuterol/ Ipratropium (DuoNeb 0.5-3(2.5)mg/3ml) 3 ml Q4H PRN HHN Shortness of Breath 08/11/16 18:00 08/16/16 17:59 Ceftazidime 1 gm/ Dextrose 50 ml @ 100 mls/hr Q8HR IV 08/11/16 22:00 08/18/16 21:59 08/13/16 06:34 Dextrose (Dextrose 50%) STAT PRN IV Hypoglycemia 08/11/16 18:00 09/10/16 17:59 Heparin Sodium (Porcine) (Heparin 5000 units/ml) 5,000 units EVERY 12 HOURS SUBQ 08/11/16 21:00 09/10/16 20:59 08/13/16 08:25 Insulin Aspart (NovoLOG) EVERY 6 HOURS SUBQ 08/11/16 18:00 09/10/16 17:59 Lactobacillus Acidophilus (Culturelle) 1 tab TWICE A DAY GT 08/11/16 18:00 09/10/16 17:59 08/13/16 08:22 Levothyroxine Sodium (Synthroid) 200 mcg DAILY GT 08/12/16 09:00 09/11/16 08:59 08/13/16 08:24 Lorazepam (Ativan 2mg/ml 1ml) 1 mg Q4H PRN IV For Anxiety 08/11/16 18:00 08/18/16 17:59 Midodrine (Pro-Amatine) 5 mg THREE TIMES A DAY GT 08/11/16 18:00 09/10/16 17:59 08/13/16 08:23 Ondansetron HCl (Zofran) 4 mg Q6H PRN IV Nausea & Vomiting 08/11/16 18:00 09/10/16 17:59 Polyethylene Glycol (Miralax) 17 gm DAILY GT 08/12/16 09:00 09/11/16 08:59 08/12/16 08:16 Ranitidine HCl 150 mg 150 mg Q12HR GT 08/11/16 21:00 09/10/16 20:59 08/13/16 08:22 Sodium Chloride (Sodium Chloride 1000ml bag) 1,000 ml @ 75 mls/hr [id number] IV 08/11/16 18:00 09/10/16 17:59 08/13/16 09:42 Tigecycline/ Sodium Chloride (Tygacil/Sodium Chloride 100ml bag) 100 ml @ 200 mls/hr EVERY 12 HOURS IVPB 08/12/16 21:00 08/19/16 20:59 08/13/16 09:42 GURDEEP BHANDARI M.D. Aug 13, 2016 12:16
[2016-08-13] MEDS ORDERED: Tubing IV Secondary IV ONE (15:05)
[2016-08-14 04:00] VITALS: BP 108/72
[2016-08-14 05:30] LABS: BASOPHILS % (AUTO) 0.6 % (0.0-2.0); EOSINOPHILS % (AUTO) 0.5 % (0.0-3.0); LYMPHOCYTES % (AUTO) 18.2 % (20.0-45.0); MEAN CORPUSCULAR HEMOGLOBIN 28.8 PG (27.0-31.0); MEAN CORPUSCULAR HGB CONC 31.9 G/DL (32.0-36.0); MEAN CORPUSCULAR VOLUME 90 FL (80-99); MEAN PLATELET VOLUME 5.6 FL (6.5-10.1); MONOCYTES % (AUTO) 8.9 % (1.0-10.0); NEUTROPHILS % (AUTO) 71.8 % (45.0-75.0); PLATELET COUNT 330 K/UL (150-450); RED BLOOD COUNT 3.24 M/UL (4.70-6.10); RED CELL DISTRIBUTION WIDTH 18.7 % (11.6-14.8); WHITE BLOOD COUNT 13.2 K/UL (4.8-10.8)
[2016-08-14] MEDS: NovoLOG Insulin Flexpen SUBQ SCH ×5 (05:55→23:44)
[2016-08-14 05:58] LABS: ANION GAP 14 (5-15); CALCIUM 8.1 mg/dL (8.6-10.2); CARBON DIOXIDE 23 mEQ/L (20-30); CHLORIDE 100 mEQ/L (98-107); CREATININE 0.3 mg/dL (0.7-1.2); GLOMERULAR FILTRATION RATE > 60 mL/min (>60); HEMOLYSIS 5; MAGNESIUM 1.7 mg/dL (1.7-2.5); PHOSPHORUS 3.9 mg/dL (2.5-4.8); POTASSIUM 5.1 mEQ/L (3.4-4.9); SODIUM 137 mEQ/L (135-145)
[2016-08-14 08:00] VITALS: BP 117/73
[2016-08-14] MEDS: Heparin 5000 units/ml inj SUBQ SCH ×2 (08:29→20:56)
[2016-08-14] MEDS: Lactobacillus-GG tablet GT SCH ×2 (08:34→17:45)
[2016-08-14] MEDS: Miralax 17gm pkt GT SCH (08:34)
--- NOTE | 2016-08-14 10:36 | Pulmonology Progress Note ---
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: 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, 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, renal Discussed with: nurses, case consultant Subjective ROS Limited/Unobtainable: No Constitutional: Reports: no symptoms Respiratory: Reports: no symptoms Allergies: Coded Allergies: PENICILLINS (Verified Allergy, Unknown, 04/19/16) Objective Last 24 Hour Vital Signs Date Time Temp Pulse Resp B/P Pulse Ox O2 Delivery O2 Flow Rate FiO2 08/14/16 09:12 88 21 40 08/14/16 06:55 85 24 40 08/14/16 05:24 92 23 40 08/14/16 04:00 91 08/14/16 04:00 40 08/14/16 04:00 97.7 91 20 108/72 100 Mechanical Ventilator 40 08/14/16 02:52 91 20 40 08/14/16 01:10 91 20 40 08/14/16 00:00 87 08/14/16 00:00 40 08/13/16 23:36 98.2 87 20 96/62 100 Mechanical Ventilator 08/13/16 22:59 101 21 40 08/13/16 21:11 91 20 40 08/13/16 20:00 40 08/13/16 20:00 98 08/13/16 20:00 98.4 95 16 92/59 99 Mechanical Ventilator 40 08/13/16 20:00 95 08/13/16 19:05 93 21 40 08/13/16 17:51 93 24 40 08/13/16 16:06 97.5 87 24 101/72 100 Mechanical Ventilator 40 08/13/16 16:00 40 08/13/16 16:00 89 08/13/16 14:39 88 20 40 08/13/16 12:00 40 08/13/16 12:00 96.4 82 20 107/69 99 Mechanical Ventilator 08/13/16 12:00 84 Intake and Output 08/13/16 08/14/16 19:00 07:00 Intake Total 1795 ml 1560 ml Output Total 1000 ml 3520 ml Balance 795 ml -1960 ml Intake Free Water 50 ml 110 ml IV Total 1050 ml 750 ml Tube Feeding 600 ml 660 ml Other 95 ml 40 ml Output Urine Total 1000 ml 3520 ml # Bowel Movements 2 3 General Appearance: cachetic HEENT: normocephalic, atraumatic Respiratory/Chest: chest wall non-tender, lungs clear Cardiovascular: normal peripheral pulses, normal rate Abdomen: normal bowel sounds, soft, non tender Genitourinary: normal external genitalia Extremities: no clubbing Skin: no lesions Neurologic/Psychiatric: memorial designer II-XII 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, no motor/sensory deficits Laboratory Tests 08/14/16 04:30: White Blood Count 13.2H, Red Blood Count 3.24L, Hemoglobin 9.3L, Hematocrit 29.2L, Mean Corpuscular Volume 90, Mean Corpuscular Hemoglobin 28.8, Mean Corpuscular Hemoglobin Concent 31.9L, Red Cell Distribution Width 18.7H, Platelet Count 330, Mean Platelet Volume 5.6L, Neutrophils (%) (Auto) 71.8, Lymphocytes (%) (Auto) 18.2L, Monocytes (%) (Auto) 8.9, Eosinophils (%) (Auto) 0.5, Basophils (%) (Auto) 0.6, Sodium Level 137, Potassium Level 5.1H, Chloride Level 100, Carbon Dioxide Level 23, Anion Gap 14, Blood Urea Nitrogen 24H, Creatinine 0.3L, Estimat Glomerular Filtration Rate > 60, Glucose Level 98, Calcium Level 8.1L, Phosphorus Level 3.9, Magnesium Level 1.7 Current Medications Medications (Trade) Dose Ordered Sig/Tanisha Route PRN Reason Start Time Stop Time Status Last Admin Dose Admin Acetaminophen (Tylenol) 650 mg Q4H PRN ORAL Mild Pain/Temp > 100.5 08/11/16 18:00 09/10/16 17:59 Albuterol/ Ipratropium (DuoNeb 0.5-3(2.5)mg/3ml) 3 ml Q4H PRN HHN Shortness of Breath 08/11/16 18:00 08/16/16 17:59 Ceftazidime 1 gm/ Dextrose 50 ml @ 100 mls/hr Q8HR IV 08/11/16 22:00 08/18/16 21:59 08/14/16 06:08 Dextrose (Dextrose 50%) STAT PRN IV Hypoglycemia 08/11/16 18:00 09/10/16 17:59 Heparin Sodium (Porcine) (Heparin 5000 units/ml) 5,000 units EVERY 12 HOURS SUBQ 08/11/16 21:00 09/10/16 20:59 08/14/16 08:29 Insulin Aspart (NovoLOG) EVERY 6 HOURS SUBQ 08/11/16 18:00 09/10/16 17:59 Lactobacillus Acidophilus (Culturelle) 1 tab TWICE A DAY GT 08/11/16 18:00 09/10/16 17:59 08/14/16 08:34 Levothyroxine Sodium (Synthroid) 200 mcg DAILY GT 08/12/16 09:00 09/11/16 08:59 08/14/16 08:26 Lorazepam (Ativan 2mg/ml 1ml) 1 mg Q4H PRN IV For Anxiety 08/11/16 18:00 08/18/16 17:59 Midodrine (Pro-Amatine) 5 mg THREE TIMES A DAY GT 08/11/16 18:00 09/10/16 17:59 08/14/16 08:27 Ondansetron HCl (Zofran) 4 mg Q6H PRN IV Nausea & Vomiting 08/11/16 18:00 09/10/16 17:59 Polyethylene Glycol (Miralax) 17 gm DAILY GT 08/12/16 09:00 09/11/16 08:59 08/14/16 08:34 Ranitidine HCl 150 mg 150 mg Q12HR GT 08/11/16 21:00 09/10/16 20:59 08/14/16 08:27 Sodium Chloride (Sodium Chloride 1000ml bag) 1,000 ml @ 75 mls/hr [id number] IV 08/11/16 18:00 09/10/16 17:59 08/14/16 01:32 Tigecycline/ Sodium Chloride (Tygacil/Sodium Chloride 100ml bag) 100 ml @ 200 mls/hr EVERY 12 HOURS IVPB 08/12/16 21:00 08/19/16 20:59 12/29/16 08:28 JAKUB MORALES Aug 14, 2016 10:36
--- NOTE | 2016-08-14 11:05 | GI Progress Note ---
Assessment/Plan Problems: (1) Feeding by G-tube ICD Codes: Z93.1 - Gastrostomy status SNOMED: 884553110, 189183804 (2) Anemia ICD Codes: D64.9 - Anemia, unspecified SNOMED: 462587041 (3) Dysphagia ICD Codes: R13.10 - Dysphagia, unspecified SNOMED: 49937149, 002222307 (4) Diabetes mellitus ICD Codes: E11.9 - Type 2 diabetes mellitus without complications SNOMED: 75483806 (5) CAD (coronary artery disease) ICD Codes: I25.10 - Atherosclerotic heart disease of [place] coronary artery without angina pectoris SNOMED: 52974867 (6) CHF (congestive heart failure) ICD Codes: I50.9 - Heart failure, unspecified SNOMED: 90683516 (7) Abnormal LFTs ICD Codes: R79.89 - Other specified abnormal findings of blood chemistry SNOMED: 027873389 Status: stable, unchanged Status Narrative Discussed with Dr. Eddy. Assessment/Plan monitor H&H, transfuse prn >> stable today GTF per dietary, tolerating OB stool x 2 >> negative AMA to r/o PBC, negative hep panel negative (06/04/16) ppi fu labs defer GI procedures at this time. Subjective Subjective limited Objective Last 24 Hour Vital Signs Date Time Temp Pulse Resp B/P Pulse Ox O2 Delivery O2 Flow Rate FiO2 08/14/16 09:12 88 21 40 08/14/16 08:00 97.7 92 26 117/73 100 Mechanical Ventilator 40 08/14/16 06:55 85 24 40 08/14/16 05:24 92 23 40 08/14/16 04:00 91 08/14/16 04:00 40 08/14/16 04:00 97.7 91 20 108/72 100 Mechanical Ventilator 40 08/14/16 02:52 91 20 40 08/14/16 01:10 91 20 40 08/14/16 00:00 87 08/14/16 00:00 40 08/13/16 23:36 98.2 87 20 96/62 100 Mechanical Ventilator 08/13/16 22:59 101 21 40 08/13/16 21:11 91 20 40 08/13/16 20:00 40 08/13/16 20:00 98 08/13/16 20:00 98.4 95 16 92/59 99 Mechanical Ventilator 40 08/13/16 20:00 95 08/13/16 19:05 93 21 40 08/13/16 17:51 93 24 40 08/13/16 16:06 97.5 87 24 101/72 100 Mechanical Ventilator 40 08/13/16 16:00 40 08/13/16 16:00 89 08/13/16 14:39 88 20 40 08/13/16 12:00 40 08/13/16 12:00 96.4 82 20 107/69 99 Mechanical Ventilator 08/13/16 12:00 84 Intake and Output 08/13/16 08/14/16 19:00 07:00 Intake Total 1795 ml 1560 ml Output Total 1000 ml 3520 ml Balance 795 ml -1960 ml Intake Free Water 50 ml 110 ml IV Total 1050 ml 750 ml Tube Feeding 600 ml 660 ml Other 95 ml 40 ml Output Urine Total 1000 ml 3520 ml # Bowel Movements 2 3 Laboratory Tests Test 08/14/16 04:30 White Blood Count 13.2 K/UL (4.8-10.8) H Red Blood Count 3.24 M/UL (4.70-6.10) L Hemoglobin 9.3 G/DL (14.2-18.0) L Hematocrit 29.2 % (42.0-52.0) L Mean Corpuscular Volume 90 FL (80-99) Mean Corpuscular Hemoglobin 28.8 PG (27.0-31.0) Mean Corpuscular Hemoglobin Concent 31.9 G/DL (32.0-36.0) L Red Cell Distribution Width 18.7 % (11.6-14.8) H Platelet Count 330 K/UL (150-450) Mean Platelet Volume 5.6 FL (6.5-10.1) L Neutrophils (%) (Auto) 71.8 % (45.0-75.0) Lymphocytes (%) (Auto) 18.2 % (20.0-45.0) L Monocytes (%) (Auto) 8.9 % (1.0-10.0) Eosinophils (%) (Auto) 0.5 % (0.0-3.0) Basophils (%) (Auto) 0.6 % (0.0-2.0) Sodium Level 137 mEQ/L (135-145) Potassium Level 5.1 mEQ/L (3.4-4.9) H Chloride Level 100 mEQ/L (98-107) Carbon Dioxide Level 23 mEQ/L (20-30) Anion Gap 14 (5-15) Blood Urea Nitrogen 24 mg/dL (7-23) H Creatinine 0.3 mg/dL (0.7-1.2) L Estimat Glomerular Filtration Rate > 60 mL/min (>60) Glucose Level 98 mg/dL (74-106) Calcium Level 8.1 mg/dL (8.6-10.2) L Phosphorus Level 3.9 mg/dL (2.5-4.8) Magnesium Level 1.7 mg/dL (1.7-2.5) Height (Feet): 5 Height (Inches): 4.00 Weight (Pounds): 150 General Appearance: no apparent distress Cardiovascular: normal rate Respiratory/Chest: other - mech vent Abdominal Exam: GT site - c/d/i Ashley Mccloud N.P. Aug 14, 2016 11:05
--- NOTE | 2016-08-14 11:59 | Infectious Diseases Prog Note ---
Assessment/Plan Assessment/Plan MICRO: 07/30 BCx(-) 07/30 UCx not sent / UA(-) 07/30 SCx not sent 06/30 Back WCx MDR-K.pneumoniae, VRE.faecalis, CONS, C.albicans 06/28 BCx CONS 1/4 06/29 SCx qI-PSA, P.stuartii 06/26 Back WCx MDR-K.pneumoniae, MDR-ACB 06/17 SCx ESBL(+) K.pneumoniae, qS-PSA, S.maltophilia 06/11 BCx(-) 06/11 UCx >100K E.coli 05/12 Cath tip <10K CONS 05/11 BCx(-) 05/09 BCx CONS / ( single stick ) 05/09 UCx qR-K.pneumoniae 04/22 SCx qI-PSA 04/19 BCx CONS 10/18 ASSESSMENT: 60-year-old male with: // Multiple decubiti POA, infected Wnd CX ( ACB and Enterococcus ) - SP debridement, bone bx 08/08 - Bone scan 07/01: Limited, essentially nondiagnostic exam. No gross findings to suggest acute osteomyelitis - h/o MDR-K.pneumoniae, VRE.faecalis, CONS, C.albicans // h/o recurrent CONS bacteremia - surveillance BCx(-) - h/o recurrent CONS 2/4 (05/09) SP IV vanco x28d - h/o CONS 3/4 (04/19 ) SP Rx IV vanco x7d - TTE 05/11: poorly visualized valves, poor candidate MARIA C - h/o CONS cath tip colonization ( <10K ) // h/o recurrent PNAs ( VAP / HCAP ) r/o recurrence - SCx : Providencia , ESBL Kleb , Diphtheroids - CXR 08/12 : interstitial and alveolar edema persists, - h/o qI,S-PSA, P.stuartii, ESBL(+) K.pneumoniae, S.maltophilia // h/o recurrent UTIs - US: Mild left hydronephrosis, new since prior study of 04/21/2016. Etiology not demonstrated but concerning for downstream obstruction - h/o E.coli, K.pneumoniae SP Rx // Elevated LFTs, GGT - chronic, stable - US: Equivocally visualized stone filled gallbladder, versus shadowing from duodenal gas. 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 Tolerates cefepime, meropenem Full Code PLAN: cont Tygacil d# 3 , Ceftaz d# 4 ( 08/12 SP IV vancomycin d# 13 and Flagyl d# 9 ) ( SP aztreonam d# 12 ) ( 08/04 SP levaquin d# 5 ) ( 07/05 SP IV vancomycin, aztreonam d# 7 / 7 ) ( 06/26 SP Merrem d# 6, cefepime d# 14 ) ( SP IV vancomycin, d# 6 and flagyl d# 3 ) ( SP IV vancomycin d# 28 / 28 ( 05/13 SP aztreonam, amikacin d# 5 / 5 ) ( 05/02 SP aztreonam d# 14 / 14 ) ( 04/25 SP vancomycin d# 7 / 7 ) f/u bone bx Monitor CBC, temperatures Monitor CMP Monitor chest x-ray vent support, trach care, aspiration precautions wound care contact isolation Subjective Constitutional: Denies: anorexia, chills, drenching sweats, fatigue, fever, no symptoms, other Allergies: Coded Allergies: PENICILLINS (Verified Allergy, Unknown, 04/19/16) Subjective afebrile Objective Vital Signs Last 24 Hour Vital Signs Date Time Temp Pulse Resp B/P Pulse Ox O2 Delivery O2 Flow Rate FiO2 08/14/16 11:45 90 21 40 08/14/16 09:12 88 21 40 08/14/16 08:00 97.7 92 26 117/73 100 Mechanical Ventilator 40 08/14/16 08:00 40 08/14/16 08:00 92 08/14/16 06:55 85 24 40 08/14/16 05:24 92 23 40 08/14/16 04:00 91 08/14/16 04:00 40 08/14/16 04:00 97.7 91 20 108/72 100 Mechanical Ventilator 40 08/14/16 02:52 91 20 40 08/14/16 01:10 91 20 40 08/14/16 00:00 87 08/14/16 00:00 40 08/13/16 23:36 98.2 87 20 96/62 100 Mechanical Ventilator 08/13/16 22:59 101 21 40 08/13/16 21:11 91 20 40 08/13/16 20:00 40 08/13/16 20:00 98 08/13/16 20:00 98.4 95 16 92/59 99 Mechanical Ventilator 40 08/13/16 20:00 95 08/13/16 19:05 93 21 40 08/13/16 17:51 93 24 40 08/13/16 16:06 97.5 87 24 101/72 100 Mechanical Ventilator 40 08/13/16 16:00 40 08/13/16 16:00 89 08/13/16 14:39 88 20 40 08/13/16 12:00 40 08/13/16 12:00 96.4 82 20 107/69 99 Mechanical Ventilator 08/13/16 12:00 84 Height (Feet): 5 Height (Inches): 4.00 Weight (Pounds): 150 HEENT: mucous membranes moist Respiratory/Chest: no respiratory distress Cardiovascular: regular rhythm Abdomen: soft, non tender Extremities: no cyanosis Laboratory Tests Test 08/14/16 04:30 White Blood Count 13.2 K/UL (4.8-10.8) H Red Blood Count 3.24 M/UL (4.70-6.10) L Hemoglobin 9.3 G/DL (14.2-18.0) L Hematocrit 29.2 % (42.0-52.0) L Mean Corpuscular Volume 90 FL (80-99) Mean Corpuscular Hemoglobin 28.8 PG (27.0-31.0) Mean Corpuscular Hemoglobin Concent 31.9 G/DL (32.0-36.0) L Red Cell Distribution Width 18.7 % (11.6-14.8) H Platelet Count 330 K/UL (150-450) Mean Platelet Volume 5.6 FL (6.5-10.1) L Neutrophils (%) (Auto) 71.8 % (45.0-75.0) Lymphocytes (%) (Auto) 18.2 % (20.0-45.0) L Monocytes (%) (Auto) 8.9 % (1.0-10.0) Eosinophils (%) (Auto) 0.5 % (0.0-3.0) Basophils (%) (Auto) 0.6 % (0.0-2.0) Sodium Level 137 mEQ/L (135-145) Potassium Level 5.1 mEQ/L (3.4-4.9) H Chloride Level 100 mEQ/L (98-107) Carbon Dioxide Level 23 mEQ/L (20-30) Anion Gap 14 (5-15) Blood Urea Nitrogen 24 mg/dL (7-23) H Creatinine 0.3 mg/dL (0.7-1.2) L Estimat Glomerular Filtration Rate > 60 mL/min (>60) Glucose Level 98 mg/dL (74-106) Calcium Level 8.1 mg/dL (8.6-10.2) L Phosphorus Level 3.9 mg/dL (2.5-4.8) Magnesium Level 1.7 mg/dL (1.7-2.5) Current Medications Medications (Trade) Dose Ordered Sig/Tanisha Route PRN Reason Start Time Stop Time Status Last Admin Dose Admin Acetaminophen (Tylenol) 650 mg Q4H PRN ORAL Mild Pain/Temp > 100.5 08/11/16 18:00 09/10/16 17:59 Albuterol/ Ipratropium (DuoNeb 0.5-3(2.5)mg/3ml) 3 ml Q4H PRN HHN Shortness of Breath 08/11/16 18:00 08/16/16 17:59 Ceftazidime 1 gm/ Dextrose 50 ml @ 100 mls/hr Q8HR IV 08/11/16 22:00 08/18/16 21:59 08/14/16 06:08 Dextrose (Dextrose 50%) STAT PRN IV Hypoglycemia 08/11/16 18:00 09/10/16 17:59 Heparin Sodium (Porcine) (Heparin 5000 units/ml) 5,000 units EVERY 12 HOURS SUBQ 08/11/16 21:00 09/10/16 20:59 08/14/16 08:29 Insulin Aspart (NovoLOG) EVERY 6 HOURS SUBQ 08/11/16 18:00 09/10/16 17:59 Lactobacillus Acidophilus (Culturelle) 1 tab TWICE A DAY GT 08/11/16 18:00 09/10/16 17:59 08/14/16 08:34 Levothyroxine Sodium (Synthroid) 200 mcg DAILY GT 08/12/16 09:00 09/11/16 08:59 08/14/16 08:26 Lorazepam (Ativan 2mg/ml 1ml) 1 mg Q4H PRN IV For Anxiety 08/11/16 18:00 08/18/16 17:59 Midodrine (Pro-Amatine) 5 mg THREE TIMES A DAY GT 08/11/16 18:00 09/10/16 17:59 08/14/16 08:27 Ondansetron HCl (Zofran) 4 mg Q6H PRN IV Nausea & Vomiting 08/11/16 18:00 09/10/16 17:59 Polyethylene Glycol (Miralax) 17 gm DAILY GT 08/12/16 09:00 09/11/16 08:59 08/14/16 08:34 Ranitidine HCl 150 mg 150 mg Q12HR GT 08/11/16 21:00 09/10/16 20:59 08/14/16 08:27 Sodium Chloride (Sodium Chloride 1000ml bag) 1,000 ml @ 75 mls/hr [id number] IV 08/11/16 18:00 09/10/16 17:59 08/14/16 01:32 Tigecycline/ Sodium Chloride (Tygacil/Sodium Chloride 100ml bag) 100 ml @ 200 mls/hr EVERY 12 HOURS IVPB 08/12/16 21:00 08/19/16 20:59 08/14/16 08:28 GURDEEP BHANDARI M.D. Aug 14, 2016 11:59
[2016-08-14 12:00] VITALS: BP 107/75
--- NOTE | 2016-08-14 14:04 | Wound Care Consultation ---
Wound Assessment Wound Assessment #1: Wound Present on Admission: Yes New Wound: No Status Change of Wound: No Wound Location Body Site Modif: mid Wound Location Body Site: other - Spinous Process Wound Type: pressure ulcer Rashawn Test: Does not Rashawn Pressure Ulcer Stage: IV/unstageable Wound Thickness: Full Thickness Wound Length: 7.0 Wound Width: 7.5 Wound Depth: 2.0 Percent of Wound [place]/Red: 60 Percent of Wound Bed Yellow/Wh: 40 Wound Drainage Description: Serosanguineous Wound Drainage Amount: Moderate Wound Drainage Odor: None/Absent Tissue Surrounding Wound: Erythemic Wound General Appearance: Reddened, Draining Wound Assessment #2: Wound Number: #2 Wound Present on Admission: Yes New Wound: No Status Change of Wound: No Wound Location Body Site Modif: left Wound Location Body Site: trochanter Wound Type: pressure ulcer Rashawn Test: Does not [place]awn Pressure Ulcer Stage: IV/unstageable Wound Thickness: Full Thickness Wound Length: 12.0 Wound Width: 11.5 Wound Depth: 2.5 Percent of Wound [place]/Red: 50 Percent of Wound Bed Yellow/Wh: 50 Wound Drainage Description: Serosanguineous Wound Drainage Amount: Copious Tissue Surrounding Wound: Erythemic Wound General Appearance: Reddened, Draining, Necrotic, Bone Palpable Wound Assessment #3: Wound Number: #3 Wound Present on Admission: Yes New Wound: No Status Change of Wound: No Wound Location Body Site Modif: left, lateral Wound Location Body Site: malleolus/ankle Wound Type: pressure ulcer Rashawn Test: Does not Rashawn Pressure Ulcer Stage: deep tissue injury Wound Thickness: Full Thickness Wound Length: 1.5 Wound Width: 1.5 Wound Depth: utd Percent of Wound [place]/Red: 50 Percent of Wound Purple/Maroon: 50 Wound Drainage Amount: None Wound Drainage Odor: None/Absent Tissue Surrounding Wound: Erythemic Wound General Appearance: Reddened Wound Assessment #4: Wound Number: #4 Wound Present on Admission: Yes New Wound: No Status Change of Wound: No Wound Location Body Site Modif: left, mid, lateral Wound Location Body Site: foot Wound Type: pressure ulcer Rashawn Test: Does not Rashawn Pressure Ulcer Stage: deep tissue injury Wound Thickness: Full Thickness Wound Length: 1.0 Wound Width: 1.0 Wound Depth: utd Percent of Wound [place]/Red: 50 Percent of Wound Purple/Maroon: 50 Wound Drainage Amount: None Wound Drainage Odor: None/Absent Tissue Surrounding Wound: Erythemic Wound General Appearance: Reddened Wound Assessment #5: Wound Number: #5 Wound Present on Admission: Yes New Wound: No Status Change of Wound: No Wound Location Body Site Modif: left Wound Location Body Site: metatarsal head Wound Type: pressure ulcer Rashawn Test: Does not Rashawn Pressure Ulcer Stage: deep tissue injury Wound Thickness: Full Thickness Wound Length: 2.0 Wound Width: 1.5 Wound Depth: utd Percent of Wound [place]/Red: 50 Percent of Wound Purple/Maroon: 50 Wound Drainage Amount: None Wound Drainage Odor: None/Absent Tissue Surrounding Wound: Erythemic Wound General Appearance: Reddened Wound Assessment #6: Wound Number: #6 Wound Present on Admission: Yes New Wound: No Status Change of Wound: No Wound Location Body Site Modif: left Wound Location Body Site: ischial tuberosity Wound Type: pressure ulcer Rashawn Test: Does not Rashawn Pressure Ulcer Stage: deep tissue injury Wound Thickness: Full Thickness Wound Length: 3.5 Wound Width: 3.5 Percent of Wound Purple/[place]: 100 Wound Drainage Amount: None Wound Drainage Odor: None/Absent Tissue Surrounding Wound: Erythemic Wound General Appearance: Reddened Wound Assessment #7: Wound Present on Admission: Yes New Wound: No Status Change of Wound: Yes - Admitted with stage 1 , despite nursing interventions provided site progressed to deep tissue injury. Wound Location Body Site Modif: right Wound Location Body Site: trochanter Wound Type: pressure ulcer Pressure Ulcer Stage: deep tissue injury Wound Thickness: Full Thickness Wound Length: 3.0 Wound Width: 3.0 Wound Depth: utd Percent of Wound [place]: 100 Wound Drainage Amount: None Wound Drainage Odor: None/Absent Tissue Surrounding Wound: Erythemic Wound General Appearance: Reddened - wound site is bobby surrounding tissue noted red. Wound Assessment #8: Wound Present on Admission: Yes New Wound: No Status Change of Wound: No Wound Location Body Site Modif: right, lateral Wound Location Body Site: malleolus/ankle Wound Type: pressure ulcer Rashawn Test: Does not Rashawn Pressure Ulcer Stage: deep tissue injury Wound Thickness: Full Thickness Wound Length: 1.0 Wound Width: 1.0 Wound Depth: utd Percent of Wound [place]/Red: 50 Percent of Wound Purple/Maroon: 50 Wound Drainage Amount: None Wound Drainage Odor: None/Absent Tissue Surrounding Wound: Erythemic Wound General Appearance: Reddened Wound Assessment #9: Wound Number: #9 Wound Present on Admission: Yes New Wound: No Status Change of Wound: No Wound Location Body Site Modif: right, posterior Wound Location Body Site: shoulder Wound Type: pressure ulcer Rashawn Test: Does not Rashawn Pressure Ulcer Stage: deep tissue injury Wound Thickness: Full Thickness Wound Length: 2.0 Wound Width: 2.0 Percent of Wound [place]/Red: 50 Percent of Wound Purple/Maroon: 50 Wound Drainage Amount: None Wound Drainage Odor: None/Absent Tissue Surrounding Wound: Erythemic Wound General Appearance: Reddened Wound Comment Clarification of stage on 07/31/16 Admitted with right trochanter pressure ulcer stage 1. Despite Nursing interventions,turning and repositioning and wound treatment provided noted right trochanter site has Progressed to Deep Tissue Injury. Patient is at high risk for further skin breakdown , patient has multiple comorbidities. He was previously admitted with multiple Decubitus to multiple sites, he is Ventilator dependent, G-Tube dependent, Sepsis, Dysphagia, requires head of bed elevated for aspiration precautions, also noted pt has contractures,he is also a Diabetic , Pneumonia, CHF, CAD,Brain anoxic injury , Chronic respiratory failure. The following labs noted out of range RBC-3.24L, HGB-9.3L, Albumin 2.4L, Total protein- 5.2L. Body reassessment completed, no further changes have been noted to the other admitted wounds. Continue to provide current treatment as previously ordered. Continue to reposition and offload. Assess and notify MD if any further changes are noted. KARINA KINGSTON Aug 14, 2016 14:04
[2016-08-14 16:00] VITALS: BP 113/68
[2016-08-14 20:00] VITALS: BP 110/75
[2016-08-15 00:50] VITALS: BP 116/77
[2016-08-15 05:10] VITALS: BP 95/57
[2016-08-15 05:46] LABS: BASOPHILS % (AUTO) 0.4 % (0.0-2.0); EOSINOPHILS % (AUTO) 0.7 % (0.0-3.0); LYMPHOCYTES % (AUTO) 22.5 % (20.0-45.0); MEAN CORPUSCULAR HEMOGLOBIN 29.1 PG (27.0-31.0); MEAN CORPUSCULAR HGB CONC 32.2 G/DL (32.0-36.0); MEAN CORPUSCULAR VOLUME 90 FL (80-99); MEAN PLATELET VOLUME 5.3 FL (6.5-10.1); MONOCYTES % (AUTO) 8.9 % (1.0-10.0); NEUTROPHILS % (AUTO) 67.5 % (45.0-75.0); PLATELET COUNT 368 K/UL (150-450); RED BLOOD COUNT 3.39 M/UL (4.70-6.10); RED CELL DISTRIBUTION WIDTH 19.5 % (11.6-14.8); WHITE BLOOD COUNT 13.6 K/UL (4.8-10.8)
[2016-08-15 06:02] LABS: ALANINE AMINOTRANSFERASE 17 U/L (3-41); ALBUMIN/GLOBULIN RATIO 0.8 (1.0-2.7); ANION GAP 11 (5-15); ASPARTATE AMINO TRANSFERASE 22 U/L (5-40); CALCIUM 8.7 mg/dL (8.6-10.2); CARBON DIOXIDE 25 mEQ/L (20-30); CHLORIDE 98 mEQ/L (98-107); CREATININE 0.3 mg/dL (0.7-1.2); CRP QUANT 8.1 mg/dL (< 0.5); GLOMERULAR FILTRATION RATE > 60 mL/min (>60); HEMOLYSIS 0; MAGNESIUM 1.7 mg/dL (1.7-2.5); POTASSIUM 5.4 mEQ/L (3.4-4.9); SODIUM 134 mEQ/L (135-145); TOTAL PROTEIN 5.3 g/dL (6.6-8.7)
[2016-08-15] MEDS: NovoLOG Insulin Flexpen SUBQ SCH ×4 (06:32→23:20)
[2016-08-15 07:21] LABS: ERYTHROCYTE SEDIMENTATION RATE 97 MM/HR (0-20)
[2016-08-15 08:00] VITALS: BP 104/67
[2016-08-15] MEDS: Lactobacillus-GG tablet GT SCH ×2 (09:11→17:57)
[2016-08-15] MEDS: Miralax 17gm pkt GT SCH (09:12)
[2016-08-15] MEDS: Heparin 5000 units/ml inj SUBQ SCH ×2 (09:13→20:24)
[2016-08-15 12:00] VITALS: BP 106/63
--- NOTE | 2016-08-15 12:06 | GI Progress Note ---
Assessment/Plan Problems: (1) Feeding by G-tube ICD Codes: Z93.1 - Gastrostomy status SNOMED: 995876290, 243981009 (2) Anemia ICD Codes: D64.9 - Anemia, unspecified SNOMED: 219613270 (3) Dysphagia ICD Codes: R13.10 - Dysphagia, unspecified SNOMED: 02397683, 923389952 (4) Diabetes mellitus ICD Codes: E11.9 - Type 2 diabetes mellitus without complications SNOMED: 35829771 (5) CAD (coronary artery disease) ICD Codes: I25.10 - Atherosclerotic heart disease of [place] coronary artery without angina pectoris SNOMED: 99085192 (6) CHF (congestive heart failure) ICD Codes: I50.9 - Heart failure, unspecified SNOMED: 49541796 (7) Abnormal LFTs ICD Codes: R79.89 - Other specified abnormal findings of blood chemistry SNOMED: 074261579 Status: stable, unchanged Status Narrative Discussed with Dr. Eddy. Assessment/Plan monitor H&H, transfuse prn GTF per dietary, tolerating OB stool x 2 >> negative AMA to r/o PBC, negative hep panel negative (06/04/16) ppi fu labs defer GI procedures at this time. Subjective Subjective limited Objective Last 24 Hour Vital Signs Date Time Temp Pulse Resp B/P Pulse Ox O2 Delivery O2 Flow Rate FiO2 08/15/16 11:39 89 21 40 08/15/16 09:00 90 20 40 08/15/16 08:00 10.0 40 08/15/16 08:00 89 08/15/16 07:11 96 28 40 08/15/16 05:11 99 20 40 08/15/16 05:10 99.1 101 20 95/57 98 Mechanical Ventilator 10.0 40 08/15/16 04:01 97 08/15/16 04:00 10.0 40 08/15/16 03:10 95 21 40 08/15/16 01:00 93 22 40 08/15/16 00:50 99.1 89 20 116/77 99 Mechanical Ventilator 08/15/16 00:00 10.0 40 08/14/16 23:51 93 08/14/16 23:00 95 24 40 08/14/16 21:11 88 25 40 08/14/16 20:00 97.7 85 23 110/75 100 Mechanical Ventilator 10.0 08/14/16 20:00 10.0 40 08/14/16 19:49 87 08/14/16 18:37 90 23 40 08/14/16 17:32 87 24 40 08/14/16 16:00 86 08/14/16 16:00 40 08/14/16 16:00 96.3 86 24 113/68 100 Mechanical Ventilator 40 08/14/16 14:40 85 27 40 08/14/16 13:00 85 21 40 Intake and Output 08/14/16 08/15/16 19:00 07:00 Intake Total 780 ml 860 ml Output Total 2150 ml 4200 ml Balance -1370 ml -3340 ml Intake Free Water 150 ml 200 ml Tube Feeding 480 ml 660 ml Other 150 ml Output Urine Total 2150 ml 4000 ml Stool Total 200 ml # Bowel Movements 1 3 Laboratory Tests Test 08/15/16 04:00 White Blood Count 13.6 K/UL (4.8-10.8) H Red Blood Count 3.39 M/UL (4.70-6.10) L Hemoglobin 9.8 G/DL (14.2-18.0) L Hematocrit 30.6 % (42.0-52.0) L Mean Corpuscular Volume 90 FL (80-99) Mean Corpuscular Hemoglobin 29.1 PG (27.0-31.0) Mean Corpuscular Hemoglobin Concent 32.2 G/DL (32.0-36.0) Red Cell Distribution Width 19.5 % (11.6-14.8) H Platelet Count 368 K/UL (150-450) Mean Platelet Volume 5.3 FL (6.5-10.1) L Neutrophils (%) (Auto) 67.5 % (45.0-75.0) Lymphocytes (%) (Auto) 22.5 % (20.0-45.0) Monocytes (%) (Auto) 8.9 % (1.0-10.0) Eosinophils (%) (Auto) 0.7 % (0.0-3.0) Basophils (%) (Auto) 0.4 % (0.0-2.0) Erythrocyte Sedimentation Rate 97 MM/HR (0-20) H Sodium Level 134 mEQ/L (135-145) L Potassium Level 5.4 mEQ/L (3.4-4.9) H Chloride Level 98 mEQ/L (98-107) Carbon Dioxide Level 25 mEQ/L (20-30) Anion Gap 11 (5-15) Blood Urea Nitrogen 23 mg/dL (7-23) Creatinine 0.3 mg/dL (0.7-1.2) L Estimat Glomerular Filtration Rate > 60 mL/min (>60) Glucose Level 77 mg/dL (74-106) Calcium Level 8.7 mg/dL (8.6-10.2) Phosphorus Level 4.0 mg/dL (2.5-4.8) Magnesium Level 1.7 mg/dL (1.7-2.5) Total Bilirubin 0.2 mg/dL (0.0-1.2) Aspartate Amino Transf (AST/SGOT) 22 U/L (5-40) Alanine Aminotransferase (ALT/SGPT) 17 U/L (3-41) Alkaline Phosphatase 815 U/L (40-129) H C-Reactive Protein, Quantitative 8.1 mg/dL (< 0.5) H Total Protein 5.3 g/dL (6.6-8.7) L Albumin 2.5 g/dL (3.5-5.2) L Globulin 2.8 g/dL Albumin/Globulin Ratio 0.8 (1.0-2.7) L Height (Feet): 5 Height (Inches): 4.00 Weight (Pounds): 150 General Appearance: no apparent distress Cardiovascular: normal rate Respiratory/Chest: other - [facility] vent Abdominal Exam: normal bowel sounds, soft, GT site - c/d/i Ashley Mccloud NNallely Aug 15, 2016 12:06
--- NOTE | 2016-08-15 13:00 | Pulmonology Progress Note ---
Assessment/Plan Problems: (1) Acute and chronic respiratory failure (2) ATN (acute tubular necrosis) (3) Septic shock (4) Bilateral pneumonia (5) History of glioma of brainstem (6) Decubital ulcer (7) Brain anoxic injury Respiratory: monitor respiratory rate Cardiac: continue pressors Renal: F/U I&O Infectious Disease: continue antibiotics Gastrointestinal: continue feedings/current rate Endocrine: monitor blood sugar, check TSH Hematologic: monitor H/H Neurologic: PRN Ativan Affect: PRN ativan Disposition: transfer to Time Spent (Minutes): 40 Notes Reviewed: cardio Discussed with: nurses, consultants Subjective ROS Limited/Unobtainable: No Constitutional: Reports: no symptoms HEENT: Repors: no symptoms Cardiovascular: Reports: no symptoms Allergies: Coded Allergies: PENICILLINS (Verified Allergy, Unknown, 04/19/16) Objective Last 24 Hour Vital Signs Date Time Temp Pulse Resp B/P Pulse Ox O2 Delivery O2 Flow Rate FiO2 08/15/16 12:00 10.0 40 08/15/16 12:00 92 08/15/16 11:39 89 21 40 08/15/16 09:00 90 20 40 08/15/16 08:00 10.0 40 08/15/16 08:00 89 08/15/16 07:11 96 28 40 08/15/16 05:11 99 20 40 08/15/16 05:10 99.1 101 20 95/57 98 Mechanical Ventilator 10.0 40 08/15/16 04:01 97 08/15/16 04:00 10.0 40 08/15/16 03:10 95 21 40 08/15/16 01:00 93 22 40 08/15/16 00:50 99.1 89 20 116/77 99 Mechanical Ventilator 08/15/16 00:00 10.0 40 08/14/16 23:51 93 08/14/16 23:00 95 24 40 08/14/16 21:11 88 25 40 08/14/16 20:00 97.7 85 23 110/75 100 Mechanical Ventilator 10.0 08/14/16 20:00 10.0 40 08/14/16 19:49 87 08/14/16 18:37 90 23 40 08/14/16 17:32 87 24 40 08/14/16 16:00 86 08/14/16 16:00 40 08/14/16 16:00 96.3 86 24 113/68 100 Mechanical Ventilator 40 08/14/16 14:40 85 27 40 08/14/16 13:00 85 21 40 Intake and Output 08/14/16 08/15/16 19:00 07:00 Intake Total 780 ml 860 ml Output Total 2150 ml 4200 ml Balance -1370 ml -3340 ml Intake Free Water 150 ml 200 ml Tube Feeding 480 ml 660 ml Other 150 ml Output Urine Total 2150 ml 4000 ml Stool Total 200 ml # Bowel Movements 1 3 General Appearance: cachetic HEENT: normocephalic, atraumatic Respiratory/Chest: chest wall non-tender, lungs clear Cardiovascular: normal peripheral pulses, normal rate Abdomen: normal bowel sounds, soft, non tender Genitourinary: normal external genitalia Skin: no rash 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 Lymphatic: no neck adenopathy Laboratory Tests 08/15/16 04:00: White Blood Count 13.6H, Red Blood Count 3.39L, Hemoglobin 9.8L, Hematocrit 30.6L, Mean Corpuscular Volume 90, Mean Corpuscular Hemoglobin 29.1, Mean Corpuscular Hemoglobin Concent 32.2, Red Cell Distribution Width 19.5H, Platelet Count 368, Mean Platelet Volume 5.3L, Neutrophils (%) (Auto) 67.5, Lymphocytes (%) (Auto) 22.5, Monocytes (%) (Auto) 8.9, Eosinophils (%) (Auto) 0.7, Basophils (%) (Auto) 0.4, Erythrocyte Sedimentation Rate 97H, Sodium Level 134L, Potassium Level 5.4H, Chloride Level 98, Carbon Dioxide Level 25, Anion Gap 11, Blood Urea Nitrogen 23, Creatinine 0.3L, Estimat Glomerular Filtration Rate > 60, Glucose Level 77, Calcium Level 8.7, Phosphorus Level 4.0, Magnesium Level 1.7, Total Bilirubin 0.2, Aspartate Amino Transf (AST/SGOT) 22, Alanine Aminotransferase (ALT/SGPT) 17, Alkaline Phosphatase 815H, C-Reactive Protein, Quantitative 8.1H, Total Protein 5.3L, Albumin 2.5L, Globulin 2.8, Albumin/ Globulin Ratio 0.8L Current Medications Medications (Trade) Dose Ordered Sig/Tanisha Route PRN Reason Start Time Stop Time Status Last Admin Dose Admin Acetaminophen (Tylenol) 650 mg Q4H PRN ORAL Mild Pain/Temp > 100.5 08/11/16 18:00 09/10/16 17:59 Albuterol/ Ipratropium (DuoNeb 0.5-3(2.5)mg/3ml) 3 ml Q4H PRN HHN Shortness of Breath 08/11/16 18:00 08/16/16 17:59 Ceftazidime 1 gm/ Dextrose 50 ml @ 100 mls/hr Q8HR IV 08/11/16 22:00 08/18/16 21:59 08/15/16 06:35 Dextrose (Dextrose 50%) STAT PRN IV Hypoglycemia 08/11/16 18:00 09/10/16 17:59 Heparin Sodium (Porcine) (Heparin 5000 units/ml) 5,000 units EVERY 12 HOURS SUBQ 08/11/16 21:00 09/10/16 20:59 08/15/16 09:13 Insulin Aspart (NovoLOG) EVERY 6 HOURS SUBQ 08/11/16 18:00 09/10/16 17:59 Lactobacillus Acidophilus (Culturelle) 1 tab TWICE A DAY GT 08/11/16 18:00 09/10/16 17:59 08/15/16 09:11 Levothyroxine Sodium (Synthroid) 200 mcg DAILY GT 08/12/16 09:00 09/11/16 08:59 08/15/16 09:10 Lorazepam (Ativan 2mg/ml 1ml) 1 mg Q4H PRN IV For Anxiety 08/11/16 18:00 08/18/16 17:59 Midodrine (Pro-Amatine) 5 mg THREE TIMES A DAY GT 08/11/16 18:00 09/10/16 17:59 08/15/16 09:11 Ondansetron HCl (Zofran) 4 mg Q6H PRN IV Nausea & Vomiting 08/11/16 18:00 09/10/16 17:59 Polyethylene Glycol (Miralax) 17 gm DAILY GT 08/12/16 09:00 09/11/16 08:59 08/15/16 09:12 Ranitidine HCl 150 mg 150 mg Q12HR GT 08/11/16 21:00 09/10/16 20:59 12/30/16 09:10 Sodium Polystyrene Sulfonate (Kayexalate) 60 gm ONCE ONCE ORAL 08/15/16 13:00 08/15/16 13:01 UNV Sodium Chloride (Sodium Chloride 1000ml bag) 1,000 ml @ 75 mls/hr [id number] IV 08/11/16 18:00 09/10/16 17:59 08/15/16 06:35 Tigecycline/ Sodium Chloride (Tygacil/Sodium Chloride 100ml bag) 100 ml @ 200 mls/hr EVERY 12 HOURS IVPB 08/12/16 21:00 08/19/16 20:59 08/15/16 09:12 JAKUB MORALES Aug 15, 2016 13:00
[2016-08-15] MEDS ORDERED: Sodium Polystyrene Sulfonate 15gm Powder ORAL ONE (13:30)
--- NOTE | 2016-08-15 13:34 | Infectious Diseases Prog Note ---
Assessment/Plan Assessment/Plan MICRO: 07/30 BCx(-) 07/30 UCx not sent / UA(-) 07/30 SCx not sent 06/30 Back WCx MDR-K.pneumoniae, VRE.faecalis, CONS, C.albicans 06/28 BCx CONS 1/4 06/29 SCx qI-PSA, P.stuartii 06/26 Back WCx MDR-K.pneumoniae, MDR-ACB 06/17 SCx ESBL(+) K.pneumoniae, qS-PSA, S.maltophilia 06/11 BCx(-) 06/11 UCx >100K E.coli 05/12 Cath tip <10K CONS 05/11 BCx(-) 05/09 BCx CONS / ( single stick ) 05/09 UCx qR-K.pneumoniae 04/22 SCx qI-PSA 04/19 BCx CONS 10/18 ASSESSMENT: 60-year-old male with: // Multiple decubiti POA, infected Wnd CX ( ACB and Enterococcus ) - SP debridement, bone bx 08/08 - Bone scan 07/01: Limited, essentially nondiagnostic exam. No gross findings to suggest acute osteomyelitis - h/o MDR-K.pneumoniae, VRE.faecalis, CONS, C.albicans // h/o recurrent CONS bacteremia - surveillance BCx(-) - h/o recurrent CONS 2/4 (05/09) SP IV vanco x28d - h/o CONS 3/4 (04/19 ) SP Rx IV vanco x7d - TTE 05/11: poorly visualized valves, poor candidate MARIA C - h/o CONS cath tip colonization ( <10K ) // h/o recurrent PNAs ( VAP / HCAP ) r/o recurrence - SCx : Providencia , ESBL Kleb , Diphtheroids - CXR 08/12 : interstitial and alveolar edema persists, - h/o qI,S-PSA, P.stuartii, ESBL(+) K.pneumoniae, S.maltophilia // h/o recurrent UTIs - US: Mild left hydronephrosis, new since prior study of 04/21/2016. Etiology not demonstrated but concerning for downstream obstruction - h/o E.coli, K.pneumoniae SP Rx // Elevated LFTs, GGT - chronic, stable - US: Equivocally visualized stone filled gallbladder, versus shadowing from duodenal gas. Mildly dilated CBD, downstream obstruction not excludable - negative: AMA, hepatitis panel // Negative C.difficile // Probable recurrent sepsis // Acute on chronic hypotension, on midodrine - // Leukocytosis - mild // Fever - SP Chronic VDRF SP trach, PEG Anoxic encephalopathy / dementia History of glioblastoma multiforme Thrombocytosis Chronic macrocytic anemia Functional quadriplegia / bedbound / contracted CT resident VRE colonized PCN allergy - unable to qualify. Tolerates cefepime, meropenem Full Code PLAN: cont Tygacil d# 4 / 10 , Ceftaz d# 5 / 10 ( 08/12 SP IV vancomycin d# 13 and Flagyl d# 9 ) ( SP aztreonam d# 12 ) ( 08/04 SP levaquin d# 5 ) ( 07/05 SP IV vancomycin, aztreonam d# 7 / 7 ) ( 06/26 SP Merrem d# 6, cefepime d# 14 ) ( SP IV vancomycin, d# 6 and flagyl d# 3 ) ( SP IV vancomycin d# 28 / 28 ( 05/13 SP aztreonam, amikacin d# 5 / 5 ) ( 05/02 SP aztreonam d# 14 / 14 ) ( 04/25 SP vancomycin d# 7 / 7 ) f/u bone bx Monitor CBC, temperatures Monitor CMP Monitor chest x-ray vent support, trach care, aspiration precautions wound care contact isolation Subjective Constitutional: Denies: anorexia, chills, drenching sweats, fatigue, fever, no symptoms, other Allergies: Coded Allergies: PENICILLINS (Verified Allergy, Unknown, 04/19/16) Subjective afebrile Objective Vital Signs Last 24 Hour Vital Signs Date Time Temp Pulse Resp B/P Pulse Ox O2 Delivery O2 Flow Rate FiO2 08/15/16 12:00 97.7 85 20 106/63 98 Mechanical Ventilator 10.0 40 08/15/16 12:00 10.0 40 08/15/16 12:00 92 08/15/16 11:39 89 21 40 08/15/16 09:00 90 20 40 08/15/16 08:00 10.0 40 08/15/16 08:00 97.9 91 20 104/67 98 Mechanical Ventilator 10.0 40 12/30/16 08:00 89 08/15/16 07:11 96 28 40 08/15/16 05:11 99 20 40 08/15/16 05:10 99.1 101 20 95/57 98 Mechanical Ventilator 10.0 40 08/15/16 04:01 97 08/15/16 04:00 10.0 40 08/15/16 03:10 95 21 40 08/15/16 01:00 93 22 40 08/15/16 00:50 99.1 89 20 116/77 99 Mechanical Ventilator 08/15/16 00:00 10.0 40 08/14/16 23:51 93 08/14/16 23:00 95 24 40 08/14/16 21:11 88 25 40 08/14/16 20:00 97.7 85 23 110/75 100 Mechanical Ventilator 10.0 08/14/16 20:00 10.0 40 08/14/16 19:49 87 08/14/16 18:37 90 23 40 08/14/16 17:32 87 24 40 08/14/16 16:00 86 08/14/16 16:00 40 08/14/16 16:00 96.3 86 24 113/68 100 Mechanical Ventilator 40 08/14/16 14:40 85 27 40 Height (Feet): 5 Height (Inches): 4.00 Weight (Pounds): 150 HEENT: mucous membranes moist Respiratory/Chest: normal breath sounds Cardiovascular: regular rhythm Abdomen: no mass Laboratory Tests Test 08/15/16 04:00 White Blood Count 13.6 K/UL (4.8-10.8) H Red Blood Count 3.39 M/UL (4.70-6.10) L Hemoglobin 9.8 G/DL (14.2-18.0) L Hematocrit 30.6 % (42.0-52.0) L Mean Corpuscular Volume 90 FL (80-99) Mean Corpuscular Hemoglobin 29.1 PG (27.0-31.0) Mean Corpuscular Hemoglobin Concent 32.2 G/DL (32.0-36.0) Red Cell Distribution Width 19.5 % (11.6-14.8) H Platelet Count 368 K/UL (150-450) Mean Platelet Volume 5.3 FL (6.5-10.1) L Neutrophils (%) (Auto) 67.5 % (45.0-75.0) Lymphocytes (%) (Auto) 22.5 % (20.0-45.0) Monocytes (%) (Auto) 8.9 % (1.0-10.0) Eosinophils (%) (Auto) 0.7 % (0.0-3.0) Basophils (%) (Auto) 0.4 % (0.0-2.0) Erythrocyte Sedimentation Rate 97 MM/HR (0-20) H Sodium Level 134 mEQ/L (135-145) L Potassium Level 5.4 mEQ/L (3.4-4.9) H Chloride Level 98 mEQ/L (98-107) Carbon Dioxide Level 25 mEQ/L (20-30) Anion Gap 11 (5-15) Blood Urea Nitrogen 23 mg/dL (7-23) Creatinine 0.3 mg/dL (0.7-1.2) L Estimat Glomerular Filtration Rate > 60 mL/min (>60) Glucose Level 77 mg/dL (74-106) Calcium Level 8.7 mg/dL (8.6-10.2) Phosphorus Level 4.0 mg/dL (2.5-4.8) Magnesium Level 1.7 mg/dL (1.7-2.5) Total Bilirubin 0.2 mg/dL (0.0-1.2) Aspartate Amino Transf (AST/SGOT) 22 U/L (5-40) Alanine Aminotransferase (ALT/SGPT) 17 U/L (3-41) Alkaline Phosphatase 815 U/L (40-129) H C-Reactive Protein, Quantitative 8.1 mg/dL (< 0.5) H Total Protein 5.3 g/dL (6.6-8.7) L Albumin 2.5 g/dL (3.5-5.2) L Globulin 2.8 g/dL Albumin/Globulin Ratio 0.8 (1.0-2.7) L Current Medications Medications (Trade) Dose Ordered Sig/Tanisha Route PRN Reason Start Time Stop Time Status Last Admin Dose Admin Acetaminophen (Tylenol) 650 mg Q4H PRN ORAL Mild Pain/Temp > 100.5 08/11/16 18:00 09/10/16 17:59 Albuterol/ Ipratropium (DuoNeb 0.5-3(2.5)mg/3ml) 3 ml Q4H PRN HHN Shortness of Breath 08/11/16 18:00 08/16/16 17:59 Ceftazidime 1 gm/ Dextrose 50 ml @ 100 mls/hr Q8HR IV 08/11/16 22:00 08/18/16 21:59 08/15/16 06:35 Dextrose (Dextrose 50%) STAT PRN IV Hypoglycemia 08/11/16 18:00 09/10/16 17:59 Heparin Sodium (Porcine) (Heparin 5000 units/ml) 5,000 units EVERY 12 HOURS SUBQ 08/11/16 21:00 09/10/16 20:59 08/15/16 09:13 Insulin Aspart (NovoLOG) EVERY 6 HOURS SUBQ 08/11/16 18:00 09/10/16 17:59 Lactobacillus Acidophilus (Culturelle) 1 tab TWICE A DAY GT 08/11/16 18:00 09/10/16 17:59 08/15/16 09:11 Levothyroxine Sodium (Synthroid) 200 mcg DAILY GT 08/12/16 09:00 09/11/16 08:59 08/15/16 09:10 Lorazepam (Ativan 2mg/ml 1ml) 1 mg Q4H PRN IV For Anxiety 08/11/16 18:00 08/18/16 17:59 Midodrine (Pro-Amatine) 5 mg THREE TIMES A DAY GT 08/11/16 18:00 09/10/16 17:59 08/15/16 09:11 Ondansetron HCl (Zofran) 4 mg Q6H PRN IV Nausea & Vomiting 08/11/16 18:00 09/10/16 17:59 Polyethylene Glycol (Miralax) 17 gm DAILY GT 08/12/16 09:00 09/11/16 08:59 08/15/16 09:12 Ranitidine HCl 150 mg 150 mg Q12HR GT 08/11/16 21:00 09/10/16 20:59 08/15/16 09:10 Sodium Chloride (Sodium Chloride 1000ml bag) 1,000 ml @ 75 mls/hr [id number] IV 08/11/16 18:00 09/10/16 17:59 08/15/16 06:35 Tigecycline/ Sodium Chloride (Tygacil/Sodium Chloride 100ml bag) 100 ml @ 200 mls/hr EVERY 12 HOURS IVPB 08/12/16 21:00 08/19/16 20:59 08/15/16 09:12 GURDEEP BHANDARI M.D. Aug 15, 2016 13:34
[2016-08-15 16:00] VITALS: BP 83/56
[2016-08-15 20:00] VITALS: BP 86/46
[2016-08-16 00:31] VITALS: BP 86/60
[2016-08-16 05:16] LABS: BASOPHILS % (AUTO) 0.6 % (0.0-2.0); EOSINOPHILS % (AUTO) 0.8 % (0.0-3.0); LYMPHOCYTES % (AUTO) 18.2 % (20.0-45.0); MEAN CORPUSCULAR HEMOGLOBIN 29.7 PG (27.0-31.0); MEAN CORPUSCULAR HGB CONC 32.6 G/DL (32.0-36.0); MEAN CORPUSCULAR VOLUME 91 FL (80-99); MEAN PLATELET VOLUME 5.7 FL (6.5-10.1); MONOCYTES % (AUTO) 10.9 % (1.0-10.0); NEUTROPHILS % (AUTO) 69.5 % (45.0-75.0); PLATELET COUNT 328 K/UL (150-450); RED BLOOD COUNT 3.45 M/UL (4.70-6.10); RED CELL DISTRIBUTION WIDTH 19.6 % (11.6-14.8); WHITE BLOOD COUNT 13.1 K/UL (4.8-10.8)
[2016-08-16] MEDS: NovoLOG Insulin Flexpen SUBQ SCH ×3 (05:16→17:23)
[2016-08-16 05:49] LABS: INR 1.1 (0.9-1.1); PROTHROMBIN TIME 11.5 SEC (9.30-11.50)
[2016-08-16 06:16] LABS: MAGNESIUM 1.7 mg/dL (1.7-2.5); PHOSPHORUS 4.2 mg/dL (2.5-4.8)
[2016-08-16 06:19] LABS: ALANINE AMINOTRANSFERASE 19 U/L (3-41); ALBUMIN/GLOBULIN RATIO 0.7 (1.0-2.7); ANION GAP 12 (5-15); ASPARTATE AMINO TRANSFERASE 21 U/L (5-40); CALCIUM 8.5 mg/dL (8.6-10.2); CARBON DIOXIDE 25 mEQ/L (20-30); CHLORIDE 98 mEQ/L (98-107); CREATININE 0.3 mg/dL (0.7-1.2); GLOMERULAR FILTRATION RATE > 60 mL/min (>60); HEMOLYSIS 3; POTASSIUM 5.3 mEQ/L (3.4-4.9); SODIUM 135 mEQ/L (135-145); TOTAL PROTEIN 5.4 g/dL (6.6-8.7)
--- NOTE | 2016-08-16 07:59 | Infectious Diseases Prog Note ---
Assessment/Plan Assessment/Plan ASSESSMENT: 60-year-old male with: // Multiple decubiti POA, infected / osteomyelitis - SP debridement, bone bx 08/08 - Cx VRE.faecalis, MDR-ACB - Bone scan 07/01: Limited, essentially nondiagnostic exam. No gross findings to suggest acute osteomyelitis - h/o MDR-K.pneumoniae, VRE.faecalis, CONS, C.albicans // h/o recurrent CONS bacteremia - surveillance BCx(-) - h/o recurrent CONS 2/4 (05/09) SP IV vanco x28d - h/o CONS 3/4 (04/19 ) SP Rx IV vanco x7d - TTE 05/11: poorly visualized valves, poor candidate MARIA C - h/o CONS cath tip colonization ( <10K ) // h/o recurrent PNAs ( VAP / HCAP ) r/o recurrence - SCx : Providencia , ESBL Kleb , Diphtheroids - CXR 08/12 : interstitial and alveolar edema persists - h/o qI,S-PSA, P.stuartii, ESBL(+) K.pneumoniae, S.maltophilia // h/o recurrent UTIs - US: Mild left hydronephrosis, new since prior study of 04/21/2016. Etiology not demonstrated but concerning for downstream obstruction - h/o E.coli, K.pneumoniae SP Rx // Elevated LFTs, GGT - chronic, stable - US: Equivocally visualized stone filled gallbladder, versus shadowing from duodenal gas. Mildly dilated CBD, downstream obstruction not excludable - negative: AMA, hepatitis panel // Negative C.difficile // Probable recurrent sepsis // Chronic hypotension, on midodrine // Leukocytosis - persistent, mild // Fever - SP Chronic VDRF SP trach, PEG Anoxic encephalopathy / dementia History of glioblastoma multiforme Thrombocytosis Chronic macrocytic anemia Functional quadriplegia / bedbound / contracted [place] resident VRE colonized PCN allergy - unable to qualify. Tolerates cefepime, meropenem Full Code PLAN: cont Tygacil d# 5 / 10 , Ceftaz d# 6 / 10 . May need 6 weeks IV ABX for osteomyelitis ( 08/12 SP IV vancomycin d# 13 and Flagyl d# 9 ) ( SP aztreonam d# 12 ) ( 08/04 SP levaquin d# 5 ) ( 07/05 SP IV vancomycin, aztreonam d# 7 / 7 ) ( 06/26 SP Merrem d# 6, cefepime d# 14 ) ( SP IV vancomycin, d# 6 and flagyl d# 3 ) ( SP IV vancomycin d# 28 / 28 ( 05/13 SP aztreonam, amikacin d# 5 / 5 ) ( 05/02 SP aztreonam d# 14 / 14 ) ( 04/25 SP vancomycin d# 7 / 7 ) Monitor CBC, temperatures Monitor CMP Monitor chest x-ray vent support, trach care, aspiration precautions wound care contact isolation Subjective Allergies: Coded Allergies: PENICILLINS (Verified Allergy, Unknown, 04/19/16) Subjective pt unable to provide any information WBC stable, afebrile Objective Vital Signs Last 24 Hour Vital Signs Date Time Temp Pulse Resp B/P Pulse Ox O2 Delivery O2 Flow Rate FiO2 08/16/16 06:53 87 20 40 08/16/16 04:48 86 20 40 08/16/16 04:00 85 08/16/16 04:00 10.0 40 08/16/16 03:19 88 20 40 08/16/16 01:30 83 20 40 08/16/16 00:31 97.2 89 13 86/60 100 Room Air 08/16/16 00:00 10.0 40 08/16/16 00:00 88 08/15/16 23:30 89 20 40 08/15/16 21:35 87 20 40 08/15/16 20:00 88 08/15/16 20:00 10.0 40 08/15/16 20:00 96.3 87 20 86/46 100 Mechanical Ventilator 40 08/15/16 18:59 89 20 40 08/15/16 16:53 88 18 40 08/15/16 16:00 97.3 85 20 83/56 99 Mechanical Ventilator 40 08/15/16 16:00 10.0 40 08/15/16 16:00 86 08/15/16 14:58 85 20 40 08/15/16 13:06 86 20 40 08/15/16 12:00 97.7 85 20 106/63 98 Mechanical Ventilator 10.0 40 08/15/16 12:00 10.0 40 08/15/16 12:00 92 08/15/16 11:39 89 21 40 08/15/16 09:00 90 20 40 08/15/16 08:00 10.0 40 08/15/16 08:00 97.9 91 20 104/67 98 Mechanical Ventilator 10.0 40 08/15/16 08:00 89 Height (Feet): 5 Height (Inches): 4.00 Weight (Pounds): 150 General Appearance: no acute distress HEENT: status post trach Respiratory/Chest: decreased breath sounds Cardiovascular: normal rate, regular rhythm Abdomen: normal bowel sounds, soft, non tender, non distended Laboratory Tests Test 08/16/16 03:50 White Blood Count 13.1 K/UL (4.8-10.8) H Red Blood Count 3.45 M/UL (4.70-6.10) L Hemoglobin 10.2 G/DL (14.2-18.0) L Hematocrit 31.4 % (42.0-52.0) L Mean Corpuscular Volume 91 FL (80-99) Mean Corpuscular Hemoglobin 29.7 PG (27.0-31.0) Mean Corpuscular Hemoglobin Concent 32.6 G/DL (32.0-36.0) Red Cell Distribution Width 19.6 % (11.6-14.8) H Platelet Count 328 K/UL (150-450) Mean Platelet Volume 5.7 FL (6.5-10.1) L Neutrophils (%) (Auto) 69.5 % (45.0-75.0) Lymphocytes (%) (Auto) 18.2 % (20.0-45.0) L Monocytes (%) (Auto) 10.9 % (1.0-10.0) H Eosinophils (%) (Auto) 0.8 % (0.0-3.0) Basophils (%) (Auto) 0.6 % (0.0-2.0) Prothrombin Time 11.5 SEC (9.30-11.50) Prothromb Time International Ratio 1.1 (0.9-1.1) Activated Partial Thromboplast Time 36 SEC (23-33) H Sodium Level 135 mEQ/L (135-145) Potassium Level 5.3 mEQ/L (3.4-4.9) H Chloride Level 98 mEQ/L (98-107) Carbon Dioxide Level 25 mEQ/L (20-30) Anion Gap 12 (5-15) Blood Urea Nitrogen 24 mg/dL (7-23) H Creatinine 0.3 mg/dL (0.7-1.2) L Estimat Glomerular Filtration Rate > 60 mL/min (>60) Glucose Level 98 mg/dL (74-106) Calcium Level 8.5 mg/dL (8.6-10.2) L Phosphorus Level 4.2 mg/dL (2.5-4.8) Magnesium Level 1.7 mg/dL (1.7-2.5) Total Bilirubin < 0.2 mg/dL (0.0-1.2) Aspartate Amino Transf (AST/SGOT) 21 U/L (5-40) Alanine Aminotransferase (ALT/SGPT) 19 U/L (3-41) Alkaline Phosphatase 836 U/L (40-129) H Total Protein 5.4 g/dL (6.6-8.7) L Albumin 2.3 g/dL (3.5-5.2) L Globulin 3.1 g/dL Albumin/Globulin Ratio 0.7 (1.0-2.7) L Current Medications Medications (Trade) Dose Ordered Sig/Tanisha Route PRN Reason Start Time Stop Time Status Last Admin Dose Admin Acetaminophen (Tylenol) 650 mg Q4H PRN ORAL Mild Pain/Temp > 100.5 08/11/16 18:00 09/10/16 17:59 Albuterol/ Ipratropium (DuoNeb 0.5-3(2.5)mg/3ml) 3 ml Q4H PRN HHN Shortness of Breath 08/11/16 18:00 08/16/16 17:59 Ceftazidime 1 gm/ Dextrose 50 ml @ 100 mls/hr Q8HR IV 08/11/16 22:00 08/18/16 21:59 08/16/16 05:16 Dextrose (Dextrose 50%) STAT PRN IV Hypoglycemia 08/11/16 18:00 09/10/16 17:59 Heparin Sodium (Porcine) (Heparin 5000 units/ml) 5,000 units EVERY 12 HOURS SUBQ 08/11/16 21:00 09/10/16 20:59 08/15/16 20:24 Insulin Aspart (NovoLOG) EVERY 6 HOURS SUBQ 08/11/16 18:00 09/10/16 17:59 Lactobacillus Acidophilus (Culturelle) 1 tab TWICE A DAY GT 08/11/16 18:00 09/10/16 17:59 08/15/16 17:57 Levothyroxine Sodium (Synthroid) 200 mcg DAILY GT 08/12/16 09:00 09/11/16 08:59 08/15/16 09:10 Lorazepam (Ativan 2mg/ml 1ml) 1 mg Q4H PRN IV For Anxiety 08/11/16 18:00 08/18/16 17:59 Midodrine (Pro-Amatine) 5 mg THREE TIMES A DAY GT 08/11/16 18:00 09/10/16 17:59 08/15/16 17:57 Ondansetron HCl (Zofran) 4 mg Q6H PRN IV Nausea & Vomiting 08/11/16 18:00 09/10/16 17:59 Polyethylene Glycol (Miralax) 17 gm DAILY GT 08/12/16 09:00 09/11/16 08:59 08/15/16 09:12 Ranitidine HCl 150 mg 150 mg Q12HR GT 08/11/16 21:00 09/10/16 20:59 08/15/16 20:23 Sodium Chloride (Sodium Chloride 1000ml bag) 1,000 ml @ 75 mls/hr [id number] IV 08/11/16 18:00 09/10/16 17:59 08/15/16 20:30 Tigecycline/ Sodium Chloride (Tygacil/Sodium Chloride 100ml bag) 100 ml @ 200 mls/hr EVERY 12 HOURS IVPB 08/12/16 21:00 08/19/16 20:59 08/15/16 20:23 [place] Aug 16, 2016 07:59
[2016-08-16 08:00] VITALS: BP 99/63
[2016-08-16] MEDS: Lactobacillus-GG tablet GT SCH ×2 (09:36→17:23)
[2016-08-16] MEDS: Miralax 17gm pkt GT SCH (09:36)
[2016-08-16] MEDS: Heparin 5000 units/ml inj SUBQ SCH ×2 (09:48→21:44)
--- NOTE | 2016-08-16 11:35 | Pulmonology Progress Note ---
Assessment/Plan Problems: (1) Acute and chronic respiratory failure (2) ATN (acute tubular necrosis) (3) Septic shock (4) Bilateral pneumonia (5) History of glioma of brainstem (6) Decubital ulcer (7) Brain anoxic injury Respiratory: monitor respiratory rate, adjust FIO2, CXR Cardiac: continue to monitor HR/BP Renal: F/U I&O, keep IV fluid Infectious Disease: check cultures, continue antibiotics Gastrointestinal: continue feedings/current rate Endocrine: monitor blood sugar, check TSH, continue sliding scale insulin Hematologic: monitor H/H, transfuse if hgb<8.5 Neurologic: PRN Ativan, keep patient comfortable Prophylaxis: Protonix Disposition: keep in ICU Notes Reviewed: mine expert, cardio Discussed with: nurses, consultants, caseworker intake Subjective ROS Limited/Unobtainable: Yes Allergies: Coded Allergies: PENICILLINS (Verified Allergy, Unknown, 04/19/16) Objective Last 24 Hour Vital Signs Date Time Temp Pulse Resp B/P Pulse Ox O2 Delivery O2 Flow Rate FiO2 08/16/16 10:49 88 20 40 08/16/16 09:13 86 20 40 08/16/16 08:00 97.2 80 18 99/63 99 Mechanical Ventilator 40 08/16/16 08:00 10.0 40 08/16/16 08:00 85 08/16/16 06:53 87 20 40 08/16/16 04:48 86 20 40 08/16/16 04:00 85 08/16/16 04:00 10.0 40 08/16/16 03:19 88 20 40 08/16/16 01:30 83 20 40 08/16/16 00:31 97.2 89 13 86/60 100 Room Air 08/16/16 00:00 10.0 40 08/16/16 00:00 88 08/15/16 23:30 89 20 40 08/15/16 21:35 87 20 40 08/15/16 20:00 88 08/15/16 20:00 10.0 40 08/15/16 20:00 96.3 87 20 86/46 100 Mechanical Ventilator 40 08/15/16 18:59 89 20 40 08/15/16 16:53 88 18 40 08/15/16 16:00 97.3 85 20 83/56 99 Mechanical Ventilator 40 08/15/16 16:00 10.0 40 08/15/16 16:00 86 08/15/16 14:58 85 20 40 08/15/16 13:06 86 20 40 08/15/16 12:00 97.7 85 20 106/63 98 Mechanical Ventilator 10.0 40 08/15/16 12:00 10.0 40 08/15/16 12:00 92 08/15/16 11:39 89 21 40 Intake and Output 08/15/16 08/16/16 19:00 07:00 Intake Total 1395 ml 2082.5 ml Output Total 1950 ml 1300 ml Balance -555 ml 782.5 ml Intake Free Water 200 ml 200 ml IV Total 975 ml 1162.5 ml Tube Feeding 120 ml 720 ml Other 100 ml Output Urine Total 1950 ml 1300 ml # Bowel Movements 4 1 General Appearance: WD/WN, no acute distress HEENT: normocephalic, atraumatic Respiratory/Chest: chest wall non-tender, lungs clear Cardiovascular: normal peripheral pulses, normal rate Abdomen: normal bowel sounds, soft, non tender Genitourinary: normal external genitalia Skin: no rash Neurologic/Psychiatric: supportability engineer II-XII 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, abnormal gait Lymphatic: no neck adenopathy Laboratory Tests 08/16/16 03:50: White Blood Count 13.1H, Red Blood Count 3.45L, Hemoglobin 10.2L, Hematocrit 31.4L, Mean Corpuscular Volume 91, Mean Corpuscular Hemoglobin 29.7, Mean Corpuscular Hemoglobin Concent 32.6, Red Cell Distribution Width 19.6H, Platelet Count 328, Mean Platelet Volume 5.7L, Neutrophils (%) (Auto) 69.5, Lymphocytes (%) (Auto) 18.2L, Monocytes (%) (Auto) 10.9H, Eosinophils (%) (Auto ) 0.8, Basophils (%) (Auto) 0.6, Prothrombin Time 11.5, Prothromb Time International Ratio 1.1, Activated Partial Thromboplast Time 36H, Sodium Level 135, Potassium Level 5.3H, Chloride Level 98, Carbon Dioxide Level 25, Anion Gap 12, Blood Urea Nitrogen 24H, Creatinine 0.3L, Estimat Glomerular Filtration Rate > 60, Glucose Level 98, Calcium Level 8.5L, Phosphorus Level 4.2, Magnesium Level 1.7, Total Bilirubin < 0.2, Aspartate Amino Transf (AST/SGOT) 21 , Alanine Aminotransferase (ALT/SGPT) 19, Alkaline Phosphatase 836H, Total Protein 5.4L, Albumin 2.3L, Globulin 3.1, Albumin/Globulin Ratio 0.7L Current Medications Medications (Trade) Dose Ordered Sig/Tanisha Route PRN Reason Start Time Stop Time Status Last Admin Dose Admin Acetaminophen (Tylenol) 650 mg Q4H PRN ORAL Mild Pain/Temp > 100.5 08/11/16 18:00 09/10/16 17:59 Albuterol/ Ipratropium (DuoNeb 0.5-3(2.5)mg/3ml) 3 ml Q4H PRN HHN Shortness of Breath 08/11/16 18:00 08/16/16 17:59 Ceftazidime 1 gm/ Dextrose 50 ml @ 100 mls/hr Q8HR IV 08/11/16 22:00 08/18/16 21:59 08/16/16 05:16 Dextrose (Dextrose 50%) STAT PRN IV Hypoglycemia 08/11/16 18:00 09/10/16 17:59 Heparin Sodium (Porcine) (Heparin 5000 units/ml) 5,000 units EVERY 12 HOURS SUBQ 08/11/16 21:00 09/10/16 20:59 08/16/16 09:48 Insulin Aspart (NovoLOG) EVERY 6 HOURS SUBQ 08/11/16 18:00 09/10/16 17:59 Lactobacillus Acidophilus (Culturelle) 1 tab TWICE A DAY GT 08/11/16 18:00 09/10/16 17:59 08/16/16 09:36 Levothyroxine Sodium (Synthroid) 200 mcg DAILY GT 08/12/16 09:00 09/11/16 08:59 08/16/16 09:37 Lorazepam (Ativan 2mg/ml 1ml) 1 mg Q4H PRN IV For Anxiety 08/11/16 18:00 08/18/16 17:59 Midodrine (Pro-Amatine) 5 mg THREE TIMES A DAY GT 08/11/16 18:00 09/10/16 17:59 08/16/16 09:37 Ondansetron HCl (Zofran) 4 mg Q6H PRN IV Nausea & Vomiting 08/11/16 18:00 09/10/16 17:59 Polyethylene Glycol (Miralax) 17 gm DAILY GT 08/12/16 09:00 09/11/16 08:59 08/16/16 09:36 Ranitidine HCl 150 mg 150 mg Q12HR GT 08/11/16 21:00 09/10/16 20:59 08/16/16 09:37 Sodium Chloride (Sodium Chloride 1000ml bag) 1,000 ml @ 75 mls/hr [id number] IV 08/11/16 18:00 09/10/16 17:59 08/15/16 20:30 Tigecycline/ Sodium Chloride (Tygacil/Sodium Chloride 100ml bag) 100 ml @ 200 mls/hr EVERY 12 HOURS IVPB 08/12/16 21:00 08/19/16 20:59 08/16/16 09:35 JAKUB MORALES Aug 16, 2016 11:35
[2016-08-16] MEDS ORDERED: Sodium Polystyrene Sulfonate 15gm Powder ORAL ONE (11:45)
[2016-08-16 12:00] VITALS: BP 92/61
--- NOTE | 2016-08-16 15:55 | General Progress Note ---
Assessment/Plan Assessment/Plan Assessment/Plan Problems: (1) Feeding by G-tube ICD Codes: Z93.1 - Gastrostomy status SNOMED: 973895853, 019294083 (2) Anemia ICD Codes: D64.9 - Anemia, unspecified SNOMED: 038389344 (3) Dysphagia ICD Codes: R13.10 - Dysphagia, unspecified SNOMED: 25738093, 892007922 (4) Diabetes mellitus ICD Codes: E11.9 - Type 2 diabetes mellitus without complications SNOMED: 22591155 (5) CAD (coronary artery disease) ICD Codes: I25.10 - Atherosclerotic heart disease of [place] coronary artery without angina pectoris SNOMED: 15532398 (6) CHF (congestive heart failure) ICD Codes: I50.9 - Heart failure, unspecified SNOMED: 15082947 (7) Abnormal LFTs ICD Codes: R79.89 - Other specified abnormal findings of blood chemistry SNOMED: 501658498 Status: stable, unchanged Assessment/Plan monitor H&H, transfuse prn GTF per dietary, tolerating OB stool x 2 >> negative AMA to r/o PBC, negative hep panel negative (06/04/16) ppi fu labs defer GI procedures at this time. Subjective Allergies: Coded Allergies: PENICILLINS (Verified Allergy, Unknown, 04/19/16) Subjective nonverbal at bedside tolerating TF D/W RN Objective Last 24 Hour Vital Signs Date Time Temp Pulse Resp B/P Pulse Ox O2 Delivery O2 Flow Rate FiO2 08/16/16 14:58 89 20 40 08/16/16 13:37 85 20 40 08/16/16 12:00 10.0 40 08/16/16 12:00 85 08/16/16 12:00 97.7 80 19 92/61 99 Mechanical Ventilator 40 08/16/16 10:49 88 20 40 08/16/16 09:13 86 20 40 08/16/16 08:00 97.2 80 18 99/63 99 Mechanical Ventilator 40 08/16/16 08:00 10.0 40 08/16/16 08:00 85 08/16/16 06:53 87 20 40 08/16/16 04:48 86 20 40 08/16/16 04:00 85 08/16/16 04:00 10.0 40 08/16/16 03:19 88 20 40 08/16/16 01:30 83 20 40 08/16/16 00:31 97.2 89 13 86/60 100 Room Air 08/16/16 00:00 10.0 40 08/16/16 00:00 88 08/15/16 23:30 89 20 40 08/15/16 21:35 87 20 40 08/15/16 20:00 88 08/15/16 20:00 10.0 40 08/15/16 20:00 96.3 87 20 86/46 100 Mechanical Ventilator 40 08/15/16 18:59 89 20 40 08/15/16 16:53 88 18 40 08/15/16 16:00 97.3 85 20 83/56 99 Mechanical Ventilator 40 08/15/16 16:00 10.0 40 08/15/16 16:00 86 Intake and Output 08/15/16 08/16/16 19:00 07:00 Intake Total 1395 ml 2082.5 ml Output Total 1950 ml 1300 ml Balance -555 ml 782.5 ml Intake Free Water 200 ml 200 ml IV Total 975 ml 1162.5 ml Tube Feeding 120 ml 720 ml Other 100 ml Output Urine Total 1950 ml 1300 ml # Bowel Movements 4 1 Laboratory Tests 08/16/16 03:50: White Blood Count 13.1H, Red Blood Count 3.45L, Hemoglobin 10.2L, Hematocrit 31.4L, Mean Corpuscular Volume 91, Mean Corpuscular Hemoglobin 29.7, Mean Corpuscular Hemoglobin Concent 32.6, Red Cell Distribution Width 19.6H, Platelet Count 328, Mean Platelet Volume 5.7L, Neutrophils (%) (Auto) 69.5, Lymphocytes (%) (Auto) 18.2L, Monocytes (%) (Auto) 10.9H, Eosinophils (%) (Auto ) 0.8, Basophils (%) (Auto) 0.6, Prothrombin Time 11.5, Prothromb Time International Ratio 1.1, Activated Partial Thromboplast Time 36H, Sodium Level 135, Potassium Level 5.3H, Chloride Level 98, Carbon Dioxide Level 25, Anion Gap 12, Blood Urea Nitrogen 24H, Creatinine 0.3L, Estimat Glomerular Filtration Rate > 60, Glucose Level 98, Calcium Level 8.5L, Phosphorus Level 4.2, Magnesium Level 1.7, Total Bilirubin < 0.2, Aspartate Amino Transf (AST/SGOT) 21 , Alanine Aminotransferase (ALT/SGPT) 19, Alkaline Phosphatase 836H, Total Protein 5.4L, Albumin 2.3L, Globulin 3.1, Albumin/Globulin Ratio 0.7L Height (Feet): 5 Height (Inches): 4.00 Weight (Pounds): 150 Objective Debilitated Elderly Wm NCAT supple CTA RRR soft ND (++)contracted OBS RAINE STERN Aug 16, 2016 15:55
[2016-08-16 16:00] VITALS: BP 87/54
[2016-08-16] MEDS ORDERED: Sterile Water Irrig 1000ml IRRIG ONE (17:21)
[2016-08-16] MEDS ORDERED: Tubing IV Secondary IV ONE ×2 (18:26→18:27)
[2016-08-16] MEDS ORDERED: NS 275ml ONE (18:26)
[2016-08-16 20:00] VITALS: BP 90/68
[2016-08-17] VITALS: BP 87/57
[2016-08-17 04:00] VITALS: BP 86/52
[2016-08-17 05:32] LABS: BASOPHILS % (AUTO) 0.5 % (0.0-2.0); EOSINOPHILS % (AUTO) 0.6 % (0.0-3.0); LYMPHOCYTES % (AUTO) 20.7 % (20.0-45.0); MEAN CORPUSCULAR VOLUME 91 FL (80-99); MEAN PLATELET VOLUME 5.8 FL (6.5-10.1); MONOCYTES % (AUTO) 11.2 % (1.0-10.0); PLATELET COUNT 341 K/UL (150-450); RED BLOOD COUNT 3.27 M/UL (4.70-6.10); RED CELL DISTRIBUTION WIDTH 19.1 % (11.6-14.8); WHITE BLOOD COUNT 13.6 K/UL (4.8-10.8)
[2016-08-17 05:35] LABS: ALANINE AMINOTRANSFERASE 18 U/L (3-41); ALBUMIN/GLOBULIN RATIO 0.6 (1.0-2.7); ANION GAP 10 (5-15); ASPARTATE AMINO TRANSFERASE 21 U/L (5-40); CALCIUM 8.3 mg/dL (8.6-10.2); CARBON DIOXIDE 25 mEQ/L (20-30); CHLORIDE 99 mEQ/L (98-107); CREATININE 0.3 mg/dL (0.7-1.2); GLOMERULAR FILTRATION RATE > 60 mL/min (>60); HEMOLYSIS 1; MAGNESIUM 1.6 mg/dL (1.7-2.5); PHOSPHORUS 3.9 mg/dL (2.5-4.8); POTASSIUM 4.8 mEQ/L (3.4-4.9); SODIUM 134 mEQ/L (135-145); TOTAL PROTEIN 5.4 g/dL (6.6-8.7)
[2016-08-17] MEDS: NovoLOG Insulin Flexpen SUBQ SCH ×4 (06:00→18:00)
--- NOTE | 2016-08-17 07:31 | Infectious Diseases Prog Note ---
Assessment/Plan Assessment/Plan ASSESSMENT: 60-year-old male with: // Multiple decubiti POA, infected / osteomyelitis - SP debridement, bone bx 08/08 - Cx VRE.faecalis, MDR-ACB - elevated ESR, CRP - Bone scan 07/01: Limited, essentially nondiagnostic exam. No gross findings to suggest acute osteomyelitis - h/o MDR-K.pneumoniae, VRE.faecalis, CONS, C.albicans // h/o recurrent CONS bacteremia - surveillance BCx(-) - h/o recurrent CONS 2/4 (05/09) SP IV vanco x28d - h/o CONS 3/4 (04/19 ) SP Rx IV vanco x7d - TTE 05/11: poorly visualized valves, poor candidate MARIA C - h/o CONS cath tip colonization ( <10K ) // h/o recurrent PNAs ( VAP / HCAP ) r/o recurrence - SCx : Providencia , ESBL Kleb , Diphtheroids - CXR 08/12 : interstitial and alveolar edema persists - h/o qI,S-PSA, P.stuartii, ESBL(+) K.pneumoniae, S.maltophilia // h/o recurrent UTIs - US: Mild left hydronephrosis, new since prior study of 04/21/2016. Etiology not demonstrated but concerning for downstream obstruction - h/o E.coli, K.pneumoniae SP Rx // Elevated LFTs, GGT - chronic, stable - US: Equivocally visualized stone filled gallbladder, versus shadowing from duodenal gas. 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 Tolerates cefepime, meropenem Full Code PLAN: cont Tygacil d# 6 / 10 , Ceftaz d# 7 / 10 . May need 6 weeks IV ABX for osteomyelitis ( 08/12 SP IV vancomycin d# 13 and Flagyl d# 9 ) ( SP aztreonam d# 12 ) ( 08/04 SP levaquin d# 5 ) ( 07/05 SP IV vancomycin, aztreonam d# 7 / 7 ) ( 06/26 SP Merrem d# 6, cefepime d# 14 ) ( SP IV vancomycin, d# 6 and flagyl d# 3 ) ( SP IV vancomycin d# 28 / ( 05/13 SP aztreonam, amikacin d# 5 / 5 ) ( 05/02 SP aztreonam d# 14 / 14 ) ( 04/25 SP vancomycin d# 7 / 7 ) Monitor CBC, temperatures Monitor CMP Monitor chest x-ray vent support, trach care, aspiration precautions wound care contact isolation Subjective Allergies: Coded Allergies: PENICILLINS (Verified Allergy, Unknown, 04/19/16) Subjective pt unable to provide any information WBC stable, afebrile Objective Vital Signs Last 24 Hour Vital Signs Date Time Temp Pulse Resp B/P Pulse Ox O2 Delivery O2 Flow Rate FiO2 08/17/16 07:09 91 18 40 08/17/16 05:30 88 20 40 08/17/16 04:00 10.0 40 08/17/16 04:00 98.1 92 20 86/52 98 Mechanical Ventilator 40 08/17/16 03:47 89 08/17/16 03:07 89 20 40 08/17/16 01:30 90 20 40 08/17/16 00:00 97.9 90 20 87/57 98 Mechanical Ventilator 40 08/17/16 00:00 40 08/16/16 23:52 91 08/16/16 23:02 92 20 40 08/16/16 21:30 95 20 40 08/16/16 20:00 40 08/16/16 20:00 92 08/16/16 20:00 97.1 88 20 90/68 99 Mechanical Ventilator 40 08/16/16 19:30 94 20 40 08/16/16 16:48 88 20 40 08/16/16 16:00 10.0 40 08/16/16 16:00 97.5 90 20 87/54 99 Mechanical Ventilator 40 08/16/16 16:00 89 08/16/16 14:58 89 20 40 08/16/16 13:37 85 20 40 08/16/16 12:00 10.0 40 08/16/16 12:00 85 08/16/16 12:00 97.7 80 19 92/61 99 Mechanical Ventilator 40 08/16/16 10:49 88 20 40 08/16/16 09:13 86 20 40 08/16/16 08:00 97.2 80 18 99/63 99 Mechanical Ventilator 40 08/16/16 08:00 10.0 40 08/16/16 08:00 85 Height (Feet): 5 Height (Inches): 4.00 Weight (Pounds): 150 General Appearance: no acute distress HEENT: status post trach Respiratory/Chest: decreased breath sounds Cardiovascular: normal rate, regular rhythm Abdomen: normal bowel sounds, soft, non tender, non distended Laboratory Tests Test 08/17/16 04:00 White Blood Count 13.6 K/UL (4.8-10.8) H Red Blood Count 3.27 M/UL (4.70-6.10) L Hemoglobin 9.8 G/DL (14.2-18.0) L Hematocrit 29.7 % (42.0-52.0) L Mean Corpuscular Volume 91 FL (80-99) Mean Corpuscular Hemoglobin 30.0 PG (27.0-31.0) Mean Corpuscular Hemoglobin Concent 33.0 G/DL (32.0-36.0) Red Cell Distribution Width 19.1 % (11.6-14.8) H Platelet Count 341 K/UL (150-450) Mean Platelet Volume 5.8 FL (6.5-10.1) L Neutrophils (%) (Auto) 67.0 % (45.0-75.0) Lymphocytes (%) (Auto) 20.7 % (20.0-45.0) Monocytes (%) (Auto) 11.2 % (1.0-10.0) H Eosinophils (%) (Auto) 0.6 % (0.0-3.0) Basophils (%) (Auto) 0.5 % (0.0-2.0) Sodium Level 134 mEQ/L (135-145) L Potassium Level 4.8 mEQ/L (3.4-4.9) Chloride Level 99 mEQ/L (98-107) Carbon Dioxide Level 25 mEQ/L (20-30) Anion Gap 10 (5-15) Blood Urea Nitrogen 25 mg/dL (7-23) H Creatinine 0.3 mg/dL (0.7-1.2) L Estimat Glomerular Filtration Rate > 60 mL/min (>60) Glucose Level 96 mg/dL (74-106) Calcium Level 8.3 mg/dL (8.6-10.2) L Phosphorus Level 3.9 mg/dL (2.5-4.8) Magnesium Level 1.6 mg/dL (1.7-2.5) L Total Bilirubin 0.2 mg/dL (0.0-1.2) Aspartate Amino Transf (AST/SGOT) 21 U/L (5-40) Alanine Aminotransferase (ALT/SGPT) 18 U/L (3-41) Alkaline Phosphatase 822 U/L (40-129) H Total Protein 5.4 g/dL (6.6-8.7) L Albumin 2.1 g/dL (3.5-5.2) L Globulin 3.3 g/dL Albumin/Globulin Ratio 0.6 (1.0-2.7) L Current Medications Medications (Trade) Dose Ordered Sig/Tanisha Route PRN Reason Start Time Stop Time Status Last Admin Dose Admin Acetaminophen (Tylenol) 650 mg Q4H PRN ORAL Mild Pain/Temp > 100.5 08/11/16 18:00 09/10/16 17:59 Ceftazidime 1 gm/ Dextrose 50 ml @ 100 mls/hr Q8HR IV 08/11/16 22:00 08/18/16 21:59 08/17/16 05:33 Dextrose (Dextrose 50%) STAT PRN IV Hypoglycemia 08/11/16 18:00 09/10/16 17:59 Heparin Sodium (Porcine) (Heparin 5000 units/ml) 5,000 units EVERY 12 HOURS SUBQ 08/11/16 21:00 09/10/16 20:59 08/16/16 21:44 Insulin Aspart (NovoLOG) EVERY 6 HOURS SUBQ 08/11/16 18:00 09/10/16 17:59 Lactobacillus Acidophilus (Culturelle) 1 tab TWICE A DAY GT 08/11/16 18:00 09/10/16 17:59 08/16/16 17:23 Levothyroxine Sodium (Synthroid) 200 mcg DAILY GT 08/12/16 09:00 09/11/16 08:59 08/16/16 09:37 Lorazepam (Ativan 2mg/ml 1ml) 1 mg Q4H PRN IV For Anxiety 08/11/16 18:00 08/18/16 17:59 Midodrine (Pro-Amatine) 5 mg THREE TIMES A DAY GT 08/11/16 18:00 09/10/16 17:59 08/16/16 17:23 Ondansetron HCl (Zofran) 4 mg Q6H PRN IV Nausea & Vomiting 08/11/16 18:00 09/10/16 17:59 Polyethylene Glycol (Miralax) 17 gm DAILY GT 08/12/16 09:00 09/11/16 08:59 08/16/16 09:36 Ranitidine HCl 150 mg 150 mg Q12HR GT 08/11/16 21:00 09/10/16 20:59 08/16/16 21:43 Sodium Chloride (Sodium Chloride 1000ml bag) 1,000 ml @ 75 mls/hr [id number] IV 08/11/16 18:00 09/10/16 17:59 08/17/16 02:13 Tigecycline/ Sodium Chloride (Tygacil/Sodium Chloride 100ml bag) 100 ml @ 200 mls/hr EVERY 12 HOURS IVPB 08/12/16 21:00 08/19/16 20:59 08/16/16 20:30 ALMAS CA Aug 17, 2016 07:31
[2016-08-17 08:00] VITALS: BP 90/58
[2016-08-17] MEDS: Lactobacillus-GG tablet GT SCH ×2 (08:42→18:14)
[2016-08-17] MEDS: Miralax 17gm pkt GT SCH (08:42)
[2016-08-17] MEDS: Heparin 5000 units/ml inj SUBQ SCH ×2 (08:43→22:20)
[2016-08-17 11:54] VITALS: BP 110/67
--- NOTE | 2016-08-17 12:53 | General Progress Note ---
Assessment/Plan Assessment/Plan Assessment/Plan Problems: (1) Feeding by G-tube ICD Codes: Z93.1 - Gastrostomy status SNOMED: 273025083, 974346203 (2) Anemia ICD Codes: D64.9 - Anemia, unspecified SNOMED: 245332046 (3) Dysphagia ICD Codes: R13.10 - Dysphagia, unspecified SNOMED: 31456630, 459491920 (4) Diabetes mellitus ICD Codes: E11.9 - Type 2 diabetes mellitus without complications SNOMED: 34267964 (5) CAD (coronary artery disease) ICD Codes: I25.10 - Atherosclerotic heart disease of [place] coronary artery without angina pectoris SNOMED: 47078515 (6) CHF (congestive heart failure) ICD Codes: I50.9 - Heart failure, unspecified SNOMED: 46602973 (7) Abnormal LFTs ICD Codes: R79.89 - Other specified abnormal findings of blood chemistry SNOMED: 889719593 Status: stable, unchanged Assessment/Plan monitor H&H, transfuse prn GTF per dietary, tolerating OB stool x 2 >> negative AMA to r/o PBC, negative hep panel negative (06/04/16) ppi fu labs defer GI procedures at this time. Subjective Allergies: Coded Allergies: PENICILLINS (Verified Allergy, Unknown, 04/19/16) Subjective nonverbal at bedside tolerating TF D/W RN Objective Last 24 Hour Vital Signs Date Time Temp Pulse Resp B/P Pulse Ox O2 Delivery O2 Flow Rate FiO2 08/17/16 12:00 10.0 40 08/17/16 11:54 97.8 90 22 110/67 99 Mechanical Ventilator 40 08/17/16 11:05 88 20 40 08/17/16 09:17 89 19 40 08/17/16 08:00 89 08/17/16 08:00 97.7 88 22 90/58 99 Mechanical Ventilator 40 08/17/16 08:00 10.0 40 08/17/16 07:09 91 18 40 08/17/16 05:30 88 20 40 08/17/16 04:00 10.0 40 08/17/16 04:00 98.1 92 20 86/52 98 Mechanical Ventilator 40 08/17/16 03:47 89 08/17/16 03:07 89 20 40 08/17/16 01:30 90 20 40 08/17/16 00:00 97.9 90 20 87/57 98 Mechanical Ventilator 40 08/17/16 00:00 40 08/16/16 23:52 91 08/16/16 23:02 92 20 40 08/16/16 21:30 95 20 40 08/16/16 20:00 40 08/16/16 20:00 92 08/16/16 20:00 97.1 88 20 90/68 99 Mechanical Ventilator 40 08/16/16 19:30 94 20 40 08/16/16 16:48 88 20 40 08/16/16 16:00 10.0 40 08/16/16 16:00 97.5 90 20 87/54 99 Mechanical Ventilator 40 08/16/16 16:00 89 08/16/16 14:58 89 20 40 08/16/16 13:37 85 20 40 Intake and Output 08/16/16 08/17/16 19:00 07:00 Intake Total 1945 ml 1955 ml Output Total 980 ml 2300 ml Balance 965 ml -345 ml Intake Free Water 400 ml 100 ml IV Total 825 ml 1075 ml Tube Feeding 720 ml 780 ml Output Urine Total 980 ml 2300 ml # Bowel Movements 4 2 Laboratory Tests 08/17/16 04:00: White Blood Count 13.6H, Red Blood Count 3.27L, Hemoglobin 9.8L, Hematocrit 29.7L, Mean Corpuscular Volume 91, Mean Corpuscular Hemoglobin 30.0, Mean Corpuscular Hemoglobin Concent 33.0, Red Cell Distribution Width 19.1H, Platelet Count 341, Mean Platelet Volume 5.8L, Neutrophils (%) (Auto) 67.0, Lymphocytes (%) (Auto) 20.7, Monocytes (%) (Auto) 11.2H, Eosinophils (%) (Auto) 0.6, Basophils (%) (Auto) 0.5, Sodium Level 134L, Potassium Level 4.8, Chloride Level 99, Carbon Dioxide Level 25, Anion Gap 10, Blood Urea Nitrogen 25H, Creatinine 0.3L, Estimat Glomerular Filtration Rate > 60, Glucose Level 96, Calcium Level 8.3L, Phosphorus Level 3.9, Magnesium Level 1.6L, Total Bilirubin 0.2, Aspartate Amino Transf (AST/SGOT) 21, Alanine Aminotransferase (ALT/SGPT) 18, Alkaline Phosphatase 822H, Total Protein 5.4L, Albumin 2.1L, Globulin 3.3, Albumin/Globulin Ratio 0.6L Height (Feet): 5 Height (Inches): 4.00 Weight (Pounds): 150 Objective Debilitated Elderly Wm NCAT supple CTA RRR soft ND (++)contracted OBS RAINE STERN Aug 17, 2016 12:53
--- NOTE | 2016-08-17 15:32 | Internal Med Progress Note ---
Subjective Date of Service: Aug 17, 2016 Physician Name SloanIrma Attending Physician Cherry Wei Current Medications Medications (Trade) Dose Ordered Sig/Tanisha Route PRN Reason Start Time Stop Time Status Last Admin Dose Admin Acetaminophen (Tylenol) 650 mg Q4H PRN ORAL Mild Pain/Temp > 100.5 08/11/16 18:00 09/10/16 17:59 Ceftazidime 1 gm/ Dextrose 50 ml @ 100 mls/hr Q8HR IV 08/11/16 22:00 08/18/16 21:59 08/17/16 13:10 Dextrose (Dextrose 50%) STAT PRN IV Hypoglycemia 08/11/16 18:00 09/10/16 17:59 Heparin Sodium (Porcine) (Heparin 5000 units/ml) 5,000 units EVERY 12 HOURS SUBQ 08/11/16 21:00 09/10/16 20:59 08/17/16 08:43 Insulin Aspart (NovoLOG) EVERY 6 HOURS SUBQ 08/11/16 18:00 09/10/16 17:59 Lactobacillus Acidophilus (Culturelle) 1 tab TWICE A DAY GT 08/11/16 18:00 09/10/16 17:59 08/17/16 08:42 Levothyroxine Sodium (Synthroid) 200 mcg DAILY GT 08/12/16 09:00 09/11/16 08:59 08/17/16 08:42 Lorazepam (Ativan 2mg/ml 1ml) 1 mg Q4H PRN IV For Anxiety 08/11/16 18:00 08/18/16 17:59 Midodrine (Pro-Amatine) 5 mg THREE TIMES A DAY GT 08/11/16 18:00 09/10/16 17:59 08/17/16 12:00 Ondansetron HCl (Zofran) 4 mg Q6H PRN IV Nausea & Vomiting 08/11/16 18:00 09/10/16 17:59 Polyethylene Glycol (Miralax) 17 gm DAILY GT 08/12/16 09:00 09/11/16 08:59 08/17/16 08:42 Ranitidine HCl 150 mg 150 mg Q12HR GT 08/11/16 21:00 09/10/16 20:59 08/17/16 08:42 Sodium Chloride (Sodium Chloride 1000ml bag) 1,000 ml @ 75 mls/hr [id number] IV 08/11/16 18:00 09/10/16 17:59 08/17/16 02:13 Tigecycline/ Sodium Chloride (Tygacil/Sodium Chloride 100ml bag) 100 ml @ 200 mls/hr EVERY 12 HOURS IVPB 08/12/16 21:00 08/19/16 20:59 08/17/16 08:42 Allergies: Coded Allergies: PENICILLINS (Verified Allergy, Unknown, 04/19/16) ROS Limited/Unobtainable: Yes Subjective Cover for Int Med-Dr Wei. KALPESH. Cont on vent Objective Last Vital Signs Date Time Temp Pulse Resp B/P Pulse Ox O2 Delivery O2 Flow Rate FiO2 08/17/16 14:47 84 20 40 08/17/16 12:00 10.0 08/17/16 11:54 97.8 110/67 99 Mechanical Ventilator Laboratory Tests Test 08/17/16 04:00 White Blood Count 13.6 K/UL (4.8-10.8) H Red Blood Count 3.27 M/UL (4.70-6.10) L Hemoglobin 9.8 G/DL (14.2-18.0) L Hematocrit 29.7 % (42.0-52.0) L Mean Corpuscular Volume 91 FL (80-99) Mean Corpuscular Hemoglobin 30.0 PG (27.0-31.0) Mean Corpuscular Hemoglobin Concent 33.0 G/DL (32.0-36.0) Red Cell Distribution Width 19.1 % (11.6-14.8) H Platelet Count 341 K/UL (150-450) Mean Platelet Volume 5.8 FL (6.5-10.1) L Neutrophils (%) (Auto) 67.0 % (45.0-75.0) Lymphocytes (%) (Auto) 20.7 % (20.0-45.0) Monocytes (%) (Auto) 11.2 % (1.0-10.0) H Eosinophils (%) (Auto) 0.6 % (0.0-3.0) Basophils (%) (Auto) 0.5 % (0.0-2.0) Sodium Level 134 mEQ/L (135-145) L Potassium Level 4.8 mEQ/L (3.4-4.9) Chloride Level 99 mEQ/L (98-107) Carbon Dioxide Level 25 mEQ/L (20-30) Anion Gap 10 (5-15) Blood Urea Nitrogen 25 mg/dL (7-23) H Creatinine 0.3 mg/dL (0.7-1.2) L Estimat Glomerular Filtration Rate > 60 mL/min (>60) Glucose Level 96 mg/dL (74-106) Calcium Level 8.3 mg/dL (8.6-10.2) L Phosphorus Level 3.9 mg/dL (2.5-4.8) Magnesium Level 1.6 mg/dL (1.7-2.5) L Total Bilirubin 0.2 mg/dL (0.0-1.2) Aspartate Amino Transf (AST/SGOT) 21 U/L (5-40) Alanine Aminotransferase (ALT/SGPT) 18 U/L (3-41) Alkaline Phosphatase 822 U/L (40-129) H Total Protein 5.4 g/dL (6.6-8.7) L Albumin 2.1 g/dL (3.5-5.2) L Globulin 3.3 g/dL Albumin/Globulin Ratio 0.6 (1.0-2.7) L Intake and Output 08/16/16 08/17/16 19:00 07:00 Intake Total 1945 ml 1955 ml Output Total 980 ml 2300 ml Balance 965 ml -345 ml Intake Free Water 400 ml 100 ml IV Total 825 ml 1075 ml Tube Feeding 720 ml 780 ml Output Urine Total 980 ml 2300 ml # Bowel Movements 4 2 Objective General Appearance: lethargic EENT: PERRL/EOMI, normal ENT inspection Neck: non-tender, normal alignment, supple Cardiovascular: normal peripheral pulses, normal rate, regular rhythm, no gallop/murmur, no JVD Respiratory/Chest: Mech ventchest wall non-tender, crackles/rales, rhonchi - bilaterally, expiratory wheezing Abdomen: normal bowel sounds, non tender, soft, no organomegaly, no mass Skin: normal pigmentation, warm/dry Assessment/Plan Problem List: (1) Brain anoxic injury (2) CAD (coronary artery disease) (3) Dysphagia (4) Hypothyroidism Assessment & Plan: Cont levoxyl (5) Acute flaccid quadriplegia (6) Diabetes mellitus (7) Bilateral pneumonia Assessment & Plan: Cont tegecycline and ceftaz per ID (8) Respiratory failure Assessment & Plan: Vent dep; s/p tracheostomy. follow pulm recs. (9) History of glioma of brainstem Status: not improved IRMA SLOAN Aug 17, 2016 15:32
[2016-08-17 16:00] VITALS: BP 102/68
[2016-08-17 20:00] VITALS: BP 100/55
[2016-08-18] VITALS: BP 106/64
[2016-08-18 04:00] VITALS: BP 92/63
[2016-08-18 05:50] LABS: ALANINE AMINOTRANSFERASE 18 U/L (3-41); ALBUMIN/GLOBULIN RATIO 0.7 (1.0-2.7); ANION GAP 12 (5-15); ASPARTATE AMINO TRANSFERASE 22 U/L (5-40); CALCIUM 8.5 mg/dL (8.6-10.2); CARBON DIOXIDE 26 mEQ/L (20-30); CHLORIDE 96 mEQ/L (98-107); CREATININE 0.4 mg/dL (0.7-1.2); GLOMERULAR FILTRATION RATE > 60 mL/min (>60); HEMOLYSIS 0; POTASSIUM 4.7 mEQ/L (3.4-4.9); SODIUM 134 mEQ/L (135-145); TOTAL PROTEIN 5.5 g/dL (6.6-8.7)
[2016-08-18 05:57] LABS: BASOPHILS % (AUTO) 0.8 % (0.0-2.0); EOSINOPHILS % (AUTO) 1.6 % (0.0-3.0); LYMPHOCYTES % (AUTO) 28.9 % (20.0-45.0); MEAN CORPUSCULAR HEMOGLOBIN 28.9 PG (27.0-31.0); MEAN CORPUSCULAR VOLUME 93 FL (80-99); MEAN PLATELET VOLUME 5.3 FL (6.5-10.1); MONOCYTES % (AUTO) 12.7 % (1.0-10.0); PLATELET COUNT 333 K/UL (150-450); RED BLOOD COUNT 3.36 M/UL (4.70-6.10); RED CELL DISTRIBUTION WIDTH 19.1 % (11.6-14.8); WHITE BLOOD COUNT 9.2 K/UL (4.8-10.8)
[2016-08-18] MEDS: NovoLOG Insulin Flexpen SUBQ SCH ×4 (06:00→17:45)
[2016-08-18 08:00] VITALS: BP 107/75
--- NOTE | 2016-08-18 08:39 | Infectious Diseases Prog Note ---
Assessment/Plan Assessment/Plan ASSESSMENT: 60-year-old male with: // Multiple decubiti POA, infected / osteomyelitis - SP debridement, bone bx 08/08 - Cx VRE.faecalis, MDR-ACB - elevated ESR, CRP - Bone scan 07/01: Limited, essentially nondiagnostic exam. No gross findings to suggest acute osteomyelitis - h/o MDR-K.pneumoniae, VRE.faecalis, CONS, C.albicans // h/o recurrent CONS bacteremia - surveillance BCx(-) - h/o recurrent CONS 2/4 (05/09) SP IV vanco x28d - h/o CONS 3/4 (04/19 ) SP Rx IV vanco x7d - TTE 05/11: poorly visualized valves, poor candidate MARIA C - h/o CONS cath tip colonization ( <10K ) // h/o recurrent PNAs ( VAP / HCAP ) r/o recurrence - SCx : Providencia , ESBL Kleb , Diphtheroids - CXR 08/12 : interstitial and alveolar edema persists - h/o qI,S-PSA, P.stuartii, ESBL(+) K.pneumoniae, S.maltophilia // h/o recurrent UTIs - US: Mild left hydronephrosis, new since prior study of 04/21/2016. Etiology not demonstrated but concerning for downstream obstruction - h/o E.coli, K.pneumoniae SP Rx // Elevated LFTs, GGT - chronic, stable - US: Equivocally visualized stone filled gallbladder, versus shadowing from duodenal gas. 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 Tolerates cefepime, meropenem Full Code PLAN: cont Tygacil d# 7 / 10 , Ceftaz d# 8 / 10 . May need 6 weeks IV ABX for osteomyelitis ( 08/12 SP IV vancomycin d# 13 and Flagyl d# 9 ) ( SP aztreonam d# 12 ) ( 08/04 SP levaquin d# 5 ) ( 07/05 SP IV vancomycin, aztreonam d# 7 / 7 ) ( 06/26 SP Merrem d# 6, cefepime d# 14 ) ( SP IV vancomycin, d# 6 and flagyl d# 3 ) ( SP IV vancomycin d# 28 / 28 ( 05/13 SP aztreonam, amikacin d# 5 / 5 ) ( 05/02 SP aztreonam d# 14 / 14 ) ( 04/25 SP vancomycin d# 7 / 7 ) Monitor CBC, temperatures Monitor CMP Monitor chest x-ray vent support, trach care, aspiration precautions wound care contact isolation Subjective Allergies: Coded Allergies: PENICILLINS (Verified Allergy, Unknown, 04/19/16) Subjective pt unable to provide any information leukocytosis resolved, afebrile Objective Vital Signs Last 24 Hour Vital Signs Date Time Temp Pulse Resp B/P Pulse Ox O2 Delivery O2 Flow Rate FiO2 08/18/16 08:00 10.0 40 08/18/16 06:33 88 20 40 08/18/16 05:17 89 22 40 08/18/16 04:00 10.0 40 08/18/16 04:00 80 08/18/16 04:00 98.4 91 23 92/63 100 Mechanical Ventilator 40 08/18/16 03:05 89 21 40 08/18/16 01:41 83 20 40 08/18/16 00:00 98.1 80 22 106/64 100 Mechanical Ventilator 40 08/18/16 00:00 10.0 40 08/18/16 00:00 82 08/17/16 23:25 82 20 40 08/17/16 21:11 85 20 40 08/17/16 20:00 10.0 40 08/17/16 20:00 86 08/17/16 20:00 98.2 85 18 100/55 100 Mechanical Ventilator 40 08/17/16 19:20 81 20 40 08/17/16 16:44 84 20 40 08/17/16 16:00 88 08/17/16 16:00 10.0 40 08/17/16 16:00 97.9 88 18 102/68 100 08/17/16 14:47 84 20 40 08/17/16 12:46 83 20 40 08/17/16 12:00 89 08/17/16 12:00 10.0 40 08/17/16 11:54 97.8 90 22 110/67 99 Mechanical Ventilator 40 08/17/16 11:05 88 20 40 08/17/16 09:17 89 19 40 Height (Feet): 5 Height (Inches): 4.00 Weight (Pounds): 150 General Appearance: no acute distress HEENT: status post trach Respiratory/Chest: decreased breath sounds Cardiovascular: normal rate, regular rhythm Abdomen: normal bowel sounds, soft, non tender, non distended Laboratory Tests Test 08/18/16 05:20 White Blood Count 9.2 K/UL (4.8-10.8) Red Blood Count 3.36 M/UL (4.70-6.10) L Hemoglobin 9.7 G/DL (14.2-18.0) L Hematocrit 31.3 % (42.0-52.0) L Mean Corpuscular Volume 93 FL (80-99) Mean Corpuscular Hemoglobin 28.9 PG (27.0-31.0) Mean Corpuscular Hemoglobin Concent 31.0 G/DL (32.0-36.0) L Red Cell Distribution Width 19.1 % (11.6-14.8) H Platelet Count 333 K/UL (150-450) Mean Platelet Volume 5.3 FL (6.5-10.1) L Neutrophils (%) (Auto) 56.0 % (45.0-75.0) Lymphocytes (%) (Auto) 28.9 % (20.0-45.0) Monocytes (%) (Auto) 12.7 % (1.0-10.0) H Eosinophils (%) (Auto) 1.6 % (0.0-3.0) Basophils (%) (Auto) 0.8 % (0.0-2.0) Sodium Level 134 mEQ/L (135-145) L Potassium Level 4.7 mEQ/L (3.4-4.9) Chloride Level 96 mEQ/L (98-107) L Carbon Dioxide Level 26 mEQ/L (20-30) Anion Gap 12 (5-15) Blood Urea Nitrogen 28 mg/dL (7-23) H Creatinine 0.4 mg/dL (0.7-1.2) L Estimat Glomerular Filtration Rate > 60 mL/min (>60) Glucose Level 109 mg/dL (74-106) H Calcium Level 8.5 mg/dL (8.6-10.2) L Total Bilirubin < 0.2 mg/dL (0.0-1.2) Gamma Glutamyl Transpeptidase 431 U/L (8-61) H Aspartate Amino Transf (AST/SGOT) 22 U/L (5-40) Alanine Aminotransferase (ALT/SGPT) 18 U/L (3-41) Alkaline Phosphatase 831 U/L (40-129) H Total Protein 5.5 g/dL (6.6-8.7) L Albumin 2.3 g/dL (3.5-5.2) L Globulin 3.2 g/dL Albumin/Globulin Ratio 0.7 (1.0-2.7) L Current Medications Medications (Trade) Dose Ordered Sig/Tanisha Route PRN Reason Start Time Stop Time Status Last Admin Dose Admin Acetaminophen (Tylenol) 650 mg Q4H PRN ORAL Mild Pain/Temp > 100.5 08/11/16 18:00 09/10/16 17:59 Ceftazidime 1 gm/ Dextrose 50 ml @ 100 mls/hr Q8HR IV 08/11/16 22:00 08/18/16 21:59 08/18/16 06:16 Dextrose (Dextrose 50%) STAT PRN IV Hypoglycemia 08/11/16 18:00 09/10/16 17:59 Heparin Sodium (Porcine) (Heparin 5000 units/ml) 5,000 units EVERY 12 HOURS SUBQ 08/11/16 21:00 09/10/16 20:59 08/17/16 22:20 Insulin Aspart (NovoLOG) EVERY 6 HOURS SUBQ 08/11/16 18:00 09/10/16 17:59 Lactobacillus Acidophilus (Culturelle) 1 tab TWICE A DAY GT 08/11/16 18:00 09/10/16 17:59 08/17/16 18:14 Levothyroxine Sodium (Synthroid) 200 mcg DAILY GT 08/12/16 09:00 09/11/16 08:59 08/17/16 08:42 Lorazepam (Ativan 2mg/ml 1ml) 1 mg Q4H PRN IV For Anxiety 08/11/16 18:00 08/18/16 17:59 Midodrine (Pro-Amatine) 5 mg THREE TIMES A DAY GT 08/11/16 18:00 09/10/16 17:59 08/17/16 18:13 Ondansetron HCl (Zofran) 4 mg Q6H PRN IV Nausea & Vomiting 08/11/16 18:00 09/10/16 17:59 Polyethylene Glycol (Miralax) 17 gm DAILY GT 08/12/16 09:00 09/11/16 08:59 08/17/16 08:42 Ranitidine HCl 150 mg 150 mg Q12HR GT 08/11/16 21:00 09/10/16 20:59 08/17/16 22:18 Sodium Chloride (Sodium Chloride 1000ml bag) 1,000 ml @ 75 mls/hr [id number] IV 08/11/16 18:00 09/10/16 17:59 08/17/16 18:20 Tigecycline/ Sodium Chloride (Tygacil/Sodium Chloride 100ml bag) 100 ml @ 200 mls/hr EVERY 12 HOURS IVPB 08/12/16 21:00 08/19/16 20:59 08/17/16 21:25 [place] Aug 18, 2016 08:39
[2016-08-18] MEDS: Miralax 17gm pkt GT SCH (09:24)
[2016-08-18] MEDS: Lactobacillus-GG tablet GT SCH ×2 (09:24→17:45)
[2016-08-18] MEDS: Heparin 5000 units/ml inj SUBQ SCH ×2 (09:45→20:25)
--- NOTE | 2016-08-18 11:57 | Pulmonology Progress Note ---
Assessment/Plan Problems: (1) Acute and chronic respiratory failure (2) ATN (acute tubular necrosis) (3) Septic shock (4) Bilateral pneumonia (5) History of glioma of brainstem (6) Decubital ulcer (7) Brain anoxic injury Respiratory: monitor respiratory rate, adjust FIO2, CXR Cardiac: continue pressors, stop pressors Renal: F/U I&O, keep IV fluid Infectious Disease: check cultures, continue antibiotics Gastrointestinal: continue feedings/current rate, hold feedings Endocrine: monitor blood sugar, check HgA1C, continue sliding scale insulin Hematologic: transfuse if hgb<8.5 Neurologic: PRN Ativan, PRN Morphine, keep patient comfortable Disposition: keep in ICU Notes Reviewed: weight analyst, cardio, renal Discussed with: nurses, consultants, case management coordinator Subjective ROS Limited/Unobtainable: Yes Allergies: Coded Allergies: PENICILLINS (Verified Allergy, Unknown, 04/19/16) Objective Last 24 Hour Vital Signs Date Time Temp Pulse Resp B/P Pulse Ox O2 Delivery O2 Flow Rate FiO2 08/18/16 10:38 76 20 40 08/18/16 08:36 88 20 40 08/18/16 08:00 97.7 85 20 107/75 100 Mechanical Ventilator 40 08/18/16 08:00 10.0 40 08/18/16 06:33 88 20 40 08/18/16 05:17 89 22 40 08/18/16 04:00 10.0 40 08/18/16 04:00 80 08/18/16 04:00 98.4 91 23 92/63 100 Mechanical Ventilator 40 08/18/16 03:05 89 21 40 08/18/16 01:41 83 20 40 08/18/16 00:00 98.1 80 22 106/64 100 Mechanical Ventilator 40 08/18/16 00:00 10.0 40 08/18/16 00:00 82 08/17/16 23:25 82 20 40 08/17/16 21:11 85 20 40 08/17/16 20:00 10.0 40 08/17/16 20:00 86 08/17/16 20:00 98.2 85 18 100/55 100 Mechanical Ventilator 40 08/17/16 19:20 81 20 40 08/17/16 16:44 84 20 40 08/17/16 16:00 88 08/17/16 16:00 10.0 40 08/17/16 16:00 97.9 88 18 102/68 100 08/17/16 14:47 84 20 40 08/17/16 12:46 83 20 40 08/17/16 12:00 89 08/17/16 12:00 10.0 40 Intake and Output 08/17/16 08/18/16 19:00 07:00 Intake Total 1985 ml 1290 ml Output Total 545 ml 1800 ml Balance 1440 ml -510 ml Intake Free Water 230 ml IV Total 1035 ml 750 ml Tube Feeding 720 ml 540 ml Output Urine Total 545 ml 1800 ml # Bowel Movements 3 5 General Appearance: WD/WN HEENT: normocephalic, atraumatic Respiratory/Chest: chest wall non-tender, lungs clear Cardiovascular: normal peripheral pulses, normal rate Abdomen: soft, non tender Genitourinary: normal external genitalia Extremities: no cyanosis Skin: no rash Neurologic/Psychiatric: gardening supervisor II-XII 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, no motor/sensory deficits Lymphatic: no neck adenopathy Musculoskeletal: no effusion Laboratory Tests 08/18/16 05:20: White Blood Count 9.2, Red Blood Count 3.36L, Hemoglobin 9.7L, Hematocrit 31.3L , Mean Corpuscular Volume 93, Mean Corpuscular Hemoglobin 28.9, Mean Corpuscular Hemoglobin Concent 31.0L, Red Cell Distribution Width 19.1H, Platelet Count 333, Mean Platelet Volume 5.3L, Neutrophils (%) (Auto) 56.0, Lymphocytes (%) (Auto) 28.9, Monocytes (%) (Auto) 12.7H, Eosinophils (%) (Auto) 1.6, Basophils (%) (Auto) 0.8, Sodium Level 134L, Potassium Level 4.7, Chloride Level 96L, Carbon Dioxide Level 26, Anion Gap 12, Blood Urea Nitrogen 28H, Creatinine 0.4L, Estimat Glomerular Filtration Rate > 60, Glucose Level 109H, Calcium Level 8.5L, Total Bilirubin < 0.2, Gamma Glutamyl Transpeptidase 431H, Aspartate Amino Transf (AST/SGOT) 22, Alanine Aminotransferase (ALT/SGPT) 18, Alkaline Phosphatase 831H, Total Protein 5.5L, Albumin 2.3L, Globulin 3.2, Albumin/Globulin Ratio 0.7L Current Medications Medications (Trade) Dose Ordered Sig/Tanisha Route PRN Reason Start Time Stop Time Status Last Admin Dose Admin Acetaminophen (Tylenol) 650 mg Q4H PRN ORAL Mild Pain/Temp > 100.5 08/11/16 18:00 09/10/16 17:59 Ceftazidime 1 gm/ Dextrose 50 ml @ 100 mls/hr Q8HR IV 08/11/16 22:00 08/20/16 21:59 08/18/16 06:16 Dextrose (Dextrose 50%) STAT PRN IV Hypoglycemia 08/11/16 18:00 09/10/16 17:59 Heparin Sodium (Porcine) (Heparin 5000 units/ml) 5,000 units EVERY 12 HOURS SUBQ 08/11/16 21:00 09/10/16 20:59 08/18/16 09:45 Insulin Aspart (NovoLOG) EVERY 6 HOURS SUBQ 08/11/16 18:00 09/10/16 17:59 Lactobacillus Acidophilus (Culturelle) 1 tab TWICE A DAY GT 08/11/16 18:00 09/10/16 17:59 08/18/16 09:24 Levothyroxine Sodium (Synthroid) 200 mcg DAILY GT 08/12/16 09:00 09/11/16 08:59 08/18/16 09:25 Lorazepam (Ativan 2mg/ml 1ml) 1 mg Q4H PRN IV For Anxiety 08/11/16 18:00 08/18/16 17:59 Midodrine (Pro-Amatine) 5 mg THREE TIMES A DAY GT 08/11/16 18:00 09/10/16 17:59 08/18/16 09:24 Ondansetron HCl (Zofran) 4 mg Q6H PRN IV Nausea & Vomiting 08/11/16 18:00 09/10/16 17:59 Polyethylene Glycol (Miralax) 17 gm DAILY GT 08/12/16 09:00 09/11/16 08:59 08/18/16 09:24 Ranitidine HCl 150 mg 150 mg Q12HR GT 08/11/16 21:00 09/10/16 20:59 08/18/16 09:25 Sodium Chloride (Sodium Chloride 1000ml bag) 1,000 ml @ 75 mls/hr [id number] IV 08/11/16 18:00 09/10/16 17:59 08/18/16 09:43 Tigecycline/ Sodium Chloride (Tygacil/Sodium Chloride 100ml bag) 100 ml @ 200 mls/hr EVERY 12 HOURS IVPB 08/12/16 21:00 08/23/16 20:59 08/18/16 09:26 JAKUB MORALES Aug 18, 2016 11:57
[2016-08-18 12:00] VITALS: BP 99/74
[2016-08-18 16:00] VITALS: BP 105/74
--- NOTE | 2016-08-18 16:38 | General Progress Note ---
Assessment/Plan Assessment/Plan Assessment/Plan Problems: (1) Feeding by G-tube ICD Codes: Z93.1 - Gastrostomy status SNOMED: 317311622, 222443914 (2) Anemia ICD Codes: D64.9 - Anemia, unspecified SNOMED: 457944721 (3) Dysphagia ICD Codes: R13.10 - Dysphagia, unspecified SNOMED: 19564982, 547524008 (4) Diabetes mellitus ICD Codes: E11.9 - Type 2 diabetes mellitus without complications SNOMED: 22551433 (5) CAD (coronary artery disease) ICD Codes: I25.10 - Atherosclerotic heart disease of [place] coronary artery without angina pectoris SNOMED: 62495327 (6) CHF (congestive heart failure) ICD Codes: I50.9 - Heart failure, unspecified SNOMED: 94876953 (7) Abnormal LFTs ICD Codes: R79.89 - Other specified abnormal findings of blood chemistry SNOMED: 307010525 Status: stable, unchanged Assessment/Plan monitor H&H, transfuse prn GTF OB stool x 2 >> negative discussed with at bedside hep panel negative (06/04/16) ppi fu labs defer GI procedures at this time. Subjective Allergies: Coded Allergies: PENICILLINS (Verified Allergy, Unknown, 04/19/16) Subjective nonverbal at bedside tolerating TF (+) BM Objective Last 24 Hour Vital Signs Date Time Temp Pulse Resp B/P Pulse Ox O2 Delivery O2 Flow Rate FiO2 08/18/16 16:00 10.0 40 08/18/16 16:00 97.3 78 20 105/74 98 Mechanical Ventilator 40 08/18/16 14:44 80 20 40 08/18/16 13:00 76 20 40 08/18/16 12:00 92 08/18/16 12:00 97.3 84 20 99/74 100 Mechanical Ventilator 40 08/18/16 12:00 10.0 40 08/18/16 10:38 76 20 40 08/18/16 08:36 88 20 40 08/18/16 08:00 81 08/18/16 08:00 97.7 85 20 107/75 100 Mechanical Ventilator 40 08/18/16 08:00 10.0 40 08/18/16 06:33 88 20 40 08/18/16 05:17 89 22 40 08/18/16 04:00 10.0 40 08/18/16 04:00 80 08/18/16 04:00 98.4 91 23 92/63 100 Mechanical Ventilator 40 08/18/16 03:05 89 21 40 08/18/16 01:41 83 20 40 08/18/16 00:00 98.1 80 22 106/64 100 Mechanical Ventilator 40 08/18/16 00:00 10.0 40 08/18/16 00:00 82 08/17/16 23:25 82 20 40 08/17/16 21:11 85 20 40 08/17/16 20:00 10.0 40 08/17/16 20:00 86 08/17/16 20:00 98.2 85 18 100/55 100 Mechanical Ventilator 40 08/17/16 19:20 81 20 40 08/17/16 16:44 84 20 40 Intake and Output 08/17/16 08/18/16 19:00 07:00 Intake Total 1985 ml 1535 ml Output Total 545 ml 2700 ml Balance 1440 ml -1165 ml Intake Free Water 230 ml IV Total 1035 ml 905 ml Tube Feeding 720 ml 630 ml Output Urine Total 545 ml 2700 ml # Bowel Movements 3 6 Laboratory Tests 08/18/16 05:20: White Blood Count 9.2, Red Blood Count 3.36L, Hemoglobin 9.7L, Hematocrit 31.3L , Mean Corpuscular Volume 93, Mean Corpuscular Hemoglobin 28.9, Mean Corpuscular Hemoglobin Concent 31.0L, Red Cell Distribution Width 19.1H, Platelet Count 333, Mean Platelet Volume 5.3L, Neutrophils (%) (Auto) 56.0, Lymphocytes (%) (Auto) 28.9, Monocytes (%) (Auto) 12.7H, Eosinophils (%) (Auto) 1.6, Basophils (%) (Auto) 0.8, Sodium Level 134L, Potassium Level 4.7, Chloride Level 96L, Carbon Dioxide Level 26, Anion Gap 12, Blood Urea Nitrogen 28H, Creatinine 0.4L, Estimat Glomerular Filtration Rate > 60, Glucose Level 109H, Calcium Level 8.5L, Total Bilirubin < 0.2, Gamma Glutamyl Transpeptidase 431H, Aspartate Amino Transf (AST/SGOT) 22, Alanine Aminotransferase (ALT/SGPT) 18, Alkaline Phosphatase 831H, Total Protein 5.5L, Albumin 2.3L, Globulin 3.2, Albumin/Globulin Ratio 0.7L Height (Feet): 5 Height (Inches): 4.00 Weight (Pounds): 150 Objective Debilitated Elderly Wm NCAT supple CTA RRR soft ND (++)contracted OBS RAINE STERN Aug 18, 2016 16:38
[2016-08-18 20:00] VITALS: BP 99/69
[2016-08-19] VITALS: BP 105/77
[2016-08-19 04:00] VITALS: BP 113/72
[2016-08-19] MEDS: NovoLOG Insulin Flexpen SUBQ SCH ×4 (06:00→18:00)
[2016-08-19 06:12] LABS: EOSINOPHILS % (AUTO) 1.6 % (0.0-3.0); LYMPHOCYTES % (AUTO) 29.1 % (20.0-45.0); MEAN CORPUSCULAR HEMOGLOBIN 29.1 PG (27.0-31.0); MEAN CORPUSCULAR HGB CONC 31.1 G/DL (32.0-36.0); MEAN CORPUSCULAR VOLUME 94 FL (80-99); MEAN PLATELET VOLUME 5.4 FL (6.5-10.1); MONOCYTES % (AUTO) 13.2 % (1.0-10.0); NEUTROPHILS % (AUTO) 55.1 % (45.0-75.0); PLATELET COUNT 294 K/UL (150-450); RED BLOOD COUNT 3.38 M/UL (4.70-6.10); RED CELL DISTRIBUTION WIDTH 18.9 % (11.6-14.8)
[2016-08-19 06:22] LABS: ALANINE AMINOTRANSFERASE 20 U/L (3-41); ALBUMIN/GLOBULIN RATIO 0.7 (1.0-2.7); ANION GAP 13 (5-15); ASPARTATE AMINO TRANSFERASE 26 U/L (5-40); CALCIUM 8.7 mg/dL (8.6-10.2); CARBON DIOXIDE 25 mEQ/L (20-30); CHLORIDE 98 mEQ/L (98-107); CREATININE 0.4 mg/dL (0.7-1.2); GLOMERULAR FILTRATION RATE > 60 mL/min (>60); HEMOLYSIS 2; MAGNESIUM 1.8 mg/dL (1.7-2.5); PHOSPHORUS 3.5 mg/dL (2.5-4.8); POTASSIUM 5.2 mEQ/L (3.4-4.9); SODIUM 136 mEQ/L (135-145); TOTAL PROTEIN 5.7 g/dL (6.6-8.7)
[2016-08-19 08:10] VITALS: BP 110/71
[2016-08-19] MEDS: Lactobacillus-GG tablet GT SCH ×2 (08:23→18:00)
[2016-08-19] MEDS: Heparin 5000 units/ml inj SUBQ SCH ×2 (08:25→21:15)
[2016-08-19] MEDS: Miralax 17gm pkt GT SCH (08:27)
--- NOTE | 2016-08-19 10:30 | GI Progress Note ---
Assessment/Plan Problems: (1) Feeding by G-tube ICD Codes: Z93.1 - Gastrostomy status SNOMED: 424396894, 141162140 (2) Anemia ICD Codes: D64.9 - Anemia, unspecified SNOMED: 396066696 (3) Dysphagia ICD Codes: R13.10 - Dysphagia, unspecified SNOMED: 60469406, 573889663 (4) Diabetes mellitus ICD Codes: E11.9 - Type 2 diabetes mellitus without complications SNOMED: 73526754 (5) CAD (coronary artery disease) ICD Codes: I25.10 - Atherosclerotic heart disease of [place] coronary artery without angina pectoris SNOMED: 85707828 (6) CHF (congestive heart failure) ICD Codes: I50.9 - Heart failure, unspecified SNOMED: 67395676 (7) Abnormal LFTs ICD Codes: R79.89 - Other specified abnormal findings of blood chemistry SNOMED: 538135626 Status: stable, unchanged Status Narrative Discussed with Dr. Eddy. Assessment/Plan monitor H&H, transfuse prn GTF OB stool x 2 >> negative discussed with at bedside hep panel negative (06/04/16) ppi fu labs defer GI procedures at this time. Subjective Subjective limited Objective Last 24 Hour Vital Signs Date Time Temp Pulse Resp B/P Pulse Ox O2 Delivery O2 Flow Rate FiO2 08/19/16 09:28 75 20 40 08/19/16 08:10 96.6 78 20 110/71 99 Mechanical Ventilator 40 08/19/16 08:00 79 08/19/16 08:00 40 08/19/16 07:19 76 20 40 08/19/16 04:51 78 20 40 08/19/16 04:00 40 08/19/16 04:00 81 08/19/16 04:00 97.5 79 16 113/72 100 Mechanical Ventilator 40 08/19/16 03:37 84 20 40 08/19/16 01:13 78 20 40 08/19/16 00:00 90 08/19/16 00:00 97.7 78 19 105/77 100 Mechanical Ventilator 40 08/19/16 00:00 40 08/18/16 23:21 83 24 40 08/18/16 21:18 78 20 40 08/18/16 20:00 97.0 74 20 99/69 100 Mechanical Ventilator 40 08/18/16 20:00 10.0 40 08/18/16 20:00 80 08/18/16 18:57 80 20 40 08/18/16 16:56 78 20 40 08/18/16 16:00 10.0 40 08/18/16 16:00 97.3 78 20 105/74 98 Mechanical Ventilator 40 08/18/16 16:00 80 08/18/16 14:44 80 20 40 08/18/16 13:00 76 20 40 08/18/16 12:00 92 08/18/16 12:00 97.3 84 20 99/74 100 Mechanical Ventilator 40 08/18/16 12:00 10.0 40 08/18/16 10:38 76 20 40 Intake and Output 08/18/16 08/19/16 18:59 06:59 Intake Total 1975 ml 1758 ml Output Total 1050 ml 3000 ml Balance 925 ml -1242 ml Intake Free Water 100 ml IV Total 1205 ml 888 ml Tube Feeding 720 ml 720 ml Other 50 ml 50 ml Output Urine Total 1050 ml 2900 ml Stool Total 100 ml # Bowel Movements 3 51 Laboratory Tests Test 08/19/16 04:00 White Blood Count 8.0 K/UL (4.8-10.8) Red Blood Count 3.38 M/UL (4.70-6.10) L Hemoglobin 9.8 G/DL (14.2-18.0) L Hematocrit 31.6 % (42.0-52.0) L Mean Corpuscular Volume 94 FL (80-99) Mean Corpuscular Hemoglobin 29.1 PG (27.0-31.0) Mean Corpuscular Hemoglobin Concent 31.1 G/DL (32.0-36.0) L Red Cell Distribution Width 18.9 % (11.6-14.8) H Platelet Count 294 K/UL (150-450) Mean Platelet Volume 5.4 FL (6.5-10.1) L Neutrophils (%) (Auto) 55.1 % (45.0-75.0) Lymphocytes (%) (Auto) 29.1 % (20.0-45.0) Monocytes (%) (Auto) 13.2 % (1.0-10.0) H Eosinophils (%) (Auto) 1.6 % (0.0-3.0) Basophils (%) (Auto) 1.0 % (0.0-2.0) Sodium Level 136 mEQ/L (135-145) Potassium Level 5.2 mEQ/L (3.4-4.9) H Chloride Level 98 mEQ/L (98-107) Carbon Dioxide Level 25 mEQ/L (20-30) Anion Gap 13 (5-15) Blood Urea Nitrogen 29 mg/dL (7-23) H Creatinine 0.4 mg/dL (0.7-1.2) L Estimat Glomerular Filtration Rate > 60 mL/min (>60) Glucose Level 106 mg/dL (74-106) Calcium Level 8.7 mg/dL (8.6-10.2) Phosphorus Level 3.5 mg/dL (2.5-4.8) Magnesium Level 1.8 mg/dL (1.7-2.5) Total Bilirubin < 0.2 mg/dL (0.0-1.2) Aspartate Amino Transf (AST/SGOT) 26 U/L (5-40) Alanine Aminotransferase (ALT/SGPT) 20 U/L (3-41) Alkaline Phosphatase 856 U/L (40-129) H Total Protein 5.7 g/dL (6.6-8.7) L Albumin 2.4 g/dL (3.5-5.2) L Globulin 3.3 g/dL Albumin/Globulin Ratio 0.7 (1.0-2.7) L Height (Feet): 5 Height (Inches): 4.00 Weight (Pounds): 150 General Appearance: no apparent distress Cardiovascular: normal rate Respiratory/Chest: other - mech vent Abdominal Exam: GT site - c/d/i Ashley Mccloud NLucianPLucian Aug 19, 2016 10:30
--- NOTE | 2016-08-19 11:22 | Pulmonology Progress Note ---
Assessment/Plan Problems: (1) Acute and chronic respiratory failure (2) ATN (acute tubular necrosis) (3) Septic shock (4) Bilateral pneumonia (5) History of glioma of brainstem (6) Decubital ulcer (7) Brain anoxic injury Respiratory: monitor respiratory rate, adjust FIO2 Cardiac: continue to monitor HR/BP Renal: F/U I&O, keep IV fluid Infectious Disease: check cultures, continue antibiotics Gastrointestinal: continue feedings/current rate Endocrine: monitor blood sugar, check TSH, continue sliding scale insulin Hematologic: monitor H/H, transfuse if hgb<8.5 Neurologic: PRN Ativan, keep patient comfortable Affect: PRN ativan Prophylaxis: Heparin Notes Reviewed: trustee of estate, cardio Discussed with: nurses, consultants, casework supervisor Subjective ROS Limited/Unobtainable: No Constitutional: Reports: no symptoms HEENT: Repors: no symptoms Respiratory: Reports: no symptoms Genitourinary: Reports: no symptoms Neurologic: Reports: no symptoms Psychiatric: Reports: no symptoms Skin: Reports: no symptoms Endocrine: Reports: no symptoms Allergies: Coded Allergies: PENICILLINS (Verified Allergy, Unknown, 04/19/16) Objective Last 24 Hour Vital Signs Date Time Temp Pulse Resp B/P Pulse Ox O2 Delivery O2 Flow Rate FiO2 08/19/16 09:28 75 20 40 08/19/16 08:10 96.6 78 20 110/71 99 Mechanical Ventilator 40 08/19/16 08:00 79 08/19/16 08:00 40 08/19/16 07:19 76 20 40 08/19/16 04:51 78 20 40 08/19/16 04:00 40 08/19/16 04:00 81 08/19/16 04:00 97.5 79 16 113/72 100 Mechanical Ventilator 40 08/19/16 03:37 84 20 40 08/19/16 01:13 78 20 40 08/19/16 00:00 90 08/19/16 00:00 97.7 78 19 105/77 100 Mechanical Ventilator 40 08/19/16 00:00 40 08/18/16 23:21 83 24 40 08/18/16 21:18 78 20 40 08/18/16 20:00 97.0 74 20 99/69 100 Mechanical Ventilator 40 08/18/16 20:00 10.0 40 08/18/16 20:00 80 08/18/16 18:57 80 20 40 08/18/16 16:56 78 20 40 08/18/16 16:00 10.0 40 08/18/16 16:00 97.3 78 20 105/74 98 Mechanical Ventilator 40 08/18/16 16:00 80 08/18/16 14:44 80 20 40 08/18/16 13:00 76 20 40 08/18/16 12:00 92 08/18/16 12:00 97.3 84 20 99/74 100 Mechanical Ventilator 40 08/18/16 12:00 10.0 40 Intake and Output 08/18/16 08/19/16 18:59 06:59 Intake Total 1975 ml 1758 ml Output Total 1050 ml 3000 ml Balance 925 ml -1242 ml Intake Free Water 100 ml IV Total 1205 ml 888 ml Tube Feeding 720 ml 720 ml Other 50 ml 50 ml Output Urine Total 1050 ml 2900 ml Stool Total 100 ml # Bowel Movements 3 51 General Appearance: WD/WN HEENT: normocephalic, atraumatic Respiratory/Chest: chest wall non-tender, lungs clear Cardiovascular: normal peripheral pulses, normal rate, regular rhythm Abdomen: normal bowel sounds, soft, non tender Genitourinary: normal external genitalia Extremities: no cyanosis Neurologic/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 II-XII 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, no motor/sensory deficits Lymphatic: no neck adenopathy Laboratory Tests 08/19/16 04:00: White Blood Count 8.0, Red Blood Count 3.38L, Hemoglobin 9.8L, Hematocrit 31.6L , Mean Corpuscular Volume 94, Mean Corpuscular Hemoglobin 29.1, Mean Corpuscular Hemoglobin Concent 31.1L, Red Cell Distribution Width 18.9H, Platelet Count 294, Mean Platelet Volume 5.4L, Neutrophils (%) (Auto) 55.1, Lymphocytes (%) (Auto) 29.1, Monocytes (%) (Auto) 13.2H, Eosinophils (%) (Auto) 1.6, Basophils (%) (Auto) 1.0, Sodium Level 136, Potassium Level 5.2H, Chloride Level 98, Carbon Dioxide Level 25, Anion Gap 13, Blood Urea Nitrogen 29H, Creatinine 0.4L, Estimat Glomerular Filtration Rate > 60, Glucose Level 106, Calcium Level 8.7, Phosphorus Level 3.5, Magnesium Level 1.8, Total Bilirubin < 0.2, Aspartate Amino Transf (AST/SGOT) 26, Alanine Aminotransferase (ALT/SGPT) 20, Alkaline Phosphatase 856H, Total Protein 5.7L, Albumin 2.4L, Globulin 3.3, Albumin/Globulin Ratio 0.7L Current Medications Medications (Trade) Dose Ordered Sig/Tanisha Route PRN Reason Start Time Stop Time Status Last Admin Dose Admin Acetaminophen (Tylenol) 650 mg Q4H PRN ORAL Mild Pain/Temp > 100.5 08/11/16 18:00 09/10/16 17:59 Ceftazidime 1 gm/ Dextrose 50 ml @ 100 mls/hr Q8HR IV 08/11/16 22:00 08/20/16 21:59 08/19/16 05:31 Dextrose (Dextrose 50%) STAT PRN IV Hypoglycemia 08/11/16 18:00 09/10/16 17:59 Heparin Sodium (Porcine) (Heparin 5000 units/ml) 5,000 units EVERY 12 HOURS SUBQ 08/11/16 21:00 09/10/16 20:59 08/19/16 08:25 Insulin Aspart (NovoLOG) EVERY 6 HOURS SUBQ 08/11/16 18:00 09/10/16 17:59 Lactobacillus Acidophilus (Culturelle) 1 tab TWICE A DAY GT 08/11/16 18:00 09/10/16 17:59 08/19/16 08:23 Levothyroxine Sodium (Synthroid) 200 mcg Q24H GT 08/20/16 06:30 09/19/16 06:29 Midodrine (Pro-Amatine) 5 mg THREE TIMES A DAY GT 08/11/16 18:00 09/10/16 17:59 08/19/16 08:23 Ondansetron HCl (Zofran) 4 mg Q6H PRN IV Nausea & Vomiting 08/11/16 18:00 09/10/16 17:59 08/19/16 08:23 Polyethylene Glycol (Miralax) 17 gm DAILY GT 08/12/16 09:00 09/11/16 08:59 08/18/16 09:24 Ranitidine HCl 150 mg 150 mg Q12HR GT 08/11/16 21:00 09/10/16 20:59 08/19/16 08:23 Sodium Chloride (Sodium Chloride 1000ml bag) 1,000 ml @ 75 mls/hr [id number] IV 08/11/16 18:00 09/10/16 17:59 08/18/16 21:06 Tigecycline/ Sodium Chloride (Tygacil/Sodium Chloride 100ml bag) 100 ml @ 200 mls/hr EVERY 12 HOURS IVPB 08/12/16 21:00 08/23/16 20:59 08/19/16 08:27 JAKUB MORALES Aug 19, 2016 11:22
[2016-08-19 12:00] VITALS: BP 111/79
--- NOTE | 2016-08-19 12:55 | Infectious Diseases Prog Note ---
Assessment/Plan Assessment/Plan ASSESSMENT: 60-year-old male with: // Multiple decubiti POA, infected / osteomyelitis - SP debridement, bone bx 08/08 - Cx VRE.faecalis, MDR-ACB - elevated ESR, CRP - Bone scan 07/01: Limited, essentially nondiagnostic exam. No gross findings to suggest acute osteomyelitis - h/o MDR-K.pneumoniae, VRE.faecalis, CONS, C.albicans // h/o recurrent CONS bacteremia - surveillance BCx(-) - h/o recurrent CONS 2/4 (05/09) SP IV vanco x28d - h/o CONS 3/4 (04/19 ) SP Rx IV vanco x7d - TTE 05/11: poorly visualized valves, poor candidate MARIA C - h/o CONS cath tip colonization ( <10K ) // h/o recurrent PNAs ( VAP / HCAP ) r/o recurrence - SCx : Providencia , ESBL Kleb , Diphtheroids - CXR 08/12 : interstitial and alveolar edema persists - h/o qI,S-PSA, P.stuartii, ESBL(+) K.pneumoniae, S.maltophilia // h/o recurrent UTIs - US: Mild left hydronephrosis, new since prior study of 04/21/2016. Etiology not demonstrated but concerning for downstream obstruction - h/o E.coli, K.pneumoniae SP Rx // Elevated LFTs, GGT - chronic, stable - US: Equivocally visualized stone filled gallbladder, versus shadowing from duodenal gas. Mildly dilated CBD, downstream obstruction not excludable - negative: AMA, hepatitis panel // Negative C.difficile // Probable recurrent sepsis SP // Chronic hypotension, on midodrine // Leukocytosis - resolved // Fever SP Chronic VDRF SP trach, PEG Anoxic encephalopathy / dementia History of glioblastoma multiforme Thrombocytosis Chronic macrocytic anemia Functional quadriplegia / bedbound / contracted [place] resident VRE colonized PCN allergy - unable to qualify. Tolerates cefepime, meropenem Full Code PLAN: cont Tygacil d# / , Ceftaz d# 9 / 10 . ( 08/12 SP IV vancomycin d# 13 and Flagyl d# 9 ) ( SP aztreonam d# 12 ) ( 08/04 SP levaquin d# 5 ) ( 07/05 SP IV vancomycin, aztreonam d# 7 / 7 ) ( 06/26 SP Merrem d# 6, cefepime d# 14 ) ( SP IV vancomycin, d# 6 and flagyl d# 3 ) ( SP IV vancomycin d# / ( 05/13 SP aztreonam, amikacin d# 5 / 5 ) ( 05/02 SP aztreonam d# 14 / 14 ) ( 04/25 SP vancomycin d# 7 / 7 ) Monitor CBC, temperatures Monitor CMP Monitor chest x-ray vent support, trach care, aspiration precautions wound care contact isolation Subjective Allergies: Coded Allergies: PENICILLINS (Verified Allergy, Unknown, 04/19/16) Subjective afebrile Objective Vital Signs Last 24 Hour Vital Signs Date Time Temp Pulse Resp B/P Pulse Ox O2 Delivery O2 Flow Rate FiO2 08/19/16 12:43 74 20 40 08/19/16 12:00 40 08/19/16 12:00 75 08/19/16 11:14 78 20 40 08/19/16 09:28 75 20 40 08/19/16 08:10 96.6 78 20 110/71 99 Mechanical Ventilator 40 08/19/16 08:00 79 08/19/16 08:00 40 08/19/16 07:19 76 20 40 08/19/16 04:51 78 20 40 08/19/16 04:00 40 08/19/16 04:00 81 08/19/16 04:00 97.5 79 16 113/72 100 Mechanical Ventilator 40 08/19/16 03:37 84 20 40 08/19/16 01:13 78 20 40 08/19/16 00:00 90 08/19/16 00:00 97.7 78 19 105/77 100 Mechanical Ventilator 40 08/19/16 00:00 40 08/18/16 23:21 83 24 40 08/18/16 21:18 78 20 40 08/18/16 20:00 97.0 74 20 99/69 100 Mechanical Ventilator 40 08/18/16 20:00 10.0 40 08/18/16 20:00 80 08/18/16 18:57 80 20 40 08/18/16 16:56 78 20 40 08/18/16 16:00 10.0 40 08/18/16 16:00 97.3 78 20 105/74 98 Mechanical Ventilator 40 08/18/16 16:00 80 08/18/16 14:44 80 20 40 08/18/16 13:00 76 20 40 Height (Feet): 5 Height (Inches): 4.00 Weight (Pounds): 150 HEENT: atraumatic Respiratory/Chest: chest wall non-tender Cardiovascular: normal rate Abdomen: non distended Laboratory Tests Test 08/19/16 04:00 White Blood Count 8.0 K/UL (4.8-10.8) Red Blood Count 3.38 M/UL (4.70-6.10) L Hemoglobin 9.8 G/DL (14.2-18.0) L Hematocrit 31.6 % (42.0-52.0) L Mean Corpuscular Volume 94 FL (80-99) Mean Corpuscular Hemoglobin 29.1 PG (27.0-31.0) Mean Corpuscular Hemoglobin Concent 31.1 G/DL (32.0-36.0) L Red Cell Distribution Width 18.9 % (11.6-14.8) H Platelet Count 294 K/UL (150-450) Mean Platelet Volume 5.4 FL (6.5-10.1) L Neutrophils (%) (Auto) 55.1 % (45.0-75.0) Lymphocytes (%) (Auto) 29.1 % (20.0-45.0) Monocytes (%) (Auto) 13.2 % (1.0-10.0) H Eosinophils (%) (Auto) 1.6 % (0.0-3.0) Basophils (%) (Auto) 1.0 % (0.0-2.0) Sodium Level 136 mEQ/L (135-145) Potassium Level 5.2 mEQ/L (3.4-4.9) H Chloride Level 98 mEQ/L (98-107) Carbon Dioxide Level 25 mEQ/L (20-30) Anion Gap 13 (5-15) Blood Urea Nitrogen 29 mg/dL (7-23) H Creatinine 0.4 mg/dL (0.7-1.2) L Estimat Glomerular Filtration Rate > 60 mL/min (>60) Glucose Level 106 mg/dL (74-106) Calcium Level 8.7 mg/dL (8.6-10.2) Phosphorus Level 3.5 mg/dL (2.5-4.8) Magnesium Level 1.8 mg/dL (1.7-2.5) Total Bilirubin < 0.2 mg/dL (0.0-1.2) Aspartate Amino Transf (AST/SGOT) 26 U/L (5-40) Alanine Aminotransferase (ALT/SGPT) 20 U/L (3-41) Alkaline Phosphatase 856 U/L (40-129) H Total Protein 5.7 g/dL (6.6-8.7) L Albumin 2.4 g/dL (3.5-5.2) L Globulin 3.3 g/dL Albumin/Globulin Ratio 0.7 (1.0-2.7) L Current Medications Medications (Trade) Dose Ordered Sig/Tanisha Route PRN Reason Start Time Stop Time Status Last Admin Dose Admin Acetaminophen (Tylenol) 650 mg Q4H PRN ORAL Mild Pain/Temp > 100.5 08/11/16 18:00 09/10/16 17:59 Ceftazidime 1 gm/ Dextrose 50 ml @ 100 mls/hr Q8HR IV 08/11/16 22:00 08/20/16 21:59 08/19/16 05:31 Dextrose (Dextrose 50%) STAT PRN IV Hypoglycemia 08/11/16 18:00 09/10/16 17:59 Heparin Sodium (Porcine) (Heparin 5000 units/ml) 5,000 units EVERY 12 HOURS SUBQ 08/11/16 21:00 09/10/16 20:59 08/19/16 08:25 Insulin Aspart (NovoLOG) EVERY 6 HOURS SUBQ 08/11/16 18:00 09/10/16 17:59 Lactobacillus Acidophilus (Culturelle) 1 tab TWICE A DAY GT 08/11/16 18:00 09/10/16 17:59 08/19/16 08:23 Levothyroxine Sodium (Synthroid) 200 mcg Q24H GT 08/20/16 06:30 09/19/16 06:29 Midodrine (Pro-Amatine) 5 mg THREE TIMES A DAY GT 08/11/16 18:00 09/10/16 17:59 08/19/16 08:23 Ondansetron HCl (Zofran) 4 mg Q6H PRN IV Nausea & Vomiting 08/11/16 18:00 09/10/16 17:59 08/19/16 08:23 Polyethylene Glycol (Miralax) 17 gm DAILY GT 08/12/16 09:00 09/11/16 08:59 08/18/16 09:24 Ranitidine HCl 150 mg 150 mg Q12HR GT 08/11/16 21:00 09/10/16 20:59 08/19/16 08:23 Sodium Chloride (Sodium Chloride 1000ml bag) 1,000 ml @ 75 mls/hr [id number] IV 08/11/16 18:00 09/10/16 17:59 08/18/16 21:06 Tigecycline/ Sodium Chloride (Tygacil/Sodium Chloride 100ml bag) 100 ml @ 200 mls/hr EVERY 12 HOURS IVPB 08/12/16 21:00 08/23/16 20:59 08/19/16 08:27 GURDEEP BHANDARI M.D. Aug 19, 2016 12:55
[2016-08-19 16:00] VITALS: BP 80/60
[2016-08-19 20:14] VITALS: BP_SYST 138; BP_SYST 89; BP_DIAS 65; BP_DIAS 80
[2016-08-19] MEDS ORDERED: Tubing IV Secondary IV ONE (22:52)
[2016-08-19] MEDS ORDERED: Sterile Water Irrig 1000ml IRRIG ONE (22:52)
[2016-08-20] VITALS: BP 95/62
[2016-08-20] MEDS: NovoLOG Insulin Flexpen SUBQ SCH
--- NOTE | 2016-08-22 02:17 | Discharge Summary 2 SIG ---
DATE OF ADMISSION: 07/30/2016 DATE OF DISCHARGE: 08/20/2016 CONSULTANTS: 1. Barry Cabrera M.D. 2. Davey Conway M.D. 3. Erik Eddy M.D. 4. Ben Eid M.D. BRIEF HOSPITAL COURSE: The patient is a 60-year-old male who presented with chief complaint of respiratory distress. He is a resident of [facility], and history of vent dependent respiratory failure. According to skilled nursing staff, the patient experienced increased respiratory distress and was transported to [facility] and was admitted for pneumonia. Chest x-ray in the emergency department demonstrated chronic elevation of the right hemidiaphragm with possible basilar infiltrates. He was noted to be hypotensive and with leukocytosis Dr. Conway was also consulted and was started empirically on vancomycin, aztreonam, and Levaquin. He also came in with multiple decubitus pressure ulcer and was evaluated during last admission and at that time, did not recommend debridement. A bone scan was essentially nondiagnostic with no gross findings to suggest osteomyelitis. He was pancultured. Sputum culture showed growth of Providencia, ESBL Klebsiella, and diphtheroids. He has history of polymicrobial growth in the wound and sputum. He had history of ESBL Pseudomonas, Klebsiella pneumonia. History of E.coli and Klebsiella UTI. He was given multiple antibiotics. Dr. Cabrera was also consulted for evaluation of wound. On assessment, the patient has a left trochanteric ulcer with large unstageable ulcer and eschar. On 08/08/2016, he underwent excisional debridement of left trochanteric pressure ulcer down to and including muscle, deep open biopsy on greater trochanter, excisional debridement of the midback pressure ulcer down to the muscle. Wound care nurse was also consulted and wound care was provided. Dr. Eddy was consulted for evaluation of anemia. Stool OB x2 was negative. Deferred any GI procedures at this time. The patient was eventually discharged home. FINAL DIAGNOSES: 1. Acute on chronic respiratory failure. 2. Acute tubular necrosis. 3. Septic shock. 4. Bilateral pneumonia. 5. History of glioma of the brain stem. 6. Decubitus pressure ulcer present on admission. 7. Anoxic brain injury. 8. Multiple decubitus, present on admission, infected with possible osteomyelitis. 9. Recurrence of pneumonia . 10. Liver transaminases. 11. Chronic hypotension. 12. Acute on chronic ventilator-dependent respiratory failure. 13. Acute toxic-metabolic encephalopathy with dementia. 14. Thrombocytosis. 15. Chronic macrocytic anemia. 16. Feeding via gastrostomy tube. 17. Anemia. 18. Coronary artery disease. 19. Diabetes mellitus. 20. Elevated liver transaminases. 21. Acute on chronic congestive heart failure. 22. History of glioblastoma , multiforme. 23. Functional quadriplegia/bed-bound/contracted. 24. Leukocytosis. 25. Status post excisional debridement of the left trochanteric and mid back pressure ulcer. Cherry Wei M.D. I have been assigned to dictate discharge summary on this account and I was not involved in the patient's management. Judy Alfaro N.P. DR: Franky JOB#: [id number] CC: GORDON
== END 2016-08-20 01:02 | DRG 710 ==
LOC: ENRESERV → ENRESERVDT → ENRESERVTM → EDBD 10:03 → EMR 10:39 → 2W 10:47 → EDBEDREQ 11:51 → 2W 08-06 10:26 → ICU 08-08 10:28 → 2W 08-11 17:29
DX: A41.9 Sepsis, unspecified organism (principal); J96.20 Acute and chronic respiratory failure, unspecified whether with hypoxia or hypercapnia; N17.0 Acute kidney failure with tubular necrosis; R65.21 Severe sepsis with septic shock; J69.0 Pneumonitis due to inhalation of food and vomit; G92 Toxic encephalopathy; E43 Unspecified severe protein-calorie malnutrition; L89.154 Pressure ulcer of sacral region, stage 4; G93.1 Anoxic brain damage, not elsewhere classified; L89.224 Pressure ulcer of left hip, stage 4; R53.2 Functional quadriplegia; Z93.1 Gastrostomy status; J95.851 Ventilator associated pneumonia; I95.89 Other hypotension; I50.9 Heart failure, unspecified; Z99.11 Dependence on respirator [ventilator] status; F03.90 Unspecified dementia, unspecified severity, without behavioral disturbance, psychotic disturbance, mood disturbance, and anxiety; D47.3 Essential (hemorrhagic) thrombocythemia; I25.10 Atherosclerotic heart disease of native coronary artery without angina pectoris; E11.9 Type 2 diabetes mellitus without complications; R13.10 Dysphagia, unspecified; Z93.0 Tracheostomy status; Z68.25 Body mass index [BMI] 25.0-25.9, adult
CPT/HCPCS: 36415; 36569; 36600; 71010; 76700; 76937; 80048; 80053; 80202; 81003; 82270; 82550; 82553; 82803; 82962; 82977; 83605; 83690; 83735; 83880; 84100; 84484; 85007; 85025; 85610; 85651; 85730; 86140; 86850; 86900; 86901; 86920; 87040; 87070; 87075; 87081; 87181; 87205; 87493; 93005; 94002; 94003; 94150; 94640; 94664; J1815; J2250; J2405

== ENCOUNTER 2016-09-04 19:19 | Inpatient (IN) | payer OTHER ==
[~2016-09-04] VITALS: Ht 165.1 cm; Wt 63.5 kg
[~2016-09-04 19:19] MED LIST changes: +EPOGEN20000 UNI1 SUBQ; +MIDODRINE HCL5 MG GT; +PRO-STAT MAX L887 ML GT
[2016-09-04 19:30] VITALS: BP 96/57
[2016-09-04] MEDS ORDERED: Vancomycin 1 GM in NS 275 ML IV ONE (19:30)
[2016-09-04] MEDS ORDERED: NS 1000ml 1,900 ML IVLG ONE (19:30)
[2016-09-04] MEDS ORDERED: metroNIDAZOLE 500mg 100 ML IV SCH (19:30)
[2016-09-04 20:14] LABS: BASOPHILS % (AUTO) 0.6 % (0.0-2.0); EOSINOPHILS % (AUTO) 0.2 % (0.0-3.0); MEAN CORPUSCULAR HEMOGLOBIN 28.6 PG (27.0-31.0); MEAN CORPUSCULAR HGB CONC 30.2 G/DL (32.0-36.0); MEAN CORPUSCULAR VOLUME 95 FL (80-99); MEAN PLATELET VOLUME 5.4 FL (6.5-10.1); MONOCYTES % (AUTO) 9.5 % (1.0-10.0); NEUTROPHILS % (AUTO) 60.7 % (45.0-75.0); PLATELET COUNT 421 K/UL (150-450); RED BLOOD COUNT 2.86 M/UL (4.70-6.10); RED CELL DISTRIBUTION WIDTH 18.5 % (11.6-14.8); WHITE BLOOD COUNT 12.5 K/UL (4.8-10.8)
[2016-09-04] MEDS ORDERED: Cefepime 1gm vial ONE (20:14)
[2016-09-04] MEDS: Cefepime HCl 1 GM in NS 55 ML IV SCH (20:14)
[2016-09-04 20:31] LABS: PROTHROMBIN TIME 10.6 SEC (9.30-11.50)
[2016-09-04 20:36] LABS: TROPONIN I < 0.30 ng/mL (<=0.30)
[2016-09-04 20:39] LABS: ALANINE AMINOTRANSFERASE 69 U/L (3-41); ALBUMIN/GLOBULIN RATIO 0.5 (1.0-2.7); ANION GAP 14 (5-15); ASPARTATE AMINO TRANSFERASE 49 U/L (5-40); CALCIUM 8.9 mg/dL (8.6-10.2); CARBON DIOXIDE 26 mEQ/L (20-30); CHLORIDE 102 mEQ/L (98-107); CREATININE 0.7 mg/dL (0.7-1.2); GLOMERULAR FILTRATION RATE > 60 mL/min (>60); HEMOLYSIS 3; POTASSIUM 4.8 mEQ/L (3.4-4.9); SODIUM 142 mEQ/L (135-145); TOTAL PROTEIN 6.2 g/dL (6.6-8.7)
[2016-09-04 20:43] LABS: ABG BASE EXCESS 3.2; ABG PCO2 39.7 mmHg (35.0-45.0)
[2016-09-04 20:44] LABS: ABG ALLEN TEST POSITIVE
[2016-09-04] MEDS ORDERED: Vancomycin 1gm inj IVPB ONE (20:55)
--- NOTE | 2016-09-04 21:04 | Emergency Room Report ---
History of Present Illness General Chief Complaint: Fever Source: Medical Record, EMS Present Illness HPI Fever at SNF. Alleged 102. Patient vent dependent. Post G tube placement. H/O glioblastoma multiforme. D/C diagnoses 08/20/16: 1. Acute on chronic respiratory failure. 2. Acute tubular necrosis. 3. Septic shock. 4. Bilateral pneumonia. 5. History of glioma of the brain stem. 6. Decubitus pressure ulcer present on admission. 7. Anoxic brain injury. 8. Multiple decubitus, present on admission, infected with possible osteomyelitis. 9. Recurrence of pneumonia . 10. Liver transaminases. 11. Chronic hypotension. 12. Acute on chronic ventilator-dependent respiratory failure. 13. Acute toxic-metabolic encephalopathy with dementia. 14. Thrombocytosis. 15. Chronic macrocytic anemia. 16. Feeding via gastrostomy tube. 17. Anemia. 18. Coronary artery disease. 19. Diabetes mellitus. 20. Elevated liver transaminases. 21. Acute on chronic congestive heart failure. 22. History of glioblastoma , multiforme. 23. Functional quadriplegia/bed-bound/contracted. 24. Leukocytosis. 25. Status post excisional debridement of the left trochanteric and mid back pressure ulcer. No further history available. Allergies: Coded Allergies: PENICILLINS (Verified Allergy, Unknown, 04/19/16) Patient History Limited by: medical condition Past Medical History: see triage record, old chart reviewed Past Surgical History: other - trach, G tube Social History Narrative SNF Reviewed Nursing Documentation: PMH: Agreed, PSxH: Agreed Nursing Documentation-PMH Hx Cardiac Problems: Yes Hx Hypertension: No Hx Pacemaker: No Hx Asthma: No Hx COPD: No - Respiratory failure Hx Diabetes: Yes Hx Cancer: No Hx Gastrointestinal Problems: Yes - Dysphagia, s/p G-tube Hx Dialysis: No History Of Psychiatric Problem: Yes Hx Neurological Problems: Yes - Non-verbal, T-can 7.0 with ventilator dependent Hx Seizures: No Hx Aphasia: Yes Hx Dysphasia: Yes Hx Weakness: Yes Hx Neurologic Surgery: Yes - glioblastoma multiforme s/p resection Review of Systems All Other Systems: limited Physical Exam Vital Signs Date Time Temp Pulse Resp B/P Pulse Ox O2 Delivery O2 Flow Rate FiO2 09/04/16 19:20 97.7 104 20 90/55 99 T-piece 6.0 09/04/16 19:30 45 Sp02 EP Interpretation: reviewed, normal General Appearance: no apparent distress, Chronically Ill, Stupor Head: normocephalic, atraumatic Eyes: bilateral eye PERRL, bilateral eye normal inspection ENT: dry mucus membranes Neck: supple, tracheotomy Respiratory: crackles, rales, rhonchi Cardiovascular #1: regular rate, rhythm Cardiovascular #2: 2+ radial (R) Gastrointestinal: normal inspection, non tender, no mass, non-distended, abnormal bowel sounds - decreased, other - G tube Musculoskeletal: back normal, other - atrophy Neurologic: motor weakness, sensory deficit, Babinski, other - vegetative state Psychiatric: other - vegetative state Skin: warm/dry, other - not examine sacrum or back Medical Decision Making Diagnostic Impression: Primary Impression: Sepsis ER Course Patient with fever at [facility]. DDx; pneumonia, UTI, sepsis amongst others. Complex and chronically ill patient. Full sepsis evaluation and initiation of fluids and antibiotics. By exam, most likely source is pulmonary. Labs significant for relative hypoxia, leukocytosis, clear urine, anemia. CXR with bilateral infiltrates. Minimally elevated BNP. Discussed with therapeutic case manager. Clinically septic. Non-transferrable. Hypotensive, responsive to fluids. Admit KALPES[facility] Dr. Wei. Laboratory Tests Test 09/04/16 20:00 09/04/16 20:33 09/04/16 20:35 White Blood Count 12.5 K/UL (4.8-10.8) H Red Blood Count 2.86 M/UL (4.70-6.10) L Hemoglobin 8.2 G/DL (14.2-18.0) L Hematocrit 27.1 % (42.0-52.0) L Mean Corpuscular Volume 95 FL (80-99) Mean Corpuscular Hemoglobin 28.6 PG (27.0-31.0) Mean Corpuscular Hemoglobin Concent 30.2 G/DL (32.0-36.0) L Red Cell Distribution Width 18.5 % (11.6-14.8) H Platelet Count 421 K/UL (150-450) Mean Platelet Volume 5.4 FL (6.5-10.1) L Neutrophils (%) (Auto) 60.7 % (45.0-75.0) Lymphocytes (%) (Auto) 29.0 % (20.0-45.0) Monocytes (%) (Auto) 9.5 % (1.0-10.0) Eosinophils (%) (Auto) 0.2 % (0.0-3.0) Basophils (%) (Auto) 0.6 % (0.0-2.0) Prothrombin Time 10.6 SEC (9.30-11.50) Prothrombin Time INR 1.0 (0.9-1.1) PTT 28 SEC (23-33) Sodium Level 142 mEQ/L (135-145) Potassium Level 4.8 mEQ/L (3.4-4.9) Chloride Level 102 mEQ/L (98-107) Carbon Dioxide Level 26 mEQ/L (20-30) Anion Gap 14 (5-15) Blood Urea Nitrogen 46 mg/dL (7-23) H Creatinine 0.7 mg/dL (0.7-1.2) Estimate Glomerular Filtration Rate > 60 mL/min (>60) Glucose Level 108 mg/dL (74-106) H Lactic Acid Level 1.80 mmol/L (0.66-2.22) Calcium Level 8.9 mg/dL (8.6-10.2) Total Bilirubin 0.3 mg/dL (0.0-1.2) Aspartate Amino Transferase (AST) 49 U/L (5-40) H Alanine Aminotransferase (ALT) 69 U/L (3-41) H Alkaline Phosphatase > 1200 U/L (40-129) H Total Creatine Kinase 40 U/L (38-174) Creatine Kinase MB 2.0 ng/mL (< 6.7) Creatine Kinase MB Relative Index 5.0 Troponin I < 0.30 ng/mL (<=0.30) Pro-B-Type Natriuretic Peptide 593 pg/mL (0-125) H Total Protein 6.2 g/dL (6.6-8.7) L Albumin 2.2 g/dL (3.5-5.2) L Globulin 4.0 g/dL Albumin/Globulin Ratio 0.5 (1.0-2.7) L Arterial Blood pH 7.455 (7.350-7.450) Arterial Blood Partial Pressure CO2 39.7 mmHg (35.0-45.0) Arterial Blood Partial Pressure O2 90.4 mmHg (75.0-100.0) Arterial Blood HCO3 27.3 mmol/L (22.0-26.0) H Arterial Blood Oxygen Saturation 96.8 % (92.0-98.0) Arterial Blood Base Excess 3.2 Emmanuel Test Positive Urine Color Pending Urine Appearance Pending Urine pH Pending Urine Specific [place] Pending Urine Protein Pending Urine Glucose (UA) Pending Urine Ketones Pending Urine Occult Blood Pending Urine Nitrite Pending Urine Bilirubin Pending Urine Urobilinogen Pending Urine Leukocyte Esterase Pending EKG Diagnostic Results Rate: tachycardiac ST Segments: no acute changes Rhythm Strip Diag. Results EP Interpretation: yes Rhythm: no PVC's, no ectopy, other - ST Chest X-Ray Diagnostic Results EP Interpretation: Yes Findings: no pneumothorax, other - trach, infiltrates, chf and R effusion Number of Views: 1 Last Vital Signs Date Time Temp Pulse Resp B/P Pulse Ox O2 Delivery O2 Flow Rate FiO2 09/05/16 01:00 40 09/05/16 00:35 101 22 09/05/16 00:00 97.7 96/59 99 T-piece 6.0 Status: improved Disposition: ADMITTED INPATIENT Condition: Serious Referrals: JAKUB WEI (PCP) Emerson Gibbons M.D. Sep 04, 2016 21:03
[2016-09-04 21:25] LABS: APPEARANCE,URINE CLEAR; KETONES,URINE NEGATIVE (NEGATIVE); LEUKOCYTE ESTERASE ,URINE 1+ (NEGATIVE); NITRITE,URINE NEGATIVE (NEGATIVE); PH,URINE 5 (4.5-8.0); PROTEIN,URINE 1+ (NEGATIVE); UROBILINOGEN,URINE NORMAL MG/DL (0.0-1.0)
[2016-09-04 21:43] LABS: BACTERIA,URINE FEW /HPF; RBC,URINE 0-2 /HPF (0 - 0); WBC,URINE 0-2 /HPF (0 - 0); YEAST,URINE FEW /HPF
[2016-09-04 22:01] VITALS: BP 85/57
[2016-09-04 23:21] VITALS: BP 98/65
[2016-09-05] VITALS (7 sets, daily range): BP systolic 64–96; BP diastolic 45–59
[2016-09-05] MEDS ORDERED: Miralax 17gm pkt ORAL PRN
[2016-09-05] MEDS ORDERED: DuoNeb 0.5-3(2.5)mg/3ml neb HHN PRN
[2016-09-05] MEDS ORDERED: LORazepam Inj 2mg/ml 1ml IV PRN
[2016-09-05] MEDS ORDERED: Morphine Sulfate 4mg/ml Inj IVP PRN
[2016-09-05] MEDS ORDERED: metroNIDAZOLE 500mg 100 ML IV SCH (03:00)
[2016-09-05] MEDS ORDERED: MIRALAX17 G2 ORAL (03:36)
[2016-09-05] MEDS ORDERED: COLACE100 MG GT (03:57)
[2016-09-05] MEDS ORDERED: LEVOTHYROXINE100 MCG GT (03:57)
[2016-09-05] MEDS ORDERED: RANITIDINE HCL150 MG GT (03:57)
[2016-09-05] MEDS ORDERED: ACETAMINOPHEN650 M4 GT (03:57)
[2016-09-05] MEDS ORDERED: ACIDOPHILUS LACT1 GM GT (03:57)
[2016-09-05] MEDS ORDERED: REFRESH TEARS15 ML OP (03:57)
[2016-09-05] MEDS ORDERED: ZINC SULFATE220 M1 GT (03:57)
[2016-09-05] MEDS ORDERED: VITAMIN C500 M1 GT (03:57)
[2016-09-05] MEDS ORDERED: prostat GT (03:57)
[2016-09-05 05:42] LABS: BASOPHILS % (AUTO) 0.6 % (0.0-2.0); EOSINOPHILS % (AUTO) 1.4 % (0.0-3.0); LYMPHOCYTES % (AUTO) 25.7 % (20.0-45.0); MEAN CORPUSCULAR HEMOGLOBIN 28.7 PG (27.0-31.0); MEAN CORPUSCULAR HGB CONC 30.6 G/DL (32.0-36.0); MEAN CORPUSCULAR VOLUME 94 FL (80-99); MEAN PLATELET VOLUME 6.1 FL (6.5-10.1); MONOCYTES % (AUTO) 10.2 % (1.0-10.0); NEUTROPHILS % (AUTO) 62.1 % (45.0-75.0); PLATELET COUNT 392 K/UL (150-450); RED BLOOD COUNT 3.04 M/UL (4.70-6.10); RED CELL DISTRIBUTION WIDTH 19.4 % (11.6-14.8); WHITE BLOOD COUNT 9.9 K/UL (4.8-10.8)
[2016-09-05 05:59] LABS: ANION GAP 14 (5-15); CALCIUM 8.7 mg/dL (8.6-10.2); CARBON DIOXIDE 23 mEQ/L (20-30); CHLORIDE 109 mEQ/L (98-107); CREATININE 0.5 mg/dL (0.7-1.2); GLOMERULAR FILTRATION RATE > 60 mL/min (>60); HEMOLYSIS 8; PHOSPHORUS 3.6 mg/dL (2.5-4.8); POTASSIUM 4.7 mEQ/L (3.4-4.9); SODIUM 146 mEQ/L (135-145)
[2016-09-05] MEDS: Piperacillin/Tazobactam 3.375 GM in NS 110 ML IVPB SCH ×3 (06:00)
[2016-09-05] MEDS: Cefepime HCl 1 GM in NS 55 ML IV SCH (07:52)
[2016-09-05] MEDS: Vancomycin 1 GM in D5W 275 ML IVPB SCH ×2 (08:00→19:54)
[2016-09-05] MEDS: Heparin 5000 units/ml inj SUBQ SCH ×2 (09:28→20:12)
--- NOTE | 2016-09-05 10:34 | Diagnostic Imaging Report ---
Indications: Chest pain Technique: Portable AP chest Findings: Comparison: 08/12/16 Cardiomegaly, bibasal parenchymal opacification, diffuse bilateral pulmonary interstitial infiltrates, indistinctness of costophrenic angle suggesting pleural effusions unchanged. Lines and tubes remain in place. Right neck base surgical clips again noted. IMPRESSION: Bilateral congestive changes, unchanged Underlying atelectasis or pneumonias, or other pulmonary parenchymal pathology in either or both lung bases not excludable, unchanged
--- NOTE | 2016-09-05 11:34 | History and Physical ---
History of Present Illness General Date patient seen: Sep 05, 2016 Reason for Hospitalization: Fever Present Illness HPI 60 year old s/p cardiac arrest, vegetative state, trach/vent/peg, recurrent hospitalization. Brought in from intermediate for fever. Pt is obtunded and can 't give any history. Allergies: Coded Allergies: PENICILLINS (Verified Allergy, Unknown, 04/19/16) Medication History Scheduled Amino Acids/Protein Hydrolys (Pro-Stat Max Liquid), 30 ML GT TID, (Reported) Ascorbic Acid* (Vitamin C*), 500 MG GT DAILY, (Reported) Carboxymethylcellulose Sodium (Refresh Tears), 1 DRP OP TID, (Reported) Docusate Sodium* (Colace*), 100 MG GT DAILY, (Reported) Epoetin Bobby (Epogen), 5,000 UNIT SUBQ 3XW, (Reported) Famotidine (Famotidine), 20 MG GT Q12HR, (Reported) Heparin Sodium,Porcine/Ns/Pf (Heparin), 5,000 UNIT SUBQ BID, (Reported) Lactobacillus Acidophilus (Acidophilus), 1 EACH GT DAILY, (Reported) Lactobacillus Acidophilus (Acidophilus Lactobacillus), 1 GM GT DAILY, (Reported) Levothyroxine Sodium* (Levothyroxine Sodium*), 200 MCG GT DAILY, (Reported) Levothyroxine Sodium* (Levothyroxine Sodium*), 200 MCG GT DAILY, (Reported) Midodrine* (Proamatine*), 2.5 MG ORAL THREE TIMES A DAY, (Reported) Midodrine* (Proamatine*), 5 MG GT THREE TIMES A DAY, (Reported) Polyethylene Glycol 3350* (Polyethylene Glycol 3350*), 17 GM ORAL DAILY, ( Reported) Polyethylene Glycol 3350* (Miralax*), 17 GM ORAL DAILY, (Reported) Ranitidine Hcl* (Zantac*), 150 MG GT TWICE A DAY, (Reported) Zinc Sulfate (Zinc Sulfate*), 220 MG GT DAILY, (Reported) [prostat], 30 ML GT TID, (Reported) Scheduled PRN Acetaminophen (Acetaminophen 8 Hour), 650 MG GT Q4HR PRN for Prn Headache/Temp > 101, (Reported) Hydrocodone Bit/Acetaminophen 5-325* ([place] 5-325 Tablet*), 2 TAB ORAL EVERY 8 HOURS PRN for For Pain, (Reported) Lorazepam* (Ativan*), 1 MG ORAL EVERY 6 HOURS PRN for For Anxiety, (Reported) Ondansetron* (Zofran*), 4 MG IV Q6H PRN for Nausea & Vomiting, (Reported) Polyvinyl Alcohol/Povidone/Pf (Refresh Classic Eye Drops), 1 EACH OP TID PRN for Dry Eyes, (Reported) Miscellaneous Medications Insulin Aspart (Novolog), (Reported) Patient History Healthcare decision maker Resuscitation status Full Code Advanced Directive on File Past Medical/Surgical History Past Medical/Surgical History: (1) Diabetes mellitus (2) Brain anoxic injury (3) Acute flaccid quadriplegia (4) Pressure ulcer (5) Feeding by G-tube Social History Social History: (1) group home resident Review of Systems All Other Systems: negative except mentioned in HPI Physical Exam Lines, tubes and drains: peripheral, central line HEENT: normocephalic, atraumatic Neck: non-tender, normal alignment Respiratory/Chest: chest wall non-tender, lungs clear Cardiovascular/Chest: normal peripheral pulses, normal rate Last 24 Hour Vital Signs Date Time Temp Pulse Resp B/P Pulse Ox O2 Delivery O2 Flow Rate FiO2 09/05/16 11:23 87 21 40 09/05/16 09:12 85 20 40 09/05/16 08:00 40 09/05/16 08:00 97.2 89 20 80/52 100 Mechanical Ventilator 40 09/05/16 07:09 89 20 40 09/05/16 04:41 93 23 40 09/05/16 04:00 91 09/05/16 04:00 97.5 90 21 90/51 99 T-piece 6.0 40 09/05/16 03:06 96 21 40 09/05/16 01:00 40 09/05/16 00:35 101 22 40 09/05/16 00:00 91 09/05/16 00:00 97.7 88 21 96/59 99 T-piece 6.0 40 09/04/16 23:22 99.4 80 21 98/65 99 T-piece 6.0 40 09/04/16 23:21 80 21 98/65 99 T-piece 6.0 40 09/04/16 23:10 93 21 40 09/04/16 22:01 99.4 90 20 85/57 99 T-piece 6.0 40 09/04/16 20:48 102 22 40 09/04/16 19:45 105 26 40 09/04/16 19:30 45 09/04/16 19:30 99.2 97 20 96/57 99 T-piece 6.0 45 09/04/16 19:20 97.7 104 20 90/55 99 T-piece 6.0 Intake and Output 09/04/16 09/05/16 19:00 07:00 Intake Total 330 ml Output Total 1450 ml Balance -1120 ml Intake IV Total 330 ml Output Urine Total 1450 ml # Bowel Movements 9 Laboratory Tests Test 09/04/16 20:00 09/04/16 20:33 09/04/16 20:35 09/05/16 04:50 White Blood Count 12.5 K/UL (4.8-10.8) H 9.9 K/UL (4.8-10.8) Red Blood Count 2.86 M/UL (4.70-6.10) L 3.04 M/UL (4.70-6.10) L Hemoglobin 8.2 G/DL (14.2-18.0) L 8.7 G/DL (14.2-18.0) L Hematocrit 27.1 % (42.0-52.0) L 28.5 % (42.0-52.0) L Mean Corpuscular Volume 95 FL (80-99) 94 FL (80-99) Mean Corpuscular Hemoglobin 28.6 PG (27.0-31.0) 28.7 PG (27.0-31.0) Mean Corpuscular Hemoglobin Concent 30.2 G/DL (32.0-36.0) L 30.6 G/DL (32.0-36.0) L Red Cell Distribution Width 18.5 % (11.6-14.8) H 19.4 % (11.6-14.8) H Platelet Count 421 K/UL (150-450) 392 K/UL (150-450) Mean Platelet Volume 5.4 FL (6.5-10.1) L 6.1 FL (6.5-10.1) L Neutrophils (%) (Auto) 60.7 % (45.0-75.0) 62.1 % (45.0-75.0) Lymphocytes (%) (Auto) 29.0 % (20.0-45.0) 25.7 % (20.0-45.0) Monocytes (%) (Auto) 9.5 % (1.0-10.0) 10.2 % (1.0-10.0) H Eosinophils (%) (Auto) 0.2 % (0.0-3.0) 1.4 % (0.0-3.0) Basophils (%) (Auto) 0.6 % (0.0-2.0) 0.6 % (0.0-2.0) Prothrombin Time 10.6 SEC (9.30-11.50) Prothromb Time International Ratio 1.0 (0.9-1.1) Activated Partial Thromboplast Time 28 SEC (23-33) Sodium Level 142 mEQ/L (135-145) 146 mEQ/L (135-145) H Potassium Level 4.8 mEQ/L (3.4-4.9) 4.7 mEQ/L (3.4-4.9) Chloride Level 102 mEQ/L (98-107) 109 mEQ/L (98-107) H Carbon Dioxide Level 26 mEQ/L (20-30) 23 mEQ/L (20-30) Anion Gap 14 (5-15) 14 (5-15) Blood Urea Nitrogen 46 mg/dL (7-23) H 40 mg/dL (7-23) H Creatinine 0.7 mg/dL (0.7-1.2) 0.5 mg/dL (0.7-1.2) L Estimat Glomerular Filtration Rate > 60 mL/min (>60) > 60 mL/min (>60) Glucose Level 108 mg/dL (74-106) H 104 mg/dL (74-106) Lactic Acid Level 1.80 mmol/L (0.66-2.22) Calcium Level 8.9 mg/dL (8.6-10.2) 8.7 mg/dL (8.6-10.2) Total Bilirubin 0.3 mg/dL (0.0-1.2) Aspartate Amino Transf (AST/SGOT) 49 U/L (5-40) H Alanine Aminotransferase (ALT/SGPT) 69 U/L (3-41) H Alkaline Phosphatase > 1200 U/L (40-129) H Total Creatine Kinase 40 U/L (38-174) Creatine Kinase MB 2.0 ng/mL (< 6.7) Creatine Kinase MB Relative Index 5.0 Troponin I < 0.30 ng/mL (<=0.30) Pro-B-Type Natriuretic Peptide 593 pg/mL (0-125) H Total Protein 6.2 g/dL (6.6-8.7) L Albumin 2.2 g/dL (3.5-5.2) L 2.0 g/dL (3.5-5.2) L Globulin 4.0 g/dL Albumin/Globulin Ratio 0.5 (1.0-2.7) L Arterial Blood pH 7.455 (7.350-7.450) Arterial Blood Partial Pressure CO2 39.7 mmHg (35.0-45.0) Arterial Blood Partial Pressure O2 90.4 mmHg (75.0-100.0) Arterial Blood HCO3 27.3 mmol/L (22.0-26.0) H Arterial Blood Oxygen Saturation 96.8 % (92.0-98.0) Arterial Blood Base Excess 3.2 Emmanuel Test Positive Urine Color Yellow Urine Appearance Clear Urine pH 5 (4.5-8.0) Urine Specific [place] 1.010 (1.005-1.035) Urine Protein 1+ (NEGATIVE) H Urine Glucose (UA) Negative (NEGATIVE) Urine Ketones Negative (NEGATIVE) Urine Occult Blood Negative (NEGATIVE) Urine Nitrite Negative (NEGATIVE) Urine Bilirubin Negative (NEGATIVE) Urine Urobilinogen Normal MG/DL (0.0-1.0) Urine Leukocyte Esterase 1+ (NEGATIVE) H Urine RBC 0-2 /HPF (0 - 0) H Urine WBC 0-2 /HPF (0 - 0) Urine Squamous Epithelial Cells None /LPF (NONE/OCC) Urine Bacteria Few /HPF (NONE) Urine Yeast Few /HPF (NONE) H Phosphorus Level 3.6 mg/dL (2.5-4.8) Microbiology Date/Time Source Procedure Growth Status 09/04/16 21:00 Nasal Nares Influenza Types A,B Antigen (ALBERTO) - Final Complete Height (Feet): 5 Height (Inches): 5.00 Weight (Pounds): 140 Medications Current Medications Medications (Trade) Dose Ordered Sig/Tanisha Route PRN Reason Start Time Stop Time Status Last Admin Dose Admin Acetaminophen (Tylenol) 650 mg Q4H PRN ORAL FEVER 09/05/16 00:00 10/05/16 00:00 Albuterol/ Ipratropium 3 ml 3 ml EVERY 4 HOURS PRN HHN Shortness of Breath 09/05/16 00:00 09/10/16 00:00 Dextrose (Dextrose 50%) STAT PRN IV Hypoglycemia 09/05/16 00:00 10/05/16 00:00 Heparin Sodium (Porcine) (Heparin 5000 units/ml) 5,000 units EVERY 12 HOURS SUBQ 09/05/16 09:00 10/05/16 08:59 09/05/16 09:28 Levothyroxine Sodium (Synthroid) 200 mcg DAILY@0630 GT 09/05/16 06:30 10/05/16 06:29 09/05/16 06:54 Lorazepam (Ativan 2mg/ml 1ml) 2 mg EVERY 2 HOURS PRN IV For Anxiety 09/05/16 00:00 09/12/16 00:00 Midodrine (Pro-Amatine) 2.5 mg THREE TIMES A DAY ORAL 09/05/16 09:00 10/05/16 08:59 09/05/16 09:26 Morphine Sulfate (Morphine Sulfate) 4 mg EVERY 4 HOURS PRN IVP Severe Pain (Pain Scale 7-10) 09/05/16 00:00 09/12/16 00:00 Ondansetron HCl (Zofran) 4 mg Q6H PRN IVP Nausea & Vomiting 09/05/16 00:00 10/05/16 00:00 Polyethylene Glycol (Miralax) 17 gm DAILYPRN PRN ORAL Constipation 09/05/16 00:00 10/05/16 00:00 Vancomycin HCl/ Dextrose (Vancomycin/D5W) 275 ml @ 183.3 mls/ hr Q12H IVPB 09/05/16 08:00 09/10/16 07:59 09/05/16 08:00 Assessment/Plan Problem List: (1) Acute and chronic respiratory failure ICD Codes: J96.20 - Acute and chronic respiratory failure, unspecified whether with hypoxia or hypercapnia SNOMED: 69294566, 92076611 (2) Sepsis ICD Codes: A41.9 - Sepsis, unspecified organism SNOMED: 10307423 (3) Pneumonia ICD Codes: J18.9 - Pneumonia, unspecified organism SNOMED: 673058872 (4) Feeding by G-tube ICD Codes: Z93.1 - Gastrostomy status SNOMED: 668100738, 923078297 (5) History of glioma of brainstem ICD Codes: Z85.841 - Personal history of malignant neoplasm of brain SNOMED: 70540487554811 Respiratory: monitor respiratory rate, adjust FIO2, CXR Cardiac: continue to monitor HR/BP Renal: F/U I&O, keep IV fluid Infectious Disease: continue antibiotics Gastrointestinal: continue feedings/current rate Endocrine: monitor blood sugar, continue sliding scale insulin Hematologic: monitor H/H, transfuse if hgb<8.5 Neurologic: PRN Ativan, keep patient comfortable Prophylaxis: Protonix, Heparin Notes 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
--- NOTE | 2016-09-05 12:09 | Wound Care Consultation ---
Wound Assessment Wound Assessment #1: Wound Present on Admission: Yes New Wound: No Status Change of Wound: No Wound Location Body Site Modif: mid Wound Location Body Site: back Wound Type: pressure ulcer Rashawn Test: Does not Rashawn Pressure Ulcer Stage: IV/unstageable Wound Thickness: Full Thickness Wound Length: 10.0 Wound Width: 8.5 Wound Depth: 1.5 Percent of Wound [place]/Red: 100 Wound Drainage Description: Serosanguineous Wound Drainage Amount: Moderate Wound Drainage Odor: None/Absent Tissue Surrounding Wound: Macerated Wound Undermining at 12:00: 0.5 Wound Undermining at 6:00: 0.5 Wound General Appearance: Draining Wound Assessment #2: Wound Number: #2 Wound Present on Admission: Yes New Wound: No Status Change of Wound: No Wound Location Body Site Modif: left Wound Location Body Site: trochanter Wound Type: pressure ulcer Rashawn Test: Does not Rashawn Pressure Ulcer Stage: IV/unstageable Wound Thickness: Full Thickness Wound Length: 13.5 Wound Width: 9.5 Wound Depth: utd Percent of Wound [place]/Red: 50 Percent of Wound Bed Yellow/Wh: 30 Percent of Wound Black/Brown: 20 Wound Drainage Description: Serosanguineous Wound Drainage Amount: Moderate Wound Drainage Odor: None/Absent Tissue Surrounding Wound: Macerated Wound Undermining at 12:00: 1.0 Wound Undermining at 3:00: 0.3 Wound Undermining at 6:00: 0.3 Wound Undermining at 9:00: 0.5 Wound General Appearance: Draining, Necrotic, Bone Palpable Wound Assessment #3: Wound Number: #3 Wound Present on Admission: Yes New Wound: No Status Change of Wound: No Wound Location Body Site Modif: right Wound Location Body Site: trochanter Wound Type: pressure ulcer Rashawn Test: Does not Rashawn Pressure Ulcer Stage: IV/unstageable Wound Thickness: Full Thickness Wound Length: 6.0 Wound Width: 6.0 Wound Depth: utd Percent of Wound Black/Brown: 100 Wound Drainage Description: Serosanguineous Wound Drainage Amount: Moderate Wound Drainage Odor: None/Absent Tissue Surrounding Wound: Macerated Wound General Appearance: Blackened, Draining, Necrotic Wound Assessment #4: Wound Number: #4 Wound Present on Admission: Yes New Wound: No Status Change of Wound: No Wound Location Body Site Modif: left Wound Location Body Site: ischial tuberosity Wound Type: pressure ulcer Rashawn Test: Does not Rashawn Pressure Ulcer Stage: IV/unstageable Wound Thickness: Full Thickness Wound Length: 7.0 Wound Width: 4.5 Wound Depth: utd Percent of Wound [place]/Red: 50 Percent of Wound Bed Yellow/Wh: 40 Percent of Wound Black/Brown: 10 Wound Drainage Description: Serosanguineous Wound Drainage Amount: Moderate Wound Drainage Odor: None/Absent Tissue Surrounding Wound: Macerated Wound General Appearance: Draining Wound Assessment #5: Wound Number: #5 Wound Present on Admission: Yes New Wound: No Status Change of Wound: No Wound Location Body Site Modif: right, lateral Wound Location Body Site: malleolus/ankle Rashawn Test: Does not Rashawn Pressure Ulcer Stage: deep tissue injury Wound Thickness: Full Thickness Wound Length: 2.5 Wound Width: 2.5 Wound Depth: utd Percent of Wound Purple/Maroon: 100 Wound Drainage Amount: None Wound Drainage Odor: None/Absent Tissue Surrounding Wound: Erythemic Wound General Appearance: Asymptomatic, Reddened Wound Assessment #6: Wound Number: #6 Wound Present on Admission: Yes New Wound: No Status Change of Wound: No Wound Location Body Site Modif: right Wound Location Body Site: ear Wound Type: pressure ulcer Rashawn Test: Does not Rashawn Pressure Ulcer Stage: IV/unstageable Wound Thickness: Full Thickness Wound Length: 4.0 Wound Width: 0.5 Wound Depth: utd Percent of Wound [place]/Red: 80 Percent of Wound Black/Brown: 20 Wound Drainage Description: Serosanguineous Wound Drainage Amount: Scant Wound Drainage Odor: None/Absent Tissue Surrounding Wound: Erythemic Wound General Appearance: Reddened Wound Assessment #7: Wound Number: #7 Wound Present on Admission: Yes New Wound: No Status Change of Wound: No Wound Location Body Site Modif: left, mid Wound Location Body Site: foot Wound Type: scar Rashawn Test: Does not Rashawn Wound Thickness: Full Thickness Wound Length: 0.5 Wound Width: 0.5 Wound Depth: utd Percent of Wound [place]/Red: 100 Wound Drainage Amount: None Wound Drainage Odor: None/Absent Tissue Surrounding Wound: Intact Wound General Appearance: Asymptomatic, Reddened Wound Comment #1 Mid spine/back stage IV/unstageable pressure ulcer #2 Left trochanter stage IV/unstageable pressure ulcer #3 Right trochanter stage IV/unstageable pressure ulcer #4 Left ischial tuberosity stage IV/unstageable pressure ulcer #5 Right ear stage IV pressure ulcer #6 Right malleolus DTI #7 Left mid foot scar tissue with full thickness Recommendation -Left ischial tuberosity, Left and Right trochanter:- Cleanse with saline, pat dry, apply Therahoney gel on wound bed, apply Triad to periwound, cover with calcium alginate, secure with bordered gauze daily and PRN soiled/dislodged -Mid spine/back:- Cleanse with saline, pat dry, apply hydrogel to wound bed, apply Triad to periwound, cover with calcium alginate, secure with bordered gauze daily and PRN soiled/dislodged -Right ear:- Cleanse with saline, pat dry, apply hydrogel to wound bed, secure with bordered gauze daily and PRN soiled/dislodged -Left mid foot and Right malleolus:- Follow wound care per protocol for DTI -Offload both heels -Heel protector on both heels -Optimize nutrition -Low air loss mattress with AP -Turn and reposition -Keep clean and dry -Assess and f/u accordingly for any changes MARGARETTE DAY RN Sep 05, 2016 12:09
[2016-09-05] MEDS: Pantoprazole Inj IVP SCH (13:14)
--- NOTE | 2016-09-05 15:27 | Consultation ---
Consult Note Consult Note ID CONSULT: Dict# [id number] Assessment/Plan ASSESSMENT: 60-year-old male with: // Multiple decubiti POA, not grossly infected / osteomyelitis - appear improved - SP debridement, bone bx 08/08 - Cx VRE.faecalis, MDR-ACB - elevated ESR, CRP - Bone scan 07/01: Limited, essentially nondiagnostic exam. No gross findings to suggest acute osteomyelitis - h/o MDR-K.pneumoniae, VRE.faecalis, CONS, C.albicans // h/o recurrent CONS bacteremias r/o recurrence - surveillance BCx pending - h/o recurrent CONS 2/4 (05/09) SP IV vanco x28d - h/o CONS 3/4 (04/19 ) SP Rx IV vanco x7d - TTE 05/11: poorly visualized valves, poor candidate MARIA C - h/o CONS cath tip colonization ( <10K ) // h/o recurrent PNAs ( VAP / HCAP ) / tracheobronchitis' r/o recurrence - SCx pending - CXR 09/04: Bilateral congestive changes, underlying atelectasis or pneumonias, or other pulmonary parenchymal pathology in either or both lung bases not excludable, unchanged - h/o qI,S-PSA, P.stuartii, ESBL(+) K.pneumoniae, S.maltophilia, diptheroids // h/o recurrent UTIs r/o recurrence - UA benign, UCx pending - US: Mild left hydronephrosis, new since prior study of 04/21/2016. Etiology not demonstrated but concerning for downstream obstruction - h/o E.coli, K.pneumoniae SP Rx // Elevated LFTs, GGT - chronic, stable - US: Equivocally visualized stone filled gallbladder, versus shadowing from duodenal gas. Mildly dilated CBD, downstream obstruction not excludable - negative: AMA, hepatitis panel // Negative influenza // Probable recurrent sepsis // Chronic hypotension, on midodrine // Leukocytosis - resolved // Fever - none documented here Chronic VDRF SP trach, PEG Anoxic encephalopathy / dementia History of glioblastoma multiforme Chronic macrocytic anemia Functional quadriplegia / bedbound / contracted [facility] MDRO colonized PCN allergy - unable to qualify. Tolerates cefepime, meropenem Full Code PLAN: continue empiric IV vancomycin, cefepime d# 2 ( 08/19 Tygacil d# , Ceftaz d# / ?[facility] ) ( 08/12 SP IV vancomycin d# 13 and Flagyl d# 9 ) ( SP aztreonam d# 12 ) ( 08/04 SP levaquin d# 5 ) ( 07/05 SP IV vancomycin, aztreonam d# 7 / 7 ) ( 06/26 SP Merrem d# 6, cefepime d# 14 ) ( SP IV vancomycin, d# 6 and flagyl d# 3 ) ( SP IV vancomycin d# / ( 05/13 SP aztreonam, amikacin d# 5 / 5 ) ( 05/02 SP aztreonam d# 14 / 14 ) ( 04/25 SP vancomycin d# 7 / 7 ) f/u cultures, adjust ABX accordingly Monitor CBC, temperatures Monitor CMP Monitor chest x-ray vent support, trach care, aspiration precautions wound care contact isolation Thanks! Will follow [place] Sep 05, 2016 15:27
--- NOTE | 2016-09-05 18:01 | Cardiology Report ---
APPROVED REPORT EKG Measurement Heart [id number] Sinus tachycardia Abnormal ECG
[2016-09-05] MEDS: Cefepime HCl 1 GM in D5W 55 ML IVPB SCH (18:32)
[2016-09-06] VITALS: BP 90/46
--- NOTE | 2016-09-06 00:17 | Consultation ---
DATE OF CONSULTATION: 09/05/2016 INFECTIOUS DISEASES CONSULTATION CONSULTING PHYSICIAN: Davey Conway M.D. REQUESTING PHYSICIAN: Cherry Wei M.D. REASON FOR CONSULTATION: Sepsis. HISTORY OF PRESENT ILLNESS: This is a 60-year-old male with a history of recurrent multi-drug resistant infections and frequent hospital admissions, again admitted on 09/04/2016 from a senior care with reported fever. No documented fevers here. Influenza screen is negative and panculture is pending. He has been started on empiric vancomycin, also received doses of cefepime and Flagyl, and ID now consulted to assist in management. PAST MEDICAL HISTORY: 1. Recurrent multi-drug resistant UTIs. 2. Recurrent multi-drug resistant pneumonias. 3. Chronically elevated liver function test. 4. Multiple decubitus ulcers and osteomyelitis. 5. Chronic hypotension, on midodrine. 6. Chronic ventilator-dependent respiratory failure. 7. Chronic anoxic encephalopathy and dementia. 8. History of glioblastoma multiforme. 9. Chronic microcytic anemia. 10. Functional quadriplegia, bedbound and contracted. 11. Multi-drug resistant organisms colonized. PAST SURGICAL HISTORY: 1. Tracheostomy. 2. PEG tube placement. ALLERGIES: Penicillin, however, tolerates cefepime and meropenem. MEDICATIONS: 1. Vancomycin. 2. Synthroid. 3. Subcutaneous heparin. 4. Midodrine. 5. Protonix. 6. Cefepime. 7. Status post Flagyl. FAMILY HISTORY: Unknown. SOCIAL HISTORY: The patient is a long-term resident of senior care. He has a , who is involved in his care. REVIEW OF SYSTEMS: Unable to obtain. PHYSICAL EXAMINATION: VITAL SIGNS: Maximum temperature 99.2, blood pressure 79/46, heart rate 80s, respiratory rate 20, and saturating 100% on 40% FiO2. GENERAL: No apparent distress. Nontoxic appearing. HEENT: Tracheostomy tube in place. CARDIOVASCULAR: Regular rate and rhythm. No murmurs. PULMONARY: Coarse breath sounds bilaterally. ABDOMEN: Bowel sounds present. Soft, nondistended, nontender. PEG tube in place. EXTREMITIES: Edema and contracted. LABORATORY DATA: White blood cell count 9.9, decreased from 12.5, hemoglobin 8.7, and platelets 392,000. Sodium 146, potassium 4.7, chloride 109 bicarb 23, BUN 40, and creatinine 0.5. Lactic acid 1.8. AST 49, ALT 69, and alkaline phosphatase greater than 1200. Total bilirubin 0.3, albumin 2.2. Troponin negative x1. MICROBIOLOGY: 1. 09/04/2016 influenza screen negative. 2. 09/04/2016 blood culture pending. 3. 09/04/2016 urine culture pending. 4. 09/04/2016 sputum culture pending. 5. 09/04/2016 wound culture pending. IMAGIN09/04/2016 chest x-ray shows bilateral congestive changes, unchanged. ASSESSMENT: 1. Multiple decubiti present on admission, not grossly infected with a recent history of osteomyelitis. Wounds appear improved. 2. History of recurrent coagulase-negative staph bacteremias, rule out recurrence. Surveillance blood cultures are pending. 3. History of recurrent pneumonias and tracheobronchitis, rule out recurrence. Sputum culture is pending. Chest x-ray shows bilateral congestive changes, underlying atelectasis, pneumonias, or other parenchymal pathology in the base is not excluded, but unchanged. 4. History of recurrent urinary tract infections, rule out recurrence. Urinalysis is benign and urine culture is pending. 5. Negative influenza screen. 6. Probable recurrent sepsis. 7. Chronic hypotension, on midodrine. 8. Leukocytosis, resolved. 9. Fever, none documented here. 10. Chronic ventilator-dependent respiratory failure, status post tracheostomy and percutaneous endoscopic gastrostomy. 11. Chronic anoxic encephalopathy and dementia. 12. History of glioblastoma multiforme. 13. Chronic microcytic anemia. 14. Functional quadriplegia/bed-bound/contracted. 15. [facility] resident. 16. Multi-drug resistant organism colonized. 17. Penicillin allergy, unable to qualify, however, tolerated cefepime and meropenem in the past. 18. Full Code. PLAN: 1. Continue empiric IV vancomycin and cefepime day #2. 2. Follow up cultures and adjust antibiotics accordingly. 3. Monitor CBC and temperatures. 4. Monitor CMP. 5. Monitor chest x-ray. 6. Ventilator support, tracheostomy care, and aspiration precautions. 7. Wound care. 8. Contact isolation. Thank you. We will follow. Davey Conway M.D. DR: CONSTANTIN JOB#: [id number] CC: Cherry Wei M.D.; Fax#: [phone] Cruz M.D; Fax#: [phone]
[2016-09-06 04:00] VITALS: BP 89/64
[2016-09-06] MEDS: Cefepime HCl 1 GM in D5W 55 ML IVPB SCH ×2 (06:13→17:28)
[2016-09-06] MEDS: Vancomycin 1 GM in D5W 275 ML IVPB SCH (07:55)
[2016-09-06] MEDS: Pantoprazole Inj IVP SCH (07:58)
[2016-09-06 08:00] VITALS: BP 78/51
[2016-09-06] MEDS: Heparin 5000 units/ml inj SUBQ SCH ×2 (08:01→21:12)
[2016-09-06 08:37] LABS: ANION GAP 14 (5-15); CALCIUM 8.9 mg/dL (8.6-10.2); CARBON DIOXIDE 24 mEQ/L (20-30); CHLORIDE 106 mEQ/L (98-107); CREATININE 0.5 mg/dL (0.7-1.2); GLOMERULAR FILTRATION RATE > 60 mL/min (>60); HEMOLYSIS 10; MAGNESIUM 2.1 mg/dL (1.7-2.5); PHOSPHORUS 3.3 mg/dL (2.5-4.8); SODIUM 144 mEQ/L (135-145)
[2016-09-06 08:59] LABS: MEAN CORPUSCULAR HEMOGLOBIN 28.5 PG (27.0-31.0); MEAN CORPUSCULAR HGB CONC 29.9 G/DL (32.0-36.0); MEAN CORPUSCULAR VOLUME 95 FL (80-99); PLATELET COUNT 413 K/UL (150-450); RED BLOOD COUNT 2.73 M/UL (4.70-6.10); RED CELL DISTRIBUTION WIDTH 18.8 % (11.6-14.8); WHITE BLOOD COUNT 9.3 K/UL (4.8-10.8)
[2016-09-06 12:00] VITALS: BP 83/52
[2016-09-06 13:02] LABS: BAND NEUTROPHILS % (MANUAL) 2 % (0-8); BASOPHILS % (MANUAL) 0 % (0-2); EOSINOPHILS % (MANUAL) 2 % (0-3); LYMPHOCYTES % (MANUAL) 26 % (20-45); NEUTROPHILS % (MANUAL) 61 % (45-75); PLATELET ESTIMATE INCREASED; PLATELET MORPHOLOGY NORMAL; TOTAL CELLS COUNTED 100
[2016-09-06] MEDS ORDERED: Tubing IV Secondary IV ONE (14:41)
[2016-09-06] MEDS ORDERED: NS 275ml ONE ×2 (14:41→15:51)
[2016-09-06] MEDS ORDERED: Sterile Water Irrig 1000ml IRRIG ONE (14:41)
--- NOTE | 2016-09-06 15:47 | Infectious Diseases Prog Note ---
Assessment/Plan Assessment/Plan ASSESSMENT: 60-year-old male with: // Multiple decubiti POA, not grossly infected / osteomyelitis - appear improved Wnd CX : GNR - SP debridement, bone bx 08/08 - Cx VRE.faecalis, MDR-ACB - elevated ESR, CRP - Bone scan 07/01: Limited, essentially nondiagnostic exam. No gross findings to suggest acute osteomyelitis - h/o MDR-K.pneumoniae, VRE.faecalis, CONS, C.albicans // h/o recurrent CONS bacteremias r/o recurrence - surveillance BCx pending - h/o recurrent CONS 2/4 (05/09) SP IV vanco x28d - h/o CONS 3/4 (04/19 ) SP Rx IV vanco x7d - TTE 05/11: poorly visualized valves, poor candidate MARIA C - h/o CONS cath tip colonization ( <10K ) // h/o recurrent PNAs ( VAP / HCAP ) / tracheobronchitis' r/o recurrence - SCx pending - CXR 09/04: Bilateral congestive changes, underlying atelectasis or pneumonias, or other pulmonary parenchymal pathology in either or both lung bases not excludable, unchanged - h/o qI,S-PSA, P.stuartii, ESBL(+) K.pneumoniae, S.maltophilia, diptheroids // h/o recurrent UTIs r/o recurrence - UA benign, UCx pending - US: Mild left hydronephrosis, new since prior study of 04/21/2016. Etiology not demonstrated but concerning for downstream obstruction - h/o E.coli, K.pneumoniae SP Rx // Elevated LFTs, GGT - chronic, stable - US: Equivocally visualized stone filled gallbladder, versus shadowing from duodenal gas. Mildly dilated CBD, downstream obstruction not excludable - negative: AMA, hepatitis panel // Negative influenza // Probable recurrent sepsis // Chronic hypotension, on midodrine // Leukocytosis - resolved // Fever - none documented here Chronic VDRF SP trach, PEG Anoxic encephalopathy / dementia History of glioblastoma multiforme Chronic macrocytic anemia Functional quadriplegia / bedbound / contracted [place] resident MDRO colonized PCN allergy - unable to qualify. Tolerates cefepime, meropenem Full Code PLAN: continue empiric IV vancomycin, cefepime d# 3 ( 08/19 Tygacil d# / , Ceftaz d# / ?completed course at [place] ) ( 08/12 SP IV vancomycin d# 13 and Flagyl d# 9 ) ( SP aztreonam d# 12 ) ( 08/04 SP levaquin d# 5 ) ( 07/05 SP IV vancomycin, aztreonam d# 7 / 7 ) ( 06/26 SP Merrem d# 6, cefepime d# 14 ) ( SP IV vancomycin, d# 6 and flagyl d# 3 ) ( SP IV vancomycin d# / ( 05/13 SP aztreonam, amikacin d# 5 / 5 ) ( 05/02 SP aztreonam d# 14 / ) ( 04/25 SP vancomycin d# 7 / ) f/u cultures, adjust ABX accordingly Monitor CBC, temperatures Monitor CMP Monitor chest x-ray vent support, trach care, aspiration precautions wound care contact isolation Subjective Constitutional: Denies: anorexia, chills, drenching sweats, fatigue, fever, no symptoms, other Allergies: Coded Allergies: PENICILLINS (Verified Allergy, Unknown, 04/19/16) Objective Vital Signs Last 24 Hour Vital Signs Date Time Temp Pulse Resp B/P Pulse Ox O2 Delivery O2 Flow Rate FiO2 09/06/16 15:09 94 20 40 09/06/16 13:14 96 20 40 09/06/16 12:00 98.6 91 20 83/52 100 Mechanical Ventilator 40 09/06/16 12:00 40 09/06/16 12:00 95 09/06/16 11:05 92 20 40 09/06/16 09:07 90 20 40 09/06/16 08:00 98.4 91 20 78/51 99 Mechanical Ventilator 40 09/06/16 08:00 92 09/06/16 07:45 40 09/06/16 07:15 96 18 40 09/06/16 05:12 88 21 40 09/06/16 04:00 98.6 99 20 89/64 100 Mechanical Ventilator 40 09/06/16 04:00 40 09/06/16 03:53 92 09/06/16 03:04 94 20 40 09/06/16 01:25 88 20 40 09/06/16 00:00 40 09/06/16 00:00 97.7 98 20 90/46 99 Mechanical Ventilator 40 09/05/16 23:34 97 09/05/16 23:10 94 20 40 09/05/16 20:53 91 20 40 09/05/16 20:00 91 09/05/16 20:00 96.6 95 20 85/54 98 Mechanical Ventilator 40 09/05/16 20:00 40 09/05/16 18:53 89 20 40 09/05/16 17:14 91 18 40 09/05/16 16:00 84 09/05/16 16:00 97.5 86 20 91/56 100 Mechanical Ventilator 40 09/05/16 15:55 40 Height (Feet): 5 Height (Inches): 5.00 Weight (Pounds): 140 HEENT: anicteric Respiratory/Chest: normal breath sounds Cardiovascular: normal peripheral pulses Abdomen: soft, non tender Microbiology Date/Time Source Procedure Growth Status 09/04/16 20:00 Blood Blood Culture - Preliminary NO GROWTH AFTER 24 HOURS Resulted 09/04/16 19:45 Blood Blood Culture - Preliminary NO GROWTH AFTER 24 HOURS Resulted 09/04/16 22:47 Nasal Nares MRSA Culture - Final NO METHICILLIN RESISTANT STAPH AUREUS... Complete 09/04/16 21:00 Nasal Nares Influenza Types A,B Antigen (ALBERTO) - Final Complete 09/04/16 20:35 Urine,Clean Catch Urine Culture - Preliminary Yeast Species Resulted 09/05/16 01:00 Buttock Left Gram Stain - Final Resulted 09/05/16 01:00 Wound Culture - Preliminary Gram Negative Sravan Resulted 09/04/16 22:47 Rectum VRE Culture - Final Enterococcus Faecalis - Vre Enterococcus Faecium - Vre Complete Laboratory Tests Test 09/06/16 07:00 White Blood Count 9.3 K/UL (4.8-10.8) Red Blood Count 2.73 M/UL (4.70-6.10) L Hemoglobin 7.8 G/DL (14.2-18.0) L Hematocrit 26.0 % (42.0-52.0) L Mean Corpuscular Volume 95 FL (80-99) Mean Corpuscular Hemoglobin 28.5 PG (27.0-31.0) Mean Corpuscular Hemoglobin Concent 29.9 G/DL (32.0-36.0) L Red Cell Distribution Width 18.8 % (11.6-14.8) H Platelet Count 413 K/UL (150-450) Mean Platelet Volume 6.0 FL (6.5-10.1) L Neutrophils (%) (Auto) % (45.0-75.0) Lymphocytes (%) (Auto) % (20.0-45.0) Monocytes (%) (Auto) % (1.0-10.0) Eosinophils (%) (Auto) % (0.0-3.0) Basophils (%) (Auto) % (0.0-2.0) Differential Total Cells Counted 100 Neutrophils % (Manual) 61 % (45-75) Lymphocytes % (Manual) 26 % (20-45) Monocytes % (Manual) 9 % (1-10) Eosinophils % (Manual) 2 % (0-3) Basophils % (Manual) 0 % (0-2) Band Neutrophils 2 % (0-8) Platelet Estimate Increased H Platelet Morphology Normal Red Blood Cell Morphology Normal Sodium Level 144 mEQ/L (135-145) Potassium Level 4.0 mEQ/L (3.4-4.9) Chloride Level 106 mEQ/L (98-107) Carbon Dioxide Level 24 mEQ/L (20-30) Anion Gap 14 (5-15) Blood Urea Nitrogen 28 mg/dL (7-23) H Creatinine 0.5 mg/dL (0.7-1.2) L Estimat Glomerular Filtration Rate > 60 mL/min (>60) Glucose Level 98 mg/dL (74-106) Calcium Level 8.9 mg/dL (8.6-10.2) Phosphorus Level 3.3 mg/dL (2.5-4.8) Magnesium Level 2.1 mg/dL (1.7-2.5) Vancomycin Level Trough 24.7 ug/mL (5.0-12.0) H Current Medications Medications (Trade) Dose Ordered Sig/Tanisha Route PRN Reason Start Time Stop Time Status Last Admin Dose Admin Acetaminophen (Tylenol) 650 mg Q4H PRN ORAL FEVER 09/05/16 00:00 10/05/16 00:00 Albuterol/ Ipratropium (DuoNeb 0.5-3(2.5)mg/3ml) 3 ml EVERY 4 HOURS PRN HHN Shortness of Breath 09/05/16 00:00 09/10/16 00:00 Cefepime HCl 1 gm/ Dextrose 55 ml @ 110 mls/hr Q12HR@0630,1830 IVPB 09/05/16 18:30 09/12/16 18:29 09/06/16 06:13 Dextrose (Dextrose 50%) STAT PRN IV Hypoglycemia 09/05/16 00:00 10/05/16 00:00 Heparin Sodium (Porcine) (Heparin 5000 units/ml) 5,000 units EVERY 12 HOURS SUBQ 09/05/16 09:00 10/05/16 08:59 09/06/16 08:01 Levothyroxine Sodium (Synthroid) 200 mcg DAILY@0630 GT 09/05/16 06:30 10/05/16 06:29 09/06/16 06:13 Lorazepam (Ativan 2mg/ml 1ml) 2 mg EVERY 2 HOURS PRN IV For Anxiety 09/05/16 00:00 09/12/16 00:00 Midodrine (Pro-Amatine) 2.5 mg THREE TIMES A DAY ORAL 09/05/16 09:00 10/05/16 08:59 09/06/16 12:50 Morphine Sulfate (Morphine Sulfate) 4 mg EVERY 4 HOURS PRN IVP Severe Pain (Pain Scale 7-10) 09/05/16 00:00 09/12/16 00:00 Ondansetron HCl (Zofran) 4 mg Q6H PRN IVP Nausea & Vomiting 09/05/16 00:00 10/05/16 00:00 Pantoprazole 40 mg 40 mg DAILY IVP 09/05/16 14:00 10/05/16 13:59 09/06/16 07:58 Polyethylene Glycol (Miralax) 17 gm DAILYPRN PRN ORAL Constipation 09/05/16 00:00 10/05/16 00:00 Vancomycin HCl/ Dextrose (Vancomycin/D5W) 275 ml @ 183.3 mls/ hr Q12H IVPB 09/07/16 04:00 09/12/16 03:59 GURDEEP BHANDARI M.D. Sep 06, 2016 15:47
[2016-09-06 16:00] VITALS: BP 89/60
--- NOTE | 2016-09-06 16:08 | Pulmonology Progress Note ---
Assessment/Plan Assessment/Plan ASSESSMENT sepsis VDRF/trach hx of recurrent SCON bacteremia - r/o recurrens hx of recurrent PNA/tracheo PNA r/o recurrence hx of recurrens UTI multiple decub-POA - dehydration dysphagia, G tube hx of glioblastoma multiforme malnutrition elevated LFT anoxic encephalopathy chronic macrocytic anemia functional quadriplegia PLAN OF CAER KALPESH vent/trach care pulmonary toilet ABG stable on current settings, keep as is and titrate as needed initial CXR with bilateral congestive changes fup with CXR on Thursday urine cx + yeast? colonized, blood cx preliminary negative, influenza screen negative abx , ID follows wound care ; decub do not appear infected , recent bone debridement, s/p Rx, prior bone scan no evidence to suggest osteo strict aspiration precautions, GT feeding, monitor tolerance BP support with Midodrine monitor HH , transfuse prn Venous Duplex BLE DVT, GI prophylaxis pain management bowel regimen trend LFT case discussed and evaluated by supervising physician Subjective Allergies: Coded Allergies: PENICILLINS (Verified Allergy, Unknown, 04/19/16) Subjective leukocytosis resolved, afebrile no signs of respiratory distress on current settings mother at the bedside Objective Last 24 Hour Vital Signs Date Time Temp Pulse Resp B/P Pulse Ox O2 Delivery O2 Flow Rate FiO2 09/06/16 15:09 94 20 40 09/06/16 13:14 96 20 40 09/06/16 12:00 98.6 91 20 83/52 100 Mechanical Ventilator 40 09/06/16 12:00 40 09/06/16 12:00 95 09/06/16 11:05 92 20 40 09/06/16 09:07 90 20 40 09/06/16 08:00 98.4 91 20 78/51 99 Mechanical Ventilator 40 09/06/16 08:00 92 09/06/16 07:45 40 09/06/16 07:15 96 18 40 09/06/16 05:12 88 21 40 09/06/16 04:00 98.6 99 20 89/64 100 Mechanical Ventilator 40 09/06/16 04:00 40 09/06/16 03:53 92 09/06/16 03:04 94 20 40 09/06/16 01:25 88 20 40 09/06/16 00:00 40 09/06/16 00:00 97.7 98 20 90/46 99 Mechanical Ventilator 40 09/05/16 23:34 97 09/05/16 23:10 94 20 40 09/05/16 20:53 91 20 40 09/05/16 20:00 91 09/05/16 20:00 96.6 95 20 85/54 98 Mechanical Ventilator 40 09/05/16 20:00 40 09/05/16 18:53 89 20 40 09/05/16 17:14 91 18 40 09/05/16 16:00 84 09/05/16 16:00 97.5 86 20 91/56 100 Mechanical Ventilator 40 09/05/16 15:55 40 Intake and Output 09/05/16 09/06/16 19:00 07:00 Intake Total 505 ml 670 ml Output Total 500 ml 300 ml Balance 5 ml 370 ml Intake Free Water 50 ml 150 ml IV Total 275 ml 110 ml Tube Feeding 120 ml 410 ml Other 60 ml Output Urine Total 500 ml 300 ml # Bowel Movements 3 1 General Appearance: other - vent dependent, chronically ill looking male in NAD vent AC 550-20-40% HEENT: status post trach - Portex#7, secretions small, yellow, thick Respiratory/Chest: no respiratory distress, rhonchi - bilaterally Cardiovascular: normal rate - SR on tele , regular rhythm Abdomen: soft, non tender, non distended, other - G tube Genitourinary: normal external genitalia, other - Emmanuel Skin: other - multiple decub( see pictures) Neurologic/Psychiatric: abnormal gait - bedridden, other - nonresponsive, contracted Microbiology Date/Time Source Procedure Growth Status 09/04/16 20:00 Blood Blood Culture - Preliminary NO GROWTH AFTER 24 HOURS Resulted 09/04/16 19:45 Blood Blood Culture - Preliminary NO GROWTH AFTER 24 HOURS Resulted 09/04/16 22:47 Nasal Nares MRSA Culture - Final NO METHICILLIN RESISTANT STAPH AUREUS... Complete 09/04/16 21:00 Nasal Nares Influenza Types A,B Antigen (ALBERTO) - Final Complete 09/04/16 20:35 Urine,Clean Catch Urine Culture - Preliminary Yeast Species Resulted 09/05/16 01:00 Buttock Left Gram Stain - Final Resulted 09/05/16 01:00 Wound Culture - Preliminary Gram Negative Sravan Resulted 09/04/16 22:47 Rectum VRE Culture - Final Enterococcus Faecalis - Vre Enterococcus Faecium - Vre Complete Laboratory Tests 09/06/16 07:00: White Blood Count 9.3, Red Blood Count 2.73L, Hemoglobin 7.8L, Hematocrit 26.0L , Mean Corpuscular Volume 95, Mean Corpuscular Hemoglobin 28.5, Mean Corpuscular Hemoglobin Concent 29.9L, Red Cell Distribution Width 18.8H, Platelet Count 413, Mean Platelet Volume 6.0L, Neutrophils (%) (Auto) , Lymphocytes (%) (Auto) , Monocytes (%) (Auto) , Eosinophils (%) (Auto) , Basophils (%) (Auto) , Differential Total Cells Counted 100, Neutrophils % ( Manual) 61, Lymphocytes % (Manual) 26, Monocytes % (Manual) 9, Eosinophils % ( Manual) 2, Basophils % (Manual) 0, Band Neutrophils 2, Platelet Estimate IncreasedH, Platelet Morphology Normal, Red Blood Cell Morphology Normal, Sodium Level 144, Potassium Level 4.0, Chloride Level 106, Carbon Dioxide Level 24, Anion Gap 14, Blood Urea Nitrogen 28H, Creatinine 0.5L, Estimat Glomerular Filtration Rate > 60, Glucose Level 98, Calcium Level 8.9, Phosphorus Level 3.3 , Magnesium Level 2.1, Vancomycin Level Trough 24.7H Current Medications Medications (Trade) Dose Ordered Sig/Tanisha Route PRN Reason Start Time Stop Time Status Last Admin Dose Admin Acetaminophen (Tylenol) 650 mg Q4H PRN ORAL FEVER 09/05/16 00:00 10/05/16 00:00 Albuterol/ Ipratropium (DuoNeb 0.5-3(2.5)mg/3ml) 3 ml EVERY 4 HOURS PRN HHN Shortness of Breath 09/05/16 00:00 09/10/16 00:00 Cefepime HCl 1 gm/ Dextrose 55 ml @ 110 mls/hr Q12HR@0630,1830 IVPB 09/05/16 18:30 09/12/16 18:29 09/06/16 06:13 Dextrose (Dextrose 50%) STAT PRN IV Hypoglycemia 09/05/16 00:00 10/05/16 00:00 Heparin Sodium (Porcine) (Heparin 5000 units/ml) 5,000 units EVERY 12 HOURS SUBQ 09/05/16 09:00 10/05/16 08:59 09/06/16 08:01 Levothyroxine Sodium (Synthroid) 200 mcg DAILY@0630 GT 09/05/16 06:30 10/05/16 06:29 09/06/16 06:13 Lorazepam (Ativan 2mg/ml 1ml) 2 mg EVERY 2 HOURS PRN IV For Anxiety 09/05/16 00:00 09/12/16 00:00 Midodrine (Pro-Amatine) 2.5 mg THREE TIMES A DAY ORAL 09/05/16 09:00 10/05/16 08:59 09/06/16 12:50 Morphine Sulfate (Morphine Sulfate) 4 mg EVERY 4 HOURS PRN IVP Severe Pain (Pain Scale 7-10) 09/05/16 00:00 09/12/16 00:00 Ondansetron HCl (Zofran) 4 mg Q6H PRN IVP Nausea & Vomiting 09/05/16 00:00 10/05/16 00:00 Pantoprazole 40 mg 40 mg DAILY IVP 09/05/16 14:00 10/05/16 13:59 09/06/16 07:58 Polyethylene Glycol (Miralax) 17 gm DAILYPRN PRN ORAL Constipation 09/05/16 00:00 10/05/16 00:00 Vancomycin HCl/ Dextrose (Vancomycin/D5W) 275 ml @ 183.3 mls/ hr Q12H IVPB 09/07/16 04:00 09/12/16 03:59 Namrata Saleh NP (Vanchtein) Sep 06, 2016 16:08
--- NOTE | 2016-09-06 17:04 | Diagnostic Imaging Report ---
APPROVED REPORT CPT Code: 28262 Present Symptoms Shortness of breath Comments: Severe bilateral LE Contractures of hip and knee. TECHNICALLY DIFFICULT, LIMITED STUDY DUE TO BILATERAL CONTRACTURES OF THE HIP AND KNEE RIGHT LEG: Venous imaging reveals a patent deep venous system. There is no evidence of thrombus within the femoral, popliteal or tibial segments. The mid to distal segment of the superficial femoral vein was not well visualized due to contracture of the hip and knee. The greater saphenous vein is also within normal limits. Doppler indicates normal spontaneous flow within these segments. LEFT LEG: Venous imaging reveals a patent deep venous system. The common femoral and superficial femoral veins were not well visualized due to contracture of the hip and knee. There is no evidence of thrombus within the popliteal or tibial segments. The greater saphenous vein is also within normal limits. Doppler indicates normal spontaneous flow within these segments.
[2016-09-06 20:00] VITALS: BP 98/59
[2016-09-07] VITALS: BP 97/57
[2016-09-07] MEDS: Vancomycin 750 MG in D5W 275 ML IVPB SCH ×2 (04:52→16:05)
[2016-09-07 05:30] VITALS: BP 92/52
[2016-09-07 06:28] LABS: BASOPHILS % (AUTO) 0.8 % (0.0-2.0); EOSINOPHILS % (AUTO) 1.5 % (0.0-3.0); LYMPHOCYTES % (AUTO) 32.2 % (20.0-45.0); MEAN CORPUSCULAR HEMOGLOBIN 28.8 PG (27.0-31.0); MEAN CORPUSCULAR HGB CONC 30.2 G/DL (32.0-36.0); MEAN CORPUSCULAR VOLUME 95 FL (80-99); NEUTROPHILS % (AUTO) 59.5 % (45.0-75.0); PLATELET COUNT 464 K/UL (150-450); RED BLOOD COUNT 3.02 M/UL (4.70-6.10); RED CELL DISTRIBUTION WIDTH 18.6 % (11.6-14.8); WHITE BLOOD COUNT 11.2 K/UL (4.8-10.8)
[2016-09-07] MEDS: Cefepime HCl 1 GM in D5W 55 ML IVPB SCH ×2 (06:28→18:32)
[2016-09-07 06:46] LABS: ANION GAP 15 (5-15); CALCIUM 8.8 mg/dL (8.6-10.2); CARBON DIOXIDE 23 mEQ/L (20-30); CHLORIDE 109 mEQ/L (98-107); CREATININE 0.5 mg/dL (0.7-1.2); GLOMERULAR FILTRATION RATE > 60 mL/min (>60); HEMOLYSIS 0; POTASSIUM 4.3 mEQ/L (3.4-4.9); SODIUM 147 mEQ/L (135-145)
[2016-09-07 08:00] VITALS: BP 94/60
[2016-09-07] MEDS: Pantoprazole Inj IVP SCH (09:01)
[2016-09-07] MEDS: Heparin 5000 units/ml inj SUBQ SCH ×2 (09:06→20:55)
--- NOTE | 2016-09-07 10:40 | Pulmonology Progress Note ---
Assessment/Plan Assessment/Plan ASSESSMENT sepsis VDRF/trach hx of recurrent SCON bacteremia - r/o recurrens hx of recurrent PNA/tracheo PNA r/o recurrence hx of recurrens UTI multiple decub-POA - dehydration dysphagia, G tube hx of glioblastoma multiforme malnutrition elevated LFT anoxic encephalopathy chronic macrocytic anemia functional quadriplegia PLAN OF CAER KALPESH vent/trach care pulmonary toilet ABG stable on current settings, keep as is and titrate as needed initial CXR with bilateral congestive changes fup with CXR on Thursday urine cx + yeast? colonized, blood cx preliminary negative, influenza screen negative abx , ID follows wound care ; decub do not appear infected , recent bone debridement, s/p Rx, prior bone scan no evidence to suggest osteo strict aspiration precautions, GT feeding, monitor tolerance BP support with Midodrine monitor HH , transfuse prn Venous Duplex BLE negative DVT, GI prophylaxis pain management bowel regimen trend LFT case discussed and evaluated by supervising physician Subjective Allergies: Coded Allergies: PENICILLINS (Verified Allergy, Unknown, 04/19/16) Subjective leukocytosis resolved, afebrile no signs of respiratory distress on current settings open eyes spontaneously today Objective Last 24 Hour Vital Signs Date Time Temp Pulse Resp B/P Pulse Ox O2 Delivery O2 Flow Rate FiO2 09/07/16 09:15 98 20 40 09/07/16 08:00 95 09/07/16 07:09 97 20 40 09/07/16 06:54 98.9 09/07/16 05:30 100.8 100 20 92/52 100 Mechanical Ventilator 40 09/07/16 05:15 95 20 40 09/07/16 04:00 40 09/07/16 03:43 99 09/07/16 03:12 98 20 40 09/07/16 01:18 94 20 40 09/07/16 00:00 99.7 95 20 97/57 100 Mechanical Ventilator 40 09/07/16 00:00 40 09/06/16 23:43 96 09/06/16 22:55 90 20 40 09/06/16 20:40 93 20 40 09/06/16 20:00 40 09/06/16 20:00 93 09/06/16 20:00 99.6 96 20 98/59 100 Mechanical Ventilator 40 09/06/16 19:19 95 22 40 09/06/16 17:20 92 20 40 09/06/16 16:00 40 09/06/16 16:00 98.4 93 20 89/60 98 Mechanical Ventilator 40 09/06/16 16:00 92 09/06/16 15:09 94 20 40 09/06/16 13:14 96 20 40 09/06/16 12:00 98.6 91 20 83/52 100 Mechanical Ventilator 40 09/06/16 12:00 40 09/06/16 12:00 95 09/06/16 11:05 92 20 40 Intake and Output 09/06/16 09/07/16 19:00 07:00 Intake Total 1090 ml 1060.0 ml Output Total 350 ml 1100 ml Balance 740 ml -40.0 ml Intake Free Water 100 ml 100 ml IV Total 330 ml 330.0 ml Tube Feeding 600 ml 600 ml Other 60 ml 30 ml Output Urine Total 350 ml 1100 ml # Bowel Movements 2 Objective General Appearance: vent dependent, chronically ill looking male in NAD vent AC 550-20-40% HEENT: status post trach - Portex#7, secretions small, yellow, thick Respiratory/Chest: no respiratory distress, rhonchi - bilaterally Cardiovascular: normal rate, SR on tele , regular rhythm Abdomen: soft, non tender, non distended, G tube Genitourinary: normal external genitalia, other - Emmanuel Skin: other - multiple decub( see pictures) Neurologic/Psychiatric: abnormal gait , bedridden, nonresponsive, contracted Microbiology Date/Time Source Procedure Growth Status 09/04/16 20:00 Blood Blood Culture - Preliminary NO GROWTH AFTER 48 HOURS Resulted 09/04/16 19:45 Blood Blood Culture - Preliminary NO GROWTH AFTER 48 HOURS Resulted 09/04/16 22:47 Nasal Nares MRSA Culture - Final NO METHICILLIN RESISTANT STAPH AUREUS... Complete 09/04/16 21:00 Nasal Nares Influenza Types A,B Antigen (ALBERTO) - Final Complete 09/04/16 20:35 Urine,Clean Catch Urine Culture - Preliminary Yeast Species Resulted 09/05/16 01:00 Buttock Left Gram Stain - Final Resulted 09/05/16 01:00 Wound Culture - Preliminary Gram Negative Sravan Resulted 09/04/16 22:47 Rectum VRE Culture - Final Enterococcus Faecalis - Vre Enterococcus Faecium - Vre Complete Laboratory Tests 09/07/16 04:30: White Blood Count 11.2H, Red Blood Count 3.02L, Hemoglobin 8.7L, Hematocrit 28.7L, Mean Corpuscular Volume 95, Mean Corpuscular Hemoglobin 28.8, Mean Corpuscular Hemoglobin Concent 30.2L, Red Cell Distribution Width 18.6H, Platelet Count 464H, Mean Platelet Volume 6.0L, Neutrophils (%) (Auto) 59.5, Lymphocytes (%) (Auto) 32.2, Monocytes (%) (Auto) 6.0, Eosinophils (%) (Auto) 1.5, Basophils (%) (Auto) 0.8, Sodium Level 147H, Potassium Level 4.3, Chloride Level 109H, Carbon Dioxide Level 23, Anion Gap 15, Blood Urea Nitrogen 25H, Creatinine 0.5L, Estimat Glomerular Filtration Rate > 60, Glucose Level 95, Calcium Level 8.8 Current Medications Medications (Trade) Dose Ordered Sig/Tanisha Route PRN Reason Start Time Stop Time Status Last Admin Dose Admin Acetaminophen (Tylenol) 650 mg Q4H PRN ORAL FEVER 09/05/16 00:00 10/05/16 00:00 09/07/16 05:55 Albuterol/ Ipratropium (DuoNeb 0.5-3(2.5)mg/3ml) 3 ml EVERY 4 HOURS PRN HHN Shortness of Breath 09/05/16 00:00 09/10/16 00:00 Cefepime HCl 1 gm/ Dextrose 55 ml @ 110 mls/hr Q12HR@0630,1830 IVPB 09/05/16 18:30 09/12/16 18:29 09/07/16 06:28 Dextrose (Dextrose 50%) STAT PRN IV Hypoglycemia 09/05/16 00:00 10/05/16 00:00 Heparin Sodium (Porcine) (Heparin 5000 units/ml) 5,000 units EVERY 12 HOURS SUBQ 09/05/16 09:00 10/05/16 08:59 09/07/16 09:06 Levothyroxine Sodium (Synthroid) 200 mcg DAILY@0630 GT 09/05/16 06:30 10/05/16 06:29 09/07/16 05:55 Lorazepam (Ativan 2mg/ml 1ml) 2 mg EVERY 2 HOURS PRN IV For Anxiety 09/05/16 00:00 09/12/16 00:00 Midodrine (Pro-Amatine) 2.5 mg THREE TIMES A DAY ORAL 09/05/16 09:00 10/05/16 08:59 09/07/16 09:03 Morphine Sulfate (Morphine Sulfate) 4 mg EVERY 4 HOURS PRN IVP Severe Pain (Pain Scale 7-10) 09/05/16 00:00 09/12/16 00:00 Ondansetron HCl (Zofran) 4 mg Q6H PRN IVP Nausea & Vomiting 09/05/16 00:00 10/05/16 00:00 Pantoprazole 40 mg 40 mg DAILY IVP 09/05/16 14:00 10/05/16 13:59 09/07/16 09:01 Polyethylene Glycol (Miralax) 17 gm DAILYPRN PRN ORAL Constipation 09/05/16 00:00 10/05/16 00:00 Vancomycin HCl/ Dextrose (Vancomycin/D5W) 275 ml @ 183.3 mls/ hr Q12H IVPB 09/07/16 04:00 09/12/16 03:59 09/07/16 04:52 Delfino Bradenbrigid)Namrata NP Sep 07, 2016 10:40
[2016-09-07 12:00] VITALS: BP 109/73
[2016-09-07 16:00] VITALS: BP 92/55
[2016-09-07 20:00] VITALS: BP 91/60
[2016-09-08] VITALS (7 sets, daily range): BP systolic 85–100; BP diastolic 53–68
[2016-09-08 03:56] LABS: ANION GAP 15 (5-15); CALCIUM 8.9 mg/dL (8.6-10.2); CARBON DIOXIDE 22 mEQ/L (20-30); CHLORIDE 108 mEQ/L (98-107); CREATININE 0.4 mg/dL (0.7-1.2); GLOMERULAR FILTRATION RATE > 60 mL/min (>60); HEMOLYSIS 2; POTASSIUM 4.4 mEQ/L (3.4-4.9); SODIUM 145 mEQ/L (135-145)
[2016-09-08 03:58] LABS: BASOPHILS % (AUTO) 0.4 % (0.0-2.0); EOSINOPHILS % (AUTO) 0.8 % (0.0-3.0); LYMPHOCYTES % (AUTO) 23.3 % (20.0-45.0); MEAN CORPUSCULAR HEMOGLOBIN 29.1 PG (27.0-31.0); MEAN CORPUSCULAR HGB CONC 31.2 G/DL (32.0-36.0); MEAN CORPUSCULAR VOLUME 93 FL (80-99); MEAN PLATELET VOLUME 5.7 FL (6.5-10.1); NEUTROPHILS % (AUTO) 69.5 % (45.0-75.0); PLATELET COUNT 420 K/UL (150-450); RED BLOOD COUNT 2.99 M/UL (4.70-6.10); WHITE BLOOD COUNT 15.4 K/UL (4.8-10.8)
[2016-09-08] MEDS: Vancomycin 750 MG in D5W 275 ML IVPB SCH (04:24)
[2016-09-08] MEDS: Cefepime HCl 1 GM in D5W 55 ML IVPB SCH (05:53)
[2016-09-08] MEDS: Pantoprazole Inj IVP SCH (08:15)
[2016-09-08] MEDS: Heparin 5000 units/ml inj SUBQ SCH ×2 (08:18→21:24)
--- NOTE | 2016-09-08 10:21 | Infectious Diseases Prog Note ---
Assessment/Plan Assessment/Plan ASSESSMENT: 60-year-old male with: // Multiple decubiti POA, not grossly infected / osteomyelitis - appear improved Wnd CX : Providencia ( MDR )( probable colonizer ) - SP debridement, bone bx 08/08 - Cx VRE.faecalis, MDR-ACB - elevated ESR, CRP - Bone scan 07/01: Limited, essentially nondiagnostic exam. No gross findings to suggest acute osteomyelitis - h/o MDR-K.pneumoniae, VRE.faecalis, CONS, C.albicans // h/o recurrent CONS bacteremias r/o recurrence - surveillance BCx pending - h/o recurrent CONS 2/4 (05/09) SP IV vanco x28d - h/o CONS 3/4 (04/19 ) SP Rx IV vanco x7d - TTE 05/11: poorly visualized valves, poor candidate MARIA C - h/o CONS cath tip colonization ( <10K ) // h/o recurrent PNAs ( VAP / HCAP ) / tracheobronchitis' r/o recurrence - SCx pending - CXR 09/04: Bilateral congestive changes, underlying atelectasis or pneumonias, or other pulmonary parenchymal pathology in either or both lung bases not excludable, unchanged - h/o qI,S-PSA, P.stuartii, ESBL(+) K.pneumoniae, S.maltophilia, diptheroids // h/o recurrent UTIs r/o recurrence - UA benign, UCx YEAST ( COLONIZER AT THIS TIME ) - US: Mild left hydronephrosis, new since prior study of 04/21/2016. Etiology not demonstrated but concerning for downstream obstruction - h/o E.coli, K.pneumoniae SP Rx // Elevated LFTs, GGT - chronic, stable - US: Equivocally visualized stone filled gallbladder, versus shadowing from duodenal gas. Mildly dilated CBD, downstream obstruction not excludable - negative: AMA, hepatitis panel // Negative influenza // Probable recurrent sepsis // Chronic hypotension, on midodrine // Leukocytosis // Fever - Low grade Chronic VDRF SP trach, PEG Anoxic encephalopathy / dementia History of glioblastoma multiforme Chronic macrocytic anemia Functional quadriplegia / bedbound / contracted NH resident MDRO colonized PCN allergy - unable to qualify. Tolerates cefepime, meropenem Full Code PLAN: continue IV vancomycin d# 5 , change cefepime d# 5 to Merrem d# 1 ( 08/19 Tygacil d# / , Ceftaz d# 9 / ?completed course at [facility] ) ( 08/12 SP IV vancomycin d# 13 and Flagyl d# 9 ) ( SP aztreonam d# 12 ) ( 08/04 SP levaquin d# 5 ) ( 07/05 SP IV vancomycin, aztreonam d# 7 / 7 ) ( 06/26 SP Merrem d# 6, cefepime d# 14 ) ( SP IV vancomycin, d# 6 and flagyl d# 3 ) ( SP IV vancomycin d# / ( 05/13 SP aztreonam, amikacin d# 5 / 5 ) ( 05/02 SP aztreonam d# 14 / 14 ) ( 04/25 SP vancomycin d# 7 / 7 ) f/u cultures Monitor CBC, temperatures Monitor CMP Monitor chest x-ray vent support, trach care, aspiration precautions wound care contact isolation Subjective Constitutional: Denies: anorexia, chills, drenching sweats, fatigue, fever, no symptoms, other Allergies: Coded Allergies: PENICILLINS (Verified Allergy, Unknown, 04/19/16) Objective Vital Signs Last 24 Hour Vital Signs Date Time Temp Pulse Resp B/P Pulse Ox O2 Delivery O2 Flow Rate FiO2 09/08/16 09:13 91 20 40 09/08/16 08:00 96 09/08/16 08:00 40 09/08/16 08:00 97.7 99 21 95/62 100 Mechanical Ventilator 40 09/08/16 07:00 80 20 40 09/08/16 05:24 85 23 40 09/08/16 04:02 40 09/08/16 04:00 95 09/08/16 04:00 98.4 96 20 86/59 100 Mechanical Ventilator 40 09/08/16 03:01 89 21 40 09/08/16 01:10 92 20 40 09/08/16 00:12 40 09/08/16 00:00 97.7 96 20 93/64 100 Mechanical Ventilator 09/08/16 00:00 92 09/07/16 23:05 99 20 40 09/07/16 21:54 97.7 09/07/16 21:39 86 21 40 09/07/16 20:04 40 1/22/17 20:00 100.9 102 23 91/60 100 Mechanical Ventilator 40 09/07/16 20:00 101 09/07/16 19:07 90 22 40 09/07/16 17:07 84 20 40 09/07/16 16:00 40 09/07/16 16:00 99.3 95 15 92/55 99 Mechanical Ventilator 30 09/07/16 16:00 94 09/07/16 15:16 90 20 40 09/07/16 13:10 89 20 40 09/07/16 12:00 98.1 94 20 109/73 100 Mechanical Ventilator 40 09/07/16 12:00 40 09/07/16 12:00 91 09/07/16 11:05 85 20 40 Height (Feet): 5 Height (Inches): 5.00 Weight (Pounds): 140 HEENT: atraumatic Respiratory/Chest: lungs clear, no respiratory distress Abdomen: soft, non tender, no organomegaly Microbiology Date/Time Source Procedure Growth Status 09/07/16 04:50 Sputum Gram Stain Pending Resulted 09/07/16 04:50 Sputum Sputum Culture - Preliminary Resulted Laboratory Tests Test 09/08/16 03:00 White Blood Count 15.4 K/UL (4.8-10.8) H Red Blood Count 2.99 M/UL (4.70-6.10) L Hemoglobin 8.7 G/DL (14.2-18.0) L Hematocrit 27.9 % (42.0-52.0) L Mean Corpuscular Volume 93 FL (80-99) Mean Corpuscular Hemoglobin 29.1 PG (27.0-31.0) Mean Corpuscular Hemoglobin Concent 31.2 G/DL (32.0-36.0) L Red Cell Distribution Width 18.0 % (11.6-14.8) H Platelet Count 420 K/UL (150-450) Mean Platelet Volume 5.7 FL (6.5-10.1) L Neutrophils (%) (Auto) 69.5 % (45.0-75.0) Lymphocytes (%) (Auto) 23.3 % (20.0-45.0) Monocytes (%) (Auto) 6.0 % (1.0-10.0) Eosinophils (%) (Auto) 0.8 % (0.0-3.0) Basophils (%) (Auto) 0.4 % (0.0-2.0) Sodium Level 145 mEQ/L (135-145) Potassium Level 4.4 mEQ/L (3.4-4.9) Chloride Level 108 mEQ/L (98-107) H Carbon Dioxide Level 22 mEQ/L (20-30) Anion Gap 15 (5-15) Blood Urea Nitrogen 26 mg/dL (7-23) H Creatinine 0.4 mg/dL (0.7-1.2) L Estimat Glomerular Filtration Rate > 60 mL/min (>60) Glucose Level 104 mg/dL (74-106) Calcium Level 8.9 mg/dL (8.6-10.2) Vancomycin Level Trough 19.3 ug/mL (5.0-12.0) H Current Medications Medications (Trade) Dose Ordered Sig/Tanisha Route PRN Reason Start Time Stop Time Status Last Admin Dose Admin Acetaminophen (Tylenol) 650 mg Q4H PRN ORAL FEVER 09/05/16 00:00 10/05/16 00:00 09/07/16 20:55 Albuterol/ Ipratropium (DuoNeb 0.5-3(2.5)mg/3ml) 3 ml EVERY 4 HOURS PRN HHN Shortness of Breath 09/05/16 00:00 09/10/16 00:00 Cefepime HCl 1 gm/ Dextrose 55 ml @ 110 mls/hr Q12HR@0630,1830 IVPB 09/05/16 18:30 09/12/16 18:29 09/08/16 05:53 Dextrose (Dextrose 50%) STAT PRN IV Hypoglycemia 09/05/16 00:00 10/05/16 00:00 Heparin Sodium (Porcine) (Heparin 5000 units/ml) 5,000 units EVERY 12 HOURS SUBQ 09/05/16 09:00 10/05/16 08:59 09/08/16 08:18 Levothyroxine Sodium (Synthroid) 200 mcg DAILY@0630 GT 09/05/16 06:30 10/05/16 06:29 09/08/16 05:53 Lorazepam (Ativan 2mg/ml 1ml) 2 mg EVERY 2 HOURS PRN IV For Anxiety 09/05/16 00:00 09/12/16 00:00 Midodrine (Pro-Amatine) 2.5 mg THREE TIMES A DAY ORAL 09/05/16 09:00 10/05/16 08:59 09/08/16 08:15 Morphine Sulfate (Morphine Sulfate) 4 mg EVERY 4 HOURS PRN IVP Severe Pain (Pain Scale 7-10) 09/05/16 00:00 09/12/16 00:00 Ondansetron HCl (Zofran) 4 mg Q6H PRN IVP Nausea & Vomiting 09/05/16 00:00 10/05/16 00:00 Pantoprazole 40 mg 40 mg DAILY IVP 09/05/16 14:00 10/05/16 13:59 09/08/16 08:15 Polyethylene Glycol (Miralax) 17 gm DAILYPRN PRN ORAL Constipation 09/05/16 00:00 10/05/16 00:00 Vancomycin HCl/ Dextrose (Vancomycin/D5W) 275 ml @ 183.3 mls/ hr Q12H IVPB 09/07/16 04:00 09/12/16 03:59 09/08/16 04:24 GURDEEP BHANDARI M.D. Sep 08, 2016 10:21
[2016-09-08] MEDS: Meropenem 1 GM in NS 110 ML IVPB SCH ×2 (13:17→21:54)
[2016-09-08] MEDS ORDERED: NS 275ml ONE (16:32)
[2016-09-08] MEDS ORDERED: Tubing IV Secondary IV ONE (16:32)
[2016-09-08] MEDS: Vancomycin 1.5 GM in D5W 325 ML IVPB SCH (20:02)
[2016-09-09] VITALS: BP 100/63
[2016-09-09 04:00] VITALS: BP 98/58
[2016-09-09] MEDS: Meropenem 1 GM in NS 110 ML IVPB SCH ×3 (06:08→22:04)
[2016-09-09 08:01] VITALS: BP 94/65
--- NOTE | 2016-09-09 08:05 | Infectious Diseases Prog Note ---
Assessment/Plan Assessment/Plan ASSESSMENT: 60-year-old male with: // Multiple decubiti POA, not grossly infected / osteomyelitis - appear improved Wnd CX : MDR-P.stuartii, GNR #2 ( probable colonizers ) - SP debridement, bone bx 08/08 - Cx VRE.faecalis, MDR-ACB - elevated ESR, CRP - Bone scan 07/01: Limited, essentially nondiagnostic exam. No gross findings to suggest acute osteomyelitis - h/o MDR-K.pneumoniae, VRE.faecalis, CONS, C.albicans // h/o recurrent CONS bacteremias r/o recurrence - surveillance BCx NGTD - h/o recurrent CONS 2/4 (05/09) SP IV vanco x28d - h/o CONS 3/4 (04/19 ) SP Rx IV vanco x7d - TTE 05/11: poorly visualized valves, poor candidate MARIA C - h/o CONS cath tip colonization ( <10K ) // h/o recurrent PNAs ( VAP / HCAP ) / tracheobronchitis' r/o recurrence - SCx GNR - CXR 09/04: Bilateral congestive changes, underlying atelectasis or pneumonias, or other pulmonary parenchymal pathology in either or both lung bases not excludable, unchanged - h/o qI,S-PSA, P.stuartii, ESBL(+) K.pneumoniae, S.maltophilia, diptheroids // h/o recurrent UTIs r/o recurrence - UA benign, UCx YEAST ( COLONIZER AT THIS TIME ) - US: Mild left hydronephrosis, new since prior study of 04/21/2016. Etiology not demonstrated but concerning for downstream obstruction - h/o E.coli, K.pneumoniae SP Rx // Elevated LFTs, GGT - chronic, stable - US: Equivocally visualized stone filled gallbladder, versus shadowing from duodenal gas. Mildly dilated CBD, downstream obstruction not excludable - negative: AMA, hepatitis panel // Negative influenza // Probable recurrent sepsis // Chronic hypotension, on midodrine // Leukocytosis - worse // Fever - Low grade, improved Chronic VDRF SP trach, PEG Anoxic encephalopathy / dementia History of glioblastoma multiforme Chronic macrocytic anemia Functional quadriplegia / bedbound / contracted NH resident MDRO colonized PCN allergy - unable to qualify. Tolerates cefepime, meropenem Full Code PLAN: continue IV vancomycin d# 6, Merrem d# 2 ( 09/08 SP cefepime d# 5 ) ( 08/19 Tygacil d# / , Ceftaz d# / ?completed course at [facility] ) ( 08/12 SP IV vancomycin d# 13 and Flagyl d# 9 ) ( SP aztreonam d# 12 ) ( 08/04 SP levaquin d# 5 ) ( 07/05 SP IV vancomycin, aztreonam d# 7 / 7 ) ( 06/26 SP Merrem d# 6, cefepime d# 14 ) ( SP IV vancomycin, d# 6 and flagyl d# 3 ) ( SP IV vancomycin d# / ( 05/13 SP aztreonam, amikacin d# 5 / 5 ) ( 05/02 SP aztreonam d# 14 / 14 ) ( 04/25 SP vancomycin d# 7 / 7 ) f/u cultures, check C.diff Monitor CBC, temperatures Monitor CMP Monitor chest x-ray vent support, trach care, aspiration precautions wound care contact isolation Subjective Allergies: Coded Allergies: PENICILLINS (Verified Allergy, Unknown, 04/19/16) Subjective pt unable to provide any information afebrile, WBC up Objective Vital Signs Last 24 Hour Vital Signs Date Time Temp Pulse Resp B/P Pulse Ox O2 Delivery O2 Flow Rate FiO2 09/09/16 07:05 91 20 40 09/09/16 05:07 91 20 40 09/09/16 04:00 40 09/09/16 04:00 89 09/09/16 04:00 97.4 87 20 98/58 98 Mechanical Ventilator 40 09/09/16 03:26 88 20 40 09/09/16 01:03 87 20 40 09/09/16 00:00 87 09/09/16 00:00 40 09/09/16 00:00 98.1 86 20 100/63 98 Mechanical Ventilator 40 09/08/16 23:19 89 21 40 09/08/16 21:00 74 20 40 09/08/16 20:00 98.0 90 20 98/61 98 Mechanical Ventilator 40 09/08/16 20:00 40 09/08/16 19:05 92 20 40 09/08/16 16:48 98 20 40 09/08/16 16:00 40 1/23/17 16:00 98 09/08/16 16:00 98.1 94 20 100/68 100 Mechanical Ventilator 40 09/08/16 15:02 93 94/65 09/08/16 14:56 97 20 40 09/08/16 13:29 88 21 40 09/08/16 12:00 94 09/08/16 12:00 97.7 92 20 85/53 100 Mechanical Ventilator 40 09/08/16 12:00 40 09/08/16 11:19 87 20 40 09/08/16 09:13 91 20 40 Height (Feet): 5 Height (Inches): 5.00 Weight (Pounds): 140 General Appearance: no acute distress HEENT: status post trach Respiratory/Chest: decreased breath sounds Cardiovascular: normal rate, regular rhythm Abdomen: normal bowel sounds, soft, non tender, non distended, other - PEG Microbiology Date/Time Source Procedure Growth Status 09/07/16 04:50 Sputum Gram Stain - Final Resulted 09/07/16 04:50 Sputum Culture - Preliminary Gram Negative Bacillus 1 Resulted Current Medications Medications (Trade) Dose Ordered Sig/Tanisha Route PRN Reason Start Time Stop Time Status Last Admin Dose Admin Acetaminophen (Tylenol) 650 mg Q4H PRN ORAL FEVER 09/05/16 00:00 10/05/16 00:00 09/07/16 20:55 Albuterol/ Ipratropium (DuoNeb 0.5-3(2.5)mg/3ml) 3 ml EVERY 4 HOURS PRN HHN Shortness of Breath 09/05/16 00:00 09/10/16 00:00 Dextrose (Dextrose 50%) STAT PRN IV Hypoglycemia 09/05/16 00:00 10/05/16 00:00 Heparin Sodium (Porcine) (Heparin 5000 units/ml) 5,000 units EVERY 12 HOURS SUBQ 09/05/16 09:00 10/05/16 08:59 09/08/16 21:24 Levothyroxine Sodium (Synthroid) 200 mcg DAILY@0630 GT 09/05/16 06:30 10/05/16 06:29 09/09/16 06:13 Lorazepam (Ativan 2mg/ml 1ml) 2 mg EVERY 2 HOURS PRN IV For Anxiety 09/05/16 00:00 09/12/16 00:00 Meropenem/Sodium Chloride (Merrem/Sodium Chloride) 110 ml @ 220 mls/hr Q8HR IVPB 09/08/16 12:00 09/13/16 11:59 09/09/16 06:08 Midodrine (Pro-Amatine) 2.5 mg THREE TIMES A DAY ORAL 09/05/16 09:00 10/05/16 08:59 09/08/16 18:23 Morphine Sulfate (Morphine Sulfate) 4 mg EVERY 4 HOURS PRN IVP Severe Pain (Pain Scale 7-10) 09/05/16 00:00 09/12/16 00:00 Ondansetron HCl (Zofran) 4 mg Q6H PRN IVP Nausea & Vomiting 09/05/16 00:00 10/05/16 00:00 Pantoprazole 40 mg 40 mg DAILY IVP 09/05/16 14:00 10/05/16 13:59 09/08/16 08:15 Polyethylene Glycol (Miralax) 17 gm DAILYPRN PRN ORAL Constipation 09/05/16 00:00 10/05/16 00:00 Vancomycin HCl 1 ea 1 ea DAILY PRN MISC . 09/08/16 12:15 10/08/16 12:14 Vancomycin HCl/ Dextrose (Vancomycin/D5W) 325 ml @ 162.5 mls/ hr Q24H IVPB 09/08/16 20:00 09/12/16 19:59 09/08/16 20:02 ALMAS CA Sep 09, 2016 08:04
[2016-09-09] MEDS: Pantoprazole Inj IVP SCH (08:39)
[2016-09-09] MEDS: Heparin 5000 units/ml inj SUBQ SCH ×2 (08:40→21:17)
[2016-09-09 12:00] VITALS: BP 91/54
[2016-09-09 16:00] VITALS: BP 96/61
[2016-09-09 20:00] VITALS: BP 102/61
[2016-09-09] MEDS: Vancomycin 1.5 GM in D5W 325 ML IVPB SCH (20:10)
--- NOTE | 2016-09-09 22:45 | Pulmonology Progress Note ---
Assessment/Plan Problems: (1) Acute and chronic respiratory failure (2) Sepsis (3) Pneumonia (4) Feeding by G-tube (5) History of glioma of brainstem Respiratory: monitor respiratory rate, adjust FIO2 Cardiac: continue pressors, continue to monitor HR/BP Renal: F/U I&O, keep IV fluid Infectious Disease: check cultures Gastrointestinal: continue feedings/current rate Endocrine: check TSH, continue sliding scale insulin Hematologic: monitor H/H, transfuse if hgb<8.5 Neurologic: PRN Ativan, keep patient comfortable Prophylaxis: Heparin, TEDs Notes Reviewed: shell mold bonder, cardio, renal Discussed with: case aide Subjective ROS Limited/Unobtainable: No Constitutional: Reports: no symptoms HEENT: Repors: no symptoms Respiratory: Reports: no symptoms Cardiovascular: Reports: no symptoms Gastrointestinal/Abdominal: Reports: no symptoms Allergies: Coded Allergies: PENICILLINS (Verified Allergy, Unknown, 04/19/16) Objective Last 24 Hour Vital Signs Date Time Temp Pulse Resp B/P Pulse Ox O2 Delivery O2 Flow Rate FiO2 09/09/16 20:47 89 20 40 09/09/16 20:00 97.9 88 20 102/61 100 Mechanical Ventilator 40 09/09/16 20:00 91 09/09/16 20:00 40 09/09/16 19:00 93 20 40 09/09/16 16:39 89 20 40 09/09/16 16:00 40 09/09/16 16:00 87 09/09/16 16:00 97.3 91 20 96/61 100 Mechanical Ventilator 40 09/09/16 15:21 82 20 40 09/09/16 13:13 84 20 40 09/09/16 12:01 40 09/09/16 12:00 91 09/09/16 12:00 97.0 88 20 91/54 100 Mechanical Ventilator 40 09/09/16 11:21 87 20 40 09/09/16 09:05 93 20 40 09/09/16 08:03 40 09/09/16 08:01 98.2 91 21 94/65 100 Mechanical Ventilator 40 09/09/16 08:00 90 09/09/16 07:05 91 20 40 09/09/16 05:07 91 20 40 09/09/16 04:00 40 09/09/16 04:00 89 09/09/16 04:00 97.4 87 20 98/58 98 Mechanical Ventilator 40 09/09/16 03:26 88 20 40 09/09/16 01:03 87 20 40 09/09/16 00:00 87 09/09/16 00:00 40 09/09/16 00:00 98.1 86 20 100/63 98 Mechanical Ventilator 40 09/08/16 23:19 89 21 40 Intake and Output 09/08/16 09/09/16 19:00 07:00 Intake Total 860 ml 880 ml Output Total 300 ml 1580 ml Balance 560 ml -700 ml Intake Free Water 100 ml 100 ml Tube Feeding 660 ml 780 ml Other 100 ml Output Urine Total 300 ml 1580 ml # Bowel Movements 3 1 General Appearance: WD/WN HEENT: normocephalic Respiratory/Chest: chest wall non-tender Cardiovascular: normal peripheral pulses Abdomen: normal bowel sounds Extremities: no cyanosis Skin: no rash 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 Lymphatic: no neck adenopathy Microbiology Date/Time Source Procedure Growth Status 09/07/16 04:50 Sputum Gram Stain - Final Resulted 09/07/16 04:50 Sputum Culture - Preliminary Gram Negative Bacillus 1 Resulted Current Medications Medications (Trade) Dose Ordered Sig/Tanisha Route PRN Reason Start Time Stop Time Status Last Admin Dose Admin Acetaminophen (Tylenol) 650 mg Q4H PRN ORAL FEVER 09/05/16 00:00 10/05/16 00:00 09/07/16 20:55 Albuterol/ Ipratropium (DuoNeb 0.5-3(2.5)mg/3ml) 3 ml EVERY 4 HOURS PRN HHN Shortness of Breath 09/05/16 00:00 09/10/16 00:00 Dextrose (Dextrose 50%) STAT PRN IV Hypoglycemia 09/05/16 00:00 10/05/16 00:00 Heparin Sodium (Porcine) (Heparin 5000 units/ml) 5,000 units EVERY 12 HOURS SUBQ 09/05/16 09:00 10/05/16 08:59 09/09/16 21:17 Levothyroxine Sodium (Synthroid) 200 mcg DAILY@0630 GT 09/05/16 06:30 10/05/16 06:29 09/09/16 06:13 Lorazepam (Ativan 2mg/ml 1ml) 2 mg EVERY 2 HOURS PRN IV For Anxiety 09/05/16 00:00 09/12/16 00:00 Meropenem/Sodium Chloride (Merrem/Sodium Chloride) 110 ml @ 220 mls/hr Q8HR IVPB 09/08/16 12:00 09/13/16 11:59 09/09/16 22:04 Midodrine (Pro-Amatine) 2.5 mg THREE TIMES A DAY ORAL 09/05/16 09:00 10/05/16 08:59 09/09/16 18:45 Morphine Sulfate (Morphine Sulfate) 4 mg EVERY 4 HOURS PRN IVP Severe Pain (Pain Scale 7-10) 09/05/16 00:00 09/12/16 00:00 Ondansetron HCl (Zofran) 4 mg Q6H PRN IVP Nausea & Vomiting 09/05/16 00:00 10/05/16 00:00 Pantoprazole 40 mg 40 mg DAILY IVP 09/05/16 14:00 10/05/16 13:59 09/09/16 08:39 Polyethylene Glycol (Miralax) 17 gm DAILYPRN PRN ORAL Constipation 09/05/16 00:00 10/05/16 00:00 Vancomycin HCl 1 ea 1 ea DAILY PRN MISC . 09/08/16 12:15 10/08/16 12:14 Vancomycin HCl/ Dextrose (Vancomycin/D5W) 325 ml @ 162.5 mls/ hr Q24H IVPB 09/08/16 20:00 09/12/16 19:59 09/09/16 20:10 JAKUB MORALES Sep 09, 2016 22:45
[2016-09-10] VITALS (7 sets, daily range): BP systolic 91–103; BP diastolic 46–66
[2016-09-10] MEDS: Meropenem 1 GM in NS 110 ML IVPB SCH ×3 (05:04→21:41)
[2016-09-10 06:34] LABS: BASOPHILS % (AUTO) 0.9 % (0.0-2.0); LYMPHOCYTES % (AUTO) 15.6 % (20.0-45.0); MEAN CORPUSCULAR HGB CONC 30.7 G/DL (32.0-36.0); MEAN CORPUSCULAR VOLUME 95 FL (80-99); MEAN PLATELET VOLUME 5.6 FL (6.5-10.1); MONOCYTES % (AUTO) 7.2 % (1.0-10.0); NEUTROPHILS % (AUTO) 74.3 % (45.0-75.0); PLATELET COUNT 417 K/UL (150-450); RED BLOOD COUNT 2.93 M/UL (4.70-6.10); RED CELL DISTRIBUTION WIDTH 19.1 % (11.6-14.8); WHITE BLOOD COUNT 11.5 K/UL (4.8-10.8)
[2016-09-10 06:55] LABS: ALANINE AMINOTRANSFERASE 32 U/L (3-41); ALBUMIN/GLOBULIN RATIO 0.6 (1.0-2.7); ANION GAP 14 (5-15); ASPARTATE AMINO TRANSFERASE 26 U/L (5-40); CALCIUM 8.7 mg/dL (8.6-10.2); CARBON DIOXIDE 22 mEQ/L (20-30); CHLORIDE 104 mEQ/L (98-107); CREATININE 0.4 mg/dL (0.7-1.2); GLOMERULAR FILTRATION RATE > 60 mL/min (>60); HEMOLYSIS 0; PHOSPHORUS 2.4 mg/dL (2.5-4.8); POTASSIUM 4.1 mEQ/L (3.4-4.9); SODIUM 140 mEQ/L (135-145); TOTAL PROTEIN 5.7 g/dL (6.6-8.7)
[2016-09-10] MEDS: Pantoprazole Inj IVP SCH (08:36)
[2016-09-10] MEDS: Heparin 5000 units/ml inj SUBQ SCH ×2 (08:36→20:21)
--- NOTE | 2016-09-10 12:00 | Pulmonology Progress Note ---
Assessment/Plan Problems: (1) Acute and chronic respiratory failure (2) Sepsis (3) Pneumonia (4) Feeding by G-tube (5) History of glioma of brainstem Respiratory: monitor respiratory rate, adjust FIO2 Cardiac: stop pressors Renal: F/U I&O, keep IV fluid Gastrointestinal: continue feedings/current rate Endocrine: monitor blood sugar, continue sliding scale insulin Hematologic: monitor H/H, transfuse if hgb<8.5 Neurologic: PRN Morphine, keep patient comfortable Affect: PRN ativan Prophylaxis: Protonix Notes Reviewed: cardio, renal Discussed with: nurses, consultants, case manager specialist Subjective ROS Limited/Unobtainable: Yes Allergies: Coded Allergies: PENICILLINS (Verified Allergy, Unknown, 04/19/16) Objective Last 24 Hour Vital Signs Date Time Temp Pulse Resp B/P Pulse Ox O2 Delivery O2 Flow Rate FiO2 09/10/16 10:37 73 20 40 09/10/16 09:11 72 20 40 09/10/16 08:15 97.5 82 18 97/60 97 09/10/16 08:00 84 09/10/16 08:00 40 09/10/16 06:45 79 20 40 09/10/16 05:38 97.9 88 20 93/60 99 Mechanical Ventilator 40 09/10/16 05:00 83 20 40 09/10/16 04:00 40 09/10/16 04:00 86 09/10/16 04:00 97.9 88 20 93/60 99 Mechanical Ventilator 40 09/10/16 02:39 96 20 40 09/10/16 02:29 93 20 40 09/10/16 01:03 95 20 40 09/10/16 00:23 97.7 90 20 98/59 100 Mechanical Ventilator 40 09/10/16 00:00 40 09/10/16 00:00 87 09/09/16 23:08 98 20 40 09/09/16 20:47 89 20 40 09/09/16 20:00 97.9 88 20 102/61 100 Mechanical Ventilator 40 09/09/16 20:00 91 09/09/16 20:00 40 09/09/16 19:00 93 20 40 09/09/16 16:39 89 20 40 09/09/16 16:00 40 09/09/16 16:00 87 09/09/16 16:00 97.3 91 20 96/61 100 Mechanical Ventilator 40 09/09/16 15:21 82 20 40 09/09/16 13:13 84 20 40 09/09/16 12:01 40 09/09/16 12:00 91 09/09/16 12:00 97.0 88 20 91/54 100 Mechanical Ventilator 40 Intake and Output 09/09/16 09/10/16 19:00 07:00 Intake Total 800 ml 955.0 ml Output Total 450 ml 1150 ml Balance 350 ml -195.0 ml Intake Free Water 150 ml 100 ml IV Total 110 ml 435.0 ml Tube Feeding 540 ml 420 ml Output Urine Total 450 ml 1150 ml # Bowel Movements 2 2 General Appearance: WD/WN HEENT: normocephalic Respiratory/Chest: chest wall non-tender, lungs clear Cardiovascular: normal peripheral pulses, normal rate Abdomen: normal bowel sounds, soft, non tender Extremities: no cyanosis Skin: no rash 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 Lymphatic: no neck adenopathy Microbiology Date/Time Source Procedure Growth Status 09/09/16 22:40 Stool Clostridium difficile Toxin Assay - Final Complete Laboratory Tests 09/10/16 05:20: White Blood Count 11.5H, Red Blood Count 2.93L, Hemoglobin 8.5L, Hematocrit 27.7L, Mean Corpuscular Volume 95, Mean Corpuscular Hemoglobin 29.0, Mean Corpuscular Hemoglobin Concent 30.7L, Red Cell Distribution Width 19.1H, Platelet Count 417, Mean Platelet Volume 5.6L, Neutrophils (%) (Auto) 74.3, Lymphocytes (%) (Auto) 15.6L, Monocytes (%) (Auto) 7.2, Eosinophils (%) (Auto) 2.0, Basophils (%) (Auto) 0.9, Sodium Level 140, Potassium Level 4.1, Chloride Level 104, Carbon Dioxide Level 22, Anion Gap 14, Blood Urea Nitrogen 20, Creatinine 0.4L, Estimat Glomerular Filtration Rate > 60, Glucose Level 99, Calcium Level 8.7, Phosphorus Level 2.4L, Magnesium Level 2.0, Total Bilirubin 0.3, Aspartate Amino Transf (AST/SGOT) 26, Alanine Aminotransferase (ALT/SGPT) 32, Alkaline Phosphatase 1204H, Total Protein 5.7L, Albumin 2.2L, Globulin 3.5, Albumin/Globulin Ratio 0.6L Current Medications Medications (Trade) Dose Ordered Sig/Tanisha Route PRN Reason Start Time Stop Time Status Last Admin Dose Admin Acetaminophen (Tylenol) 650 mg Q4H PRN ORAL FEVER 09/05/16 00:00 10/05/16 00:00 09/07/16 20:55 Dextrose (Dextrose 50%) STAT PRN IV Hypoglycemia 09/05/16 00:00 10/05/16 00:00 Heparin Sodium (Porcine) (Heparin 5000 units/ml) 5,000 units EVERY 12 HOURS SUBQ 09/05/16 09:00 10/05/16 08:59 09/10/16 08:36 Levothyroxine Sodium (Synthroid) 200 mcg DAILY@0630 GT 09/05/16 06:30 10/05/16 06:29 09/10/16 06:02 Lorazepam (Ativan 2mg/ml 1ml) 2 mg EVERY 2 HOURS PRN IV For Anxiety 09/05/16 00:00 09/12/16 00:00 Meropenem/Sodium Chloride (Merrem/Sodium Chloride) 110 ml @ 220 mls/hr Q8HR IVPB 09/08/16 12:00 09/13/16 11:59 09/10/16 05:04 Midodrine (Pro-Amatine) 2.5 mg THREE TIMES A DAY ORAL 09/05/16 09:00 10/05/16 08:59 09/10/16 08:35 Morphine Sulfate (Morphine Sulfate) 4 mg EVERY 4 HOURS PRN IVP Severe Pain (Pain Scale 7-10) 09/05/16 00:00 09/12/16 00:00 Ondansetron HCl (Zofran) 4 mg Q6H PRN IVP Nausea & Vomiting 09/05/16 00:00 10/05/16 00:00 Pantoprazole 40 mg 40 mg DAILY IVP 09/05/16 14:00 10/05/16 13:59 09/10/16 08:36 Polyethylene Glycol (Miralax) 17 gm DAILYPRN PRN ORAL Constipation 09/05/16 00:00 10/05/16 00:00 Vancomycin HCl 1 ea 1 ea DAILY PRN MISC . 09/08/16 12:15 10/08/16 12:14 Vancomycin HCl/ Dextrose (Vancomycin/D5W) 325 ml @ 162.5 mls/ hr Q24H IVPB 09/08/16 20:00 09/12/16 19:59 09/09/16 20:10 JAKUB MORALES Sep 10, 2016 12:00
--- NOTE | 2016-09-10 19:24 | Infectious Diseases Prog Note ---
Assessment/Plan Assessment/Plan ASSESSMENT: 60-year-old male with: // Multiple decubiti POA, not grossly infected / osteomyelitis - appear improved Wnd CX : Providencia ( MDR )( probable colonizer ) - SP debridement, bone bx 08/08 - Cx VRE.faecalis, MDR-ACB - elevated ESR, CRP - Bone scan 07/01: Limited, essentially nondiagnostic exam. No gross findings to suggest acute osteomyelitis - h/o MDR-K.pneumoniae, VRE.faecalis, CONS, C.albicans // h/o recurrent CONS bacteremias r/o recurrence - surveillance BCx pending - h/o recurrent CONS 2/4 (05/09) SP IV vanco x28d - h/o CONS 3/4 (04/19 ) SP Rx IV vanco x7d - TTE 05/11: poorly visualized valves, poor candidate MARIA C - h/o CONS cath tip colonization ( <10K ) // h/o recurrent PNAs ( VAP / HCAP ) / tracheobronchitis' r/o recurrence - SCx : Providencia ( MDR ) - CXR 09/04: Bilateral congestive changes, underlying atelectasis or pneumonias, or other pulmonary parenchymal pathology in either or both lung bases not excludable, unchanged - h/o qI,S-PSA, P.stuartii, ESBL(+) K.pneumoniae, S.maltophilia, diptheroids // h/o recurrent UTIs r/o recurrence - UA benign, UCx YEAST ( COLONIZER AT THIS TIME ) - US: Mild left hydronephrosis, new since prior study of 04/21/2016. Etiology not demonstrated but concerning for downstream obstruction - h/o E.coli, K.pneumoniae SP Rx // Elevated LFTs, GGT - chronic, stable - US: Equivocally visualized stone filled gallbladder, versus shadowing from duodenal gas. Mildly dilated CBD, downstream obstruction not excludable - negative: AMA, hepatitis panel // Negative influenza // Probable recurrent sepsis // Chronic hypotension, on midodrine // Leukocytosis improved // Fever - Low grade Chronic VDRF SP trach, PEG Anoxic encephalopathy / dementia History of glioblastoma multiforme Chronic macrocytic anemia Functional quadriplegia / bedbound / contracted [place] resident MDRO colonized PCN allergy - unable to qualify. Tolerates cefepime, meropenem Full Code PLAN: continue IV vancomycin d# 6 , Merrem d# 2 ( 09/09 SP change cefepime d# 5 ) ( 08/19 Tygacil d# , Ceftaz d# / ?completed course at [place] ) ( 08/12 SP IV vancomycin d# 13 and Flagyl d# 9 ) ( SP aztreonam d# 12 ) ( 08/04 SP levaquin d# 5 ) ( 07/05 SP IV vancomycin, aztreonam d# 7 / 7 ) ( 06/26 SP Merrem d# 6, cefepime d# 14 ) ( SP IV vancomycin, d# 6 and flagyl d# 3 ) ( SP IV vancomycin d# / ( 05/13 SP aztreonam, amikacin d# 5 / 5 ) ( 05/02 SP aztreonam d# 14 / 14 ) ( 04/25 SP vancomycin d# 7 / 7 ) f/u cultures Monitor CBC, temperatures Monitor CMP Monitor chest x-ray vent support, trach care, aspiration precautions wound care contact isolation Subjective Constitutional: Denies: anorexia, chills, drenching sweats, fatigue, fever, no symptoms, other Allergies: Coded Allergies: PENICILLINS (Verified Allergy, Unknown, 04/19/16) Objective Vital Signs Last 24 Hour Vital Signs Date Time Temp Pulse Resp B/P Pulse Ox O2 Delivery O2 Flow Rate FiO2 09/10/16 19:12 83 20 40 09/10/16 16:11 96.8 84 22 91/46 100 Mechanical Ventilator 40 09/10/16 16:00 40 09/10/16 16:00 85 09/10/16 14:38 71 20 40 09/10/16 13:01 70 20 40 09/10/16 12:08 40 09/10/16 12:08 96.8 84 20 103/66 97 Mechanical Ventilator 40 09/10/16 12:00 80 09/10/16 10:37 73 20 40 09/10/16 09:11 72 20 40 09/10/16 08:15 97.5 82 18 97/60 97 09/10/16 08:00 84 09/10/16 08:00 40 09/10/16 06:45 79 20 40 09/10/16 05:38 97.9 88 20 93/60 99 Mechanical Ventilator 40 09/10/16 05:00 83 20 40 09/10/16 04:00 40 09/10/16 04:00 86 09/10/16 04:00 97.9 88 20 93/60 99 Mechanical Ventilator 40 09/10/16 02:39 96 20 40 09/10/16 02:29 93 20 40 09/10/16 01:03 95 20 40 09/10/16 00:23 97.7 90 20 98/59 100 Mechanical Ventilator 40 09/10/16 00:00 40 09/10/16 00:00 87 09/09/16 23:08 98 20 40 09/09/16 20:47 89 20 40 09/09/16 20:00 97.9 88 20 102/61 100 Mechanical Ventilator 40 09/09/16 20:00 91 09/09/16 20:00 40 Height (Feet): 5 Height (Inches): 5.00 Weight (Pounds): 140 HEENT: anicteric Respiratory/Chest: lungs clear, normal breath sounds Cardiovascular: normal rate, regular rhythm Abdomen: soft, non tender, no organomegaly Microbiology Date/Time Source Procedure Growth Status 09/09/16 22:40 Stool Clostridium difficile Toxin Assay - Final Complete Laboratory Tests Test 09/10/16 05:20 White Blood Count 11.5 K/UL (4.8-10.8) H Red Blood Count 2.93 M/UL (4.70-6.10) L Hemoglobin 8.5 G/DL (14.2-18.0) L Hematocrit 27.7 % (42.0-52.0) L Mean Corpuscular Volume 95 FL (80-99) Mean Corpuscular Hemoglobin 29.0 PG (27.0-31.0) Mean Corpuscular Hemoglobin Concent 30.7 G/DL (32.0-36.0) L Red Cell Distribution Width 19.1 % (11.6-14.8) H Platelet Count 417 K/UL (150-450) Mean Platelet Volume 5.6 FL (6.5-10.1) L Neutrophils (%) (Auto) 74.3 % (45.0-75.0) Lymphocytes (%) (Auto) 15.6 % (20.0-45.0) L Monocytes (%) (Auto) 7.2 % (1.0-10.0) Eosinophils (%) (Auto) 2.0 % (0.0-3.0) Basophils (%) (Auto) 0.9 % (0.0-2.0) Sodium Level 140 mEQ/L (135-145) Potassium Level 4.1 mEQ/L (3.4-4.9) Chloride Level 104 mEQ/L (98-107) Carbon Dioxide Level 22 mEQ/L (20-30) Anion Gap 14 (5-15) Blood Urea Nitrogen 20 mg/dL (7-23) Creatinine 0.4 mg/dL (0.7-1.2) L Estimat Glomerular Filtration Rate > 60 mL/min (>60) Glucose Level 99 mg/dL (74-106) Calcium Level 8.7 mg/dL (8.6-10.2) Phosphorus Level 2.4 mg/dL (2.5-4.8) L Magnesium Level 2.0 mg/dL (1.7-2.5) Total Bilirubin 0.3 mg/dL (0.0-1.2) Aspartate Amino Transf (AST/SGOT) 26 U/L (5-40) Alanine Aminotransferase (ALT/SGPT) 32 U/L (3-41) Alkaline Phosphatase 1204 U/L (40-129) H Total Protein 5.7 g/dL (6.6-8.7) L Albumin 2.2 g/dL (3.5-5.2) L Globulin 3.5 g/dL Albumin/Globulin Ratio 0.6 (1.0-2.7) L Current Medications Medications (Trade) Dose Ordered Sig/Tanisha Route PRN Reason Start Time Stop Time Status Last Admin Dose Admin Acetaminophen (Tylenol) 650 mg Q4H PRN ORAL FEVER 09/05/16 00:00 10/05/16 00:00 09/07/16 20:55 Dextrose (Dextrose 50%) STAT PRN IV Hypoglycemia 09/05/16 00:00 10/05/16 00:00 Heparin Sodium (Porcine) (Heparin 5000 units/ml) 5,000 units EVERY 12 HOURS SUBQ 09/05/16 09:00 10/05/16 08:59 09/10/16 08:36 Levothyroxine Sodium (Synthroid) 200 mcg DAILY@0630 GT 09/05/16 06:30 10/05/16 06:29 09/10/16 06:02 Lorazepam (Ativan 2mg/ml 1ml) 2 mg EVERY 2 HOURS PRN IV For Anxiety 09/05/16 00:00 09/12/16 00:00 Meropenem/Sodium Chloride (Merrem/Sodium Chloride) 110 ml @ 220 mls/hr Q8HR IVPB 09/08/16 12:00 09/13/16 11:59 09/10/16 13:57 Midodrine (Pro-Amatine) 2.5 mg THREE TIMES A DAY ORAL 09/05/16 09:00 10/05/16 08:59 09/10/16 17:39 Morphine Sulfate (Morphine Sulfate) 4 mg EVERY 4 HOURS PRN IVP Severe Pain (Pain Scale 7-10) 09/05/16 00:00 09/12/16 00:00 Ondansetron HCl (Zofran) 4 mg Q6H PRN IVP Nausea & Vomiting 09/05/16 00:00 10/05/16 00:00 Pantoprazole 40 mg 40 mg DAILY IVP 09/05/16 14:00 10/05/16 13:59 09/10/16 08:36 Polyethylene Glycol (Miralax) 17 gm DAILYPRN PRN ORAL Constipation 09/05/16 00:00 10/05/16 00:00 Vancomycin HCl 1 ea 1 ea DAILY PRN MISC . 09/08/16 12:15 10/08/16 12:14 Vancomycin HCl/ Dextrose (Vancomycin/D5W) 325 ml @ 162.5 mls/ hr Q24H IVPB 09/08/16 20:00 09/12/16 19:59 09/09/16 20:10 GURDEEP BHANDARI M.D. Sep 10, 2016 19:24
[2016-09-10] MEDS: Vancomycin 1.5 GM in D5W 325 ML IVPB SCH (20:12)
[2016-09-11] VITALS: BP 97/70
[2016-09-11 04:00] VITALS: BP 87/60
[2016-09-11] MEDS: Meropenem 1 GM in NS 110 ML IVPB SCH ×3 (05:48→21:47)
[2016-09-11 07:57] VITALS: BP 92/44
[2016-09-11] MEDS: Pantoprazole Inj IVP SCH (09:13)
[2016-09-11] MEDS: Heparin 5000 units/ml inj SUBQ SCH ×2 (09:17→21:47)
[2016-09-11 12:00] VITALS: BP 87/59
--- NOTE | 2016-09-11 13:36 | Infectious Diseases Prog Note ---
Assessment/Plan Assessment/Plan ASSESSMENT: 60-year-old male with: // Multiple decubiti POA, not grossly infected / osteomyelitis - appear improved Wnd CX : Providencia ( MDR )( probable colonizer ) - SP debridement, bone bx 08/08 - Cx VRE.faecalis, MDR-ACB - elevated ESR, CRP - Bone scan 07/01: Limited, essentially nondiagnostic exam. No gross findings to suggest acute osteomyelitis - h/o MDR-K.pneumoniae, VRE.faecalis, CONS, C.albicans // h/o recurrent CONS bacteremias r/o recurrence - surveillance BCx pending - h/o recurrent CONS 2/4 (05/09) SP IV vanco x28d - h/o CONS 3/4 (04/19 ) SP Rx IV vanco x7d - TTE 05/11: poorly visualized valves, poor candidate MARIA C - h/o CONS cath tip colonization ( <10K ) // h/o recurrent PNAs ( VAP / HCAP ) / tracheobronchitis' r/o recurrence - SCx : Providencia ( MDR ) and ( MDR Pseudomonas ?colonizer ) - CXR 09/04: Bilateral congestive changes, underlying atelectasis or pneumonias, or other pulmonary parenchymal pathology in either or both lung bases not excludable, unchanged - h/o qI,S-PSA, P.stuartii, ESBL(+) K.pneumoniae, S.maltophilia, diptheroids // h/o recurrent UTIs r/o recurrence - UA benign, UCx YEAST ( COLONIZER AT THIS TIME ) - US: Mild left hydronephrosis, new since prior study of 04/21/2016. Etiology not demonstrated but concerning for downstream obstruction - h/o E.coli, K.pneumoniae SP Rx // Elevated LFTs, GGT - chronic, stable - US: Equivocally visualized stone filled gallbladder, versus shadowing from duodenal gas. Mildly dilated CBD, downstream obstruction not excludable - negative: AMA, hepatitis panel // Negative influenza // Probable recurrent sepsis // Chronic hypotension, on midodrine // Leukocytosis improved // Fever - SP Chronic VDRF SP trach, PEG Anoxic encephalopathy / dementia History of glioblastoma multiforme Chronic macrocytic anemia Functional quadriplegia / bedbound / contracted [place] resident MDRO colonized PCN allergy - unable to qualify. Tolerates cefepime, meropenem Full Code PLAN: continue IV vancomycin d# 7 / 10 , Merrem d# 3 / 7 if more fever may add Gent ( 09/09 SP change cefepime d# 5 ) ( 08/19 Tygacil d# / , Ceftaz d# / ?completed course at [place] ) ( 08/12 SP IV vancomycin d# 13 and Flagyl d# 9 ) ( SP aztreonam d# 12 ) ( 08/04 SP levaquin d# 5 ) ( 07/05 SP IV vancomycin, aztreonam d# 7 / 7 ) ( 06/26 SP Merrem d# 6, cefepime d# 14 ) ( SP IV vancomycin, d# 6 and flagyl d# 3 ) ( SP IV vancomycin d# / ( 05/13 SP aztreonam, amikacin d# 5 / 5 ) ( 05/02 SP aztreonam d# 14 / 14 ) ( 04/25 SP vancomycin d# 7 / 7 ) f/u cultures Monitor CBC, temperatures Monitor CMP Monitor chest x-ray vent support, trach care, aspiration precautions wound care contact isolation Subjective Constitutional: Denies: anorexia, chills, drenching sweats, fatigue, fever, no symptoms, other Allergies: Coded Allergies: PENICILLINS (Verified Allergy, Unknown, 04/19/16) Objective Vital Signs Last 24 Hour Vital Signs Date Time Temp Pulse Resp B/P Pulse Ox O2 Delivery O2 Flow Rate FiO2 09/11/16 12:40 92 20 40 09/11/16 12:00 97.3 90 20 87/59 100 Mechanical Ventilator 40 09/11/16 10:35 86 20 40 09/11/16 08:58 87 09/11/16 08:35 89 20 40 09/11/16 08:00 40 09/11/16 08:00 87 09/11/16 07:57 97.5 92 20 92/44 100 Mechanical Ventilator 40 09/11/16 06:59 87 19 40 09/11/16 04:57 87 20 40 09/11/16 04:00 81 09/11/16 04:00 96.1 87 20 87/60 100 Mechanical Ventilator 40 09/11/16 04:00 40 09/11/16 02:52 86 19 40 09/11/16 01:24 87 18 40 1/26/17 00:00 40 09/11/16 00:00 96.6 86 20 97/70 100 Mechanical Ventilator 40 09/10/16 23:30 83 09/10/16 23:15 86 19 40 09/10/16 21:28 86 19 40 09/10/16 20:00 96.8 83 20 96/59 100 Mechanical Ventilator 40 09/10/16 20:00 40 09/10/16 20:00 83 09/10/16 19:12 83 20 40 09/10/16 16:11 96.8 84 22 91/46 100 Mechanical Ventilator 40 09/10/16 16:00 40 09/10/16 16:00 85 09/10/16 14:38 71 20 40 Height (Feet): 5 Height (Inches): 5.00 Weight (Pounds): 140 HEENT: atraumatic Respiratory/Chest: lungs clear Cardiovascular: normal rate, regular rhythm Abdomen: soft, non tender, no organomegaly Microbiology Date/Time Source Procedure Growth Status 09/09/16 22:40 Stool Clostridium difficile Toxin Assay - Final Complete Current Medications Medications (Trade) Dose Ordered Sig/Tanisha Route PRN Reason Start Time Stop Time Status Last Admin Dose Admin Acetaminophen (Tylenol) 650 mg Q4H PRN ORAL FEVER 09/05/16 00:00 10/05/16 00:00 09/07/16 20:55 Dextrose (Dextrose 50%) STAT PRN IV Hypoglycemia 09/05/16 00:00 10/05/16 00:00 Heparin Sodium (Porcine) (Heparin 5000 units/ml) 5,000 units EVERY 12 HOURS SUBQ 09/05/16 09:00 10/05/16 08:59 09/11/16 09:17 Levothyroxine Sodium (Synthroid) 200 mcg DAILY@0630 GT 09/05/16 06:30 10/05/16 06:29 09/11/16 06:04 Lorazepam (Ativan 2mg/ml 1ml) 2 mg EVERY 2 HOURS PRN IV For Anxiety 09/05/16 00:00 09/12/16 00:00 Meropenem/Sodium Chloride (Merrem/Sodium Chloride) 110 ml @ 220 mls/hr Q8HR IVPB 09/08/16 12:00 09/13/16 11:59 09/11/16 05:48 Midodrine (Pro-Amatine) 2.5 mg THREE TIMES A DAY ORAL 09/05/16 09:00 10/05/16 08:59 09/11/16 09:14 Morphine Sulfate (Morphine Sulfate) 4 mg EVERY 4 HOURS PRN IVP Severe Pain (Pain Scale 7-10) 09/05/16 00:00 09/12/16 00:00 Ondansetron HCl (Zofran) 4 mg Q6H PRN IVP Nausea & Vomiting 09/05/16 00:00 10/05/16 00:00 Pantoprazole 40 mg 40 mg DAILY IVP 09/05/16 14:00 10/05/16 13:59 09/11/16 09:13 Polyethylene Glycol (Miralax) 17 gm DAILYPRN PRN ORAL Constipation 09/05/16 00:00 10/05/16 00:00 Vancomycin HCl 1 ea 1 ea DAILY PRN MISC . 09/08/16 12:15 10/08/16 12:14 Vancomycin HCl/ Dextrose (Vancomycin/D5W) 325 ml @ 162.5 mls/ hr Q24H IVPB 09/08/16 20:00 09/16/16 19:59 09/10/16 20:12 GURDEEP BHANDARI M.D. Sep 11, 2016 13:36
[2016-09-11 16:00] VITALS: BP 96/75
[2016-09-11] MEDS ORDERED: NS 275ml ONE (18:16)
[2016-09-11] MEDS ORDERED: Tubing IV Secondary IV ONE (18:16)
[2016-09-11] MEDS: Vancomycin 1.5 GM in D5W 325 ML IVPB SCH (19:37)
[2016-09-11 19:51] VITALS: BP 100/70
[2016-09-12] VITALS: BP 91/65
[2016-09-12 04:00] VITALS: BP 97/71
[2016-09-12] MEDS: Meropenem 1 GM in NS 110 ML IVPB SCH ×2 (05:25→13:22)
[2016-09-12 08:00] VITALS: BP 102/65
[2016-09-12] MEDS: Pantoprazole Inj IVP SCH (08:54)
[2016-09-12] MEDS: Heparin 5000 units/ml inj SUBQ SCH (08:57)
--- NOTE | 2016-09-12 10:32 | Pulmonology Progress Note ---
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 Discussed with: consultants, caser Subjective ROS Limited/Unobtainable: No Allergies: Coded Allergies: PENICILLINS (Verified Allergy, Unknown, 04/19/16) Objective Last 24 Hour Vital Signs Date Time Temp Pulse Resp B/P Pulse Ox O2 Delivery O2 Flow Rate FiO2 09/12/16 09:01 98 21 40 09/12/16 08:00 97 09/12/16 08:00 98.2 97 20 102/65 100 Mechanical Ventilator 40 09/12/16 08:00 40 09/12/16 07:00 91 18 40 09/12/16 05:02 98 23 40 09/12/16 04:00 97.3 96 20 97/71 100 Mechanical Ventilator 40 09/12/16 04:00 40 09/12/16 03:58 90 09/12/16 03:24 89 22 40 09/12/16 01:10 91 21 40 09/12/16 00:00 96.8 93 20 91/65 100 Mechanical Ventilator 40 09/12/16 00:00 40 09/11/16 23:54 87 09/11/16 23:40 89 20 40 09/11/16 22:19 91 09/11/16 20:29 81 22 40 09/11/16 20:01 87 20 40 09/11/16 19:53 40 09/11/16 19:51 96.4 91 20 100/70 100 Mechanical Ventilator 40 09/11/16 16:45 81 20 40 09/11/16 16:00 96.6 90 19 96/75 99 Mechanical Ventilator 40 09/11/16 16:00 40 09/11/16 16:00 92 09/11/16 14:45 91 20 40 09/11/16 12:40 92 20 40 09/11/16 12:00 40 09/11/16 12:00 75 09/11/16 12:00 97.3 90 20 87/59 100 Mechanical Ventilator 40 09/11/16 10:35 86 20 40 Intake and Output 09/11/16 09/12/16 19:00 07:00 Intake Total 1090 ml 740 ml Output Total 500 ml 1275 ml Balance 590 ml -535 ml Intake Free Water 200 ml 200 ml IV Total 110 ml Tube Feeding 720 ml 540 ml Other 60 ml Output Urine Total 500 ml 1275 ml # Bowel Movements 2 1 General Appearance: WD/WN HEENT: normocephalic, atraumatic Respiratory/Chest: chest wall non-tender, lungs clear Cardiovascular: normal peripheral pulses, normal rate, no JVD Abdomen: normal bowel sounds Extremities: no cyanosis, no clubbing Skin: no lesions Microbiology Date/Time Source Procedure Growth Status 09/09/16 22:40 Stool Clostridium difficile Toxin Assay - Final Complete Current Medications Medications (Trade) Dose Ordered Sig/Tanisha Route PRN Reason Start Time Stop Time Status Last Admin Dose Admin Acetaminophen (Tylenol) 650 mg Q4H PRN ORAL FEVER 09/05/16 00:00 10/05/16 00:00 09/07/16 20:55 Dextrose (Dextrose 50%) STAT PRN IV Hypoglycemia 09/05/16 00:00 10/05/16 00:00 Heparin Sodium (Porcine) (Heparin 5000 units/ml) 5,000 units EVERY 12 HOURS SUBQ 09/05/16 09:00 10/05/16 08:59 09/12/16 08:57 Levothyroxine Sodium (Synthroid) 200 mcg DAILY@0630 GT 09/05/16 06:30 10/05/16 06:29 09/12/16 06:15 Meropenem/Sodium Chloride (Merrem/Sodium Chloride) 110 ml @ 220 mls/hr Q8HR IVPB 09/08/16 12:00 09/13/16 11:59 09/12/16 05:25 Midodrine (Pro-Amatine) 2.5 mg THREE TIMES A DAY ORAL 09/05/16 09:00 10/05/16 08:59 09/12/16 08:54 Ondansetron HCl (Zofran) 4 mg Q6H PRN IVP Nausea & Vomiting 09/05/16 00:00 10/05/16 00:00 Pantoprazole 40 mg 40 mg DAILY IVP 09/05/16 14:00 10/05/16 13:59 09/12/16 08:54 Polyethylene Glycol (Miralax) 17 gm DAILYPRN PRN ORAL Constipation 09/05/16 00:00 10/05/16 00:00 Vancomycin HCl 1 ea 1 ea DAILY PRN MISC . 09/08/16 12:15 10/08/16 12:14 Vancomycin HCl/ Dextrose (Vancomycin/D5W) 325 ml @ 162.5 mls/ hr Q24H IVPB 09/08/16 20:00 09/16/16 19:59 09/11/16 19:37 JAKUB MORALES Sep 12, 2016 10:32
--- NOTE | 2016-09-12 10:43 | Infectious Diseases Prog Note ---
Assessment/Plan Assessment/Plan ASSESSMENT: 60-year-old male with: // Multiple decubiti POA, not grossly infected / osteomyelitis - appear improved Wnd CX : Providencia ( MDR )( probable colonizer ) - SP debridement, bone bx 08/08 - Cx VRE.faecalis, MDR-ACB - elevated ESR, CRP - Bone scan 07/01: Limited, essentially nondiagnostic exam. No gross findings to suggest acute osteomyelitis - h/o MDR-K.pneumoniae, VRE.faecalis, CONS, C.albicans // h/o recurrent CONS bacteremias r/o recurrence - surveillance BCx pending - h/o recurrent CONS 2/4 (05/09) SP IV vanco x28d - h/o CONS 3/4 (04/19 ) SP Rx IV vanco x7d - TTE 05/11: poorly visualized valves, poor candidate MARIA C - h/o CONS cath tip colonization ( <10K ) // h/o recurrent PNAs ( VAP / HCAP ) / tracheobronchitis' r/o recurrence - SCx : Providencia ( MDR ) and ( MDR Pseudomonas ?colonizer ) - CXR 09/04: Bilateral congestive changes, underlying atelectasis or pneumonias, or other pulmonary parenchymal pathology in either or both lung bases not excludable, unchanged - h/o qI,S-PSA, P.stuartii, ESBL(+) K.pneumoniae, S.maltophilia, diptheroids // h/o recurrent UTIs r/o recurrence - UA benign, UCx YEAST ( COLONIZER AT THIS TIME ) - US: Mild left hydronephrosis, new since prior study of 04/21/2016. Etiology not demonstrated but concerning for downstream obstruction - h/o E.coli, K.pneumoniae SP Rx // Elevated LFTs, GGT - chronic, stable - US: Equivocally visualized stone filled gallbladder, versus shadowing from duodenal gas. Mildly dilated CBD, downstream obstruction not excludable - negative: AMA, hepatitis panel // Negative influenza // Probable recurrent sepsis // Chronic hypotension, on midodrine // Leukocytosis improved // Fever - SP Chronic VDRF SP trach, PEG Anoxic encephalopathy / dementia History of glioblastoma multiforme Chronic macrocytic anemia Functional quadriplegia / bedbound / contracted [place] resident MDRO colonized PCN allergy - unable to qualify. Tolerates cefepime, meropenem Full Code PLAN: continue IV vancomycin d# 8 / 10 , Merrem d# 4 / 7 if more fever may add Gent ( 09/09 SP change cefepime d# 5 ) ( 08/19 Tygacil d# , Ceftaz d# 9 / ?completed course at [place] ) ( 08/12 SP IV vancomycin d# 13 and Flagyl d# 9 ) ( SP aztreonam d# 12 ) ( 08/04 SP levaquin d# 5 ) ( 07/05 SP IV vancomycin, aztreonam d# 7 / 7 ) ( 06/26 SP Merrem d# 6, cefepime d# 14 ) ( SP IV vancomycin, d# 6 and flagyl d# 3 ) ( SP IV vancomycin d# / ( 05/13 SP aztreonam, amikacin d# 5 / 5 ) ( 05/02 SP aztreonam d# 14 / 14 ) ( 04/25 SP vancomycin d# 7 / 7 ) Monitor CBC, temperatures Monitor CMP Monitor chest x-ray vent support, trach care, aspiration precautions wound care contact isolation Subjective Constitutional: Denies: anorexia, chills, drenching sweats, fatigue, fever, no symptoms, other Allergies: Coded Allergies: PENICILLINS (Verified Allergy, Unknown, 04/19/16) Objective Vital Signs Last 24 Hour Vital Signs Date Time Temp Pulse Resp B/P Pulse Ox O2 Delivery O2 Flow Rate FiO2 09/12/16 09:01 98 21 40 09/12/16 08:00 97 09/12/16 08:00 98.2 97 20 102/65 100 Mechanical Ventilator 40 09/12/16 08:00 40 09/12/16 07:00 91 18 40 09/12/16 05:02 98 23 40 09/12/16 04:00 97.3 96 20 97/71 100 Mechanical Ventilator 40 09/12/16 04:00 40 09/12/16 03:58 90 09/12/16 03:24 89 22 40 09/12/16 01:10 91 21 40 09/12/16 00:00 96.8 93 20 91/65 100 Mechanical Ventilator 40 09/12/16 00:00 40 09/11/16 23:54 87 09/11/16 23:40 89 20 40 09/11/16 22:19 91 09/11/16 20:29 81 22 40 09/11/16 20:01 87 20 40 09/11/16 19:53 40 09/11/16 19:51 96.4 91 20 100/70 100 Mechanical Ventilator 40 09/11/16 16:45 81 20 40 09/11/16 16:00 96.6 90 19 96/75 99 Mechanical Ventilator 40 09/11/16 16:00 40 09/11/16 16:00 92 09/11/16 14:45 91 20 40 09/11/16 12:40 92 20 40 09/11/16 12:00 40 09/11/16 12:00 75 09/11/16 12:00 97.3 90 20 87/59 100 Mechanical Ventilator 40 Height (Feet): 5 Height (Inches): 5.00 Weight (Pounds): 140 HEENT: atraumatic Respiratory/Chest: normal breath sounds Cardiovascular: no gallop/murmur Microbiology Date/Time Source Procedure Growth Status 09/09/16 22:40 Stool Clostridium difficile Toxin Assay - Final Complete Current Medications Medications (Trade) Dose Ordered Sig/Tanisha Route PRN Reason Start Time Stop Time Status Last Admin Dose Admin Acetaminophen (Tylenol) 650 mg Q4H PRN ORAL FEVER 09/05/16 00:00 10/05/16 00:00 09/07/16 20:55 Dextrose (Dextrose 50%) STAT PRN IV Hypoglycemia 09/05/16 00:00 10/05/16 00:00 Heparin Sodium (Porcine) (Heparin 5000 units/ml) 5,000 units EVERY 12 HOURS SUBQ 09/05/16 09:00 10/05/16 08:59 09/12/16 08:57 Levothyroxine Sodium (Synthroid) 200 mcg DAILY@0630 GT 09/05/16 06:30 10/05/16 06:29 09/12/16 06:15 Meropenem/Sodium Chloride (Merrem/Sodium Chloride) 110 ml @ 220 mls/hr Q8HR IVPB 09/08/16 12:00 09/13/16 11:59 09/12/16 05:25 Midodrine (Pro-Amatine) 2.5 mg THREE TIMES A DAY ORAL 09/05/16 09:00 10/05/16 08:59 09/12/16 08:54 Ondansetron HCl (Zofran) 4 mg Q6H PRN IVP Nausea & Vomiting 09/05/16 00:00 10/05/16 00:00 Pantoprazole 40 mg 40 mg DAILY IVP 09/05/16 14:00 10/05/16 13:59 09/12/16 08:54 Polyethylene Glycol (Miralax) 17 gm DAILYPRN PRN ORAL Constipation 09/05/16 00:00 10/05/16 00:00 Vancomycin HCl 1 ea 1 ea DAILY PRN MISC . 09/08/16 12:15 10/08/16 12:14 Vancomycin HCl/ Dextrose (Vancomycin/D5W) 325 ml @ 162.5 mls/ hr Q24H IVPB 09/08/16 20:00 09/16/16 19:59 09/11/16 19:37 GURDEEP BHANDARI M.D. Sep 12, 2016 10:43
[2016-09-12] MEDS ORDERED: VANCO 1.51.5 GM/250 IV (11:20)
[2016-09-12] MEDS ORDERED: MEROPENEM1 GM IV (11:22)
[2016-09-12 12:10] VITALS: BP 105/78
[2016-09-12 16:00] VITALS: BP 97/57
[2016-09-12] MEDS ORDERED: NS 275ml ONE (19:59)
[2016-09-12] MEDS ORDERED: Tubing IV Secondary IV ONE (19:59)
[2016-09-12 20:00] VITALS: BP 96/63
--- NOTE | 2016-09-15 12:48 | Discharge Summary ---
Discharge Summary Hospital Course Date of Admission Sep 04, 2016 at 21:00 Date of Discharge Sep 12, 2016 at 20:00 Admitting Diagnosis sepsis HPI Erik Montelongo is a 60 year old male who was admitted on Sep 04, 2016 at 21:00 for Sepsis Hospital Course dc summary dictated #[id number] Discharge Medications Continued Medications: Acetaminophen (Acetaminophen 8 Hour) 650 Mg Tablet.er 650 MG GT Q4HR PRN for Prn Headache/Temp > 101, TAB Amino Acids/Protein Hydrolys (Pro-Stat Max Liquid) 887 Ml Liquid 30 ML GT TID, ML Ascorbic Acid* (Vitamin C*) 500 Mg Tablet 500 MG GT DAILY, #30 TAB 0 Refills Carboxymethylcellulose Sodium (Refresh Tears) 15 Ml Drops 1 DRP OP TID, ML Docusate Sodium* (Colace*) 100 Mg Capsule 100 MG GT DAILY, CAP Epoetin Bobby (Epogen) 20,000 Unit/2 Ml Vial 5000 UNIT SUBQ 3XW, VIAL Famotidine (Famotidine) 20 Mg Tablet 20 MG GT Q12HR, #60 TAB 0 Refills Heparin Sodium,Porcine/Ns/Pf (Heparin) 2,000 Unit/1000 Ml Iv.soln 5000 UNIT SUBQ BID Hydrocodone Bit/Acetaminophen 5-325* ([place] 5-325 Tablet*) 1 Each Tablet 2 TAB ORAL EVERY 8 HOURS PRN for For Pain, TAB Insulin Aspart (Novolog) 100 Unit/1 Ml Vial Lactobacillus Acidophilus (Acidophilus) 1 Each Capsule 1 EACH GT DAILY, CAP Lactobacillus Acidophilus (Acidophilus Lactobacillus) 1 Gm Powder 1 GM GT DAILY, GM Levothyroxine Sodium* (Levothyroxine Sodium*) 125 Mcg Tablet 200 MCG GT DAILY, TAB Take in the morning on an empty stomach, at least 30 minutes before food. Lorazepam* (Ativan*) 1 Mg Tablet 1 MG ORAL EVERY 6 HOURS PRN for For Anxiety, TAB Meropenem (Meropenem) 1 Gm Vial 1 GM IV Q8HR for 3 Days, VIAL Midodrine* (Proamatine*) 5 Mg Tablet 5 MG GT THREE TIMES A DAY, TAB Ondansetron* (Zofran*) 4 Mg/2 Ml Vial 4 MG IV Q6H PRN for Nausea & Vomiting, VIAL Polyethylene Glycol 3350* (Polyethylene Glycol 3350*) 17 Gm Powd.pack 17 GM ORAL DAILY, PACKET Polyethylene Glycol 3350* (Miralax*) 17 Gm Powd.pack 17 GM ORAL DAILY, PACKET Polyvinyl Alcohol/Povidone/Pf (Refresh Classic Eye Drops) 1 Each Droperette 1 EACH OP TID PRN for Dry Eyes Ranitidine Hcl* (Zantac*) 150 Mg Tablet 150 MG GT TWICE A DAY, TAB Vancomycin/0.9 % Sod Chloride (Vanco 1.5 gm/250 ml-0.9% NaCl) 1.5 Gm/250 Ml Plast..bag 1.5 GM IV DAILY for 2 Days, BAG Zinc Sulfate (Zinc Sulfate*) 220 Mg Capsule 220 MG GT DAILY, CAP 0 Refills Discontinued Medications: Levothyroxine Sodium* (Levothyroxine Sodium*) 100 Mcg Tablet 200 MCG GT DAILY, TAB Take in the morning on an empty stomach, at least 30 minutes before food. Midodrine* (Proamatine*) 2.5 Mg Tablet 2.5 MG ORAL THREE TIMES A DAY, TAB [prostat] () 30 ML GT TID Discharge Condition Upon Discharge: stable Discharge Disposition Patient was discharged to SNF/Subacute Facility(03) Discharge Diagnoses: Delfino (De)Namrata NP Sep 15, 2016 12:48
--- NOTE | 2016-09-16 08:58 | Discharge Summary 2 SIG ---
DATE OF ADMISSION: 09/04/2016 DATE OF DISCHARGE: 09/12/2016 REASON FOR ADMISSION: The patient is a resident of [facility] with a ventilator-dependent respiratory failure, chronically debilitated, noted to have a fever at the [facility] of 102. The patient was brought to the emergency room for evaluation. The patient unable to provide any history. A full sepsis evaluation and initiation of fluid and antibiotics was started in the emergency room due to the complexity and chronically ill patient. Examination revealed that the most likely source was pulmonary. The patient had a chest x-ray done, which revealed bilateral infiltrates, minimally elevated proBNP. Urine was clear. The patient was anemic, mild leukocytosis, relative hypoxemia. The patient was hypotensive, but responded to fluids. The patient was admitted to the [facility] for further management. ADMITTING DIAGNOSES: 1. Sepsis. 2. Healthcare-associated pneumonia, VDRL. 3. Tracheostomy. 4. Acute on chronic respiratory failure. 5. Dysphagia, gastrostomy tube. HOSPITAL COURSE: The patient was admitted to [facility]. The patient was started on empiric antibiotic. ID consult was requested. Wound care nurse was requested due to multiple decubiti, present on admission. Ventilator and tracheostomy care provided, pulmonary toilet provided. ABG was stable on current settings . Settings kept as is and need to be titrated as needed. Initial chest x-ray demonstrated bilateral congestive changes, infiltrates. Followup chest x-ray with some improvement. Urine culture was positive for yeast, likely colonized as per ID. Blood culture negative. Influenza screen negative. Stool C. difficile negative. Sputum culture positive for Providencia and Pseudomonas, status post intravenous medication, continue two more days of vancomycin, 3 more days of meropenem at the [facility] as per ID recommendations. Decubiti not appear to be grossly infected, likely colonization as per ID. Recent bone debridement done, status post treatment. A prior bone scan revealed no evidence of osteomyelitis. Strict aspiration precautions were maintained. G-tube feeding started, able to tolerate. Blood pressure support was done with midodrine and was stable. Patient with known baseline hypotension. Hemoglobin and hematocrit were stable. Venous duplex of bilateral lower extremities was negative. DVT and GI prophylaxis provided. Pain management provided. Bowel regimen instituted. LFT trending down and currently normal. The patient did not require any transfusion at this time. The patient has a history of recurrent urinary tract infection, but UA was benign on this\ admission. The source of sepsis - pneumonia. The leukocytosis down to minimal, afebrile, clinically improved, no signs of respiratory distress, tolerated feeding. All consultants cleared for discharge. FINAL DIAGNOSES: 1. Sepsis, 2. VDRF, tracheostomy status. 2. Healthcare-associated pneumonia with history of recurrent pneumonia. 3. 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 4. Multiple decubiti, present on admission, -not grossly infected. 5. History of recurrent urinary tract infection, no evidence of urinary tract infection on this admission. 6. Dehydration, - resolved. 7. Dysphagia, gastrostomy tube. 8. History of glioblastoma multiforme. 9. Protien calorie malnutrition. 10. Elevated transaminase- resolved. 11. Anoxic encephalopathy. 12. Chronic macrocytic anemia. 13. Functional quadriplegia. DISCHARGE MEDICATIONS: See medication reconciliation list. DISCHARGE INSTRUCTIONS: The patient to follow up with the primary medical doctor and resource engineer at the alf facility. Cherry Wei M.D. I have been assigned to dictate discharge summary on this account and I was not involved in the patient's management. Namrata EdwardsSt. Peter'S HospitalChepe N.PLucian DR: WILLIS JOB#: [id number] CC: GORDON
--- NOTE | 2016-09-18 12:59 | Diagnostic Imaging Report ---
Indication: Dyspnea Comparison: 09/04/16 A single view chest radiograph was obtained. Findings: There is some pulmonary edema present. Tracheostomy and PICC line are again noted. The right hemidiaphragm is markedly elevated. This is a chronic finding is been seen on multiple prior exams. Impression: Pulmonary edema without significant change
== END 2016-09-12 20:00 | DRG 720 ==
LOC: EDBD 19:19 → EMR 19:55 → EDBEDREQ 20:50 → 2W 21:00 → EDBEDREQ 22:39
PROC: 5A1955Z Respiratory Ventilation, Greater than 96 Consecutive Hours (ICD-10-PCS; principal; 2016-09-04)
DX: A41.9 Sepsis, unspecified organism (principal); J96.20 Acute and chronic respiratory failure, unspecified whether with hypoxia or hypercapnia; J18.9 Pneumonia, unspecified organism; G93.1 Anoxic brain damage, not elsewhere classified; L89.104 Pressure ulcer of unspecified part of back, stage 4; L89.214 Pressure ulcer of right hip, stage 4; L89.224 Pressure ulcer of left hip, stage 4; R40.3 Persistent vegetative state; L89.894 Pressure ulcer of other site, stage 4; Z99.11 Dependence on respirator [ventilator] status; L89.324 Pressure ulcer of left buttock, stage 4; Z85.841 Personal history of malignant neoplasm of brain; E11.9 Type 2 diabetes mellitus without complications; Z43.0 Encounter for attention to tracheostomy; Z43.1 Encounter for attention to gastrostomy; Z86.74 Personal history of sudden cardiac arrest; Z88.0 Allergy status to penicillin; R13.10 Dysphagia, unspecified; Y95 Nosocomial condition; E86.0 Dehydration; E46 Unspecified protein-calorie malnutrition; D53.9 Nutritional anemia, unspecified; R53.2 Functional quadriplegia; M86.9 Osteomyelitis, unspecified
CPT/HCPCS: 36415; 36600; 71010; 80048; 80053; 80069; 80202; 81003; 82550; 82553; 82803; 82962; 83605; 83735; 83880; 84100; 84484; 85007; 85025; 85610; 85730; 86710; 87040; 87070; 87081; 87086; 87181; 87205; 87493; 93005; 93970; 94002; 94003; J7620